=== PATIENT | female | born 1990 | race Caucasian/White ===

== ENCOUNTER → 2020-04-28 11:02 | Outpatient (REF) | payer OTHER, SELFPAY ==
--- NOTE | 2020-04-28 11:30 | CA_ITS ---
Transthoracic Echocardiogram Patient (Last, First, Middle): Bijan Pryor, Gender: Female Date of : 1990 Age: 30 Procedure Date: 04/28/2020 Procedure Type: Transthoracic Echocardiogram Location: OP Height: 160.02 cm Weight: 92.99 kg BSA: 1.95 m2 Heart Rate: bpm BP: 128 / 70 mmHg Fur Dry Cleaner: Edgar MD: Nino Will MD Sign Shop Supervisor: Nino Will MD Symptoms: R00.2 PALPITATIONS, R00.0 SINUS TACHYCARDIA Study Quality: Good ECG Rhythm: Sinus Conclusions: - Normal study Findings Left Ventricle Normal left ventricular size, thickness, and systolic function. The visually estimated ejection fraction is between 55-60%. Diastolic function is normal for age. Right Ventricle Normal right ventricular cavity size and systolic function. Atria Both atria are normal in size. There is no evidence of interatrial shunt. Aortic Valve Normal aortic valve structure and function. There is no aortic valve stenosis. There is no aortic valve regurgitation. Mitral Valve Normal mitral valve structure and function. There is trace mitral valve regurgitation. There is no mitral valve stenosis. Pulmonic Valve The pulmonic valve is likely normal. Tricuspid Valve Normal tricuspid valve structure. There is trace tricuspid valve regurgitation. The right ventricular systolic pressure is normal. The right ventricular systolic pressure is 24 mmHg. Normal right atrial pressure. There is no evidence of pulmonary hypertension. Great Vessels All visible segments of the aorta are normal in size. The pulmonary artery was not well visualized. Venous The inferior vena cava is normal in size and collapses greater than 50% with inspiration. Pericardium/Pleural There is no evidence of pericardial effusion. Prior Study Comparison No prior study available for comparison. Measurements 2D Linear Measurements RVIDd: 2.86 RVIDd Index: 1.47 IVSd: 0.84 0.6-0.9/0.6-1.0 cm LVIDd: 4.80 3.9-5.3/4.2-5.9 cm LVIDd Index: 2.46 2.4-3.2/2.2-3.1 cm/m2 LVIDs: 3.52 2.0-3.6 cm LVPWd: 0.90 0.7-1.1 cm Ao Root: 2.30 2.1-3.5 cm LA Diam: 3.20 2.7-3.8/3.0-4.0 cm LAIDs Index: 1.64 1.5-2.3 cm/m2 LV Mass: 176.83 67-162/88-224 g LV Mass Index: 90.68 43-95/49-115 g/m2 LVOT Diam: 2.10 3.0+(-)1.3 cm 2D Systolic Function EF 4C: 54.80 >55% EF 2C: 61.30 >55% EF BiP: 56.30 >55% Mitral Valve MV Pk E: 0.87 MV PK A: 0.60 MV Decel Time: 222.00 E/A: 1.50 E'Lateral: 18.50 E'Medial: 13.10 E/E' Med: 6.70 E/E' Lat: 4.70 PHT: 65.00 MVA PHT: 3.38 Decel [place]: 3.94 Aortic Valve AoV Pk Adrien: 1.12 AoV Mn Adrien: 0.82 AoV VTI: 0.20 AoV Pk Grad: 5.00 Aov Mn Grad: 3.00 YA Cont.VTI: 3.46 LVOT LVOT Pk Adrien: 0.97 LVOT Mn Adrien: 0.73 LVOT VTI: 0.20 LVOT Pk Grad: 4.00 LVOT Mn Grad: 2.00 LVOT Diam: 2.10 LVOT Area: 3.46 Diastolic Function MV Pk E: 0.87 MV Pk A: 0.60 E/A: 1.50 E'Medial: 13.10 E/E' Med: 6.70 E' Laterial: 18.50 E/E' Lat: 4.70 Tricuspid Valve TR Pk Adrien: 2.27 TR Pk Grad: 21.00 RA Press: 3.00 RVSP: 24.00 Great Vessels Aorta Ao Root-2D: 2.30 2.0-3.7 cm Ao Asc: 2.20 2.1-3.4 cm Ao Arch: 2.00 Updated in Other Vendor System with Status of Final Nino Will MD electronically signed on 04/28/2020 2:37:28 PM with status of Final
== END ==
LOC: HO.CARD 11:02
PROVIDERS: Visit Provider Internal Medicine Cardiovascular Disease
DX: R00.2 Palpitations (principal); R00.0 Tachycardia, unspecified
CPT/HCPCS: 93306

== ENCOUNTER → 2020-05-11 12:46 | Outpatient (REF) | payer OTHER, SELFPAY ==
--- NOTE | 2020-05-11 12:50 | HM_ITS ---
TEST PERFORMED: Cardiac event monitoring for 30 days. ENROLLMENT PERIOD: 05/11/2020 to 06/10/2020. REQUESTING PHYSICIAN: Dr. Will. INDICATION: Palpitations. FINDINGS: In the above monitoring period, the underlying rhythm was sinus. The recorded average rate is 96/min. There were no evidence of any supraventricular or ventricular arrhythmias or in fact any other abnormalities. CONCLUSION: Essentially unremarkable 30-day event monitor showing underlying sinus rhythm only. James Alvarez MD HS/MODL / [id number]
== END ==
LOC: HO.CARD 12:46
PROVIDERS: Visit Provider Internal Medicine Cardiovascular Disease
DX: R00.2 Palpitations (principal); R00.0 Tachycardia, unspecified
CPT/HCPCS: 93270

== ENCOUNTER 2020-05-16 16:40 | Outpatient (REF) | payer OTHER, SELFPAY | END 2020-05-16 16:41 | disposition home or self-care (01) | LOC: HO.LAB 16:40 | PROVIDERS: Visit Provider Internal Medicine | DX: Z20.828 Contact with and (suspected) exposure to other viral communicable diseases (principal) | CPT/HCPCS: C9803; U0003 ==

== ENCOUNTER 2020-05-26 15:40 | Outpatient (REF) | payer OTHER, SELFPAY | END 2020-05-26 15:41 | disposition home or self-care (01) | LOC: HO.LAB 15:40 | PROVIDERS: Visit Provider Internal Medicine | DX: Z20.828 Contact with and (suspected) exposure to other viral communicable diseases (principal) | CPT/HCPCS: C9803; U0003 ==

== ENCOUNTER → 2020-06-12 14:50 | Outpatient (BNVA) | payer OTHER, SELFPAY | PROVIDERS: PCP Internal Medicine; Referring Provider Internal Medicine; Visit Provider Internal Medicine Cardiovascular Disease | DX: Z76.89 Persons encountering health services in other specified circumstances (principal) ==

== ENCOUNTER 2020-06-14 16:35 | Outpatient (REF) | payer OTHER, SELFPAY | END 2020-06-14 16:36 | disposition home or self-care (01) | LOC: HO.LAB 16:35 | PROVIDERS: PCP Internal Medicine; Visit Provider Internal Medicine | DX: Z20.828 Contact with and (suspected) exposure to other viral communicable diseases (principal) | CPT/HCPCS: C9803; U0003 ==

== ENCOUNTER 2020-06-28 14:40 | Outpatient (REF) | payer OTHER, SELFPAY | END 2020-06-28 14:41 | disposition home or self-care (01) | LOC: HO.LAB 14:40 | PROVIDERS: PCP Internal Medicine; Visit Provider Internal Medicine | DX: Z20.828 Contact with and (suspected) exposure to other viral communicable diseases (principal) | CPT/HCPCS: C9803; U0003 ==

== ENCOUNTER → 2020-07-10 13:33 | Outpatient (BNVA) | payer OTHER, SELFPAY | PROVIDERS: PCP Internal Medicine; Referring Provider Internal Medicine; Visit Provider Internal Medicine Endocrinology, Diabetes & Metabolism | DX: Z76.89 Persons encountering health services in other specified circumstances (principal) ==

== ENCOUNTER 2020-07-10 14:04 | Outpatient (REF) | payer OTHER, SELFPAY | END 2020-07-10 14:05 | disposition home or self-care (01) | LOC: HO.LAB 14:04 | PROVIDERS: Visit Provider Internal Medicine | DX: Z20.822 Contact with and (suspected) exposure to COVID-19 (principal) | CPT/HCPCS: 36415; C9803; U0003 ==

== ENCOUNTER 2020-07-12 14:06 | Outpatient (REF) | payer OTHER, SELFPAY ==
[2020-07-12 15:35] LABS: TSH reflex Free T4 2.99 mIU/mL (0.32-4.0)
[2020-07-16 13:46] LABS: Vitamin D 25-OH, D2 <4 ng/mL; Vitamin D 25-OH, D3 23 ng/mL; Vitamin D 25-OH, Total 23 ng/mL (30-100)
== END 2020-07-12 14:07 | disposition home or self-care (01) ==
LOC: HO.LAB 14:06
PROVIDERS: Absent Provider Internal Medicine; PCP Internal Medicine; Visit Provider Internal Medicine Endocrinology, Diabetes & Metabolism
DX: E03.9 Hypothyroidism, unspecified (principal); E55.9 Vitamin D deficiency, unspecified
CPT/HCPCS: 36415; 82306; 84443

== ENCOUNTER → 2020-08-21 14:22 | Outpatient (BNVA) | payer OTHER, SELFPAY | PROVIDERS: PCP Internal Medicine; Referring Provider Internal Medicine; Visit Provider Internal Medicine Gastroenterology ==

== ENCOUNTER 2020-08-25 12:21 | Outpatient (REF) | payer OTHER, SELFPAY ==
[2020-08-25 14:10] LABS: MANUAL DIFF FLAG NO
[2020-08-25 14:13] LABS: Basophils Absolute Auto 0.1 X10*3/uL (0.0-0.2); Basophils Percent Auto 0.9 % (0-2); Eosinophils Absolute Auto 0.1 X10*3/uL (0.0-0.4); Eosinophils Percent Auto 1.6 % (0-4); Hemoglobin 12.7 g/dl (12.0-16.0); Imm Gran Abs Auto 0.02 X10*3/uL (0.00-0.03); Imm Gran Pct Auto 0.4 % (0.0-0.4); Lymphocytes Absolute Auto 1.6 X10*3/uL (1.2-4.9); Lymphocytes Percent Auto 27.4 % (20-40); Mean Corpuscular HGB Conc 32.6 g/dl (31.0-35.0); Mean Corpuscular Hemoglobin 29.1 pg (27.0-33.0); Mean Corpuscular Volume 89.2 fL (80-98); Mean Platelet Volume 9.4 fL (9.4-12.3); Monocytes Absolute Auto 0.6 X10*3/uL (0.1-1.2); Monocytes Percent Auto 9.9 % (2-11); Neutrophils Absolute Auto 3.4 X10*3/uL (2.0-8.3); Neutrophils Percent Auto 59.8 % (45-73); Platelet Count 362 X10*3/uL (160-400); Red Blood Count 4.37 X10*6/uL (4.20-5.50); Red Cell Distribution Width 12.6 % (11.0-16.0); White Blood Count 5.7 X10*3/uL (4.8-10.8)
[2020-08-25 15:01] LABS: Alanine Aminotransferase 35 U/L (0-31); Albumin Level 4.1 g/dL (3.5-5.0); Alkaline Phosphatase 50 U/L (39-117); Anion Gap 12 (12-20); Aspartate Amino Transferase 32 U/L (5-31); Bilirubin Total 0.4 mg/dL (0.0-1.0); Blood Urea Nitrogen 12 mg/dL (9-16); Calcium 9.1 mg/dL (8.4-10.2); Carbon Dioxide 26 mmol/L (22-29); Chloride 105 mmol/L (96-108); Estimated Glomerular Filt Rate > 60; Glucose Random 81 mg/dL (60-115); Potassium 4.5 mmol/L (3.3-5.1); Sodium 138 mmol/L (135-145); Total Protein 7.7 g/dL (6.5-8.0)
== END 2020-08-25 12:22 | disposition home or self-care (01) ==
LOC: HO.WFDLDS 12:21
PROVIDERS: Visit Provider Internal Medicine Gastroenterology
DX: K58.9 Irritable bowel syndrome, unspecified (principal)
CPT/HCPCS: 36415; 80053; 81382; 85025; 86140

== ENCOUNTER 2020-09-01 08:15 | Outpatient (REF) | payer OTHER, SELFPAY ==
[2020-09-01 08:53] LABS: Glucose Urine UA NEG (NEG); Leukocyte Esterase Urine NEG (NEG); Nitrite Urine NEG (NEG); PH 5.5 (5.0-8.0); Specific Gravity - Urine >= 1.030 (1.005-1.025); Urine Blood TRACE (NEG); Urine Ketones NEG (NEG); Urine Protein NEG (NEG-TRACE)
[2020-09-01 08:56] LABS: Appearance Urine CLEAR; Color Urine YELLOW
[2020-09-01 09:09] LABS: RBC Urine 0-2 /HPF (0); Squamous Epithelial Cell Urine 2+ /LPF; WBC Urine 0 /HPF (0-4)
[2020-09-01 09:47] LABS: TSH reflex Free T4 3.81 uIU/mL (0.32-4.0)
== END 2020-09-01 08:16 | disposition home or self-care (01) ==
LOC: HO.LAB 08:15
PROVIDERS: Absent Provider Internal Medicine Endocrinology, Diabetes & Metabolism; PCP Internal Medicine; Visit Provider Internal Medicine
DX: E06.3 Autoimmune thyroiditis (principal)
CPT/HCPCS: 36415; 81001; 84443

== ENCOUNTER 2020-09-13 08:54 | Outpatient (REF) | payer OTHER, SELFPAY ==
[2020-09-13 10:24] LABS: MANUAL DIFF FLAG NO
[2020-09-13 10:26] LABS: Basophils Percent Auto 0.8 % (0-2); Eosinophils Absolute Auto 0.1 X10*3/uL (0.0-0.4); Eosinophils Percent Auto 1.2 % (0-4); Hematocrit 37.2 % (37-47); Hemoglobin 12.1 g/dl (12.0-16.0); Imm Gran Abs Auto 0.01 X10*3/uL (0.00-0.03); Imm Gran Pct Auto 0.2 % (0.0-0.4); Lymphocytes Absolute Auto 1.3 X10*3/uL (1.2-4.9); Lymphocytes Percent Auto 24.5 % (20-40); Mean Corpuscular HGB Conc 32.5 g/dl (31.0-35.0); Mean Corpuscular Hemoglobin 28.8 pg (27.0-33.0); Mean Corpuscular Volume 88.6 fL (80-98); Mean Platelet Volume 9.2 fL (9.4-12.3); Monocytes Absolute Auto 0.4 X10*3/uL (0.1-1.2); Monocytes Percent Auto 8.4 % (2-11); Neutrophils Absolute Auto 3.3 X10*3/uL (2.0-8.3); Neutrophils Percent Auto 64.9 % (45-73); Platelet Count 344 X10*3/uL (160-400); Red Cell Distribution Width 13.1 % (11.0-16.0); White Blood Count 5.1 X10*3/uL (4.8-10.8)
[2020-09-13 10:41] LABS: Glucose Urine UA NEG (NEG); Leukocyte Esterase Urine NEG (NEG); Nitrite Urine NEG (NEG); PH 5.5 (5.0-8.0); Specific Gravity - Urine >= 1.030 (1.005-1.025); Urine Blood 1+ (NEG); Urine Ketones NEG (NEG); Urine Protein NEG (NEG-TRACE)
[2020-09-13 10:44] LABS: Appearance Urine HAZY; Color Urine YELLOW
[2020-09-13 10:57] LABS: Bacteria Urine TRACE /LPF; Mucus Urine 1+ /LPF; RBC Urine 0-2 /HPF (0); Squamous Epithelial Cell Urine 1+ /LPF; WBC Urine 0-2 /HPF (0-4)
[2020-09-13 11:28] LABS: Free T4 (Free Thyroxine) 0.89 ng/dL (0.71-1.85); Thyroid Stimulating Hormone 3.08 uIU/mL (0.32-4.0); Vitamin D 25-OH Total 33.2 ng/mL (>30)
[2020-09-13 14:23] LABS: CT PCR NOT DETECTED (Not Detect.); NG PCR NOT DETECTED (Not Detect.)
[2020-09-14 09:51] LABS: BV Int Neg Control Negative (Negative)
[2020-09-14 09:52] LABS: BV Int Pos Control Positive (Positive)
== END 2020-09-13 08:55 | disposition home or self-care (01) ==
LOC: HO.LAB 08:54
PROVIDERS: Internal Medicine Endocrinology, Diabetes & Metabolism; PCP Internal Medicine; Visit Provider Advanced Practice Midwife
DX: R10.2 Pelvic and perineal pain (principal); R39.15 Urgency of urination; Z32.02 Encounter for pregnancy test, result negative; Z20.2 Contact with and (suspected) exposure to infections with a predominantly sexual mode of transmission; E03.8 Other specified hypothyroidism; E06.3 Autoimmune thyroiditis; E55.9 Vitamin D deficiency, unspecified
CPT/HCPCS: 36415; 81001; 81003; 81025; 82306; 84439; 84443; 85025; 87480; 87491; 87510; 87591; 87660; 99212

== ENCOUNTER 2020-09-25 10:32 | Outpatient (REF) | payer OTHER, SELFPAY ==
--- NOTE | ~2020-09-25 | XR_ITS ---
EXAMINATION: XR LUMBOSACRAL SPINE CLINICAL INFORMATION: Lumbago with right sciatica. COMPARISON: 04/02/2018 TECHNIQUE: Three views of the lumbosacral spine. FINDINGS: There are 5 [id number] lumbar vertebra with vestigial T12 ribs. No acute fracture, spondylolisthesis, or spondylolysis is appreciated. Disc spaces are maintained. Pedicles intact. No destructive bony lesion appreciated. No significant abnormality of the sacroiliac joints is seen. Psoas margins intact. XR/XR lumbar spine 2-3V IMPRESSION: No significant bony abnormality of lumbosacral spine identified.
--- NOTE | ~2020-09-25 | US_ITS ---
EXAMINATION: US PELVIS COMPLETE CLINICAL INFORMATION: Pelvic and perineal pain. History of . COMPARISON: None TECHNIQUE: Transabdominal and transvaginal ultrasound of the pelvis is performed. FINDINGS: The uterus is retroverted and retroflexed measuring 8.3 cm in length, 4.0 cm AP and 4.7 cm in transverse dimension. The endometrial thickness is 0.5 cm. No focal lesions seen. The right ovary measures 2.4 x 2.1 x 1.8 cm and volume 4.8 mL. Previously right ovary measured 2.0 x 2.3 x 1.9 cm. The left ovary measures 2.4 x 1.8 x 1.3 cm and volume 2.9 mL. Previously left ovary measured 2.7 x 2.1 x 1.8 cm. There is a small amount of free fluid seen adjacent to the right ovary. Patient is unable to tolerate TV ultrasound. US/US pelvic complete IMPRESSION: Unremarkable uterus and cervix. Unremarkable ovaries. Minimal fluid surrounding the right ovary.
--- NOTE | ~2020-09-25 | US_ITS ---
EXAMINATION: US PELVIS COMPLETE CLINICAL INFORMATION: Pelvic and perineal pain. History of . COMPARISON: None TECHNIQUE: Transabdominal and transvaginal ultrasound of the pelvis is performed. FINDINGS: The uterus is retroverted and retroflexed measuring 8.3 cm in length, 4.0 cm AP and 4.7 cm in transverse dimension. The endometrial thickness is 0.5 cm. No focal lesions seen. The right ovary measures 2.4 x 2.1 x 1.8 cm and volume 4.8 mL. Previously right ovary measured 2.0 x 2.3 x 1.9 cm. The left ovary measures 2.4 x 1.8 x 1.3 cm and volume 2.9 mL. Previously left ovary measured 2.7 x 2.1 x 1.8 cm. There is a small amount of free fluid seen adjacent to the right ovary. Patient is unable to tolerate TV ultrasound. US/US transvaginal IMPRESSION: Unremarkable uterus and cervix. Unremarkable ovaries. Minimal fluid surrounding the right ovary.
--- NOTE | ~2020-09-25 | US_ITS ---
EXAMINATION: US THYROID CLINICAL INFORMATION: Vitamin D deficiency. COMPARISON: Ultrasound soft tissue head/neck thyroid dated 09/01/2019 TECHNIQUE: Linear transducer [id number] and color Doppler examination with attention to the region of the thyroid. FINDINGS: SIZE: Measurements of the thyroid lobes and nodules are given in sagittal, anteroposterior and transverse dimensions respectively. Right Thyroid Lobe: 6.2 x 2.7 x 2.3 cm, volume 19.3 mL. Previously 5.9 x 2.3 x 2.8 cm, volume 19.9 mL. Parenchyma: The gland echotexture is heterogeneous. Thyroid vascularity is increased. Left Thyroid Lobe: 6.2 x 2.4 x 2.0 cm, volume 15.8 mL. Previously 5.7 x 2.1 x 2.4 cm, volume 15.0 mL. Parenchyma: The gland echotexture is heterogeneous. Thyroid vascularity is increased. Isthmus: 0.8 cm in maximum AP dimension. Previously 0.5 cm. No focal thyroid nodule is seen. NODES: No lymphadenopathy is seen in the tissue surrounding the thyroid gland. US/US thyroid IMPRESSION: No thyroid nodule seen. Both thyroid lobes are heterogeneous and slightly hypervascular. ACR TI-RADS RECOMMENDATION REFERENCE: Ultrasound-guided fine-needle aspiration, followup ultrasound, no further follow up. * TR1 (0 point) and TR 2 (2 points): No FNA or follow up. * TR3 (3 points): FNA if more than or equal to 2.5 cm in maximum dimension, followup ultrasound in 1, 3 and 5 years if 1.5 to 2.4 cm in maximum dimension. * TR4 (4-6 points): FNA if more than or equal to 1.5 cm in maximum dimension, followup ultrasound in 1, 2, 3 and 5 years if 1 to 1.4 cm in maximum dimension. * TR5 (more than or equal to 7 points): FNA if more than or equal to 1 cm in maximum dimension, followup ultrasound every year for 5 years if 0.5 to 0.9 cm in maximum dimension. * TR3, TR4 or TR5 nodules that are below the size threshold for follow up receive no follow up.
[2020-09-25 12:03] LABS: MANUAL DIFF FLAG NO
[2020-09-25 12:09] LABS: Basophils Percent Auto 0.6 % (0-2); Eosinophils Absolute Auto 0.1 X10*3/uL (0.0-0.4); Eosinophils Percent Auto 1.9 % (0-4); Hematocrit 37.5 % (37-47); Hemoglobin 12.2 g/dl (12.0-16.0); Imm Gran Abs Auto 0.02 X10*3/uL (0.00-0.03); Imm Gran Pct Auto 0.4 % (0.0-0.4); Lymphocytes Absolute Auto 1.4 X10*3/uL (1.2-4.9); Lymphocytes Percent Auto 29.9 % (20-40); Mean Corpuscular HGB Conc 32.5 g/dl (31.0-35.0); Mean Corpuscular Hemoglobin 29.1 pg (27.0-33.0); Mean Corpuscular Volume 89.5 fL (80-98); Mean Platelet Volume 9.7 fL (9.4-12.3); Monocytes Absolute Auto 0.5 X10*3/uL (0.1-1.2); Monocytes Percent Auto 10.2 % (2-11); Neutrophils Absolute Auto 2.7 X10*3/uL (2.0-8.3); Platelet Count 338 X10*3/uL (160-400); Red Blood Count 4.19 X10*6/uL (4.20-5.50); White Blood Count 4.8 X10*3/uL (4.8-10.8)
[2020-09-25 13:13] LABS: Alanine Aminotransferase 14 U/L (0-31); Albumin Level 3.9 g/dL (3.5-5.0); Alkaline Phosphatase 46 U/L (39-117); Anion Gap 11 (12-20); Aspartate Amino Transferase 15 U/L (5-31); Bilirubin Total 0.5 mg/dL (0.0-1.0); Calcium 8.4 mg/dL (8.4-10.2); Carbon Dioxide 26 mmol/L (22-29); Chloride 105 mmol/L (96-108); Cholesterol 157 mg/dL; Erythrocyte Sedimentation Rate 12 MM/HR (0-20); Estimated Glomerular Filt Rate > 60; Glucose Fasting 71 mg/dL (60-99); HDL Cholesterol 44 mg/dL; LDL Cholesterol Calculated 79 mg/dl; Rheumatoid Factor < 15.0 IU/mL (<15.0); Sodium 138 mmol/L (135-145); Total Protein 7.4 g/dL (6.5-8.0); Triglycerides 171 mg/dL
[2020-09-25 13:33] LABS: Blood Urea Nitrogen 9 mg/dL (9-16)
== END 2020-09-25 10:33 | disposition home or self-care (01) ==
LOC: HO.US 10:32
PROVIDERS: Absent Provider Internal Medicine Endocrinology, Diabetes & Metabolism; PCP Internal Medicine; Referring Provider Nurse Practitioner Family; Visit Provider Advanced Practice Midwife
DX: R10.2 Pelvic and perineal pain (principal); M54.41 Lumbago with sciatica, right side; E55.9 Vitamin D deficiency, unspecified
CPT/HCPCS: 36415; 72100; 76536; 76830; 76856; 80053; 80061; 85025; 85652; 86431

== ENCOUNTER → 2020-10-09 11:28 | Outpatient (BNVA) | payer OTHER, SELFPAY | PROVIDERS: PCP Internal Medicine; Visit Provider Advanced Practice Midwife ==

== ENCOUNTER → 2020-11-28 10:04 | Outpatient (BNVA) | payer OTHER, SELFPAY | PROVIDERS: PCP Internal Medicine; Visit Provider Nurse Practitioner Family ==

== ENCOUNTER 2020-12-04 10:23 | Outpatient (REF) | payer OTHER, SELFPAY ==
[2020-12-04 11:54] LABS: C Reactive Protein 0.18 mg/dL (< or = 0.50)
[2020-12-11 22:22] LABS: Transglutaminase Ab IgG 3 U/mL; Transglutaminase IgA 1 U/mL
== END 2020-12-04 10:24 | disposition home or self-care (01) ==
LOC: HO.LAB 10:23
PROVIDERS: PCP Internal Medicine; Visit Provider Nurse Practitioner Family
DX: R10.11 Right upper quadrant pain (principal); R19.7 Diarrhea, unspecified
CPT/HCPCS: 36415; 83516; 86140

== ENCOUNTER 2020-12-05 12:44 | Outpatient (REF) | payer OTHER, SELFPAY ==
[2020-12-05 13:32] LABS: CDIFF Ag Negative (Negative); CDIFF Internal ctrl Dots and bkg OK (V); CDiff Toxin Negative (Negative)
== END 2020-12-05 12:45 | disposition home or self-care (01) ==
LOC: HO.LNP 12:44
PROVIDERS: Visit Provider Nurse Practitioner Family
DX: K21.9 Gastro-esophageal reflux disease without esophagitis (principal); R19.7 Diarrhea, unspecified
CPT/HCPCS: 87045; 87046; 87177; 87209; 87324; 87338; 87449

== ENCOUNTER → 2020-12-13 14:58 | Outpatient (BNVA) | payer OTHER, SELFPAY | PROVIDERS: Visit Provider Nurse Practitioner Family | DX: K58.9 Irritable bowel syndrome, unspecified (principal); R14.0 Abdominal distension (gaseous) | CPT/HCPCS: 99212 ==

== ENCOUNTER 2021-01-08 11:59 | Outpatient (REF) | payer OTHER, SELFPAY ==
[2021-01-08 14:27] LABS: Free T4 (Free Thyroxine) 0.98 ng/dL (0.71-1.85); Thyroid Stimulating Hormone 1.71 uIU/mL (0.32-4.0); Vitamin D 25-OH Total 43.3 ng/mL (>30)
[2021-01-11 16:11] LABS: TS Negative Control Passed; TS Panel A 0; TS Panel B 0; TS Positive Control Passed; TSpotTB Negative (SeeBelow)
== END 2021-01-08 12:00 | disposition home or self-care (01) ==
LOC: HO.LAB 11:59
PROVIDERS: PCP Internal Medicine; Referring Provider Internal Medicine; Visit Provider Internal Medicine Endocrinology, Diabetes & Metabolism
DX: Z11.1 Encounter for screening for respiratory tuberculosis (principal); E03.8 Other specified hypothyroidism; E04.9 Nontoxic goiter, unspecified; E06.3 Autoimmune thyroiditis; E55.9 Vitamin D deficiency, unspecified
CPT/HCPCS: 36415; 82306; 84439; 84443; 86481; 99212

== ENCOUNTER 2021-01-11 22:46 | Emergency (ER) | payer OTHER, SELFPAY ==
--- NOTE | ~2021-01-11 | CT_ITS ---
EXAMINATION: CT ABDOMEN AND PELVIS WITHOUT CONTRAST CLINICAL INFORMATION: Right flank pain, question stone COMPARISON: None TECHNIQUE: Multidetector volumetric imaging was performed from the superior aspect of the liver through the pubic symphysis. Sagittal and coronal reformatted images were obtained on the technologist's workstation. This CT examination was performed using dose optimization techniques as appropriate, variously including the following: *Automated exposure control *Adjustment of mA and/or kV according to patient size (this includes techniques or standardized protocols for targeted exams where dose is matched to indication/reason for exam; i.e. extremities or head) *Use of iterative reconstruction technique DLP: 922 mGy-cm FINDINGS: LUNG BASES: The visualized lung bases are unremarkable. LIVER, GALLBLADDER, AND BILIARY TREE: The liver is normal in size, shape, and attenuation. No focal hepatic lesion or biliary ductal dilatation is present. The gallbladder is unremarkable with no evidence of radiopaque gallstones, gallbladder wall thickening, or obvious pericholecystic inflammatory changes. PANCREAS: Unremarkable. SPLEEN: Unremarkable. ADRENAL GLANDS: Unremarkable. KIDNEYS AND URETERS: The kidneys are normal in size, shape, and attenuation. No hydronephrosis, hydroureter, or calculi seen. BLADDER: Empty and not adequately evaluated. GASTROINTESTINAL TRACT: The small and large bowel are unremarkable. The appendix appears collapsed. No free fluid or free air is seen. ABDOMINAL WALL: No significant hernia is appreciated. LYMPH NODES: Normal. VASCULAR: Unremarkable. PELVIC VISCERA: Unremarkable. OSSEOUS STRUCTURES: Unremarkable. CT/CT abdomen pelvis wo con IMPRESSION: No acute findings identified in the abdomen/pelvis.
--- NOTE | 2021-01-11 23:40 | ED.ABDPAIN ---
HPI - Abdominal Pain General Chief Complaint: Abdominal Pain Stated Complaint: abd pain ? kidney stones Time Seen by Provider: 01/11/21 23:40 Source: patient Mode of arrival: ambulatory Limitations: no limitations History of Present Illness HPI narrative: Patient with no known history of kidney stone noticed sudden onset of pain at 13:00 today on right flank area with slight nausea pain is sharp constant pain getting worse in between no hematuria no dysuria never had similar pain in the past denies any shortness of breath. Related Data Home Medications Medication Instructions Recorded Confirmed fluoxetine 10 mg capsule 10 mg PO DAILY 06/12/20 01/08/21 loratadine 10 mg tablet 10 mg PO DAILY 12/13/20 01/08/21 Previous Rx's Medication Instructions Recorded ascorbic acid (vitamin C) 500 mg 500 mg PO DAILY 90 Days #90 cap 06/01/20 capsule cyclobenzaprine 10 mg tablet 10 mg PO BEDTIME PRN 30 Days #30 09/20/20 tab dicyclomine 20 mg tablet 20 mg PO TID #90 tab 12/13/20 omeprazole 20 mg capsule,delayed 20 mg PO BEDTIME #30 cap 12/13/20 release psyllium husk 0.52 gram capsule 0.52 g PO BID #30 cap 12/13/20 cholecalciferol (vitamin D3) 50 100 mcg PO DAILY 30 Days #60 cap 01/08/21 mcg (2,000 unit) capsule levothyroxine 50 mcg capsule 50 mcg PO DAILY 30 Days #30 cap 01/08/21 cyclobenzaprine 10 mg PO Q8H #20 tab 01/12/21 tramadol 50 mg PO Q6H PRN #20 tab 01/12/21 Allergies Allergy/AdvReac Type Severity Reaction Status Date / Time animal dander [ANIMAL DANDER] Allergy Intermediate RASH Verified 01/08/21 12:23 RYE Allergy Intermediate RASH Uncoded 01/04/21 10:38 plants Allergy Mild Rash Uncoded 01/04/21 10:38 wheat, grains, rye Allergy Mild Rash Uncoded 01/04/21 10:38 Review of Systems Review of Systems Yes all other systems are reviewed and are negative Physical Exam Vital Signs: Vital Signs: Last Vital Signs Pulse 69 01/12/21 00:00 Resp 16 01/12/21 01:05 BP 113/68 01/12/21 00:00 Pulse Ox 100 01/12/21 00:00 Appearance: Alert. Oriented X3. Moderate distress. Eyes: PERRLA, No Nystagmus ENT: Pharynx normal. Oral Mucosa moist Neck: Normal inspection. Neck supple. CVS: Normal heart rate and rhythm. Pulses normal. Respiratory: No respiratory distress. Equal air entry bilateral, no wheezing/rales/rhonchi Abdomen: Soft and nontender. Bowel sounds are present, no mass palpable, right CVA tenderness Skin: Skin warm and dry. Normal skin color. Normal skin turgor. Extremities: No lower extremity edema. No calf tenderness Neuro: Oriented X 3. No motor deficit. MDM - Abdominal Pain MDM Narrative Medical decision making narrative: Patient right-sided back pain CT scan negative for any kidney stone urine is negative for infection likely musculoskeletal pain will discharge patient home on muscle relaxant and pain medication , patient does have chronic right sciatic pain likely the cause of pain today Lab Data Attestation: I reviewed the patient's lab results. Result diagrams: 01/12/21 01:00 01/12/21 01:00 Labs: Lab Results 01/12/21 01/12/21 01/12/21 Range/Units 01:00 01:00 01:04 WBC 5.9 (4.8-10.8) X10*3/uL RBC 4.29 (4.20-5.50) X10*6/uL Hgb 12.2 (12.0-16.0) g/dl Hct 38.1 (37-47) % MCV 88.8 (80-98) fL MCH 28.4 (27.0-33.0) pg MCHC 32.0 (31.0-35.0) g/dl RDW 14.0 (11.0-16.0) % Plt Count 337 (160-400) X10*3/uL MPV 9.1 L (9.4-12.3) fL Immature Gran % (Auto) 0.2 (0.0-0.4) % Neut % (Auto) 52.0 (45-73) % Lymph % (Auto) 36.5 (20-40) % Milam % (Auto) 8.1 (2-11) % Eos % (Auto) 2.4 (0-4) % Baso % (Auto) 0.8 (0-2) % Lymph # (Auto) 2.2 (1.2-4.9) X10*3/uL Milam # (Auto) 0.5 (0.1-1.2) X10*3/uL Eos # (Auto) 0.1 (0.0-0.4) X10*3/uL Baso # (Auto) 0.1 (0.0-0.2) X10*3/uL Abs Immat Gran (auto) 0.01 (0.00-0.03) X10*3/uL Absolute Neuts (auto) 3.1 (2.0-8.3) X10*3/uL Absolute Nucleated RBC 0.000 (0.0-0.012) X10*3/uL Nucleated RBC % (auto) 0.0 (0.0-0.2) /100WBC Sodium 139 (135-145) mmol/L Potassium 4.3 (3.3-5.1) mmol/L Chloride 108 (96-108) mmol/L Carbon Dioxide 25 (22-29) mmol/L Anion Gap 10 L (12-20) BUN 11 (9-16) mg/dL Creatinine 0.81 (0.5-1.4) mg/dL Estim Creat Clear Calc TNP Estimated GFR > 60 Random Glucose 88 (60-115) mg/dL Calcium 9.0 D (8.4-10.2) mg/dL Urine Test NEGATIVE (NEGATIVE) Discharge Plan Discharge Clinical Impression: Back strain Qualifiers: Encounter type: initial encounter Qualified Code(s): S39.012A - Strain of muscle, fascia and tendon of lower back, initial encounter Patient Disposition: Home, Self-Care Instructions: Low Back Strain (ED) Additional Instructions: Take pain medication and muscle relaxant as advised. Follow up with PCP if not better Prescriptions: New cyclobenzaprine 10 mg tablet 10 mg PO Q8H Qty: 20 RF: 0 tramadol 50 mg tablet 50 mg PO Q6H PRN (Reason: pain) Qty: 20 RF: 0 No Action ascorbic acid (vitamin C) 500 mg capsule 500 mg PO DAILY 90 Days Qty: 90 RF: 3 cyclobenzaprine 10 mg tablet 10 mg PO BEDTIME PRN (Reason: muscle spasm) 30 Days Qty: 30 RF: 0 cholecalciferol (vitamin D3) 50 mcg (2,000 unit) capsule 100 mcg PO DAILY 30 Days Qty: 60 RF: 3 levothyroxine 50 mcg capsule 50 mcg PO DAILY 30 Days Qty: 30 RF: 6 loratadine 10 mg tablet 10 mg PO DAILY RF: 0 psyllium husk [Metamucil] 0.52 gram capsule 0.52 g PO BID Qty: 30 RF: 4 dicyclomine 20 mg tablet 20 mg PO TID Qty: 90 RF: 3 omeprazole 20 mg capsule,delayed release(DR/EC) 20 mg PO BEDTIME Qty: 30 RF: 3 fluoxetine 10 mg capsule 10 mg PO DAILY RF: 0 Print Language: Nepali [facility] Past Medical History Medical History Anxiety and depression Back pain Cervical lymphadenopathy Goiter Lexi's disease Hypothyroidism IBS (irritable colon syndrome) Left foot pain Nasal congestion Obese Snoring Vitamin D deficiency Surgical History H/O foot surgery H/O tubal ligation History of 2 sections History of lumpectomy of left breast Hx of colonoscopy Family History Family History Father No problems noted. Mother HTN (hypertension) Diabetes Maternal Grandmother Diabetes HTN (hypertension) Social History Social History Household Members: Children Household Members Other:: 2 children--8 and 10 yr old Housing: Apartment Alcohol intake: current Alcohol intake frequency: holidays/special occasions only Alcohol type: beer Patient Tobacco Use Status: Former Tobacco user Tobacco use type: Cigarette e-Cigarette/Vaping Use: Never Used Second Hand Smoke Exposure: No Advance Directives: No service: No Current occupational status: unemployed
[2021-01-12] VITALS: BP 113/68; PULSE 69; RESP 16; O2SAT 100
[2021-01-12 01:05] VITALS: RESP 16
[2021-01-12] MEDS: Morphine Sulfate 4 MG/ML CARTRIDGE IVPUSH (01:05)
[2021-01-12] MEDS: ondansetron HCL 4 MG/2 ML VIAL IVPUSH (01:05)
[2021-01-12] MEDS: 0.9 % Sodium Chloride 1,000 ML 999 ML IVCONT (01:06)
[2021-01-12 01:13] LABS: MANUAL DIFF FLAG NO
[2021-01-12 01:14] LABS: Basophils Absolute Auto 0.1 X10*3/uL (0.0-0.2); Basophils Percent Auto 0.8 % (0-2); Eosinophils Absolute Auto 0.1 X10*3/uL (0.0-0.4); Eosinophils Percent Auto 2.4 % (0-4); Hematocrit 38.1 % (37-47); Hemoglobin 12.2 g/dl (12.0-16.0); Imm Gran Abs Auto 0.01 X10*3/uL (0.00-0.03); Imm Gran Pct Auto 0.2 % (0.0-0.4); Lymphocytes Absolute Auto 2.2 X10*3/uL (1.2-4.9); Lymphocytes Percent Auto 36.5 % (20-40); Mean Corpuscular Hemoglobin 28.4 pg (27.0-33.0); Mean Corpuscular Volume 88.8 fL (80-98); Mean Platelet Volume 9.1 fL (9.4-12.3); Monocytes Absolute Auto 0.5 X10*3/uL (0.1-1.2); Monocytes Percent Auto 8.1 % (2-11); Neutrophils Absolute Auto 3.1 X10*3/uL (2.0-8.3); Platelet Count 337 X10*3/uL (160-400); Red Blood Count 4.29 X10*6/uL (4.20-5.50); White Blood Count 5.9 X10*3/uL (4.8-10.8)
[2021-01-12 01:17] LABS: UPreg QC Valid YES; Urine Pregnancy NEGATIVE (NEGATIVE)
[2021-01-12 01:40] LABS: Anion Gap 10 (12-20); Blood Urea Nitrogen 11 mg/dL (9-16); Carbon Dioxide 25 mmol/L (22-29); Chloride 108 mmol/L (96-108); Estimated Glomerular Filt Rate > 60; Glucose Random 88 mg/dL (60-115); Potassium 4.3 mmol/L (3.3-5.1); Sodium 139 mmol/L (135-145)
--- NOTE | 2021-01-12 01:51 | PC.NURSE ---
VERBAL ORDER TO NOT GIVE THE TORADOL
[2021-01-12] MEDS: traMADoL HCL 50 MG TABLET PO (02:02)
== END 2021-01-12 02:04 | disposition home or self-care (01) ==
PROVIDERS: Emergency Provider Internal Medicine; PCP Internal Medicine
DX: S39.012A Strain of muscle, fascia and tendon of lower back, initial encounter (principal); X58.XXXA Exposure to other specified factors, initial encounter; Y93.9 Activity, unspecified; Y92.9 Unspecified place or not applicable; Y99.9 Unspecified external cause status
CPT/HCPCS: 36415; 74176; 80048; 81025; 85025; 87086; 96361; 96374; 96375; 99284; J2270; J2405

== ENCOUNTER 2021-03-17 18:12 | Emergency (ER) | payer OTHER, SELFPAY ==
[2021-03-17 18:40] VITALS: BP 105/77; PULSE 88; RESP 16; TEMP 36.9; O2SAT 98; BMI 35.4
== END 2021-03-17 21:49 | disposition left against medical advice (07) ==
PROVIDERS: Emergency Provider Emergency Medicine; PCP Internal Medicine
DX: R51.9 Headache, unspecified (principal)
CPT/HCPCS: 99281; 99282

== ENCOUNTER 2021-04-24 16:57 | Emergency (ER) | payer OTHER, SELFPAY ==
--- NOTE | ~2021-04-24 | XR_ITS ---
EXAMINATION: XR ANKLE, RIGHT CLINICAL INFORMATION: Right ankle pain status post fall. COMPARISON: 04/29/2017 TECHNIQUE: AP, lateral, and mortise views of the right ankle. FINDINGS: Soft tissues are swollen. Bone mineralization is normal. Ankle mortise is symmetric. As seen on the AP view, there is a small 4 mm ossific fragment near the tip of the lateral malleolus which may correspond to a small avulsion fracture. No additional fractures are suspected. XR/XR ankle RT 2V IMPRESSION: Probable small avulsion fracture at the tip of the lateral malleolus. No additional fractures. Soft tissues are swollen.
[2021-04-24 17:05] VITALS: BP 118/66; PULSE 94; RESP 18; TEMP 36.8; O2SAT 99; BMI 31.5
--- NOTE | 2021-04-24 17:19 | ED_ITS ---
HPI - Extremity Injury (Lower) General Chief Complaint: Extremity Injury, Lower Stated Complaint: ankle injury Time Seen by Provider: 04/24/21 17:17 Source: patient Mode of arrival: EMS Limitations: no limitations History of Present Illness HPI Narrative: Was coming downstairs patient lost balance and fell down came with pain and swelling of the right ankle unable to ambulate because of pain received fentanyl EN route by EMS Related Data Home Medications Medication Instructions Recorded Confirmed fluoxetine 10 mg capsule 10 mg PO DAILY 06/12/20 01/15/21 loratadine 10 mg tablet 10 mg PO DAILY 12/13/20 01/15/21 Previous Rx's Medication Instructions Recorded ascorbic acid (vitamin C) 500 mg 500 mg PO DAILY 90 Days #90 cap 06/01/20 capsule cyclobenzaprine 10 mg tablet 10 mg PO BEDTIME PRN 30 Days #30 09/20/20 tab dicyclomine 20 mg tablet 20 mg PO TID #90 tab 12/13/20 omeprazole 20 mg capsule,delayed 20 mg PO BEDTIME #30 cap 12/13/20 release psyllium husk 0.52 gram capsule 0.52 g PO BID #30 cap 12/13/20 (Metamucil) cholecalciferol (vitamin D3) 50 100 mcg PO DAILY 30 Days #60 cap 01/08/21 mcg (2,000 unit) capsule levothyroxine 50 mcg capsule 50 mcg PO DAILY 30 Days #30 cap 01/08/21 cyclobenzaprine 10 mg tablet 10 mg PO Q8H #20 tab 01/12/21 tramadol 50 mg tablet 50 mg PO Q6H PRN #20 tab 01/12/21 prednisone 20 mg tablet 20 mg PO .COMPLEX #18 tab 01/15/21 tramadol 50 mg tablet 50 mg PO Q4-6H PRN #14 tab 01/15/21 ibuprofen 600 mg tablet 600 mg PO Q6H PRN #20 tab 04/24/21 tramadol 50 mg tablet 50 mg PO Q6H PRN #20 tab 04/24/21 Allergies Allergy/AdvReac Type Severity Reaction Status Date / Time animal dander [ANIMAL DANDER] Allergy Intermediate RASH Verified 01/15/21 16:24 RYE Allergy Intermediate RASH Uncoded 01/15/21 16:24 plants Allergy Mild Rash Uncoded 01/15/21 16:24 wheat, grains, rye Allergy Mild Rash Uncoded 01/15/21 16:24 Review of Systems Review of Systems: Yes all other systems are reviewed and are negative [facility] Past Medical History Medical History Anxiety and depression Back pain Cervical lymphadenopathy Goiter Lexi's disease Hypothyroidism IBS (irritable colon syndrome) Left foot pain Nasal congestion Obese Snoring Vitamin D deficiency Surgical History H/O foot surgery H/O tubal ligation History of 2 sections History of lumpectomy of left breast Hx of colonoscopy Family History Family History Father No problems noted. Mother HTN (hypertension) Diabetes Maternal Grandmother Diabetes HTN (hypertension) Social History Social History Household Members: Children Household Members Other:: 2 children--8 and 10 yr old Housing: Apartment Alcohol intake: never Patient Tobacco Use Status: Former Tobacco user Tobacco use type: Cigarette Smoked in Last 30 Days: No e-Cigarette/Vaping Use: Never Used Second Hand Smoke Exposure: No Use of substances other than those prescribed or required for medical reasons: No Advance Directives: No Advance Directives Information Provided: No Patient : No service: No Current occupational status: unemployed Physical Exam Vital Signs: Vital Signs: Last Vital Signs Temp 98.2 F 04/24/21 17:05 Pulse 89 04/24/21 18:00 Resp 18 04/24/21 18:00 BP 119/75 04/24/21 18:00 Pulse Ox 99 04/24/21 18:00 Body Mass Index 31.5 Const: General: well developed and acute distress HENMT: Head: Yes normocephalic and Yes atraumatic Extrem: Ankle/foot/toe images: 1. Swelling and tenderness right malleolus, neurovascular intact MDM - Extremity Injury (Lower) MDM Narrative Medical decision making narrative: X-ray with slight avulsion fracture of right lateral malleolus no deformity short-leg splint was applied patient was given crutches advised to follow with PCP/orthopedic Procedures Orthopedic Splinting/Casting Injury #1: Side: right Lower Extremity Injury Location: ankle Lower Extremity Immobilizer: posterior splint Other Orthopedic Equipment: crutches Discharge Plan Discharge Clinical Impression: Ankle sprain and strain Patient Disposition: Home, Self-Care Instructions: Ankle Sprain (ED) Additional Instructions: Wear the splint for support , use crutches for ambulation Pain medication as advised Follow-up with your PCP/Orthopedics Prescriptions: New tramadol 50 mg tablet 50 mg PO Q6H PRN (Reason: pain) Qty: 20 RF: 0 ibuprofen 600 mg tablet 600 mg PO Q6H PRN (Reason: pain) Qty: 20 RF: 0 No Action ascorbic acid (vitamin C) 500 mg capsule 500 mg PO DAILY 90 Days Qty: 90 RF: 3 cyclobenzaprine 10 mg tablet 10 mg PO Q8H Qty: 20 RF: 0 tramadol 50 mg tablet 50 mg PO Q6H PRN (Reason: pain) Qty: 20 RF: 0 cyclobenzaprine 10 mg tablet 10 mg PO BEDTIME PRN (Reason: muscle spasm) 30 Days Qty: 30 RF: 0 prednisone 20 mg tablet 20 mg PO .COMPLEX Qty: 18 RF: 0 tramadol 50 mg tablet 50 mg PO Q4-6H PRN (Reason: pain) Qty: 14 RF: 0 cholecalciferol (vitamin D3) 50 mcg (2,000 unit) capsule 100 mcg PO DAILY 30 Days Qty: 60 RF: 3 levothyroxine 50 mcg capsule 50 mcg PO DAILY 30 Days Qty: 30 RF: 6 loratadine 10 mg tablet 10 mg PO DAILY RF: 0 psyllium husk [Metamucil] 0.52 gram capsule 0.52 g PO BID Qty: 30 RF: 4 dicyclomine 20 mg tablet 20 mg PO TID Qty: 90 RF: 3 omeprazole 20 mg capsule,delayed release(DR/EC) 20 mg PO BEDTIME Qty: 30 RF: 3 fluoxetine 10 mg capsule 10 mg PO DAILY RF: 0 Referrals: Francisco Yanez MD [Physician] - 2 weeks Stand Alone Forms: Work/School Release Interventions: ED Discharge Assessment Last Done: 04/24/21 19:25 Discharge Date/Time: 04/24/21 19:27
[2021-04-24 18:00] VITALS: BP 119/75; PULSE 89; RESP 18; O2SAT 99
[2021-04-24] MEDS: ondansetron HCL 4 MG/2 ML VIAL IVPUSH (18:13)
[2021-04-24] MEDS: Morphine Sulfate 4 MG/ML CARTRIDGE IVPUSH (18:13)
== END 2021-04-24 19:27 | disposition home or self-care (01) ==
PROVIDERS: Emergency Provider Internal Medicine
DX: S93.491A Sprain of other ligament of right ankle, initial encounter (principal); S96.911A Strain of unspecified muscle and tendon at ankle and foot level, right foot, initial encounter; W10.9XXA Fall (on) (from) unspecified stairs and steps, initial encounter; Y93.89 Activity, other specified; Y92.038 Other place in apartment as the place of occurrence of the external cause; Y99.9 Unspecified external cause status
CPT/HCPCS: 29515; 73600; 96374; 96375; 99284; J2270; J2405

== ENCOUNTER → 2021-04-26 13:48 | Outpatient (BNVA) | payer OTHER, SELFPAY | PROVIDERS: Visit Provider Physician Assistant | DX: S93.491A Sprain of other ligament of right ankle, initial encounter (principal) | CPT/HCPCS: 99202 ==

== ENCOUNTER → 2021-05-10 12:52 | Outpatient (BNVA) | payer OTHER, SELFPAY | PROVIDERS: Visit Provider Physician Assistant | DX: S82.891D Other fracture of right lower leg, subsequent encounter for closed fracture with routine healing (principal) | CPT/HCPCS: 99212 ==

== ENCOUNTER 2021-05-16 14:17 | Outpatient (REF) | payer OTHER, SELFPAY ==
--- NOTE | ~2021-05-16 | MM_ITS ---
EXAMINATION: MM DIAGNOSTIC DIGITAL BREAST TOMOSYNTHESIS, BILATERAL US DIAGNOSTIC ULTRASOUND BREAST, LEFT CLINICAL INFORMATION: 31-year-old with palpable concern posterior upper outer left breast for 2-3 weeks. 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 No known family history breast cancer. The lifetime risk of breast cancer based on the Tyrer-Cuzick Model is 9%. COMPARISON: Mammography: 06/16/2019 TECHNIQUE: Digital breast tomosynthesis is performed in both the craniocaudal and mediolateral oblique views along with computer-aided detection (CAD). Synthesized 2D images are generated from the tomosynthesis. Additional views of the left breast are obtained: Exaggerated CC, spot ML x2. Ultrasound left breast is targeted to the area of clinical concern upper outer quadrant. Patient is able to point to area of concern at time of imaging. Grayscale imaging and color Doppler are performed without and with harmonics. FINDINGS: The breasts are heterogeneously dense, which may obscure small masses (ACR BI-RADS breast composition Category c). There are no significant masses, abnormal calcifications, or other abnormalities. There is no mammographic correlate for patient's symptoms. Biopsy clip marker is seen just beneath the skin anterior upper outer left breast. There is no skin thickening or coarsening of the Jac's ligaments. The axilla are unremarkable. Ultrasound left breast demonstrates no cystic or solid mass or architectural abnormality. No focal duct ectasia. No skin thickening or edema tracking in the soft tissue planes. Results are discussed with the patient at time of visit using an road supervisor. MM/MM tomosynthesis diagnostic BI IMPRESSION: No mammographic evidence of malignancy. Unremarkable targeted left breast ultrasound. ASSESSMENT: BI-RADS 1: Negative RECOMMENDATION: 1. Patient should be managed based on the clinical impression. If clinically indicated, further evaluation may be considered with surgical consult. Decision to proceed with biopsy should be based on clinical grounds and degree of clinical concern. 2. Otherwise, routine annual screening mammography, beginning age 40 or earlier as clinical risk factors warrant. This patient's information was entered into a reminder system with a target due date for their next mammogram.
== END 2021-05-16 14:18 | disposition home or self-care (01) ==
LOC: HO.MAMMO 14:17
PROVIDERS: Visit Provider Internal Medicine
DX: N64.4 Mastodynia (principal)
CPT/HCPCS: 76642; 77062; 77066

== ENCOUNTER 2021-05-28 10:00 | Outpatient (RCR) | payer OTHER, SELFPAY ==
--- NOTE | 2021-05-16 12:22 | MHC.PT.EP ---
[facility] [place] Office [place] Office [place] Office [address] S[address] [phone] F: [phone] F: [phone] F: [phone] F: [phone] Physical Therapy Plan of Care Date of Evaluation: Date of Surgery: NA Diagnosis: AVULSION FRACTURE R LATERAL MALLEOLUS Assessment: Pt IS 31 YO F REFERRED TO PT FROM [facility] WITH AVULSION FX R LAT MALLEOLUS AFTER A FALL ON LAST STEP ON 04/24/21. Pt RPRESENTS TO PT WITH WALKING BOOT BUT NO CRUTCHES, LIMP NOTED. WITHOUT BOOT DECREASED HEEL STIKE AND TOE PUSH OFF (PF) ON R WITH GT. Pt WITH LIMITED ANKLE ROM AND LIMITED ANKLE STRENGTH ON R WITH C/O PAIN. 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 Pt ED THAT THIS PAIN MAY BE REFERRED PAIN BECAUSE OF ANTALGIC GT PATTERN AND SHOULD IMPROVE ANKLE ROM/STRENGTH INCREASE AND PAIN LEVELS DECREASE. IF THIS LEG PAIN CONTINUES, MAY NEED FURTHER EVALUATION OF R KNEE/HIP/LB FROM FALL. 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 GOOD PT CANDIDATE TO ADDRESS THESE ISSUES. Frequency and Duration: The patient will be seen 2X/WK X 8 WKS Short Term Goals: 1. INCREASED AWARENESS ANKLE CARE 2. IMPROVED GT PATTERN WITHOUT BOOT 3. 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 INCREASED R ANKLE ROM DF TO 10 DEGREES, PF TO 45 DEGREES, INV 10 DEGREES, EVERSION 5 DEGREES 2. INCREASED R ANKLE STRENGTH 1/2-1 MM GRADE T/O 3. DECREASED SWELLING NOTED R ANKLE 4. DECREASED R ANKLE PAIN AT LEAST 50% WITH ADLS Treatment Plan: Modalities to reduce pain, spasms and effusion. Manual therapy to restore motion and function. Therapeutic exercise to improve strength and flexibility. Neuromuscular re-education for posture and balance. Therapeutic activities to return to functional activities of daily living. Electronically signed by: PRUDENCE CHRISTINE PT Please sign and return to therapist. Thank you for your referral.
--- NOTE | 2021-09-05 08:48 | MHC.PT.DC ---
[facility] [place] Office [place] Office [place] Office [address] Melo Serna [address] [phone] F: [phone] F: [phone] F: [phone] F: [phone] Physical Therapy Discharge Report Diagnosis: AVULSION FRACTURE R LATERAL MALLEOLUS Date of Surgery: NA Date of Evaluation: 05/28/21 Date of Discharge: Treatments to Date: 2 Cancellations to Date: No Shows to Date: 1 Discharge Status: Recommend MD Follow-up Visit Non-compliance Discharge Summary: Pt SEEN FOR INIT EVAL, THEN NO SHOW, THEN 1 VISIT. THEN NO SHOW 2 MORE SCHEDULED EVALS. PER LAST ASSESSMENT BY JERRY SCHMITT PT,DPT Pt arrives late for appt today. Pt c/o pain throughout R ankle. Issued 4 way SLR for HEP program, reviewed HEP program issued at evaluation. Use of V[employer] hourly sign language interpreter service this date. PER INIT EVAL ASSESSMENT.. Pt IS 31 YO F REFERRED TO PT FROM [facility] WITH AVULSION FX R LAT MALLEOLUS AFTER A FALL ON LAST STEP ON 04/24/21. Pt RPRESENTS TO PT WITH WALKING BOOT BUT NO CRUTCHES, LIMP NOTED. WITHOUT BOOT DECREASED HEEL STIKE AND TOE PUSH OFF (PF) ON R WITH GT. Pt WITH LIMITED ANKLE ROM AND LIMITED ANKLE STRENGTH ON R WITH C/O PAIN. 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 Pt ED THAT THIS PAIN MAY BE REFERRED PAIN BECAUSE OF ANTALGIC GT PATTERN AND SHOULD IMPROVE ANKLE ROM/STRENGTH INCREASE AND PAIN LEVELS DECREASE. IF THIS LEG PAIN CONTINUES, MAY NEED FURTHER EVALUATION OF R KNEE/HIP/LB FROM FALL. Pt WORKS [employer] (30 HRS /WK) AND IS OOW X 1 MONTH PER ORTHO. GOOD PT CANDIDATE TO ADDRESS THESE ISSUES. Electronically signed by: PRUDENCE CHRISTINE PT Please sign and return to therapist. Thank you for your referral.
== END 2021-09-05 08:48 | disposition home or self-care (01) ==
LOC: HO.PTWFD 10:00
PROVIDERS: PCP Internal Medicine; Visit Provider Physician Assistant
DX: S82.891D Other fracture of right lower leg, subsequent encounter for closed fracture with routine healing (principal)
CPT/HCPCS: 97110; 97162; 97535

== ENCOUNTER 2021-06-07 18:52 | Outpatient (REF) | payer OTHER, SELFPAY ==
--- NOTE | ~2021-06-07 | MR_ITS ---
EXAMINATION: MR ANKLE WITHOUT CONTRAST, RIGHT CLINICAL INFORMATION: Sprain of the deltoid ligament COMPARISON: X-ray of the right ankle March 2021 TECHNIQUE: MR of the right ankle was performed without contrast on a high field MRI scanner. FINDINGS: Subcutaneous Soft Tissues: Mild scattered edema about the ankle. Muscles And Tendons: Normal. Plantar Fascia: Normal. Ligaments: Anterior Talofibular Ligament: There is heterogeneous increased signal and thickening of the anterior talofibular ligament compatible with an acute or subacute partial tear. There is bone marrow edema at the talar attachment of the ligament likely reflecting reactive edema or concomitant bone contusion. No discrete fracture line. Deltoid: Appears intact. However, there is prominent bone marrow edema at the talar attachment compatible with bone contusion or stress reaction. The remaining ligaments are intact. Osseous Structures/Tarsal Tunnel: Normal. Bone And Articular Cartilage: Marrow edema in the talus as detailed above. There is an additional area of bone marrow edema in the plantar aspect of the talar head compatible with bone contusion. The bone and joints are otherwise unremarkable. Joint Fluid Volume: Normal. Bursa: Normal. MR/MR ankle RT wo con IMPRESSION: 1. Partial tear of the anterior talofibular ligament likely subacute or acute. Marrow edema and talus at the ligament attachment are likely reactive related to the tear less likely related to concomitant bone contusion. 2. Bone marrow edema along the medial talus at the deltoid attachment compatible with bone contusion or stress reaction. The adjacent deltoid ligament appears intact. 3. Bone contusion of the head of the talus.
== END 2021-06-07 18:53 | disposition home or self-care (01) ==
LOC: HO.MRI 18:52
PROVIDERS: PCP Internal Medicine; Visit Provider Physician Assistant
DX: S93.421D Sprain of deltoid ligament of right ankle, subsequent encounter (principal)
CPT/HCPCS: 73721

== ENCOUNTER → 2021-06-12 12:54 | Outpatient (BNVA) | payer OTHER, SELFPAY | PROVIDERS: Visit Provider Physician Assistant | DX: S93.401A Sprain of unspecified ligament of right ankle, initial encounter (principal) | CPT/HCPCS: 99212 ==

== ENCOUNTER → 2021-07-10 13:31 | Outpatient (BNVA) | payer OTHER, SELFPAY | PROVIDERS: Visit Provider Physician Assistant | DX: S93.421D Sprain of deltoid ligament of right ankle, subsequent encounter (principal) | CPT/HCPCS: 99212 ==

== ENCOUNTER → 2021-07-12 11:08 | Outpatient (BNVA) | payer OTHER, SELFPAY | PROVIDERS: Visit Provider Nurse Practitioner Gerontology | DX: E03.8 Other specified hypothyroidism (principal); E06.3 Autoimmune thyroiditis; E55.9 Vitamin D deficiency, unspecified; E04.9 Nontoxic goiter, unspecified | CPT/HCPCS: 99212 ==

== ENCOUNTER 2021-07-25 07:58 | Outpatient (REF) | payer OTHER, SELFPAY ==
[2021-07-25 10:14] LABS: Alanine Aminotransferase 14 U/L (0-31); Albumin Level 4.1 g/dL (3.5-5.0); Alkaline Phosphatase 43 U/L (39-117); Anion Gap 11 (12-20); Aspartate Amino Transferase 23 U/L (5-31); Bilirubin Total 0.4 mg/dL (0.0-1.0); Blood Urea Nitrogen 8 mg/dL (9-16); Calcium 9.3 mg/dL (8.4-10.2); Carbon Dioxide 22 mmol/L (22-29); Chloride 109 mmol/L (96-108); Cholesterol 150 mg/dL; Estimated Glomerular Filt Rate > 60; Glucose Fasting 97 mg/dL (60-99); HDL Cholesterol 41 mg/dL; LDL Cholesterol Calculated 93 mg/dl; Potassium 4.2 mmol/L (3.3-5.1); Sodium 138 mmol/L (135-145); Total Protein 8.1 g/dL (6.5-8.0); Triglycerides 82 mg/dL
[2021-07-25 10:22] LABS: Free T4 (Free Thyroxine) 0.93 ng/dL (0.71-1.85); Thyroid Stimulating Hormone 3.61 uIU/mL (0.32-4.0); Vitamin D 25-OH Total 37.4 ng/mL (>30)
[2021-07-25 15:50] LABS: CT PCR NOT DETECTED (Not Detect.); NG PCR NOT DETECTED (Not Detect.)
[2021-07-26 10:00] LABS: BV Int Neg Control Negative (Negative); BV Int Pos Control Positive (Positive)
[2021-07-27 21:51] LABS: HPV mRNA E6/E7 rflx Not Detected (Not Detected)
[2021-07-28 11:31] LABS: TS Negative Control Passed; TS Panel A 3; TS Panel B 2; TS Positive Control Passed; TSpotTB Negative (Negative)
[2021-08-04 13:20] LABS: Vitamin D 25-OH, D2 <4 ng/mL; Vitamin D 25-OH, D3 33 ng/mL; Vitamin D 25-OH, Total 33 ng/mL (30-100)
== END 2021-07-25 07:59 | disposition home or self-care (01) ==
LOC: HO.LAB 07:58
PROVIDERS: Nurse Practitioner Gerontology; Absent Provider Internal Medicine Endocrinology, Diabetes & Metabolism; PCP Internal Medicine; Visit Provider Advanced Practice Midwife
DX: Z01.419 Encounter for gynecological examination (general) (routine) without abnormal findings (principal); E06.3 Autoimmune thyroiditis; E03.8 Other specified hypothyroidism; E04.9 Nontoxic goiter, unspecified; E55.9 Vitamin D deficiency, unspecified; E66.9 Obesity, unspecified; Z11.1 Encounter for screening for respiratory tuberculosis; Z20.2 Contact with and (suspected) exposure to infections with a predominantly sexual mode of transmission; Z87.891 Personal history of nicotine dependence; Z87.42 Personal history of other diseases of the female genital tract
CPT/HCPCS: 36415; 80053; 80061; 82306; 84439; 84443; 86481; 87480; 87491; 87510; 87591; 87624; 87660; 88142

== ENCOUNTER → 2021-08-15 14:20 | Outpatient (BNVA) | payer OTHER, SELFPAY | PROVIDERS: PCP Physician Assistant; Visit Provider Internal Medicine | DX: E06.3 Autoimmune thyroiditis (principal); E03.8 Other specified hypothyroidism; R13.10 Dysphagia, unspecified | CPT/HCPCS: 99212 ==

== ENCOUNTER 2021-09-11 13:10 | Outpatient (REF) | payer OTHER, SELFPAY ==
[2021-09-11 14:02] LABS: Estimated Average Glucose 97 mg/dL
[2021-09-11 14:17] LABS: Alanine Aminotransferase 14 U/L (0-31); Albumin Level 3.7 g/dL (3.5-5.0); Alkaline Phosphatase 43 U/L (39-117); Anion Gap 10 (12-20); Aspartate Amino Transferase 15 U/L (5-31); Bilirubin Total < 0.2 mg/dL (0.0-1.0); Blood Urea Nitrogen 10 mg/dL (9-16); Calcium 8.7 mg/dL (8.4-10.2); Carbon Dioxide 23 mmol/L (22-29); Chloride 108 mmol/L (96-108); Estimated Glomerular Filt Rate > 60; Glucose Fasting 98 mg/dL (60-99); Sodium 137 mmol/L (135-145)
== END 2021-09-11 13:11 | disposition home or self-care (01) ==
LOC: HO.LAB 13:10
PROVIDERS: PCP Physician Assistant; Visit Provider Physician Assistant
DX: Z13.1 Encounter for screening for diabetes mellitus (principal)
CPT/HCPCS: 36415; 80053; 83036

== ENCOUNTER → 2021-10-03 14:27 | Outpatient (REF) | payer OTHER, SELFPAY ==
--- NOTE | ~2021-10-03 | FL_ITS ---
EXAMINATION: XR BARIUM SWALLOW CLINICAL INFORMATION: Dysphagia COMPARISON: None TECHNIQUE: Fluoroscopy guidance was provided for modified barium swallow performed by speech and hearing department. FINDINGS: No aspiration or penetration is seen with any media. FLUOROSCOPY TIME: 0.4 minutes DOSE AREA PRODUCT: 0.4 magana per centimeter squared. FL/FL barium swallow modified IMPRESSION: Fluoroscopy guidance for modified barium swallow.
--- NOTE | 2021-10-04 10:01 | MHC.SL.IMP ---
Date of Plan of Treatment: 10/03/21 Onset of Symptoms/Illness: 10/03/20 Date Treatment Started: 10/03/21 Admitting Diagnosis: Lexi's thyroiditis Anxiety Depression Obesity Avulsion fracture of ankle Back pain Breast pain left Cervical lymphadenopathy Dysphagia Dysplasia of cervix low grade Goiter Hypothyroidism IBS Left foot pain Nasal congestion Snoring Vitamin D deficiency Primary Speech & Language Diagnosis: R13.12 Oropharyngeal Phase Dysphagia Reason for Today's Visit: 68292 Modified Barium Swallow Study Pre-evaluation Dietary Consistencies: Regular Pre-evaluation Liquid Consistency: Thin Pre-evaluation Medication Administration: Whole with Liquid Medical History: Modified Barium Swallow Study Fluoroscopic Evaluation of Swallowing Function CPT Code 88539 Evaluation Year: 2021 Reason for Study: Patient reports globus sensation. Referring Physician: Christen Ralph DO Evaluating Clinician: Andressa Downing MA, CCC-RADIOLOGY PRACTITIONER ASSISTANT Study Number: 1 Patient Name: Bijan Kelly Status: Outpatient, Ambulatory Age: 31 Gender: Female MEDICAL HISTORY: Year of Onset or Diagnosis: 2020 Comorbidities: Lexi's thyroiditis Anxiety Depression Obesity Avulsion fracture of ankle Back pain Breast pain left Cervical lymphadenopathy Dysphagia Dysplasia of cervix low grade Goiter Hypothyroidism IBS Left foot pain Nasal congestion Snoring Vitamin D deficiency Current (pre-evaluation) Intake/Diet: Route: PO Diet Grade: Regular Liquid Consistencies: Thin Pre-Study Functional Oral Intake Scale (FOIS): 7- Total oral intake with no restrictions Pain: None reported at time of study SUBJECTIVE: Patient is a 31 year old female referred for a modified barium swallow study by Christen Ralph DO from [facility] Endocrinology. Patient reports globus sensation when eating solids, onset approximately one year ago. She denies any pain when swallowing. She denies coughing or choking when swallowing. Oral Motor Exam Facial Symmetry: Symmetrical Mouth Occlusion: Normal Oral-Facial Teeth Characteristics: Intact/Normal Oral-Facial Lip Pucker Description: Normal Oral-Facial Smile (Lips) Description: Normal Oral-Facial Puff Cheeks Description: Normal Tongue Size: Normal Tongue Excursion Description: Normal Tongue Range of Movement Description: Normal Tongue Speed of Movement Description: Normal Tongue Strength of Movement (against opposing pressure): Normal Tongue Movement Characteristics: Normal/Absent Is patient able to manage secretions?: Yes Food and Liquid Trials: Oral Impairment: Lip Closure: 0=No labial escape Oral Impairment: Tongue Control During Bolus Hold: 0=Cohesive bolus between tongue to palatal seal Oral Impairment: Bolus Preparation/Mastication: 0=Timely and efficient chewing and mashing Oral Impairment: Bolus Transport/Lingual Motion: 0=Brisk tongue motion Oral Impairment: Oral Residue: 1=Trace residue lining oral structures Oral Impairment:Initiation of Pharyngeal Swallow: 0=Bolus head at posterior angle of ramus (first hyoid excursion) Pharyngeal Impairment: Soft Palate Elevation: 0=No bolus between soft palate (SP)/pharyngeal wall (PW) Pharyngeal Impairment: Laryngeal Elevation: 1=Partial thyroid cartilage/arytenoids to epiglottic petiole movement Pharyngeal Impairment: Anterior Hyoid Excursion: 1=Partial anterior movement Pharyngeal Impairment: Epiglottic Movement: 0=Complete inversion Pharyngeal Impairment: Laryngeal Vestibular Closure:: 0=Complete: no air/contrast in laryngeal vestibule Pharyngeal Impairment: Pharyngeal Stripping Wave: 0=Present: complete Pharyngeal Impairment: Pharyngeal Contraction: Did not test Pharyngeal Impairment: Pharyngoesophageal Segment Openin=Complete distension and complete duration: no obstruction of flow Pharyngeal Impairment: Tongue Base (TB) Retraction: 1=Trace column of contrast/air between TB and posterior PW Pharyngeal Impairment: Pharyngeal Residue: 0=Complete pharyngeal clearance Pharyngeal Impairment: Esophageal Clearance Upright Position: Did not test Impressions and Recommendations Clinical Observations: OBJECTIVE: Time-out: performed at 02:45 Evaluation Start: 02:30; Stop: 02:40 Patient Positioning: Seated 70-90 degrees Viewing Planes: LATERAL ONLY Contrast: MBSImP? Standardized Protocol using commercially prepared, standardized Barium viscosities, including: Varibar? THIN LIQUID (40% w/v, <15 cps) , 1/2 Shortbread Cookie (1 x1 x.25 ) MBSImP ID: [id number] MBSImP Results: Lip closure for intraoral bolus containment resulted in no labial escape. Tongue control during bolus hold maintained a cohesive bolus held between tongue to palate seal. Bolus preparation and mastication resulted in timely and efficient chewing and mashing. Bolus transport/lingual motion was with brisk tongue motion. Oral residue was a trace, lining oral structures. Initiation of the pharyngeal swallow occurred as the bolus head reached the posterior angle of the mandibular ramus. Soft palate elevation resulted in no bolus between the soft palate and the pharyngeal wall. Laryngeal elevation was decreased, with partial superior movement of the thyroid cartilage/partial approximation of the arytenoids to the epiglottic petiole. Anterior hyoid excursion demonstrated partial anterior movement. Epiglottic movement resulted in complete inversion. Laryngeal vestibular closure was complete, as indicated by no air or contrast within the laryngeal vestibule at the height of the swallow. Pharyngeal stripping wave was present and complete. Pharyngeal contraction could not be determined due to logistical reasons not related to physiologic impairment. Pharyngoesophageal segment opening was completely distended for complete duration with no obstruction of bolus flow. Tongue base retraction allowed a trace column of contrast or air between the retracted tongue base and the posterior pharyngeal wall. Pharyngeal residue was not present. There was complete pharyngeal clearance. Esophageal clearance in the upright position could not be assessed due to logistical reasons not related to physiologic impairment. Oral Impairment Score: 0 Pharyngeal Impairment Score: 2 (absence of score, component 13) Esophageal Impairment Score: --- (absence of score, component 17) Laryngeal Penetration and Aspiration: Neither penetration nor aspiration was observed in today's study with Cookie, Thin. ASSESSMENT: Clinician Assessment: This exam was conducted by a multidisciplinary team, which included radiologist, speech pathologist, and sonography technician. Patient was seated upright at 90 degrees in chair for lateral view only. Patient trialed the following liquid and solid consistencies: 5 mL thin liquid barium, individual cup sip thin liquid barium, consecutive cup sips thin liquid barium, pureed solid (mixture applesauce with barium paste), ground solid (mixture chicken salad with barium paste), regular solid (Tonya Doone cookie coated with barium paste). Patient displayed good oral containment of bolus. Patient displayed no interlabial escape and maintained cohesive bolus between tongue to palatal seal. Mastication was timely and efficient, with brisk posterior lingual movement. Trace oral residue, considered to be within functional limits and cleared subsequently. Timely pharyngeal swallow trigger. No nasopharyngeal reflux. Partial laryngeal elevation with partial anterior hyoid excursion. Epiglottic inversion was complete and laryngeal vestibular closure was complete. Good airway protection. No evidence of aspiration or penetration during this exam. Complete pharyngeal clearance. No obstruction of flow through pharyngoesophageal segment opening. Liquid Intake Recommendation: Thin Liquid Intake Strategies: Unrestricted Dietary Recommendations: Regular Medication Administration: Whole with Liquid Please contact the pharmacy regarding appropriate crushable or liquid drug formulations that are available whenever modified delivery is recommended. Compensatory Strategies Recommended: Sitting Upright (90 deg) Supervision during eating and or drinking: None Needed Recommendation for Speech Therapy: NA:Typical Evaluation Text Comment: PLAN: Intake Recommendations: Route: PO Diet Grade: Regular Liquid Consistencies: Thin Post-Study Functional Oral Intake Scale (FOIS): 7- Total oral intake with no restrictions This exam was unremarkable. Suggested Referrals: The patient might benefit from a referral to: Gastroenterology Indication for Referral: further workup of globus sensation Therapy Recommendations: Therapy will be discontinued Prognosis for Improvement: The prognosis for the patient to meet nutritional needs by mouth is excellent based on degree of impairment. Clinician - Supplemental, Miscellaneous Communication: It is important to note MBSS objective studies are snapshots in time and Patient function might vary with factors such as time of day or concomitant medical conditions. For this reason, the final treatment plan for this patient should rest with their medical care team. Additional recommendations should be considered with the totality of the Patient in mind. Thank for the opportunity to participate in the care of this patient. If you have any questions about the content of this report, please contact the Speech and Hearing Center at [facility]. Education: Education regarding findings from today's study and plans for therapy were provided to Patient only through Verbal Instruction. Understanding was expressed by the Patient only. Mobile Service Rv Technician Clinician/Clinical Fellow: No Supervisory Statement: N/A Speech Language Pathologist: Andressa Downing M.A., CCC-RADIOLOGY PRACTITIONER ASSISTANT
== END ==
LOC: HO.SL 14:27
PROVIDERS: Visit Provider Internal Medicine
DX: R06.81 Apnea, not elsewhere classified (principal); R13.12 Dysphagia, oropharyngeal phase
CPT/HCPCS: 74230; 92611; 95806

== ENCOUNTER 2021-10-19 15:18 | Outpatient (REF) | payer OTHER, SELFPAY ==
[2021-10-19 15:55] LABS: MANUAL DIFF FLAG NO
[2021-10-19 16:26] LABS: Basophils Absolute Auto 0.1 X10*3/uL (0.0-0.2); Basophils Percent Auto 0.8 % (0-2); Eosinophils Absolute Auto 0.1 X10*3/uL (0.0-0.4); Eosinophils Percent Auto 0.8 % (0-4); Hematocrit 37.4 % (37.0-47.0); Imm Gran Abs Auto 0.03 X10*3/uL (0.00-0.03); Imm Gran Pct Auto 0.4 % (0.0-0.4); Lymphocytes Absolute Auto 1.4 X10*3/uL (1.2-4.9); Lymphocytes Percent Auto 17.9 % (20-40); Mean Corpuscular HGB Conc 32.1 g/dl (31.0-35.0); Mean Corpuscular Hemoglobin 28.7 pg (27.0-33.0); Mean Corpuscular Volume 89.5 fL (80.0-98.0); Mean Platelet Volume 9.2 fL (9.4-12.3); Monocytes Absolute Auto 0.4 X10*3/uL (0.1-1.2); Monocytes Percent Auto 5.1 % (2-11); Platelet Count 360 X10*3/uL (160-400); Prothrombin Time 11.9 SEC (9.9-13.0); Red Blood Count 4.18 X10*6/uL (4.20-5.50); Red Cell Distribution Width 13.4 % (11.0-16.0); White Blood Count 7.9 X10*3/uL (4.8-10.8)
[2021-10-19 16:37] LABS: Rheumatoid Factor < 15.0 IU/mL (<15.0)
[2021-10-19 16:44] LABS: Iron 44 mcg/dL (30-160); Percent Iron Saturation 11 % (15-50); Total Iron Binding Capacity 415 mcg/dL (228-428); Unsaturated Iron Binding 371 ug/dL
[2021-10-19 17:01] LABS: Free T4 (Free Thyroxine) 0.99 ng/dL (0.71-1.85); Thyroid Stimulating Hormone 2.05 uIU/mL (0.32-4.0); Vitamin D 25-OH Total 58.3 ng/mL (>30)
[2021-10-19 17:14] LABS: Folate 19.1 ng/mL (> or = 4.0); Vitamin B12 1004 pg/mL (200-900)
[2021-10-21 12:40] LABS: Anti Nuclear Antibody Screen NEGATIVE (NEGATIVE)
[2021-10-22 16:36] LABS: Cyclic Citrullinated Peptide <16 UNITS
== END 2021-10-19 15:19 | disposition home or self-care (01) ==
LOC: HO.LAB 15:18
PROVIDERS: Internal Medicine; Nurse Practitioner Gerontology; PCP Physician Assistant; Visit Provider Nurse Practitioner Family
DX: E03.8 Other specified hypothyroidism (principal); E06.3 Autoimmune thyroiditis; M25.50 Pain in unspecified joint; R13.10 Dysphagia, unspecified; D50.9 Iron deficiency anemia, unspecified; E55.9 Vitamin D deficiency, unspecified; Z86.79 Personal history of other diseases of the circulatory system
CPT/HCPCS: 36415; 82306; 82607; 82746; 83540; 84439; 84443; 85025; 85027; 85610; 86038; 86039; 86200; 86431

== ENCOUNTER 2021-11-14 09:55 | Outpatient (REF) | payer OTHER, SELFPAY ==
--- NOTE | 2021-11-14 10:01 | EMG_ITS ---
This is a 31-year-old woman with history of right upper extremity pain and numbness. PHYSICAL EXAMINATION: On examination, she is alert, and oriented with normal intellectual functions. Cranial nerves II through XII are normal. Muscle tone and strength are normal in all 4 extremities. Deep tendon reflexes symmetrical. No Tinel or Phalen sign. IMPRESSION: Normal nerve conduction EMG study: Normal diagnostic study of the right upper extremity with no evidence of carpal tunnel syndrome or nerve entrapment. Normal EMG of the right C5-T1 innervated muscles. MD ANDREW Franco/SANTOSH / [id number]
== END 2021-11-14 09:56 | disposition home or self-care (01) ==
LOC: HO.NEURO 09:55
PROVIDERS: PCP Physician Assistant; Visit Provider Physician Assistant
DX: R20.2 Paresthesia of skin (principal)
CPT/HCPCS: 95885; 95910

== ENCOUNTER → 2021-11-28 08:43 | Outpatient (BNVA) | payer OTHER, SELFPAY | PROVIDERS: PCP Physician Assistant; Visit Provider Internal Medicine | DX: Z13.89 Encounter for screening for other disorder (principal) ==

== ENCOUNTER 2022-01-22 10:40 | Outpatient (REF) | payer OTHER, SELFPAY ==
--- NOTE | ~2022-01-22 | US_ITS ---
EXAMINATION: US SOFT TISSUE NECK CLINICAL INFORMATION: Localized swelling, mass and lump, neck. COMPARISON: US thyroid 09/25/2020. Ultrasound thyroid soft tissues neck 09/01/2019. TECHNIQUE: Ultrasound of the neck soft tissues is performed with high- frequency magana-scale imaging and color Doppler. FINDINGS: Targeted neck ultrasound on the right where patient indicated was performed. This is in the region of the scalene muscles. No abnormal cystic or solid mass was identified. No edematous change within the region was seen. US/US soft tiss head and/or neck IMPRESSION: No abnormality identified with ultrasound. Question if region felt is related to underlying muscle.
== END 2022-01-22 10:41 | disposition home or self-care (01) ==
LOC: HO.HMGCX 10:40
PROVIDERS: Visit Provider Physician Assistant Medical
DX: R22.1 Localized swelling, mass and lump, neck (principal)
CPT/HCPCS: 76536

== ENCOUNTER 2022-03-14 11:09 | Outpatient (REF) | payer OTHER, SELFPAY ==
--- NOTE | ~2022-03-14 | XR_ITS ---
EXAMINATION: XR RIGHT ANKLE XR LUMBAR SPINE XR KUB CLINICAL INFORMATION: Pain. COMPARISON: None. TECHNIQUE: Lumbar spine 3 views. Right ankle 3 views. KUB 1 view. FINDINGS: RIGHT ANKLE: The ankle mortise and subtalar joints are normal. There is a small bone fragment seen inferior to the tip of the lateral malleolus, likely old injury. Minimal medial malleolar soft tissue swelling is seen. Small bone fragment is seen along the proximal base of the 5th metatarsal, likely old injury. There is no acute fracture or dislocation seen. KUB: The bowel gas pattern is nonspecific with scattered stool and gas in the colon. There is no organomegaly. Scattered calcifications are seen in lower pelvis. The soft tissues are normal. LUMBAR SPINE: There is normal lumbar lordosis. The vertebral heights, alignment and disc heights are normal. There is minimal ventral spondylosis L5-S1 disc level. No acute fracture, dislocation, lytic or sclerotic process seen. The paravertebral soft tissues are normal. SI joints are symmetrical and normal. XR/XR ankle RT 2V IMPRESSION: Small bone fragments along the inferior tip of the lateral malleolus and along the proximal base of the 5th metatarsal, likely old injury. No acute fracture, dislocation or subluxation seen in the right ankle. Minimal constipation. Otherwise unremarkable KUB. Unremarkable lumbar spine exam.
--- NOTE | ~2022-03-14 | XR_ITS ---
EXAMINATION: XR RIGHT ANKLE XR LUMBAR SPINE XR KUB CLINICAL INFORMATION: Pain. COMPARISON: None. TECHNIQUE: Lumbar spine 3 views. Right ankle 3 views. KUB 1 view. FINDINGS: RIGHT ANKLE: The ankle mortise and subtalar joints are normal. There is a small bone fragment seen inferior to the tip of the lateral malleolus, likely old injury. Minimal medial malleolar soft tissue swelling is seen. Small bone fragment is seen along the proximal base of the 5th metatarsal, likely old injury. There is no acute fracture or dislocation seen. KUB: The bowel gas pattern is nonspecific with scattered stool and gas in the colon. There is no organomegaly. Scattered calcifications are seen in lower pelvis. The soft tissues are normal. LUMBAR SPINE: There is normal lumbar lordosis. The vertebral heights, alignment and disc heights are normal. There is minimal ventral spondylosis L5-S1 disc level. No acute fracture, dislocation, lytic or sclerotic process seen. The paravertebral soft tissues are normal. SI joints are symmetrical and normal. XR/XR lumbar spine 2-3V IMPRESSION: Small bone fragments along the inferior tip of the lateral malleolus and along the proximal base of the 5th metatarsal, likely old injury. No acute fracture, dislocation or subluxation seen in the right ankle. Minimal constipation. Otherwise unremarkable KUB. Unremarkable lumbar spine exam.
--- NOTE | ~2022-03-14 | XR_ITS ---
EXAMINATION: XR RIGHT ANKLE XR LUMBAR SPINE XR KUB CLINICAL INFORMATION: Pain. COMPARISON: None. TECHNIQUE: Lumbar spine 3 views. Right ankle 3 views. KUB 1 view. FINDINGS: RIGHT ANKLE: The ankle mortise and subtalar joints are normal. There is a small bone fragment seen inferior to the tip of the lateral malleolus, likely old injury. Minimal medial malleolar soft tissue swelling is seen. Small bone fragment is seen along the proximal base of the 5th metatarsal, likely old injury. There is no acute fracture or dislocation seen. KUB: The bowel gas pattern is nonspecific with scattered stool and gas in the colon. There is no organomegaly. Scattered calcifications are seen in lower pelvis. The soft tissues are normal. LUMBAR SPINE: There is normal lumbar lordosis. The vertebral heights, alignment and disc heights are normal. There is minimal ventral spondylosis L5-S1 disc level. No acute fracture, dislocation, lytic or sclerotic process seen. The paravertebral soft tissues are normal. SI joints are symmetrical and normal. XR/XR KUB IMPRESSION: Small bone fragments along the inferior tip of the lateral malleolus and along the proximal base of the 5th metatarsal, likely old injury. No acute fracture, dislocation or subluxation seen in the right ankle. Minimal constipation. Otherwise unremarkable KUB. Unremarkable lumbar spine exam.
[2022-03-14 11:58] LABS: Hemoglobin 12.2 g/dl (12.0-16.0); Mean Corpuscular Hemoglobin 29.7 pg (27.0-33.0); Mean Platelet Volume 9.4 fL (9.4-12.3); Platelet Count 334 X10*3/uL (160-400); Red Blood Count 4.11 X10*6/uL (4.20-5.50); Red Cell Distribution Width 12.7 % (11.0-16.0); White Blood Count 5.2 X10*3/uL (4.8-10.8)
[2022-03-14 12:21] LABS: Anion Gap 12 (12-20); Blood Urea Nitrogen 10 mg/dL (9-16); Carbon Dioxide 24 mmol/L (22-29); Chloride 107 mmol/L (96-108); Estimated Glomerular Filt Rate > 60; Glucose Random 85 mg/dL (60-115); Potassium 4.5 mmol/L (3.3-5.1); Sodium 138 mmol/L (135-145)
[2022-03-14 12:44] LABS: TSH reflex Free T4 2.92 uIU/mL (0.32-4.0); Vitamin D 25-OH Total 32.2 ng/mL (>30)
[2022-03-14 13:10] LABS: Appearance Urine Clear; Color Urine Yellow; Glucose Urine UA Negative (Negative); Leukocyte Esterase Urine Negative (Negative); Nitrite Urine Negative (Negative); Specific Gravity - Urine >= 1.030 (1.005-1.025); Urine Blood Negative (Negative); Urine Ketones Negative (Negative); Urine Protein Negative (Neg-Trace)
[2022-03-20 20:46] LABS: Alpha-Tocopherol 8.7 mg/L (5.7-19.9); Beta-Gamma Tocopherol 1.7 mg/L (<=4.3); Vitamin A 40 mcg/dL (38-98)
== END 2022-03-14 11:10 | disposition home or self-care (01) ==
LOC: HO.XRAY 11:09
PROVIDERS: PCP Physician Assistant; Visit Provider Physician Assistant
DX: R10.9 Unspecified abdominal pain (principal); R30.0 Dysuria; E03.8 Other specified hypothyroidism; E06.3 Autoimmune thyroiditis; G89.29 Other chronic pain; M25.571 Pain in right ankle and joints of right foot; M54.50 Low back pain, unspecified
CPT/HCPCS: 36415; 72100; 73600; 74018; 80048; 81003; 82306; 84443; 84446; 84590; 85027

== ENCOUNTER 2022-06-05 07:48 | Emergency (ER) | payer OTHER, SELFPAY ==
[2022-06-05 07:59] VITALS: BP 124/75; PULSE 93; RESP 20; TEMP 36.6; O2SAT 98; BMI 34.4
[2022-06-05 08:42] LABS: Influenza A PCR POSITIVE (Negative); Influenza B PCR NEGATIVE (Negative); Resp Syncy Virus RNA Qual PCR NEGATIVE (Negative); SARS COV2 PCR INHOUSE NEGATIVE (Negative)
--- NOTE | 2022-06-05 09:21 | ED_ITS ---
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 She presents to the ER with her 10-year-old son who has similar symptoms. She states she was originally sick around Thanksgiving time but recovered. She started with a dry cough and not feeling well yesterday. She denies any shortness of breath or chest pain. She has a p.r.n. albuterol inhaler that she has not needed to use. She denies any fevers, nausea, vomiting, diarrhea, abdominal pain. She is not sure if she is vaccinated for the flu this year. She has history of COVID-19 in June of this year MD elicited complaint: cough Onset (ago): day(s) (1) Consistency: progressively worsening Severity: moderate Able to tolerate fluids by mouth: Yes Exacerbating factors: nothing Relieving factors: nothing Context: sick contacts Associated symptoms: denies other symptoms Treatments prior to arrival: none Related Data Home Medications Medication Instructions Recorded Confirmed fluoxetine 10 mg capsule 10 mg PO DAILY 06/12/20 06/03/22 Previous Rx's Medication Instructions Recorded ascorbic acid (vitamin C) 500 mg 500 mg PO DAILY 90 days #90 caps 06/11/21 capsule dicyclomine 20 mg tablet 20 mg PO TID #90 tabs 08/30/21 loratadine 10 mg tablet 10 mg PO DAILY 90 days #90 tabs 08/30/21 cholecalciferol (vitamin D3) 50 100 mcg PO DAILY 30 days #60 caps 10/23/21 mcg (2,000 unit) capsule diclofenac sodium 75 mg 75 mg PO BID 15 days #30 tabs 01/14/22 tablet,delayed release omeprazole 20 mg capsule,delayed 20 mg PO BEDTIME #30 caps 01/15/22 release levothyroxine 50 mcg tablet 50 mcg PO DAILY 30 days #30 tabs 02/07/22 minoxidil 2 % topical solution 1 ml topical BID 30 days #60 mL 03/14/22 cyclobenzaprine 10 mg tablet 10 mg PO Q8H muscle spasm 7 days 04/10/22 #21 tabs prednisone 20 mg tablet 20 mg PO DAILY 4 days #4 tabs 04/10/22 benzonatate 200 mg capsule 200 mg PO BID 5 days #10 caps 05/15/22 oseltamivir 75 mg capsule (Tamiflu) 75 mg PO BID 5 days #10 caps 06/05/22 Allergies Allergy/AdvReac Type Severity Reaction Status Date / Time animal dander [ANIMAL DANDER] Allergy Intermediate RASH Verified 06/03/22 15:10 RYE Allergy Intermediate RASH Uncoded 06/03/22 15:08 plants Allergy Mild Rash Uncoded 06/03/22 15:08 wheat, grains, rye Allergy Mild Rash Uncoded 06/03/22 15:08 Review of Systems Review of Systems: Constitutional: No Fever, No Chills ENT/Mouth: No sore throat, No Rhinorrhea Cardiovascular: No Chest Pain, No SOB Respiratory: No Cough, No Sputum, No Wheezing, No dyspnea Gastrointestinal: No Nausea, No Vomiting, No Diarrhea, No abdominal Pain Musculoskeletal: No joint pain, +Myalgias Skin: No Skin Lesions, No rash Neuro: No Weakness, No Dizziness, No Headache Heme/Lymph: No Lymphadenopathy PMFSH Past Medical History Medical History Anxiety and depression Avulsion fracture of ankle Back pain Breast pain, left Cervical lymphadenopathy Dysphagia Dysplasia of cervix, low grade (OMAR 1) Goiter Lexi's disease Hypothyroidism IBS (irritable colon syndrome) Left foot pain Nasal congestion Obese Snoring Vitamin D deficiency Surgical History H/O foot surgery H/O tubal ligation History of 2 sections History of lumpectomy of left breast Hx of colonoscopy Family History Family History Father No problems noted. 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 Oriented X3. No acute distress. HEENT: normal inspection CVS: Normal heart rate and rhythm. Pulses normal. Respiratory: No respiratory distress. Lungs are clear throughout. Skin: Skin warm and dry. Normal skin color. Normal skin turgor. No rashes. Extremities: Normal inspection x4, normal range of motion. Neuro: Oriented X 3. Grossly normal, nonfocal Course Course Course Narrative: 32-year-old female with history of mild intermittent asthma presents to the ER for evaluation of a dry cough that started yesterday. Her vital signs are stable. Her lungs are clear. Viral PCR shows she is positive for influenza A. She qualifies for Tamiflu treatment. 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 Stable for discharge home. Discharge Plan Discharge Clinical Impression: Influenza A Patient Disposition: Home, Self-Care Instructions: Influenza (ED) Additional Instructions: You tested positive for influenza A. Take the prescribed antiviral medication to help shorten the duration of your symptoms. Rest and drink plenty of fluids. Take over the counter cold/flu medications as needed for your symptoms. If you develop new or worsening symptoms call 911 or come back to the ER for further evaluation. Usted arnold positivo por influenza A. [place] el medicamento antiviral recetado para ayudar a acortar la duraci?n de jesus s?ntomas. Descanse y guillermo muchos l?quidos. [place] medicamentos de venta emiliana para el resfriado o la gripe seg?n sea necesario para jesus s?ntomas. Si desarrolla s?ntomas nuevos o que empeoran, llame al 911 o regrese a la marck de emergencias para lana evaluaci?n adicional. Prescriptions: New oseltamivir [Tamiflu] 75 mg capsule 75 mg PO BID 5 Days Qty: 10 0RF No Action ascorbic acid (vitamin C) 500 mg capsule 500 mg PO DAILY 90 Days Qty: 90 3RF cholecalciferol (vitamin D3) 50 mcg (2,000 unit) capsule 100 mcg PO DAILY 30 Days Qty: 60 4RF omeprazole 20 mg capsule,delayed release(DR/EC) 20 mg PO BEDTIME Qty: 30 3RF Rx Instructions: nenita lana capsula antes de acostarse levothyroxine 50 mcg tablet 50 mcg PO DAILY 30 Days Qty: 30 11RF cyclobenzaprine 10 mg tablet 10 mg PO Q8H 7 Days Qty: 21 0RF prednisone 20 mg tablet 20 mg PO DAILY 4 Days Qty: 4 0RF benzonatate 200 mg capsule 200 mg PO BID 5 Days Qty: 10 0RF diclofenac sodium 75 mg tablet,delayed release (DR/EC) 75 mg PO BID 15 Days Qty: 30 3RF loratadine 10 mg tablet 10 mg PO DAILY 90 Days Qty: 90 1RF dicyclomine 20 mg tablet 20 mg PO TID Qty: 90 3RF Rx Instructions: nenita de 15 a 30 minutos antes de las comidas claudia veces al dejon minoxidil 2 % solution 1 ml topical BID 30 Days Qty: 60 0RF fluoxetine 10 mg capsule 10 mg PO DAILY
== END 2022-06-05 10:12 | disposition home or self-care (01) ==
PROVIDERS: Emergency Provider Emergency Medicine Emergency Medical Services; PCP Physician Assistant
DX: J10.1 Influenza due to other identified influenza virus with other respiratory manifestations (principal); R05.9 Cough, unspecified; R50.9 Fever, unspecified; Z20.822 Contact with and (suspected) exposure to COVID-19
CPT/HCPCS: 0241U; 99283

== ENCOUNTER 2022-06-05 10:11 | Outpatient (REF) | payer OTHER, SELFPAY ==
--- NOTE | ~2022-06-05 | XR_ITS ---
EXAMINATION: XR SOFT TISSUE NECK CLINICAL INDICATION: Segmental and somatic dysfunction of the cervical region COMPARISON: None TECHNIQUE: 2 views of the soft tissue neck were obtained. FINDINGS: Soft tissue films of the neck demonstrate a normal larynx, pharynx and upper trachea. No soft tissue swelling or opaque foreign body is demonstrated. The epiglottis is unremarkable. The lung apices are clear. Vertebral body height and alignment maintained. XR/XR soft tissue neck IMPRESSION: Unremarkable examination.
== END 2022-06-05 10:12 | disposition home or self-care (01) ==
LOC: HO.XRAY 10:11
PROVIDERS: PCP Physician Assistant; Visit Provider Physician Assistant
DX: M99.01 Segmental and somatic dysfunction of cervical region (principal)
CPT/HCPCS: 70360

== ENCOUNTER 2022-08-12 10:27 | Emergency (ER) | payer OTHER, SELFPAY ==
--- NOTE | ~2022-08-12 | XR_ITS ---
EXAMINATION: XR FOOT, RIGHT CLINICAL INFORMATION: Fall. Pain. COMPARISON: None TECHNIQUE: AP, lateral, and oblique views of the right foot. FINDINGS: Bone alignment is normal. No fracture or dislocation. There is been interval surgery to the proximal phalanx of the second toe. Joint spaces are otherwise normal. There is a small 3 mm radiopaque density in the soft tissues of the posterior foot overlying the calcaneus. This is similar to 2017 exam. XR/XR foot RT min 3V IMPRESSION: No fracture or dislocation. Interval postsurgical changes to the proximal phalanx of the second toe. 3 mm density in the soft tissues of heel questionable for foreign body. This is similar to prior exam from 2017.
--- NOTE | ~2022-08-12 | XR_ITS ---
EXAMINATION: XR SHOULDER, RIGHT CLINICAL INFORMATION: Fall, trauma, pain COMPARISON: None TECHNIQUE: Right shoulder is imaged in 4 views. FINDINGS: No fracture, dislocation, or destructive process. The acromioclavicular alignment is normal. Lung apex is clear and shows no pneumothorax or pleural reaction. There are no visible rotator cuff calcifications. XR/XR shoulder RT min 2V IMPRESSION: Unremarkable right shoulder.
[2022-08-12 11:28] VITALS: BP 111/63; PULSE 85; RESP 16; TEMP 36.8; O2SAT 98; BMI 34.4
--- NOTE | 2022-08-12 11:47 | ED.GENADULT ---
HPI - General Adult General Chief complaint: Fall Stated complaint: r shoulder and leg pain Time Seen by Provider: 08/12/22 11:29 Source: patient, RN notes reviewed and interpreter translator Mode of arrival: ambulatory Limitations: language barrier History of Present Illness HPI narrative: A 32-year-old primarily Sami-speaking female presents for evaluation of right shoulder and right foot pain. Patient reports that she accidentally stepped in a hole yesterday She ended up tripping and falling on her right side. She states that there was a parked car next to her and she fell to the ground trying to avoid damaging the car She injured her right great toe, right foot and right shoulder. She states her pain is at worst 7 in 10, achy. She denies any head strike or loss of consciousness. She is not on anticoagulation She denies any other injuries. No other complaints or concerns at this time Related Data Home Medications Medication Instructions Recorded Confirmed fluoxetine 10 mg capsule 10 mg PO DAILY 06/12/20 06/03/22 Previous Rx's Medication Instructions Recorded ascorbic acid (vitamin C) 500 mg 500 mg PO DAILY 90 days #90 caps 06/11/21 capsule dicyclomine 20 mg tablet 20 mg PO TID #90 tabs 08/30/21 loratadine 10 mg tablet 10 mg PO DAILY 90 days #90 tabs 08/30/21 cholecalciferol (vitamin D3) 50 100 mcg PO DAILY 30 days #60 caps 10/23/21 mcg (2,000 unit) capsule diclofenac sodium 75 mg 75 mg PO BID 15 days #30 tabs 01/14/22 tablet,delayed release omeprazole 20 mg capsule,delayed 20 mg PO BEDTIME #30 caps 01/15/22 release levothyroxine 50 mcg tablet 50 mcg PO DAILY 30 days #30 tabs 02/07/22 minoxidil 2 % topical solution 1 ml topical BID 30 days #60 mL 03/14/22 cyclobenzaprine 10 mg tablet 10 mg PO Q8H muscle spasm 7 days 04/10/22 #21 tabs prednisone 20 mg tablet 20 mg PO DAILY 4 days #4 tabs 04/10/22 benzonatate 200 mg capsule 200 mg PO BID 5 days #10 caps 05/15/22 oseltamivir 75 mg capsule (Tamiflu) 75 mg PO BID 5 days #10 caps 06/05/22 Allergies Allergy/AdvReac Type Severity Reaction Status Date / Time animal dander [ANIMAL DANDER] Allergy Intermediate RASH Verified 06/03/22 15:10 RYE Allergy Intermediate RASH Uncoded 06/03/22 15:08 plants Allergy Mild Rash Uncoded 06/03/22 15:08 wheat, grains, rye Allergy Mild Rash Uncoded 06/03/22 15:08 Review of Systems Constitutional: Constitutional: Reports as per HPI, Denies chills and Denies headache(s) ENT: Denies headache(s) and Denies disequilibrium Cardiovascular: Cardiovascular: Denies chest pain, Denies syncope and Denies dyspnea Comments: no syncope Respiratory: Respiratory: Denies cough and Denies dyspnea Neurologic: Denies syncope, Denies headache(s) and Denies disequilibrium Comments: no loss of consciousness PMFSH Past Medical History Medical History Anxiety and depression Avulsion fracture of ankle Back pain Breast pain, left Cervical lymphadenopathy Dysphagia Dysplasia of cervix, low grade (OMAR 1) Goiter Lexi's disease Hypothyroidism IBS (irritable colon syndrome) Left foot pain Nasal congestion Obese Snoring Vitamin D deficiency Surgical History H/O foot surgery H/O tubal ligation History of 2 sections History of lumpectomy of left breast Hx of colonoscopy Family History Family History Father No problems noted. Mother HTN (hypertension) Diabetes Maternal Grandmother Diabetes HTN (hypertension) Social History Social History Household Members: Children Household Members Other:: 2 children--8 and 10 yr old Housing: Apartment Alcohol intake: never Patient Tobacco Use Status: Never used Tobacco Tobacco use type: Cigarette Smoked in Last 30 Days: No e-Cigarette/Vaping Use: Never Used Second Hand Smoke Exposure: No Use of substances other than those prescribed or required for medical reasons: No Advance Directives: No Advance Directives Information Provided: No Patient : No service: No Current occupational status: employed 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 Cognitive needs: No Hearing needs: No Vision needs: Yes Physical Exam ED Vital Signs: Vital Signs - 24 hr 08/12/22 11:28 08/12/22 12:42 Temperature 98.2 F 97.6 F Pulse Rate 85 84 Respiratory Rate 16 16 Blood Pressure 111/63 109/58 L Pulse Oximetry 98 98 Oxygen Delivery Method Room Air Room Air BMI result Body Mass Index 34.4 Const General: healthy appearing, comfortable, no acute distress, alert and awake Nutritional Appearance: well nourished Orientation/consciousness: patient oriented x3 Eyes Eyelids: Yes eyelids normal Conjunctivae: conjunctivae normal Sclerae: sclerae normal Corneas: corneas normal Pupils: Equal, round and reactive pupils present EOM: EOMs intact bilaterally Resp Effort & Inspection: normal respiratory effort, able to speak in complete sentences, no audible wheezes and not labored Skin General skin exam: no rashes or lesions noted and elasticity normal Lesions: no lesions Rashes: no rashes Neuro General: patient oriented x3 Cranial nerves: Yes Equal, round and reactive pupils present Extrem Other: Patient is a small area of ecchymosis to the medial aspect of the right great toe. This area is tender to palpation. There is no palpable deformity. The patient has good range of motion. No other skin changes to the foot, ankle. No edema no lesions. No tenderness to the dorsum of the foot. No right ankle tenderness over the medial or lateral malleolus. Good range of motion right ankle. Patient has minimal tenderness to the right acromioclavicular joint of the shoulder. No palpable deformity. She is able to raise her right upper extremity over her shoulder completely without difficulty. No right elbow tenderness General: Yes full ROM Medical Decision Making Medical Decision Making MDM Narrative: 32-year-old female in nonsyncopal fall after tripping interval presents for evaluation of right foot and shoulder pain. She has good range of motion to both areas. There is a small area of ecchymosis to the right great toe, an x-ray of the right foot as well as the right shoulder. I had a low suspicion for fracture of the shoulder. Reviewed x-ray images with the patient, no fractures noted. Will discharge patient with instructions for naproxen, ice and rest. Differential Diagnosis Differential Diagnoses: The differential diagnosis associated with the presentation includes (For fracture, toe fracture, foot sprain, toes pain, shoulder sprain, shoulder fracture, shoulder dislocation) Right shoulder sprain, right foot sprain Lab Data Labs: Lab Results 08/12/22 Range/Units 12:38 Urine Test NEGATIVE (NEGATIVE) Radiology Impression Discussion of test interpretation with radiology: I have reviewed the radiologist's reading. Discharge Plan Discharge Clinical Impression: Other sprain of right shoulder joint, initial encounter, Foot sprain Patient Disposition: Home, Self-Care Instructions: Shoulder Sprain (ED) Additional Instructions: Her x-rays do not show any evidence of fractures. Use of ibuprofen up to 600 mg every 6 hours for discomfort. Apply ice to the sore areas for next 2 days Prescriptions: No Action ascorbic acid (vitamin C) 500 mg capsule 500 mg PO DAILY 90 Days Qty: 90 3RF cholecalciferol (vitamin D3) 50 mcg (2,000 unit) capsule 100 mcg PO DAILY 30 Days Qty: 60 4RF omeprazole 20 mg capsule,delayed release(DR/EC) 20 mg PO BEDTIME Qty: 30 3RF Rx Instructions: nenita lana capsula antes de acostarse levothyroxine 50 mcg tablet 50 mcg PO DAILY 30 Days Qty: 30 11RF cyclobenzaprine 10 mg tablet 10 mg PO Q8H 7 Days Qty: 21 0RF prednisone 20 mg tablet 20 mg PO DAILY 4 Days Qty: 4 0RF benzonatate 200 mg capsule 200 mg PO BID 5 Days Qty: 10 0RF oseltamivir [Tamiflu] 75 mg capsule 75 mg PO BID 5 Days Qty: 10 0RF diclofenac sodium 75 mg tablet,delayed release (DR/EC) 75 mg PO BID 15 Days Qty: 30 3RF loratadine 10 mg tablet 10 mg PO DAILY 90 Days Qty: 90 1RF dicyclomine 20 mg tablet 20 mg PO TID Qty: 90 3RF Rx Instructions: nenita de 15 a 30 minutos antes de las comidas claudia veces al dejon minoxidil 2 % solution 1 ml topical BID 30 Days Qty: 60 0RF fluoxetine 10 mg capsule 10 mg PO DAILY Stand Alone Forms: Work/School Release
[2022-08-12 12:42] VITALS: BP 109/58; PULSE 84; RESP 16; TEMP 36.4; O2SAT 98
[2022-08-12 13:00] LABS: UPreg QC Valid YES; Urine Pregnancy NEGATIVE (NEGATIVE)
== END 2022-08-12 14:18 | disposition home or self-care (01) ==
PROVIDERS: Physician Assistant; Emergency Provider Emergency Medicine; PCP Physician Assistant
DX: S43.491A Other sprain of right shoulder joint, initial encounter (principal); S93.601A Unspecified sprain of right foot, initial encounter; W17.2XXA Fall into hole, initial encounter; E66.9 Obesity, unspecified; Z68.34 Body mass index [BMI] 34.0-34.9, adult; Y93.01 Activity, walking, marching and hiking; Y92.481 Parking lot as the place of occurrence of the external cause; Y99.9 Unspecified external cause status
CPT/HCPCS: 73030; 73630; 81025; 99283; 99284

== ENCOUNTER 2022-09-03 07:46 | Outpatient (REF) | payer OTHER, SELFPAY ==
[2022-09-03 08:37] LABS: Rheumatoid Factor < 13.0 IU/mL (<15.0)
[2022-09-05 15:58] LABS: Anti Nuclear Antibody Screen NEGATIVE (NEGATIVE)
== END 2022-09-03 07:47 | disposition home or self-care (01) ==
LOC: HO.LAB 07:46
PROVIDERS: PCP Physician Assistant; Visit Provider Nurse Practitioner Family
DX: M25.50 Pain in unspecified joint (principal)
CPT/HCPCS: 36415; 86038; 86039; 86431

== ENCOUNTER 2022-10-16 12:43 | Outpatient (REF) | payer OTHER, SELFPAY ==
--- NOTE | ~2022-10-16 | XR_ITS ---
EXAMINATION: XR SHOULDER, RIGHT CLINICAL INFORMATION: Pain COMPARISON: None available. TECHNIQUE: AP external rotation, Grashey, scapular Y, and axillary views of the right shoulder. FINDINGS: The bones and soft tissues are normal. No fracture. Glenohumeral and acromioclavicular alignment is anatomic with normal joint space. No abnormal soft tissue calcifications. XR/XR shoulder RT min 2V IMPRESSION: Normal right shoulder.
--- NOTE | ~2022-10-16 | XR_ITS ---
EXAMINATION: XR HAND, RIGHT CLINICAL INFORMATION: Pain. History of fall. COMPARISON: None available. TECHNIQUE: PA, lateral, and oblique views of the right hand. FINDINGS: The bones and soft tissues are normal. No fracture. Alignment is anatomic. Joint spaces are maintained. No erosions or soft tissue calcifications. XR/XR hand RT min 3V IMPRESSION: Normal right hand.
== END 2022-10-16 12:44 | disposition home or self-care (01) ==
LOC: HO.XRAY 12:43
PROVIDERS: PCP Physician Assistant; Visit Provider Physician Assistant
DX: M79.641 Pain in right hand (principal); M25.511 Pain in right shoulder
CPT/HCPCS: 73030; 73130

== ENCOUNTER 2022-10-23 09:21 | Outpatient (REF) | payer OTHER, SELFPAY ==
[2022-10-23 16:09] LABS: CT PCR NOT DETECTED (Not Detect.); NG PCR NOT DETECTED (Not Detect.)
[2022-10-24 14:35] LABS: BV Int Neg Control Negative (Negative); BV Int Pos Control Positive (Positive)
[2022-10-26 09:13] LABS: HPV 16 RNA NOT DETECTED (NOT DETECTED); HPV mRNA E6/E7 rflx Detected (Not Detected)
== END 2022-10-23 09:22 | disposition home or self-care (01) ==
LOC: HO.LNP 09:21
PROVIDERS: PCP Physician Assistant; Visit Provider Advanced Practice Midwife
DX: Z01.419 Encounter for gynecological examination (general) (routine) without abnormal findings (principal); R10.2 Pelvic and perineal pain; N87.0 Mild cervical dysplasia; Z79.899 Other long term (current) drug therapy
CPT/HCPCS: 0353U; 87480; 87510; 87624; 87625; 87660; 88142; 99202

== ENCOUNTER 2022-11-28 10:30 | Outpatient (REF) | payer OTHER, SELFPAY | END 2022-11-28 10:31 | disposition home or self-care (01) | LOC: HO.XRAY 10:30 | PROVIDERS: PCP Physician Assistant; Visit Provider Physician Assistant | DX: Z13.89 Encounter for screening for other disorder (principal) ==

== ENCOUNTER 2022-11-29 08:57 | Outpatient (REF) | payer OTHER, SELFPAY ==
--- NOTE | ~2022-11-29 | XR_ITS ---
EXAMINATION: XR FOOT, RIGHT CLINICAL INFORMATION: Pain in second toe following trauma COMPARISON: 08/12/2022 TECHNIQUE: AP, lateral, and oblique views of the right foot. FINDINGS: Patient is status post surgical resection of the distal metadiaphysis of second proximal phalanx. The area of interest in the forceps toe revealed no abnormal findings. Soft tissues unremarkable. XR/XR foot RT 2V IMPRESSION: No acute abnormalities. Status post resection of the distal metadiaphysis of the second proximal phalanx.
== END 2022-11-29 08:58 | disposition home or self-care (01) ==
LOC: HO.XRAY 08:57
PROVIDERS: PCP Physician Assistant; Visit Provider Physician Assistant
DX: S99.921A Unspecified injury of right foot, initial encounter (principal); Z91.81 History of falling
CPT/HCPCS: 73620

== ENCOUNTER 2022-12-20 15:58 | Outpatient (REF) | payer OTHER, SELFPAY ==
--- NOTE | ~2022-12-20 | US_ITS ---
EXAMINATION: US PELVIS CLINICAL INFORMATION: Mild cervical dysplasia, pelvic pain COMPARISON: 09/26/2020 TECHNIQUE: Ultrasound of the pelvis is performed using both transabdominal and transvaginal transducers along with Doppler. Transvaginal imaging is performed due to inadequate visualization transabdominally. FINDINGS: Uterus: The uterus is retroverted and measures 7.9 x 4.3 x 5.1 cm. Previous measurement was 8.3 x 4.0 x 4.7 cm. The uterus is smooth in contour and has normal myometrial echogenicity. No visible fibroid. Endometrium measures 8 mm. Incidental note of nabothian cysts. Adnexa: Both ovaries are visualized. There is normal color flow to the adnexa. Small amount of free pelvic fluid in the right adnexa. Right ovary measures 2.8 x 3.3 x 2.3 cm with corpus luteum. Volume is 11.1 mL. Previous measurement was 2.4 x 2.1 x 1.8 cm. Left ovary measures 2.0 x 1.6 x 1.3 cm. Volume is 2.2 mL. Previous measurement was 2.4 x 1.8 x 1.3 cm. US/US pelvic and transvaginal IMPRESSION: Small amount of right adnexal free fluid, likely physiologic. No uterine or ovarian pathology recognized.
== END 2022-12-20 15:59 | disposition home or self-care (01) ==
LOC: HO.US 15:58
PROVIDERS: PCP Physician Assistant; Visit Provider Advanced Practice Midwife
DX: N87.0 Mild cervical dysplasia (principal); R10.2 Pelvic and perineal pain
CPT/HCPCS: 76830; 76856

== ENCOUNTER → 2022-12-23 10:58 | Outpatient (BNVA) | payer OTHER, SELFPAY | PROVIDERS: PCP Physician Assistant; Visit Provider Internal Medicine ==

== ENCOUNTER 2022-12-24 08:26 | Outpatient (REF) | payer OTHER, SELFPAY ==
[2022-12-24 09:11] LABS: Hematocrit 37.6 % (37.0-47.0); Hemoglobin 12.3 g/dl (12.0-16.0); Mean Corpuscular HGB Conc 32.7 g/dl (31.0-35.0); Mean Corpuscular Hemoglobin 28.7 pg (27.0-33.0); Mean Corpuscular Volume 87.6 fL (80.0-98.0); Mean Platelet Volume 10.2 fL (9.4-12.3); Platelet Count 301 X10*3/uL (160-400); Red Blood Count 4.29 X10*6/uL (4.20-5.50); Red Cell Distribution Width 13.4 % (11.0-16.0); White Blood Count 5.9 X10*3/uL (4.8-10.8)
[2022-12-24 10:11] LABS: Alanine Aminotransferase 13 U/L (0-31); Albumin Level 3.7 g/dL (3.5-5.0); Alkaline Phosphatase 41 U/L (39-117); Anion Gap 10 (12-20); Aspartate Amino Transferase 15 U/L (5-31); Bilirubin Total 0.7 mg/dL (0.0-1.0); Blood Urea Nitrogen 10 mg/dL (9-16); Calcium 9.1 mg/dL (8.4-10.2); Carbon Dioxide 23 mmol/L (22-29); Chloride 110 mmol/L (96-108); Estimated Glomerular Filt Rate > 60; Glucose Fasting 92 mg/dL (60-99); Iron 98 mcg/dL (30-160); Percent Iron Saturation 28 % (15-50); Potassium 4.2 mmol/L (3.3-5.1); Sodium 139 mmol/L (135-145); Total Iron Binding Capacity 347 mcg/dL (228-428); Total Protein 7.6 g/dL (6.5-8.0); Unsaturated Iron Binding 249 ug/dL
[2022-12-24 10:15] LABS: Free T4 (Free Thyroxine) 0.92 ng/dL (0.71-1.85)
[2022-12-24 10:17] LABS: TSH reflex Free T4 7.46 uIU/mL (0.32-4.0); Thyroid Stimulating Hormone 7.46 uIU/mL (0.32-4.0)
== END 2022-12-24 08:27 | disposition home or self-care (01) ==
LOC: HO.LAB 08:26
PROVIDERS: Internal Medicine; PCP Physician Assistant; Visit Provider Physician Assistant
DX: Z13.1 Encounter for screening for diabetes mellitus (principal); D50.9 Iron deficiency anemia, unspecified; R53.83 Other fatigue; E03.8 Other specified hypothyroidism; E06.3 Autoimmune thyroiditis
CPT/HCPCS: 36415; 80053; 83540; 84439; 84443; 85027

== ENCOUNTER → 2023-01-03 13:04 | Outpatient (BNVA) | payer OTHER, SELFPAY | PROVIDERS: PCP Physician Assistant; Visit Provider Advanced Practice Midwife | DX: N87.0 Mild cervical dysplasia (principal); R10.2 Pelvic and perineal pain | CPT/HCPCS: 99212 ==

== ENCOUNTER 2023-01-15 14:17 | Outpatient (AMB) | payer OTHER, SELFPAY ==
--- NOTE | 2023-01-15 14:19 | MHC.PC.OV ---
Vital Signs 01/15/23 14:20 Height 5 ft 7 in Weight 220 lb 2 oz BMI 34.5 BP 116/78 Blood Pressure Location Lt brachial Position Sitting Pulse 92 Pulse Source Pulse Oximeter Pulse Oximetry (%) 96 Oxygen Delivery Method Room Air Intake Visit Reasons: Annual Exam Paper Control Clerk Required: Yes Accompanied by: Self / Same As Patient Allergies animal dander [ANIMAL DANDER] Allergy (Intermediate, Verified 01/15/23 14:35) RASH RYE Allergy (Intermediate, Uncoded 01/03/23 13:17) RASH plants Allergy (Mild, Uncoded 01/03/23 13:17) Rash wheat, grains, rye Allergy (Mild, Uncoded 01/03/23 13:17) Rash Medication List - Last Reconciled 01/15/23 by MERCEDEZ Latif-C ascorbic acid (vitamin C) 500 mg PO DAILY 90 days cholecalciferol (vitamin D3) 100 mcg (2 x 50 mcg (2,000 unit)) PO DAILY 30 days clotrimazole-betamethasone 1-0.05 % 1 appl topical BID 30 days diclofenac sodium 75 mg PO BID PRN 15 days dicyclomine 20 mg PO TID fluoxetine 10 mg PO DAILY levothyroxine 50 mcg PO DAILY 30 days loratadine 10 mg PO DAILY 90 days nystatin 1 appl topical DAILY 30 days omeprazole 20 mg PO BEDTIME penicillin V potassium 500 mg PO BID 10 days [RIGHT SHOULDER SLING As directed] tizanidine 2 mg PO Q8H PRN 15 days Tobacco use date assessed: 01/15/23 Dental Screening Dental Screen Date: 01/15/23 Did you have a dental visit in the last 12 months?: No Did you have a dental problem in the last 6 months where you did not have access to dental care?: No Was dental information given to patient?: Patient has dentist HPI Annual Exam HPI Details Patient is a 32-year-old female here today for routine annual physical. Patient is Vietnamese-speaking only thus used a remote gas specialist. Patient's past medical history significant for hypothyroidism, obesity, chronic pain complaints. Concerns--> reports still having fatigue and some easy bruising, reports having some bruises over her lower extremity in her right foot from minor trauma. Also reports having a sensation of a mass in her head, has been having migraine headaches with auras. She does report using NSAID and Tylenol for her headache though has not been effective on reducing the pain. .. Hypothyroidism: Has been restarted on levothyroxine and has noted some weight loss since last visit. She denies any increase in her energy. Will recheck TSH to assure normal and if TSH still elevated will increase levothyroxine to 75 mcg. 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 1. Little interest or pleasure in doing things: not at all 2. Feeling down, depressed, or hopeless: not at all 3. Trouble falling or staying asleep, or sleeping too much: not at all 4. Feeling tired or having little energy: not at all 5. Poor appetite or overeating: not at all 6. Feeling bad about yourself - or that you are a failure or have let yourself or your family down: not at all 7. Trouble concentrating on things, such as reading the newspaper or watching television: not at all 8. Moving or speaking so slowly that other people could have noticed. Or the opposite - being so fidgety or restless that you have been moving around a lot more than usual: not at all 9. Thoughts that you would be better off or of hurting yourself in some way: not at all Total score: 0 Depression Screening Interpretation: Negative 84274 - PHQ-9 Billing: Yes Source: Developed by Drs. Bartolome Alonso, Shelia Mccallum, Tim Beaulieu and colleagues, with an educational celeste from [employer]. Thrive Questionnaire Date Thrive assessed: 01/15/23 I am a: Patient What is your living situation today?: I have a steady place to live Within the past 12 months, did the food you bought not last and you didn't have the money to get more?: Never true Within the past 12 months, did you worry whether your food would run out before you got money to buy more?: Never true Do you have trouble paying for medicines?: No Do you have trouble getting transportation to medical appointments?: No Do you have trouble paying your heating and electricity bill?: No Do you have trouble taking care of your child, family member or friend?: No Do you have trouble with day-to-day activities such as bathing, preparing meals, shopping, managing finances, etc.?: No Are you currently unemployed and looking for a job?: No Are you interested in more education?: No Please select the resources that you would like help with: None Currently or been in a relationship where the following occur: no concerns reported AUDIT C Alcohol Use Questionnaire (AUDIT-C) 1. How often do you have a drink containing alcohol?: Monthly or less 2. How many drinks containing alcohol do you have on a typical day when you are drinking?: 1 or 2 3. How often do you have six or more drinks on one occasion?: Never Total Score: 1 CAMMY-7 AMB Questionnaire CAMMY-7 Date CAMMY - 7 assessed: 01/15/23 Feeling nervous, anxious, or on edge: 0 = Not at all Not being able to stop or control worryin = Not at all Worrying too much about different things: 0 = Not at all Trouble relaxin = Not at all Being so restless that it is hard to sit still: 0 = Not at all Becoming easily annoyed or irritable: 0 = Not at all Feeling afraid as if something awful might happen: 0 = Not at all Total CAMMY-7 score (0-4 normal; 5-9 mild; 10-14 moderate; 15-21 severe): 0 Source: Developed by Drs. Bartolome Alonso, Shelia Mccallum, Tim Beaulieu and colleagues, with an educational celeste from [employer]. CAMMY-7 Assessment Billing CAMMY-7 Assessment Tool: CAMMY-7 Assessment 13885 Review of Systems Const Denies body aches, Denies chills, Denies excessive sweating, Denies fatigue, Denies fever(s) and Denies headache(s) Eyes Denies blurry vision ENT Denies dysphagia, Denies vertigo, Denies dizziness, Denies headache(s), Denies hearing loss and Denies tinnitus Card Denies chest pain, Denies chest pain with activity, Denies syncope, Denies irregular heart rhythm and Denies dyspnea Resp Denies chest congestion, Denies cough, Denies hemoptysis, Denies dyspnea and Denies wheezing GI Denies abdominal pain, Denies melena, Denies hematochezia, Denies coffee ground emesis, Denies dysphagia, Denies diarrhea, Denies nausea and Denies vomiting Denies urinary frequency, Denies dysuria, Denies urinary hesitancy and Denies urinary urgency Musc Denies arthralgias, Denies limited range of motion, Denies muscle cramps and Denies muscle weakness Skin/Breast Denies rash and Denies skin ulcer Neuro Denies Abnormal speech present, Denies confusion, Denies vertigo, Denies dizziness, Denies syncope, Denies headache(s), Denies memory loss and Denies seizure-like activity Psych Denies anxiety, Denies confusion, Denies depression, Denies memory loss, Denies panic attacks and Denies paranoia Endo Denies excessive sweating, Denies fatigue, Denies flushing, Denies polydipsia and Denies polyuria Aller/Immun Denies wheezing Physical exam (Primary Care) Vital Signs: Last Vital Signs Pulse 92 01/15/23 14:20 BP 116/78 01/15/23 14:20 Pulse Ox 96 01/15/23 14:20 Oxygen Delivery Method Room Air 01/15/23 14:20 BMI result Body Mass Index 34.5 BMI Assessment/Plan discussion: High Tobacco/Smoking Status: Tobacco use Status Tobacco use date assessed 01/15/23 01/15/23 14:27 Patient Tobacco Use Status Never used Tobacco 01/15/23 14:27 Tobacco use type Cigarette 01/15/23 14:27 e-Cigarette/Vaping Use Never Used 01/15/23 14:27 PHQ-9: PHQ-9 Score PHQ-9: Total score 0 01/15/23 14:43 Depression Screening Interpretation: Negative Thrive Assessment: Date of Thrive Assessment Date Thrive assessed 01/15/23 01/15/23 14:27 Currently or been in a relationship where the following occur: no concerns reported Const Other: Obese General: cooperative, comfortable, no acute distress, alert and awake; No confusion Orientation/consciousness: oriented to person, oriented to place, patient oriented x3 and No confusion HENMT Head: Yes normocephalic Ears: external ears normal and TM's normal bilaterally Face and sinus: No sinus tenderness Mouth: Normal oral and palatal mucosa present and tongue normal Teeth and gingiva: dentition normal and gingiva normal Throat: Yes posterior oropharynx normal, Yes tonsils normal and Yes uvula midline Eyes Conjunctivae: conjunctivae normal Sclerae: sclerae normal Pupils: Equal, round and reactive pupils present EOM: EOMs intact bilaterally Direct Ophthalmoscopy: No no photophobia Neck Neck: Yes no lymphadenopathy, No tender and Yes no JVD Thyroid: Thyroid normal Carotids: no bruits Chest Chest palpation & inspection: no tenderness Resp Effort & Inspection: normal respiratory effort, no audible wheezes, not labored and no stridor Auscultation: no crackles, no rales, no rhonchi and no wheezes Cardio Jugular venous distension: no JVD Rate: regular rate, not bradycardic and not tachycardic Rhythm: regular rhythm Bruits: no carotid bruits Peripheral pulses: Peripheral pulses 2+ throughout GI Inspection: Yes normal to inspection, No abdominal wall ecchymosis and No visible herniation Palpation (GI): Soft to palpation, nontender, no guarding, not rigid and No hepatosplenomegaly present Auscultation: normoactive bowel sounds General: Yes no CVA tenderness Back/Spine/Pelvis Back: no CVA tenderness and No back tenderness Cervical Spine: cervical ROM normal Thoracic/Lumbar Spine: thoracic and lumbar spine normal to inspection, straight leg raise negative bilaterally, No thoraco-lumbar ROM limited and No lumbar spinal tenderness Skin Lesions: no lesions Rashes: no rashes Wounds: no wounds Neuro General: oriented to person, oriented to place, patient oriented x3, CN's II-XI intact bilaterally and No confusion Cranial nerves: Yes Equal, round and reactive pupils present and Yes Normal accommodation reflex present Cognition (Neuro): normal cognition Speech: No Abnormal speech present Gait exam (Neuro): Normal gait present Motor exam (neuro): 5/5 motor strength present throughout Extrem Right upper extremity: full ROM; no cyanosis Left upper extremity: full ROM; no cyanosis Right lower extremity: no edema Left lower extremity: no edema Psych Appearance: grossly normal Mental Status: mental status grossly normal Affect: normal affect Attitude: cooperative Thought process: Normal thought process present Assessment and Plan Assessment & Plan (1) Annual physical exam: Code(s): Z00.00 - Encounter for general adult medical examination without abnormal findings (2) Hypothyroidism: Code(s): E03.9 - Hypothyroidism, unspecified Qualifiers: 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 Will recheck TSH to assure normal and if elevated will increase her levothyroxine dose to 75 mcg (3) Easy bruising: Code(s): R23.3 - Spontaneous ecchymoses Plan: Bruising Likely related to her thyroid disease. Will check her iron although CBC normal. (4) Migraines: Code(s): G43.909 - Migraine, unspecified, not intractable, without status migrainosus Qualifiers: Intractability: not intractable Migraine type: with aura Status migrainosus presence: without status migrainosus Qualified Code(s): G43.109 - Migraine with aura, not intractable, without status migrainosus Plan: Unclear etiology to patient's migraine. He does have a foreign sensation over her head and does reports of vision issues. Was sent for CT of head to evaluate for intracranial mass. (5) Large breasts: Code(s): N62 - Hypertrophy of breast Plan: Patient interested in getting breast reduction surgery. Did discuss the need for her BMI to be below 30 in order to be candidate for surgery and she agrees and understands though was still like to referral. (6) Obese: Code(s): E66.9 - Obesity, unspecified Qualifiers: Obesity type: due to excess calories Obesity classification: adult class 1 (BMI 30 - 34.9) Serious obesity comorbidity presence: without serious comorbidity Body mass index: BMI 34.0-34.9 Qualified Code(s): E66.09 - Other obesity due to excess calories; Z68.34 - Body mass index [BMI] 34.0-34.9, adult Plan: Patient does understand her BMI is over 30 will work on being more physically active and adapting to better eating habits to reduce her weight Orders: Orders TSH reflex Free T4 Today E03.8 - Other specified hypothyroidism, E06.3 - Autoimmune thyroiditis IRON PROFILE Today D50.9 - Iron deficiency anemia, unspecified, R23.3 - Spontaneous ecchymoses Complete Blood Count no Diff Today R23.3 - Spontaneous ecchymoses CT head/brain wo IV con Today G43.109 - Migraine with aura, not intractable, without status migrainosus Referrals Plastic Surgery Referral N62 - Hypertrophy of breast Medications: New acetaminophen-caffeine 500-65 mg (Excedrin Tension Headache) 1 tab PO Q12H 7 days 14 tabs 0RF pain G43.109 - Migraine with aura, not intractable, without status migrainosus Coding Level of Care Code Est Pt Prev Care 18-39y([id number]) Diagnoses Annual physical exam Z00.00 Hypothyroidism E03.8; E06.3 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
[2023-01-15 14:20] VITALS: BP 116/78; PULSE 92; O2SAT 96; BMI 34.5
== END 2023-01-15 15:29 | disposition home or self-care (01) ==
PROVIDERS: PCP Physician Assistant; Visit Provider Physician Assistant
DX: Z00.00 Encounter for general adult medical examination without abnormal findings (principal); E03.8 Other specified hypothyroidism; E06.3 Autoimmune thyroiditis; G43.109 Migraine with aura, not intractable, without status migrainosus; R23.3 Spontaneous ecchymoses; N62 Hypertrophy of breast; E66.09 Other obesity due to excess calories; Z68.34 Body mass index [BMI] 34.0-34.9, adult
CPT/HCPCS: 99395

== ENCOUNTER 2023-01-31 10:58 | Outpatient (REF) | payer OTHER, SELFPAY ==
--- NOTE | ~2023-01-31 | CT_ITS ---
EXAMINATION: CT HEAD WITHOUT CONTRAST CLINICAL INFORMATION: Migraines. COMPARISON: None. TECHNIQUE: Contiguous axial imaging was performed from the skullbase to vertex without intravenous administration of contrast. This CT examination was performed using dose optimization techniques as appropriate, variously including the following: *Automated exposure control *Adjustment of mA and/or kV according to patient size (this includes techniques or standardized protocols for targeted exams where dose is matched to indication/reason for exam; i.e. extremities or head) *Use of iterative reconstruction technique DLP: 798 mGy-cm. FINDINGS: There is no evidence of acute intracranial hemorrhage or territorial infarction. No abnormal mass effect or midline shift is seen. Garcia to white matter differentiation is well preserved. No extra-axial fluid collections are identified. There is an 8 x 4 x 5 mm cystic-appearing focus in the anterior pituitary fossa without suprasellar extension. The sella turcica is otherwise normal in appearance. The ventricles are normal in size. There is no abnormal attenuation within the brain parenchyma. The osseous structures and soft tissues are normal. The mastoid air cells and visualized portions of the paranasal sinuses are well aerated. CT/CT head/brain wo IV con IMPRESSION: No acute intracranial pathology. 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 A follow-up MRI of the brain targeting the pituitary region without and with contrast is recommended for further evaluation.
== END 2023-01-31 10:59 | disposition home or self-care (01) ==
LOC: HO.CT 10:58
PROVIDERS: PCP Physician Assistant; Visit Provider Physician Assistant
DX: G43.109 Migraine with aura, not intractable, without status migrainosus (principal)
CPT/HCPCS: 70450

== ENCOUNTER 2023-02-07 11:44 | Outpatient (REF) | payer OTHER, SELFPAY ==
[2023-02-07 12:49] LABS: Anion Gap 9 (12-20); Blood Urea Nitrogen 10 mg/dL (9-16); Carbon Dioxide 22 mmol/L (22-29); Chloride 110 mmol/L (96-108); Estimated Glomerular Filt Rate > 60; Glucose Random 91 mg/dL (60-115); Potassium 4.3 mmol/L (3.3-5.1); Sodium 137 mmol/L (135-145)
[2023-02-08 22:44] LABS: Prolactin 13.8 ng/mL
== END 2023-02-07 11:45 | disposition home or self-care (01) ==
LOC: HO.LAB 11:44
PROVIDERS: PCP Physician Assistant; Visit Provider Physician Assistant
DX: D35.2 Benign neoplasm of pituitary gland (principal)
CPT/HCPCS: 36415; 80048; 84146

== ENCOUNTER 2023-02-07 14:00 | Outpatient (AMB) | payer OTHER, SELFPAY ==
--- NOTE | 2023-02-07 14:06 | A.OFFPC_ITS ---
Vital Signs 02/07/23 14:07 02/07/23 14:59 Height 5 ft 7 in Weight 224 lb 4 oz BMI 35.1 BP 100/58 L 108/60 Blood Pressure Location Lt brachial Lt brachial Position Sitting Sitting Pulse 104 H Pulse Source Pulse Oximeter Pulse Oximetry (%) 99 Oxygen Delivery Method Room Air Intake Visit Reasons: Rt elbow and Rt leg irritation Pairer Inspector Required: Yes Pairer Inspector Language: Tape Coater Name: Cora [id number] Information Interpreted: non-clinical & clinical Accompanied by: kids Allergies animal dander [ANIMAL DANDER] Allergy (Intermediate, Verified 02/07/23 14:24) RASH RYE Allergy (Intermediate, Uncoded 02/07/23 14:24) RASH plants Allergy (Mild, Uncoded 02/07/23 14:24) Rash wheat, grains, rye Allergy (Mild, Uncoded 02/07/23 14:24) Rash Tobacco use date assessed: 01/15/23 Dental Screening Dental Screen Date: 02/07/23 Did you have a dental visit in the last 12 months?: No Did you have a dental problem in the last 6 months where you did not have access to dental care?: No Was dental information given to patient?: Yes HPI HPI Comments History of Present Illness Details 33-year old female,Patient's past medical history significant for hypothyroidism, obesity, chronic pain complaints. Patient reports that she was at her sister's doctor's appointment with her, sitting in office waiting room yesterday.Suddenly felt like something was bitting her right foot. and then her right thigh. Patient reports she brushed off her legs but did not see any sort of bug or spider. She reports the her right top of her foot, behind right ankle and right posterior thigh is hot, red and itching.Patient denies any new soaps,detergents and lotions. Less likely contact dermatitis. Given areas erythematous and warm to touch with cover for cellutitis from possible bite. [facility] Medical History Anxiety and depression Avulsion fracture of ankle Back pain Breast pain, left Cervical lymphadenopathy Dysphagia Dysplasia of cervix, low grade (OMAR 1) Goiter Lexi's disease Hypothyroidism IBS (irritable colon syndrome) Left foot pain Nasal congestion Obese Snoring Vitamin D deficiency Surgical History H/O foot surgery H/O tubal ligation History of 2 sections History of lumpectomy of left breast Hx of colonoscopy Family History Father No problems noted. 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 Bartolome Alonso, Shelia Mccallum, Tim Beaulieu and colleagues, with an educational celeste from [employer]. Review of Systems Const Denies chills, Denies fatigue, Denies fever(s) and Denies poor appetite Card Denies chest pain, Denies rapid heart rate and Denies dyspnea Resp Denies cough and Denies dyspnea Skin/Breast Details: redness, warmth and itching to right foot, behin ankle, behind right thigh. Neuro Denies confusion Psych Denies confusion Endo Denies fatigue Physical exam (Primary Care) Vital Signs: Last Vital Signs Pulse 104 H 02/07/23 14:07 BP 100/58 L 02/07/23 14:07 Pulse Ox 99 02/07/23 14:07 Oxygen Delivery Method Room Air 02/07/23 14:07 BMI result Body Mass Index 35.1 Tobacco/Smoking Status: Tobacco use Status Tobacco use date assessed 01/15/23 02/07/23 14:07 Patient Tobacco Use Status Never used Tobacco 02/07/23 14:07 Tobacco use type Cigarette 02/07/23 14:07 e-Cigarette/Vaping Use Never Used 02/07/23 14:07 Thrive Assessment: Date of Thrive Assessment Date Thrive assessed 01/15/23 02/07/23 14:07 Const General: No confusion Orientation/consciousness: No confusion HENMT Head: Yes normocephalic and Yes atraumatic Eyes Conjunctivae: conjunctivae normal Chest Chest palpation & inspection: normal inspection of the chest Resp Effort & Inspection: normal respiratory effort Auscultation: clear to auscultation bilaterally, no crackles, no rhonchi and no wheezes Cardio Rate: regular rate Rhythm: regular rhythm Heart sounds: S1 normal heart sound present and S2 normal heart sound present Peripheral pulses: dorsalis pedis present GI Inspection: Yes normal to inspection Skin Full body images: 1. erythematous annular, 2x2 spot cm, warm to touch. no drainage. 2. erythematous annular, 2x2cm spot, warm to touch. no drainage. 3. erythematous annular 3x 4 cm spot, warm to touch to posterior thigh Neuro General: No confusion Extrem General: No edema Assessment and Plan Assessment & Plan (1) Cellulitis of right leg: Code(s): L03.115 - Cellulitis of right lower limb Plan: Will cover with cephalexin for possible cellulitis related to ? insect bite. Signs and symptoms reviewed with patient when to seek medical attention or follow-up with PCP. Plan Keep scheduled follow up with pcp in February Medications: New cephalexin 500 mg PO BID 14 caps 0RF L03.115 - Cellulitis of right lower limb cephalexin 500 mg PO BID 14 caps 0RF L03.115 - Cellulitis of right lower limb Discontinued penicillin V potassium Discontinued Reason: No Longer Medically Relevant 500 mg PO BID 10 days 20 tabs 0RF J02.9 - Acute pharyngitis, unspecified Coding Level of Care Code Est Pt Level 3 (22625) Diagnoses Cellulitis of right leg L03.115
[2023-02-07 14:07] VITALS: BP 100/58; PULSE 104; O2SAT 99; BMI 35.1
[2023-02-07 14:59] VITALS: BP 108/60
== END 2023-02-07 15:44 | disposition home or self-care (01) ==
PROVIDERS: PCP Physician Assistant; Visit Provider Nurse Practitioner Family
DX: L03.115 Cellulitis of right lower limb (principal)
CPT/HCPCS: 99213

== ENCOUNTER 2023-02-17 09:50 | Emergency (ER) | payer OTHER, SELFPAY ==
[2023-02-17 09:52] VITALS: BP 113/69; PULSE 89; RESP 16; TEMP 36.6; O2SAT 96; BMI 35.2
--- NOTE | 2023-02-17 10:20 | ED.HA ---
HPI - Headache General Chief Complaint: Headache Stated Complaint: Headache/Eye pain Time Seen by Provider: 02/17/23 10:24 Source: patient, RN notes reviewed and old records reviewed Mode of arrival: ambulatory History of Present Illness HPI Narrative: 33-year-old female with a past medical history polyarthritis, presenting to the ED complaining of right-sided headache x 2 weeks. Admits up PCP for regular checkup mentioned headache and had outpatient CT on 01/31 which showed cyst in the pituitary fossa recommending MRI. Patient reports continued right-sided headache/pressure behind eyes, has not tried anything for pain relief. Denies vision change/loss, nausea/vomiting, numbness/tingling, weakness MD elicited complaint: migraine Related Data Home Medications Medication Instructions Recorded Confirmed fluoxetine 10 mg capsule 10 mg PO DAILY 06/12/20 01/15/23 Previous Rx's Medication Instructions Recorded ascorbic acid (vitamin C) 500 mg 500 mg PO DAILY 90 days #90 caps 06/11/21 capsule dicyclomine 20 mg tablet 20 mg PO TID #90 tabs 08/30/21 omeprazole 20 mg capsule,delayed 20 mg PO BEDTIME #30 caps 01/15/22 release RIGHT SHOULDER SLING #1 ea 08/13/22 diclofenac sodium 75 mg 75 mg PO BID PRN pain 15 days #30 09/05/22 tablet,delayed release tabs clotrimazole-betamethasone 1 1 appl topical BID 30 days #45 09/09/22 %-0.05 % topical cream grams nystatin 100,000 unit/gram topical 1 appl topical DAILY 30 days #60 09/09/22 powder grams tizanidine 2 mg tablet 2 mg PO Q8H PRN muscle spasticity 12/05/22 15 days #45 tabs cholecalciferol (vitamin D3) 50 100 mcg PO DAILY 30 days #60 caps 12/10/22 mcg (2,000 unit) capsule loratadine 10 mg tablet 10 mg PO DAILY 90 days #90 tabs 12/10/22 levothyroxine 50 mcg tablet 50 mcg PO DAILY 30 days #30 tabs 01/06/23 acetaminophen-caffeine 500 mg-65 1 tab PO Q12H pain 7 days #14 tabs 01/15/23 mg tablet (Excedrin Tension Headache) cephalexin 500 mg capsule 500 mg PO BID #14 caps 02/07/23 rfpsueqbwx-nupnaydbebplt-zkrtbfsg 1 cap PO Q4-6H PRN headache #14 02/17/23 50 mg-300 mg-40 mg capsule caps (Fioricet) Allergies Allergy/AdvReac Type Severity Reaction Status Date / Time animal dander [ANIMAL DANDER] Allergy Intermediate RASH Verified 02/07/23 14:24 RYE Allergy Intermediate RASH Uncoded 02/07/23 14:24 plants Allergy Mild Rash Uncoded 02/07/23 14:24 wheat, grains, rye Allergy Mild Rash Uncoded 02/07/23 14:24 Review of Systems Review of Systems: Constitutional: No Fever, No Chills ENT/Mouth: No Ear Pain, No Nasal Congestion,No sore throat, No Rhinorrhea, No Swallowing Difficulty Cardiovascular: No Chest Pain, No SOB Respiratory: No Cough, No Sputum, No Wheezing Gastrointestinal: No Nausea, No Vomiting, No Diarrhea, No Constipation, No Abdominal pain Musculoskeletal: No joint pain, No Myalgias Skin: No Skin Lesions, No rash Neuro: No Weakness, No Numbness, No Paresthesias, +GILL Yes all other systems are reviewed and are negative Constitutional: Constitutional: Reports as per [facility] Past Medical History Attestation statement: The following information was validated with the patient. Source: old records reviewed Medical History Anxiety and depression Avulsion fracture of ankle Back pain Breast pain, left Cervical lymphadenopathy Dysphagia Dysplasia of cervix, low grade (OMAR 1) Goiter Lexi's disease Hypothyroidism IBS (irritable colon syndrome) Left foot pain Nasal congestion Obese Snoring Vitamin D deficiency Surgical History H/O foot surgery H/O tubal ligation History of 2 sections History of lumpectomy of left breast Hx of colonoscopy Family History Family History Father No problems noted. Mother HTN (hypertension) Diabetes Maternal Grandmother Diabetes HTN (hypertension) Social History Social History Household Members: Children Household Members Other:: 2 children--8 and 10 yr old Housing: Apartment Alcohol intake: never Patient Tobacco Use Status: Never used Tobacco Tobacco use type: Cigarette e-Cigarette/Vaping Use: Never Used Second Hand Smoke Exposure: No Advance Directives: No service: No Current occupational status: employed 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 - [employer] Cognitive needs: No Hearing needs: No Vision needs: Yes Physical Exam Vital Signs: Vital Signs: Last Vital Signs Temp 97.9 F 02/17/23 09:52 Pulse 89 02/17/23 09:52 Resp 16 02/17/23 09:52 BP 113/69 02/17/23 09:52 Pulse Ox 96 02/17/23 09:52 O2 Del Method Room Air 02/17/23 09:52 BMI result Body Mass Index 35.2 Const: General: cooperative, healthy appearing and no acute distress Orientation/consciousness: patient oriented x3 Limitations: no limitations HEENT: Head: Yes normal to inspection and Yes atraumatic Ears: hearing grossly normal bilaterally, external ears normal, TM's normal bilaterally and mastoids normal General nose exam: Normal external nose present Face and sinus: Yes normal facial exam Mouth: Normal oral and palatal mucosa present Throat: Yes posterior oropharynx normal, Yes tonsils normal, Yes uvula midline, No peritonsillar mass and No uvular edema Eyes: General: appearance normal, both eyes and all related structures Pupils: Equal, round and reactive pupils present EOM: EOMs intact bilaterally Neck: Neck: Yes normal visual inspection and Yes no meningeal signs Resp: Effort & Inspection: normal respiratory effort and no respiratory distress Auscultation: clear to auscultation bilaterally Cardio: Rate: regular rate Heart sounds: S1 normal heart sound present and S2 normal heart sound present GI: Inspection: Yes normal to inspection Palpation (GI): Soft to palpation, nontender, no guarding and not rigid : General: Yes no CVA tenderness Back/Spine/Pelvis: Back: no CVA tenderness Skin: Rashes: no rashes Wounds: no wounds Neuro: General: patient oriented x3, gait normal, tone normal, moves all extremities, no meningeal signs, no focal motor deficits and CN's II-XI intact bilaterally Cranial nerves: Yes CN's II-XII intact bilaterally and Yes Equal, round and reactive pupils present Gait exam (Neuro): Normal gait present Motor exam (neuro): 5/5 motor strength present throughout Extrem: General: Yes normal to inspection Course Course Course Narrative: -[id number]--patient reports symptomatic improvement after p.o. Fioricet, Benadryl and IM Toradol > contacted patient's PCP to make aware patient's visit Results discussed with patient including worrisome signs and symptoms and strict return precautions, and when to return to the emergency department. They verbalized understanding and feel safe for discharge at this time. Medications Administered Discontinued Medications Generic Name Dose Route Start Last Admin Trade Name Omid PRN Reason Stop Dose Admin Acetaminophen/Butalbital/Caffeine 2 tab 02/17/23 10:37 02/17/23 10:48 Butalb/Acetamin/Caff 50/325/40 Tablet PO 02/17/23 10:38 2 tab ONCE ONE Administration Diphenhydramine HCl 25 mg 02/17/23 11:30 02/17/23 11:45 Diphenhydramine Hcl 25 Mg Capsule PO 02/17/23 11:31 25 mg ONCE ONE Administration Ketorolac Tromethamine 30 mg 02/17/23 11:30 02/17/23 11:45 Ketorolac Tromethamine 30 Mg/Ml Vial IM 02/17/23 11:31 30 mg ONCE ONE Administration Medical Decision Making Medical Decision Making [facility] Narrative: 33-year-old female with a past medical history polyarthritis, presenting to the ED complaining of right-sided headache x 2 weeks. Admits up PCP for regular checkup mentioned headache and had outpatient CT on 01/31 which showed cyst in the pituitary fossa recommending MRI. On exam vital signs stable, NAD, nontoxic appearing, no focal neuro deficits, TMs WNL, exam otherwise nonfocal. Concern for migraine headache. Low suspicion for ICH/CVA/TIA, otitis, meningitis/encephalitis, or SAH. Plan: PO Fioricet, re-evaluate, PCP follow-up for MRI Please refer to course for remaining clinical decision making, interpretation of labs/imaging results, and discussions with consultants and/or family members. Differential Diagnosis Differential Diagnoses: The differential diagnosis associated with the presentation includes As above Admission/Observation Consideration of admission/observation: Escalation of care including admission/observation considered Lab Data [facility] Lab Attestation statement: I reviewed the patient's lab results. Radiology Impression Discussion of test interpretation with radiology: I have reviewed the radiologist's reading. External Record Review External record reviewed: Inpatient record, Office record, Outpatient record, Prior outpatient labs, Prior outpatient radiology, Primary care record and Outside ED record Tests considered The following testing was considered but not selected: As above Prescription Management I considered prescription management with: Pain Medication Discharge Plan Discharge Clinical Impression: Headache Patient Disposition: Home, Self-Care Instructions: Acute Headache (DC) Additional Instructions: Fioricet is a combination headache medication, take as needed for headache Be aware this has Tylenol mixed in do not exceed 4 g of Tylenol in 1 day In addition he should take ibuprofen Follow up with her doctor If symptoms persist or worsen return to the Prescriptions: New zvizrbhkyj-ayeybtsqpzqzl-npao [Fioricet] 50-300-40 mg capsule 1 cap PO Q4-6H PRN (Reason: headache) Qty: 14 0RF No Action ascorbic acid (vitamin C) 500 mg capsule 500 mg PO DAILY 90 Days Qty: 90 3RF omeprazole 20 mg capsule,delayed release(DR/EC) 20 mg PO BEDTIME Qty: 30 3RF Rx Instructions: nenita lana capsula antes de acostarse diclofenac sodium 75 mg tablet,delayed release (DR/EC) 75 mg PO BID PRN (Reason: pain) 15 Days Qty: 30 0RF tizanidine 2 mg tablet 2 mg PO Q8H PRN (Reason: muscle spasticity) 15 Days Qty: 45 0RF levothyroxine 50 mcg tablet 50 mcg PO DAILY 30 Days Qty: 30 3RF Excedrin Tension Headache 500-65 mg tablet 1 tab PO Q12H 7 Days Qty: 14 0RF (DME) RIGHT SHOULDER SLING See Rx Instructions .Route .MEDSUPPLY Qty: 1 0RF Rx Instructions: As directed clotrimazole-betamethasone 1-0.05 % cream 1 appl topical BID 30 Days Qty: 45 0RF nystatin 100,000 unit/gram powder 1 appl topical DAILY 30 Days Qty: 60 0RF cholecalciferol (vitamin D3) 50 mcg (2,000 unit) capsule 100 mcg PO DAILY 30 Days Qty: 60 4RF loratadine 10 mg tablet 10 mg PO DAILY 90 Days Qty: 90 1RF dicyclomine 20 mg tablet 20 mg PO TID Qty: 90 3RF Rx Instructions: nenita de 15 a 30 minutos antes de las comidas claudia veces al dejon cephalexin 500 mg capsule 500 mg PO BID Qty: 14 0RF fluoxetine 10 mg capsule 10 mg PO DAILY Referrals: Anthony Bueno PA-C [Primary Care Provider] - 1 week Interventions: ED Discharge Assessment Last Done: 02/17/23 12:54 Discharge Date/Time: 02/17/23 12:55
[2023-02-17] MEDS: Butalb/Acetamin/Caff 50/325/40 TABLET 2 TAB PO (10:48)
[2023-02-17] MEDS: Ketorolac Tromethamine 30 MG/ML VIAL IM (11:45)
[2023-02-17] MEDS: diphenhydrAMINE HCL 25 MG CAPSULE PO (11:45)
== END 2023-02-17 12:55 | disposition home or self-care (01) ==
PROVIDERS: Emergency Provider Emergency Medicine; PCP Physician Assistant
DX: R51.9 Headache, unspecified (principal); H57.13 Ocular pain, bilateral; Z79.899 Other long term (current) drug therapy
CPT/HCPCS: 96372; 99283; 99284; J1885

== ENCOUNTER 2023-03-19 09:26 | Outpatient (REF) | payer OTHER, SELFPAY ==
--- NOTE | ~2023-03-19 | MR_ITS ---
EXAMINATION: MR BRAIN WITHOUT AND WITH CONTRAST CLINICAL INFORMATION: Recent CT head showing question pituitary mass. COMPARISON: CT scan of the head 01/31/2023. TECHNIQUE: Multiplanar, multisequence MRI of the brain was obtained before and after the intravenous administration of 5 mL Gadavist. FINDINGS: No abnormal focus of decreased differential enhancement is seen within the pituitary gland. Mild fullness of the superior aspect of the anterior lobe is likely physiologic. The infundibulum is midline. The cavernous sinuses opacify symmetrically. The internal carotid artery flow-voids are maintained. The optic chiasm is normal. No suprasellar soft tissue abnormality is seen. The pituitary fossa is normal. No diffusion abnormalities are identified to suggest an acute or subacute infarct. There is no evidence of hemorrhage. The ventricles are normal in size. No mass effect or midline shift is seen. No brain parenchymal signal abnormalities are seen. No extra-axial fluid collections are noted. The brainstem and cerebellum are normal. On postcontrast imaging, there is no abnormal parenchymal or leptomeningeal enhancement. The craniovertebral junction, marrow signal, and midline structures are normal. The mastoid air cells are well-aerated. There is minimal mucoperiosteal thickening in the anterior ethmoid sinuses bilaterally MR/MR head/brain wo/w con IMPRESSION: 1. There are no acute bleeds or infarcts. There are no masses or areas of abnormal enhancement. 2. The pituitary region appears normal.
[2023-03-19] MEDS: gadobutroL 7.5 ML VIAL IVPUSH (10:15)
== END 2023-03-19 09:27 | disposition home or self-care (01) ==
LOC: HO.MRI 09:26
PROVIDERS: PCP Physician Assistant; Visit Provider Physician Assistant
DX: D35.2 Benign neoplasm of pituitary gland (principal); G43.109 Migraine with aura, not intractable, without status migrainosus
CPT/HCPCS: 70553; A9585

== ENCOUNTER 2023-05-01 11:05 | Outpatient (AMB) | payer OTHER, SELFPAY ==
[2023-05-01 11:09] VITALS: BP 102/52; PULSE 88; O2SAT 94; BMI 35.6
--- NOTE | 2023-05-01 11:09 | MHC.PC.OV ---
Vital Signs 05/01/23 11:09 Height 5 ft 7 in Weight 227 lb 4 oz BMI 35.6 BP 102/52 L Blood Pressure Location Rt brachial Pulse 88 Pulse Source Pulse Oximeter Pulse Oximetry (%) 94 Oxygen Delivery Method Room Air Intake Visit Reasons: F/U hypothyroid Division Traffic Superintendent Required: Yes Division Traffic Superintendent Language: Angolan Accompanied by: Self / Same As Patient Allergies animal dander [ANIMAL DANDER] Allergy (Intermediate, Verified 05/01/23 11:30) RASH RYE Allergy (Intermediate, Uncoded 02/07/23 14:24) RASH plants Allergy (Mild, Uncoded 02/07/23 14:24) Rash wheat, grains, rye Allergy (Mild, Uncoded 02/07/23 14:24) Rash Medication List - Last Reconciled 05/01/23 by Anthony Bueno PA-C acetaminophen-caffeine 500-65 mg (Excedrin Tension Headache) 1 tab PO Q12H 7 days ascorbic acid (vitamin C) 500 mg PO DAILY 90 days cholecalciferol (vitamin D3) 100 mcg (2 x 50 mcg (2,000 unit)) PO DAILY 30 days clotrimazole-betamethasone 1-0.05 % 1 appl topical BID 30 days diclofenac sodium 75 mg PO BID PRN 15 days dicyclomine 20 mg PO TID fluoxetine 10 mg PO DAILY levothyroxine 50 mcg PO DAILY 30 days loratadine 10 mg PO DAILY 90 days nystatin 1 appl topical DAILY 30 days omeprazole 20 mg PO BEDTIME [RIGHT SHOULDER SLING As directed] sumatriptan succinate take 1 tab at onset of headache; if no relief may repeat 1 tab after at least 2 hrs; max = 4 tabs/24 hr PO 30 days tizanidine 2 mg PO Q8H PRN 15 days Tobacco use date assessed: 01/15/23 Dental Screening Dental Screen Date: 05/01/23 Did you have a dental visit in the last 12 months?: Yes Did you have a dental problem in the last 6 months where you did not have access to dental care?: No Was dental information given to patient?: Patient has dentist HPI F/U hypothyroid HPI Details Patient is a 33-year-old female here today for a follow-up visit. Patient is Angolan-speaking only thus used a chief orthoptist. Patient's past medical history significant for hypothyroidism, obesity, chronic pain complaints. Concerns--> Has recent had MRI of brain which was normal showing no pituitary lesion. She unfortunately continues to have daily migraine headaches. Has sumatriptan available to her though is not effective on reducing her pain or frequency of migraines. She is interested in new medication and evaluation from Neurology. She also reports she does have cockroaches in my since her apartment that she is allergic to. She would like allergy testing to confirm these allergies so that she can get moved out of her apartment. .. Hypothyroidism: Has been restarted on levothyroxine and has noted some weight loss since last visit. She denies any increase in her energy. Will recheck TSH to assure normal and if TSH still elevated will increase levothyroxine to 75 mcg. [facility] Medical History Dysphagia Dysplasia of cervix, low grade (OMAR 1) Avulsion fracture of ankle Breast pain, left Left foot pain Obese Goiter Anxiety and depression Back pain Snoring IBS (irritable colon syndrome) Nasal congestion Cervical lymphadenopathy Vitamin D deficiency Lexi's disease Hypothyroidism Surgical History H/O tubal ligation Hx of colonoscopy H/O foot surgery History of lumpectomy of left breast History of 2 sections Family History Father No problems noted. Mother HTN (hypertension) Diabetes Maternal Grandmother Diabetes HTN (hypertension) Social History Household Members: Children Household Members Other:: 2 children--8 and 10 yr old Housing: Apartment Alcohol intake: never Patient Tobacco Use Status: Never used Tobacco Tobacco use type: Cigarette e-Cigarette/Vaping Use: Never Used Second Hand Smoke Exposure: No service: No Current occupational status: employed 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 - [employer] Cognitive needs: No Hearing needs: No Vision needs: Yes Female Reproductive History Menstrual Age of Menarche: 14 Questionnaire Thrive Questionnaire Date Thrive assessed: 01/15/23 CAMMY-7 AMB Questionnaire CAMMY-7 Date CAMMY - 7 assessed: 01/15/23 Source: Developed by Drs. Bartolome Alonso, Shelia Mccallum, Tim Beaulieu and colleagues, with an educational cleeste from [employer]. Review of Systems Const No unobtainable due to endotracheal tube Reports headache(s) Eyes Denies loss of vision ENT Denies vertigo, Denies dizziness, Reports headache(s) and Denies sore throat Card Denies chest pain, Denies leg edema and Denies lightheadedness Resp Denies cough, Denies hemoptysis and Denies wheezing GI Denies abdominal pain, Denies melena, Denies constipation, Denies diarrhea and Denies vomiting Denies urinary frequency, Denies dysuria and Denies urinary urgency Musc Denies arthralgias, Denies joint swelling, Denies numbness and Denies tingling Neuro Denies Abnormal speech present, Denies behavioral changes, Denies vertigo, Denies dizziness, Reports headache(s), Denies loss of vision, Denies memory loss, Denies numbness and Denies tingling Psych Denies anxiety, Denies behavioral changes, Denies depression, Denies memory loss and Denies panic attacks Cruz/Lymph Denies easy bleeding and Denies easy bruising Aller/Immun Denies wheezing Physical exam (Primary Care) Vital Signs: Last Vital Signs Pulse 88 05/01/23 11:09 BP 102/52 L 05/01/23 11:09 Pulse Ox 94 05/01/23 11:09 Oxygen Delivery Method Room Air 05/01/23 11:09 BMI result Body Mass Index 35.6 Tobacco/Smoking Status: Tobacco use Status Tobacco use date assessed 01/15/23 05/01/23 11:11 Patient Tobacco Use Status Never used Tobacco 05/01/23 11:11 Tobacco use type Cigarette 05/01/23 11:11 e-Cigarette/Vaping Use Never Used 05/01/23 11:11 Thrive Assessment: Date of Thrive Assessment Date Thrive assessed 01/15/23 05/01/23 11:11 Const General: healthy appearing, no acute distress, alert and awake Nutritional Appearance: well nourished Orientation/consciousness: oriented to person, oriented to place and oriented to time HENMT Ears: TM's normal bilaterally General nose exam: Normal nasal mucous membranes and turbinates present Eyes Conjunctivae: conjunctivae normal Sclerae: sclerae normal Pupils: Equal, round and reactive pupils present Neck Neck: Yes no lymphadenopathy and Yes no JVD Thyroid: Thyroid normal Carotids: no bruits Resp Effort & Inspection: normal respiratory effort and not tachypneic Auscultation: no crackles, no rales, no rhonchi and no wheezes Cardio Rate: regular rate Rhythm: regular rhythm Heart sounds: no murmurs and normal S1 and S2 GI Palpation (GI): Soft to palpation, nontender, no hepatomegaly and no splenomegaly Auscultation: normal bowel sounds Skin General skin exam: no rashes or lesions noted and dry skin Neuro General: oriented to person, oriented to place and oriented to time Cranial nerves: Yes Equal, round and reactive pupils present Speech: No Abnormal speech present Gait exam (Neuro): Normal gait present Motor exam (neuro): no tremor noted Extrem Right upper extremity: full ROM Left upper extremity: full ROM Right lower extremity: full ROM; no edema Left lower extremity: full ROM; no edema Psych Mental Status: mental status grossly normal Speech and movement: Normal speech and movement present Affect: normal affect Attitude: cooperative Thought process: Normal thought process present Assessment and Plan Assessment & Plan (1) Migraines: Code(s): G43.909 - Migraine, unspecified, not intractable, without status migrainosus Qualifiers: Intractability: not intractable Migraine type: with aura Status migrainosus presence: without status migrainosus Qualified Code(s): G43.109 - Migraine with aura, not intractable, without status migrainosus Plan: Reports he continues to have migraines. Recent MRI brain without any intracranial pathology.. Migraines are on a nearly daily basis. She is willing to start daily medication for her migraines. Will start propanolol 10 mg b.i.d.. Will start magnesium and B2 supplementation. (2) Allergies: Code(s): T78.40XA - Allergy, unspecified, initial encounter Qualifiers: Encounter type: sequela Qualified Code(s): T78.40XS - Allergy, unspecified, sequela Plan: Patient reports she has been seen an curing oven attendant in the past and was told she had allergy to cockroaches. She does report having cockroaches and mice in her apartment and is trying to move out of her apartment. She needs documentation that she is allergic to cockroaches and mice. Will do RAST panel. (3) Hypothyroidism: Code(s): E03.9 - Hypothyroidism, unspecified Qualifiers: Hypothyroidism type: due to Lexi's thyroiditis Qualified Code(s): E03.8 - Other specified hypothyroidism; E06.3 - Autoimmune thyroiditis Plan: Patient's most recent TSH elevated. We have increased her levothyroxine dose. Will recheck TSH to assure normal. Orders: Orders Rast Allergen 05/02/23 T78.40XA - Allergy, unspecified, initial encounter Referrals Neurology Referral G43.909 - Migraine, unspecified, not intractable, without status migrainosus Medications: New riboflavin (vitamin B2) 100 mg PO DAILY 90 tabs 1RF G43.109 - Migraine with aura, not intractable, without status migrainosus rizatriptan take 1 tab at onset of headache; if no relief may repeat 1 tab after at least 2 hrs; max = 3 tabs/24 hr PO 10 tabs 1RF 30 days G43.109 - Migraine with aura, not intractable, without status migrainosus magnesium oxide 500 mg PO DAILY 90 caps 1RF 90 days G43.109 - Migraine with aura, not intractable, without status migrainosus propranolol 10 mg PO BID 60 tabs 3RF 30 days G43.109 - Migraine with aura, not intractable, without status migrainosus Discontinued sumatriptan succinate Discontinued Reason: Doctor's Order take 1 tab at onset of headache; if no relief may repeat 1 tab after at least 2 hrs; max = 4 tabs/24 hr PO 30 days 9 tabs 0RF G43.109 - Migraine with aura, not intractable, without status migrainosus Coding Level of Care Code Est Pt Level 4 (18080) Diagnoses Migraine with aura and without status migrainosus, not intractable G43.109 Intractability: not intractable Migraine type: with aura Status migrainosus presence: without status migrainosus Allergy, sequela T78.40XS Encounter type: sequela 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
== END 2023-05-01 12:35 | disposition home or self-care (01) ==
PROVIDERS: PCP Physician Assistant; Visit Provider Physician Assistant
DX: G43.109 Migraine with aura, not intractable, without status migrainosus (principal); T78.40XS Allergy, unspecified, sequela; E03.8 Other specified hypothyroidism; E06.3 Autoimmune thyroiditis; Z98.891 History of uterine scar from previous surgery
CPT/HCPCS: 99214

== ENCOUNTER 2023-05-02 09:33 | Outpatient (REF) | payer OTHER, SELFPAY ==
[2023-05-02 10:05] LABS: Hematocrit 36.5 % (37.0-47.0); Hemoglobin 11.9 g/dl (12.0-16.0); Mean Corpuscular HGB Conc 32.6 g/dl (31.0-35.0); Mean Corpuscular Volume 88.8 fL (80.0-98.0); Mean Platelet Volume 9.3 fL (9.4-12.3); Platelet Count 337 X10*3/uL (160-400); Red Blood Count 4.11 X10*6/uL (4.20-5.50); Red Cell Distribution Width 13.2 % (11.0-16.0); White Blood Count 5.1 X10*3/uL (4.8-10.8)
[2023-05-02 10:51] LABS: Iron 37 mcg/dL (30-160); Percent Iron Saturation 11 % (15-50); Total Iron Binding Capacity 341 mcg/dL (228-428); Unsaturated Iron Binding 304 ug/dL
[2023-05-02 11:09] LABS: TSH reflex Free T4 4.28 uIU/mL (0.32-4.0)
[2023-05-02 12:17] LABS: Free T4 (Free Thyroxine) 0.76 ng/dL (0.71-1.85)
== END 2023-05-02 09:34 | disposition home or self-care (01) ==
LOC: HO.LAB 09:33
PROVIDERS: PCP Physician Assistant; Visit Provider Physician Assistant
DX: T78.40XA Allergy, unspecified, initial encounter (principal); D50.9 Iron deficiency anemia, unspecified; R23.3 Spontaneous ecchymoses; E03.8 Other specified hypothyroidism; E06.3 Autoimmune thyroiditis; R21 Rash and other nonspecific skin eruption
CPT/HCPCS: 36415; 82785; 83540; 84439; 84443; 85027; 86003

== ENCOUNTER 2023-05-05 10:32 | Outpatient (AMB) | payer OTHER, SELFPAY ==
--- NOTE | 2023-05-05 10:37 | MHC.OFFVIS ---
Intake Vital Signs 05/05/23 10:49 BP 100/66 Intake Visit Reasons: colpo consult Academic Dean Required: Yes Academic Dean Language: Latvian Information Interpreted: non-clinical & clinical Automobile Mechanic Radiator: Automobile Mechanic Radiator Present (Karely) Allergies animal dander [ANIMAL DANDER] Allergy (Intermediate, Verified 05/01/23 11:30) RASH RYE Allergy (Intermediate, Uncoded 02/07/23 14:24) RASH plants Allergy (Mild, Uncoded 02/07/23 14:24) Rash wheat, grains, rye Allergy (Mild, Uncoded 02/07/23 14:24) Rash PFSH Medical History Dysphagia Dysplasia of cervix, low grade (OMAR 1) Avulsion fracture of ankle Breast pain, left Left foot pain Obese Goiter Anxiety and depression Back pain Snoring IBS (irritable colon syndrome) Nasal congestion Cervical lymphadenopathy Vitamin D deficiency Lexi's disease Hypothyroidism Surgical History H/O tubal ligation Hx of colonoscopy H/O foot surgery History of lumpectomy of left breast History of 2 sections Family History Father No problems noted. 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 Cognitive needs: No Hearing needs: No Vision needs: Yes Female Reproductive History Menstrual Age of Menarche: 14 Office Procedures Colposcopy Before the procedure was started discussed with the patient the procedure, alternatives & all the risks associated with the procedure (bleeding, infection, injury to vagina, bladder, vessels, possible need for transfusion with all its risks) then patient signed the consent UPT done in the office & negative Pap smear = ascus/HPV positive Speculum inserted, acetic acid used Colposcopy done Transformation zone seen, acetowhite lesions identified at 6+11+12+1 o?clock, cervical biopsies taken from 6+11+12+1 o?clock, ECC done afterwards. Vaginoscopy of the upper vagina showed no evidence of any aceto-white lesions Monsel solution used for hemostasis. The patient tolerated well . At the end the patient was instructed to call if temp>100.4, abdominal pain, n/v, bleeding; The patient was given the following instructions: nothing per vagina, no intercourse or bath tub use. All questions answered the patient verbalized understanding. Instructed the patient to make an appointment in 2 weeks for follow-up This note was generated with a voice recognition program. Some errors may have been overlooked during the review of this note. Sometimes these errors may affect the content or meaning of a given sentence. 17580-[place] of cervix including upper vagina with biopsy and ECC Procedure code (CPT) selection complete Results AMB Test Urine AMB Test Urine Negative Last Edit by PALOMO Gray on 05/05/23 10:50 Assessment & Plan Assessment & Plan Orders: Orders AMB Colposcopy Today R87.610 - Atypical squamous cells of undetermined significance on cytologic smear of cervix (ASC-US), R87.810 - Cervical high risk human papillomavirus (HPV) DNA test positive AMB HCG Urine Test Today Z32.02 - Encounter for test, result negative Coding Level of Care Code Procedure Only CPT Codes Colposcopy - CPT: 96034-[id number] of cervix including upper vagina with biopsy and ECC ([id number])
[2023-05-05 10:49] VITALS: BP 100/66
== END 2023-05-05 11:47 | disposition home or self-care (01) ==
LOC: HO.HWS 10:32
PROVIDERS: PCP Physician Assistant; Visit Provider Obstetrics & Gynecology
DX: R87.610 Atypical squamous cells of undetermined significance on cytologic smear of cervix (ASC-US) (principal); R87.810 Cervical high risk human papillomavirus (HPV) DNA test positive; Z32.02 Encounter for pregnancy test, result negative
CPT/HCPCS: 57454

== ENCOUNTER 2023-05-05 10:32 | Outpatient (REF) | payer OTHER, SELFPAY | END 2023-05-05 10:33 | disposition home or self-care (01) | LOC: HO.LNP 10:32 | PROVIDERS: PCP Physician Assistant; Visit Provider Obstetrics & Gynecology | DX: R87.610 Atypical squamous cells of undetermined significance on cytologic smear of cervix (ASC-US) (principal); R87.810 Cervical high risk human papillomavirus (HPV) DNA test positive | CPT/HCPCS: 57454; 81025; 88305 ==

== ENCOUNTER 2023-05-11 15:51 | Emergency (ER) | payer OTHER, SELFPAY ==
[2023-05-11 15:56] VITALS: BP 134/77; PULSE 101; RESP 20; TEMP 36.6; O2SAT 100; BMI 34.5
--- NOTE | 2023-05-11 15:56 | ED.GENADULT ---
HPI - General Adult General Chief complaint: Upper Respiratory Symptoms Stated complaint: flu like symptoms Time Seen by Provider: 05/11/23 16:20 Source: patient and bilingual interpreter Mode of arrival: ambulatory History of Present Illness HPI narrative: 33-year-old female with 2 days of cough, headache, nasal congestion with rhinorrhea, body aches and chills. Related Data Home Medications Medication Instructions Recorded Confirmed fluoxetine 10 mg capsule 10 mg PO DAILY 06/12/20 05/01/23 Previous Rx's Medication Instructions Recorded ascorbic acid (vitamin C) 500 mg 500 mg PO DAILY 90 days #90 caps 06/11/21 capsule dicyclomine 20 mg tablet 20 mg PO TID #90 tabs 08/30/21 omeprazole 20 mg capsule,delayed 20 mg PO BEDTIME #30 caps 01/15/22 release RIGHT SHOULDER SLING #1 ea 08/13/22 diclofenac sodium 75 mg 75 mg PO BID PRN pain 15 days #30 09/05/22 tablet,delayed release tabs clotrimazole-betamethasone 1 1 appl topical BID 30 days #45 09/09/22 %-0.05 % topical cream grams nystatin 100,000 unit/gram topical 1 appl topical DAILY 30 days #60 09/09/22 powder grams tizanidine 2 mg tablet 2 mg PO Q8H PRN muscle spasticity 12/05/22 15 days #45 tabs loratadine 10 mg tablet 10 mg PO DAILY 90 days #90 tabs 12/10/22 acetaminophen-caffeine 500 mg-65 1 tab PO Q12H pain 7 days #14 tabs 01/15/23 mg tablet (Excedrin Tension Headache) levothyroxine 50 mcg tablet 50 mcg PO DAILY 30 days #30 tabs 03/30/23 cholecalciferol (vitamin D3) 50 100 mcg (2 x 50 mcg (2,000 unit)) 04/14/23 mcg (2,000 unit) capsule PO DAILY 30 days #60 caps magnesium oxide 500 mg capsule 500 mg PO DAILY 90 days #90 caps 05/01/23 propranolol 10 mg tablet 10 mg PO BID 30 days #60 tabs 05/01/23 riboflavin (vitamin B2) 100 mg 100 mg PO DAILY #90 tabs 05/01/23 tablet rizatriptan 10 mg tablet See Rx Instructions PO .COMPLEX 30 05/01/23 days #10 tabs Allergies Allergy/AdvReac Type Severity Reaction Status Date / Time animal dander [ANIMAL DANDER] Allergy Intermediate RASH Verified 05/01/23 11:30 RYE Allergy Intermediate RASH Uncoded 02/07/23 14:24 plants Allergy Mild Rash Uncoded 02/07/23 14:24 wheat, grains, rye Allergy Mild Rash Uncoded 02/07/23 14:24 Review of Systems Review of Systems: pertinent positives and negatives as stated in the [facility] Past Medical History Source: nursing notes reviewed Medical History Dysphagia Dysplasia of cervix, low grade (OMAR 1) Avulsion fracture of ankle Breast pain, left Left foot pain Obese Goiter Anxiety and depression Back pain Snoring IBS (irritable colon syndrome) Nasal congestion Cervical lymphadenopathy Vitamin D deficiency Lexi's disease Hypothyroidism Surgical History H/O tubal ligation Hx of colonoscopy H/O foot surgery History of lumpectomy of left breast History of 2 sections Family History Family History Father No problems noted. Mother HTN (hypertension) Diabetes Maternal Grandmother Diabetes HTN (hypertension) Social History Social History Household Members: Children Household Members Other:: 2 children--8 and 10 yr old Housing: Apartment Alcohol intake: never Patient Tobacco Use Status: Never used Tobacco Tobacco use type: Cigarette Smoked in Last 30 Days: No e-Cigarette/Vaping Use: Never Used Second Hand Smoke Exposure: No Use of substances other than those prescribed or required for medical reasons: No Advance Directives: No Advance Directives Information Provided: No service: No Current occupational status: employed 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 GENERAL: Well developed, well nourished, in no acute distress. HEAD: Normocephalic/atraumatic EYES: PERRLA, EOMI EARS: Ext canals without abnormality, TMs non-bulging and non-erythematous NOSE: Nares patent bilateral OROPHARYNX: no oral lesions noted, posterior pharynx clear and non-erythematous without noted tonsillar enlargement/erythema/exudates NECK: Supple, no adenopathy LUNGS: Normal breath sounds. No adventitious sounds or accessory muscle use. SpO2<100> CARDIOVASCULAR: Regular rate and rhythm without noted murmurs ABDOMEN: Soft, non-tender, non-distended with bowel sounds. MUSCULOSKELETAL: No tenderness, deformities, or effusions noted on gross inspection. EXTREMITIES: No cyanosis, clubbing or edema. SKIN: Inspection of the skin reveals no rashes NEUROLOGIC: Alert and oriented x 4. Strength and sensation to light touch were grossly intact x 4. Course Course Course Narrative: RME performed by Mary Dahl PA-C. Patient is a 33 year old assigned female at presenting to the emergency department with congestion and body aches. Swab ordered. Patient placed back in the waiting room pending room availability and results. Medical Decision Making Medical Decision Making MDM Narrative: 33-year-old female with history and clinical presentation a viral illness, review of testing demonstrates COVID-19 positive. Patient is afebrile, she is not tachypneic nor tachycardic and she is oxygenating well on room air. She is discharged home with instructions to isolate for 5 days. Differential Diagnosis Differential Diagnoses: The differential diagnosis associated with the presentation includes Lab Data Labs: Lab Results 05/11/23 Range/Units 16:15 Influenza Type A (PCR) NEGATIVE (Negative) Influenza Type B (PCR) NEGATIVE (Negative) RSV RNA Qual (PCR) NEGATIVE (Negative) SARS-CoV-2 RNA (RT-PCR) POSITIVE A (Negative) S. pyogenes GrpA ELE Negative (Negative) Discharge Plan Discharge Clinical Impression: Viral syndrome, Lab test positive for detection of COVID-19 virus Patient Disposition: Home, Self-Care Instructions: Viral Syndrome (ED), COVID-19 (Coronavirus Disease 2019) (ED) Additional Instructions: 1. Use [id number] Tylenol/ ibuprofen as needed for body aches and temperatures greater than 100.4. Continue to drink plenty of fluids and get rest. 2. You must isolate for the next 5 days and then follow all state/ Federal/employer guidelines. Return to the ER for any worsening symptoms. Prescriptions: No Action ascorbic acid (vitamin C) 500 mg capsule 500 mg PO DAILY 90 Days Qty: 90 3RF omeprazole 20 mg capsule,delayed release(DR/EC) 20 mg PO BEDTIME Qty: 30 3RF Rx Instructions: nenita lana capsula antes de acostarse diclofenac sodium 75 mg tablet,delayed release (DR/EC) 75 mg PO BID PRN (Reason: pain) 15 Days Qty: 30 0RF tizanidine 2 mg tablet 2 mg PO Q8H PRN (Reason: muscle spasticity) 15 Days Qty: 45 0RF levothyroxine 50 mcg tablet 50 mcg PO DAILY 30 Days Qty: 30 3RF cholecalciferol (vitamin D3) 50 mcg (2,000 unit) capsule 100 mcg PO DAILY 30 Days Qty: 60 4RF Excedrin Tension Headache 500-65 mg tablet 1 tab PO Q12H 7 Days Qty: 14 0RF (DME) RIGHT SHOULDER SLING See Rx Instructions .Route .MEDSUPPLY Qty: 1 0RF Rx Instructions: As directed clotrimazole-betamethasone 1-0.05 % cream 1 appl topical BID 30 Days Qty: 45 0RF nystatin 100,000 unit/gram powder 1 appl topical DAILY 30 Days Qty: 60 0RF loratadine 10 mg tablet 10 mg PO DAILY 90 Days Qty: 90 1RF dicyclomine 20 mg tablet 20 mg PO TID Qty: 90 3RF Rx Instructions: nenita de 15 a 30 minutos antes de las comidas cluadia veces al dejon rizatriptan 10 mg tablet See Rx Instructions PO .COMPLEX 30 Days Qty: 10 1RF Rx Instructions: take 1 tab at onset of headache; if no relief may repeat 1 tab after at least 2 hrs; max = 3 tabs/24 hr PO magnesium oxide 500 mg capsule 500 mg PO DAILY 90 Days Qty: 90 1RF riboflavin (vitamin B2) 100 mg tablet 100 mg PO DAILY Qty: 90 1RF propranolol 10 mg tablet 10 mg PO BID 30 Days Qty: 60 3RF fluoxetine 10 mg capsule 10 mg PO DAILY Stand Alone Forms: Work/School Release Interventions: ED Discharge Assessment Last Done: 05/11/23 17:45 Discharge Date/Time: 05/11/23 17:46
[2023-05-11 16:32] LABS: IDNOW Serial# 58CA691E; Strep A Nucleic Acid Negative (Negative)
[2023-05-11 17:02] LABS: Influenza A PCR NEGATIVE (Negative); Influenza B PCR NEGATIVE (Negative); Resp Syncy Virus RNA Qual PCR NEGATIVE (Negative); SARS COV2 PCR INHOUSE POSITIVE (Negative)
[2023-05-11 17:44] VITALS: BP 138/74; PULSE 97; RESP 20; O2SAT 100
== END 2023-05-11 17:46 | disposition home or self-care (01) ==
PROVIDERS: Physician Assistant Medical; Emergency Provider Student in an Organized Health Care Education/Training Program
DX: U07.1 COVID-19 (principal)
CPT/HCPCS: 0241U; 87651; 99283; 99284

== ENCOUNTER 2023-05-14 15:25 | Outpatient (AMB) | payer OTHER, SELFPAY ==
--- NOTE | 2023-05-14 15:31 | MHC.OFFVIS ---
Intake Vital Signs 05/14/23 15:33 Height 5 ft 7 in Weight 218 lb 4.122 oz BMI 34.2 BP 122/76 Intake Visit Reasons: breast pain Consumer Loan Processor Required: Yes Consumer Loan Processor Language: Floral Designer Salesperson Name: Karely CULVER Information Interpreted: non-clinical & clinical Dental Chairside Assistant: Dental Chairside Assistant Present (Karely CULVER) Accompanied by: Self / Same As Patient Allergies animal dander [ANIMAL DANDER] Allergy (Intermediate, Verified 05/14/23 15:34) RASH RYE Allergy (Intermediate, Uncoded 05/14/23 15:34) RASH plants Allergy (Mild, Uncoded 05/14/23 15:34) Rash wheat, grains, rye Allergy (Mild, Uncoded 05/14/23 15:34) Rash HPI HPI Comments History of Present Illness Details Presenting complaining of left breast pain of few weeks duration. No associated nipple discharge or any other concerns [facility] Medical History Dysphagia Dysplasia of cervix, low grade (OMAR 1) Avulsion fracture of ankle Breast pain, left Left foot pain Obese Goiter Anxiety and depression Back pain Snoring IBS (irritable colon syndrome) Nasal congestion Cervical lymphadenopathy Vitamin D deficiency Lexi's disease Hypothyroidism Surgical History H/O tubal ligation Hx of colonoscopy H/O foot surgery History of lumpectomy of left breast History of 2 sections Family History Father No problems noted. 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 Cognitive needs: No Hearing needs: No Vision needs: Yes Female Reproductive History Menstrual Age of Menarche: 14 Physical Exam Vital Signs: Last Vital Signs BP 122/76 05/14/23 15:33 BMI result Body Mass Index 34.2 Chest Chest palpation & inspection: normal inspection of the chest and normal palpation of entire chest wall Breast/axilla inspection: normal inspection of the breasts (Left breast within normal) and Other (R breast 8 o'clock lump 8ecm from nipple and 4 o'clock lump 3cm from nipple) Assessment & Plan Assessment & Plan (1) Breast pain, left: Comment: 08:00 o'clock 8 cm from nipple 04:00 o'clock 3 cm from the nipple Code(s): N64.4 - Mastodynia Plan: Discussed with the patient the finding on Breast exam (to breast lumps) .The differential diagnosis includes but not limited to lump/cyst/pre cancer/cancer or dense breast tissue. The work up includes breast US and referral the patient for surgical breast consult. Will put questions answered, the patient verbalized understanding Orders: Orders US breast RT complete Today N64.4 - Mastodynia Referrals General Surgery Referral N64.4 - Mastodynia Coding Level of Care Code Est Pt Level 3 (23701) Diagnoses Breast pain, left N64.4
[2023-05-14 15:33] VITALS: BP 122/76; BMI 34.2
== END 2023-05-14 18:22 ==
PROVIDERS: Visit Provider Obstetrics & Gynecology
DX: N64.4 Mastodynia (principal)
CPT/HCPCS: 99213

== ENCOUNTER → 2023-05-14 15:25 | Outpatient (BNVA) | payer OTHER, SELFPAY | PROVIDERS: Visit Provider Obstetrics & Gynecology | DX: N64.4 Mastodynia (principal) | CPT/HCPCS: 99212 ==

== ENCOUNTER 2023-05-27 10:53 | Outpatient (AMB) | payer OTHER, SELFPAY ==
--- NOTE | 2023-05-27 11:04 | MHC.OFFVIS ---
Intake Vital Signs 05/27/23 11:07 Height 5 ft 7 in Weight 218 lb 4.122 oz BMI 34.2 BP 122/84 Intake Visit Reasons: Follow up Colpo Formulation Chemist Required: Yes Formulation Chemist Language: Wet Suit Gluer Name: Karely CULVER Information Interpreted: non-clinical & clinical Accompanied by: Self / Same As Patient Allergies animal dander [ANIMAL DANDER] Allergy (Intermediate, Verified 05/27/23 11:08) RASH RYE Allergy (Intermediate, Uncoded 05/27/23 11:08) RASH plants Allergy (Mild, Uncoded 05/27/23 11:08) Rash wheat, grains, rye Allergy (Mild, Uncoded 05/27/23 11:08) Rash HPI HPI Comments History of Present Illness Details Presenting post colpo for follow-up. The patient is doing well with no complaints. The pathology showed the following: A. Cervix, 1 o'clock, biopsy: Squamous mucosa within normal limits; no endocervical component seen; negative for squamous intraepithelial lesion. B. Cervix, 6 o'clock, biopsy: Minute fragment of squamous mucosa within normal limits; no endocervical component seen; negative for squamous intraepithelial lesion. C. Cervix, 11 o'clock, biopsy: Squamocolumnar junctional mucosa within normal limits; negative for squamous intraepithelial lesion. D. Cervix, 12 o'clock, biopsy: Squamous mucosa within normal limits; no endocervical component seen; negative for squamous intraepithelial lesion. E. Endocervix, curettage: Fragments of benign endocervical glands; negative for squamous intraepithelial lesion [facility] Medical History Dysphagia Dysplasia of cervix, low grade (OMAR 1) Avulsion fracture of ankle Breast pain, left Left foot pain Obese Goiter Anxiety and depression Back pain Snoring IBS (irritable colon syndrome) Nasal congestion Cervical lymphadenopathy Vitamin D deficiency Lexi's disease Hypothyroidism Surgical History H/O tubal ligation Hx of colonoscopy H/O foot surgery History of lumpectomy of left breast History of 2 sections Family History Father No problems noted. 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 Cognitive needs: No Hearing needs: No Vision needs: Yes Female Reproductive History Menstrual Age of Menarche: 14 Review of Systems Const All systems reviewed & are unremarkable except as noted in HPI and below Reports as per HPI and Reports no additional complaints GI Reports no additional complaints Reports no additional complaints Physical Exam Vital Signs: Last Vital Signs BP 122/84 05/27/23 11:07 BMI result Body Mass Index 34.2 Assessment & Plan Assessment & Plan (1) ASCUS with positive high risk HPV cervical: Code(s): R87.610 - Atypical squamous cells of undetermined significance on cytologic smear of cervix (ASC-US); R87.810 - Cervical high risk human papillomavirus (HPV) DNA test positive Plan: Discussed with the patient the pathology results of the colposcopy biopsies & endocervical curettage ( negative). Discussed with the patient the sensitivity specificity, positive and negative predictive value in detecting cervical cancer in addition discussed the regression, persistence and progression rates. Recommended co-testing in 12 months, if cytology and or HPV are abnormal will proceed was colposcopy biopsy and endocervical curettage. Instructions given to the patient to schedule a co test appointment in 1 year. All questions answered the patient verbalized understanding. Coding Level of Care Code Est Pt Level 3 (26352) Diagnoses ASCUS with positive high risk HPV cervical R87.610; R87.810
[2023-05-27 11:07] VITALS: BP 122/84; BMI 34.2
== END 2023-05-27 11:16 | disposition home or self-care (01) ==
LOC: HO.HWS 10:53
PROVIDERS: PCP Physician Assistant; Visit Provider Obstetrics & Gynecology
DX: R87.610 Atypical squamous cells of undetermined significance on cytologic smear of cervix (ASC-US) (principal); R87.810 Cervical high risk human papillomavirus (HPV) DNA test positive
CPT/HCPCS: 99213

== ENCOUNTER → 2023-05-27 10:53 | Outpatient (BNVA) | payer OTHER, SELFPAY | PROVIDERS: PCP Physician Assistant; Visit Provider Obstetrics & Gynecology | DX: R87.610 Atypical squamous cells of undetermined significance on cytologic smear of cervix (ASC-US) (principal); R87.810 Cervical high risk human papillomavirus (HPV) DNA test positive | CPT/HCPCS: 99212 ==

== ENCOUNTER 2023-05-28 08:52 | Outpatient (REF) | payer OTHER, SELFPAY ==
--- NOTE | ~2023-05-28 | MM_ITS ---
EXAMINATION: MM DIAGNOSTIC DIGITAL BREAST TOMOSYNTHESIS, BILATERAL US BREAST LIMITED, RIGHT MAMMOGRAPHY: CLINICAL INFORMATION: 33-year-old female complaining of left breast pain 3:00 and 9:00 axes. COMPARISON: Mammography: 05/16/2021, 06/16/2019 TECHNIQUE: Digital breast tomosynthesis is performed in both the craniocaudal and mediolateral oblique views along with computer-aided detection (CAD). Synthesized 2D images are generated from the tomosynthesis. Technologist has placed markers in the left breast 9:00 and 3:00 region, marking the regions of pain. FINDINGS: The breasts are heterogeneously dense, which may obscure small masses (ACR BI-RADS breast composition Category c). There is a post benign biopsy clip in the upper outer anterior left breast. There are no suspicious masses, suspicious grouped calcifications, or areas of architectural distortion in either breast. The parenchymal pattern is stable from prior exams. There is no mammographic correlate to the region of breast pain left breast 3-9 o'clock. ULTRASOUND: CLINICAL INFORMATION: 33-year-old female complaining of left breast pain 3:00 and 9:00 axes. COMPARISON: None TECHNIQUE: Targeted sonographic evaluation was performed using a high frequency linear transducer. Selected archived documentation. FINDINGS: RIGHT BREAST: There is a mixture of fatty and fibroglandular tissue. No suspicious mass is seen. There is no pathologic acoustic shadowing. There is no sonographic correlate to the region of breast pain left breast 3-9 o'clock axes. MM/MM tomosynthesis diagnostic BI IMPRESSION: There are no findings suspicious for malignancy in either breast. Region of breast pain in the left breast shows no sonographic or mammographic correlate. Clinical management of the patient's symptoms recommended. Otherwise, recommend resuming routine annual mammography at age 40. OVERALL ASSESSMENT: Mammography: BI-RADS 2 - Benign Findings Ultrasound: BI-RADS 2 - Benign Findings RECOMMENDATION: Mammo at 40 or earlier if clinically needed Results were provided to the patient at time of visit by the technologist. This patient's information was entered into a reminder system with a target due date for their next mammogram.
== END 2023-05-28 08:53 | disposition home or self-care (01) ==
LOC: HO.MAMMO 08:52
PROVIDERS: PCP Physician Assistant; Visit Provider Obstetrics & Gynecology
DX: N64.4 Mastodynia (principal)
CPT/HCPCS: 76642; 77062; 77066

== ENCOUNTER → 2023-05-28 09:00 | Outpatient (BNV) | payer OTHER, SELFPAY | PROVIDERS: PCP Physician Assistant; Visit Provider Radiology Diagnostic Radiology | DX: R92.333 Mammographic heterogeneous density, bilateral breasts (principal); R92.311 Mammographic fatty tissue density, right breast; R92.321 Mammographic fibroglandular density, right breast | CPT/HCPCS: 76642; 77062; 77066 ==

== ENCOUNTER 2023-06-02 15:39 | Outpatient (AMB) | payer OTHER, SELFPAY ==
--- NOTE | 2023-06-02 15:49 | AM.OFFVISNUR ---
Intake Intake Visit Reasons: PPD Plant Allergies animal dander [ANIMAL DANDER] Allergy (Intermediate, Verified 05/27/23 11:08) RASH RYE Allergy (Intermediate, Uncoded 05/27/23 11:08) RASH plants Allergy (Mild, Uncoded 05/27/23 11:08) Rash wheat, grains, rye Allergy (Mild, Uncoded 05/27/23 11:08) Rash Office Meds tuberculin PPD 5 tub. unit/0.1 mL intradermal injection solution Performing Provider: Anthony Bueno PA-C Performing Location: [facility] Administered by: Lorri Wynne RN on 06/02/23 15:49 Dose Route Admin Location Dispensed Lot Number Expiration Date [employer] 0.1 mL intradermal right forearm 0.1 mL [id number] 06/29/26 92237-430-33 [employer] Coding Assessment & Plan Assessment & Plan Orders: Orders AMB PPD Planted Today Z11.1 - Encounter for screening for respiratory tuberculosis
== END 2023-06-02 15:50 | disposition home or self-care (01) ==
PROVIDERS: PCP Physician Assistant; Visit Provider Physician Assistant
DX: Z11.1 Encounter for screening for respiratory tuberculosis (principal)
CPT/HCPCS: 86580

== ENCOUNTER 2023-06-05 08:44 | Outpatient (AMB) | payer OTHER, SELFPAY ==
[2023-06-05 08:49] VITALS: BP 104/66; PULSE 80; RESP 18; BMI 34.9
--- NOTE | 2023-06-05 08:49 | A.OFFVIS_ITS ---
Intake Vital Signs 06/05/23 08:49 Height 5 ft 7 in Weight 223 lb BMI 34.9 BP 104/66 Blood Pressure Location Lt brachial Position Sitting Respiration 18 Pulse 80 Intake Visit Reasons: Mastodynia Intake Note: Pt states, I have pain in both breasts, all the time, for months. 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 Allergies animal dander [ANIMAL DANDER] Allergy (Intermediate, Verified 06/05/23 08:53) RASH RYE Allergy (Intermediate, Uncoded 06/05/23 08:53) RASH plants Allergy (Mild, Uncoded 06/05/23 08:53) Rash wheat, grains, rye Allergy (Mild, Uncoded 06/05/23 08:53) Rash Medication List - Last Reconciled 06/05/23 by Goyo Caldwell RN acetaminophen-caffeine 500-65 mg (Excedrin Tension Headache) 1 tab PO Q12H 7 days ascorbic acid (vitamin C) 500 mg PO DAILY 90 days cholecalciferol (vitamin D3) 100 mcg (2 x 50 mcg (2,000 unit)) PO DAILY 30 days diclofenac sodium 75 mg PO BID PRN 15 days dicyclomine 20 mg PO TID fluoxetine 10 mg PO DAILY levothyroxine 50 mcg PO DAILY 30 days loratadine 10 mg PO DAILY 90 days magnesium oxide 500 mg PO DAILY 90 days omeprazole 20 mg PO BEDTIME propranolol 10 mg PO BID 30 days riboflavin (vitamin B2) 100 mg PO DAILY [RIGHT SHOULDER SLING As directed] rizatriptan take 1 tab at onset of headache; if no relief may repeat 1 tab after at least 2 hrs; max = 3 tabs/24 hr PO 30 days tizanidine 2 mg PO Q8H PRN 15 days HPI HPI Comments History of Present Illness Details 33-year-old female patient presenting with complaints of bilateral breast pain left greater than right of several months duration. She reports a previous biopsy at 2 locations in the left breast which were benign. She also reports complaints of bilateral shoulder pain and neck pain. She feels her jordon asts are very heavy and cannot find a proper fitting bra which does not cause increased pain. She is 2 para 2 and denies breast-feeding her children. She denies a previous history of breast infections on either side. Her most recent mammogram and ultrasound dated 05/28/2023 revealed no mammographic evidence of malignancy (BI-RADS 2. A diagnostic ultrasound of the left breast also was negative for any suspicious findings ( report incorrectly identifies right breast ). She denies any palpable mass, skin change, nipple discharge or other breast symptoms other than breast pain. Her family history is negative for breast cancer. FORMERLY [facility], [facility]–1983 Medical History Dysphagia Dysplasia of cervix, low grade (OMAR 1) Avulsion fracture of ankle Breast pain, left Left foot pain Obese Goiter Anxiety and depression Back pain Snoring IBS (irritable colon syndrome) Nasal congestion Cervical lymphadenopathy Vitamin D deficiency Lexi's disease Hypothyroidism Surgical History H/O tubal ligation Hx of colonoscopy H/O foot surgery History of lumpectomy of left breast History of 2 sections Family History Father No problems noted. 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 Cognitive needs: No Hearing needs: No Vision needs: Yes Female Reproductive History Menstrual Age of Menarche: 14 Total pregnancies: 2 Number of Living Children: 2 Review of Systems Const All systems reviewed & are unremarkable except as noted in HPI and below Denies chills, Denies fever(s), Denies headache(s), Denies poor appetite and Denies weakness ENT Denies headache(s) Card Denies chest pain, Denies irregular heart rhythm, Denies palpitations and Denies dyspnea Resp Denies cough, Denies excessive phlegm production and Denies dyspnea GI Denies abdominal pain, Denies bloating, Denies change in bowel habits, Denies constipation, Denies heartburn, Denies diarrhea, Denies nausea and Denies vomiting Denies urinary frequency and Denies nipple discharge Musc Details: Shoulder pain bilateral Reports back pain, Denies muscle weakness and Denies numbness Skin/Breast Reports breast pain, Denies breast mass, Denies changing lesions, Denies nipple discharge and Denies unusual bruising Neuro Denies headache(s), Denies numbness, Denies paresthesias and Denies weakness Psych Denies anxiety and Denies depression Endo Denies palpitations Cruz/Lymph Denies lymphadenopathy Physical Exam Vital Signs: Last Vital Signs BP 104/66 06/05/23 08:49 BMI result Body Mass Index 34.9 Const General: cooperative and no acute distress Nutritional Appearance: well nourished Orientation/consciousness: patient oriented x3 Limitations: no limitations HEENT Head: Yes normocephalic and Yes atraumatic Ears: hearing grossly normal bilaterally Chest Other: bilateral fibrocystic change with tenderness. Left breast: No skin change, no nipple retraction, no nipple discharge, no palpable mass, no enlarged lymph nodes. Right breast: No skin change, no nipple retraction, no nipple discharge, no palpable mass, no enlarged lymph nodes Resp Effort & Inspection: normal respiratory effort, no audible wheezes, no cough and no respiratory distress Cardio Jugular venous distension: no JVD GI Inspection: Yes normal to inspection Skin Other: Warm, dry, no rash Neuro General: patient oriented x3 Extrem General: Yes no clubbing, cyanosis or edema Assessment & Plan Assessment & Plan (1) Right shoulder pain: Code(s): M25.511 - Pain in right shoulder Qualifiers: Chronicity: chronic Qualified Code(s): M25.511 - Pain in right shoulder; G89.29 - Other chronic pain (2) Bilateral mastodynia: Code(s): N64.4 - Mastodynia (3) Gigantomastia: Code(s): N62 - Hypertrophy of breast Plan 33-year-old female patient presenting with complaints of left breast pain. She also has pain on the right side as well. Her family history is negative for breast cancer and most recent mammogram was negative for any suspicious findings in either breast. Examination today revealed no suspicious findings in either breast. Exam is consistent with fibrocystic change. Patient has very large heavy breasts and may benefit from breast reduction given her constellation of symptoms. She expressed understanding and agrees with a plastic surgery consultation. She should follow up as needed. Orders: Referrals Plastic Surgery Referral M25.511 - Pain in right shoulder, N62 - Hypertrophy of breast, N64.4 - Mastodynia Coding Level of Care Code New Pt Level 4 (31181) Diagnoses Chronic right shoulder pain M25.511; G89.29 Chronicity: chronic Bilateral mastodynia N64.4 Gigantomastia N62
== END 2023-06-05 09:14 | disposition home or self-care (01) ==
PROVIDERS: PCP Physician Assistant; Referring Provider Obstetrics & Gynecology; Visit Provider Surgery
DX: M25.511 Pain in right shoulder (principal); G89.29 Other chronic pain; N64.4 Mastodynia; N62 Hypertrophy of breast
CPT/HCPCS: 99204

== ENCOUNTER → 2023-06-05 08:44 | Outpatient (BNVA) | payer OTHER, SELFPAY | PROVIDERS: PCP Physician Assistant; Referring Provider Obstetrics & Gynecology; Visit Provider Surgery | DX: N62 Hypertrophy of breast (principal); N64.4 Mastodynia; M25.511 Pain in right shoulder; G89.29 Other chronic pain | CPT/HCPCS: 99202 ==

== ENCOUNTER 2023-06-24 09:05 | Emergency (ER) | payer OTHER, SELFPAY ==
[2023-06-24 09:31] VITALS: BP 125/73; PULSE 93; RESP 17; TEMP 36.2; O2SAT 94; BMI 35.9
[2023-06-24 09:58] LABS: COVID-19 Test Negative (Negative); IDNOW Serial# 6674DD1D
[2023-06-24 10:00] LABS: IDNOW Serial# 58CA691E; Influenza A Negative (Negative); Influenza B2 Positive (Negative)
[2023-06-24 11:53] VITALS: BP 118/72; PULSE 80; RESP 20; TEMP 36.7; O2SAT 97
--- NOTE | 2023-06-24 12:44 | ED_ITS ---
HPI - URI/Sore Throat General Chief Complaint: Upper Respiratory Symptoms Stated Complaint: Flu Symptoms Cough Time Seen by Provider: 06/24/23 11:52 Source: patient, RN notes reviewed and spanish interpreter/translator Mode of arrival: ambulatory Limitations: language barrier History of Present Illness HPI Narrative: This is a 33 year old female presenting to the emergency department with complaints of cough, subjective fevers, nausea, diarrhea, headache, and body aches since today. Patient reports that her partner just tested positive for the flu of beliefs that she also has the flu.She does admit to having some chest pain, however this only occurs with coughing. Denies any current chest pain. Denies taking any medications at home to treat her current symptoms. She denies any difficulty swallowing, shortness of breath, abdominal pain, or vomiting. No other complaints or concerns at this time. MD elicited complaint: cough and nasal congestion Onset (ago): day(s) Consistency: constant Able to tolerate fluids by mouth: Yes Exacerbating factors: nothing Relieving factors: nothing Context: sick contacts Associated symptoms: fever, chills, myalgias and cough Treatments prior to arrival: none Related Data Home Medications Medication Instructions Recorded Confirmed fluoxetine 10 mg capsule 10 mg PO DAILY 06/12/20 06/05/23 Previous Rx's Medication Instructions Recorded ascorbic acid (vitamin C) 500 mg 500 mg PO DAILY 90 days #90 caps 06/11/21 capsule dicyclomine 20 mg tablet 20 mg PO TID #90 tabs 08/30/21 omeprazole 20 mg capsule,delayed 20 mg PO BEDTIME #30 caps 01/15/22 release RIGHT SHOULDER SLING #1 ea 08/13/22 diclofenac sodium 75 mg 75 mg PO BID PRN pain 15 days #30 09/05/22 tablet,delayed release tabs tizanidine 2 mg tablet 2 mg PO Q8H PRN muscle spasticity 12/05/22 15 days #45 tabs loratadine 10 mg tablet 10 mg PO DAILY 90 days #90 tabs 12/10/22 acetaminophen-caffeine 500 mg-65 1 tab PO Q12H pain 7 days #14 tabs 01/15/23 mg tablet (Excedrin Tension Headache) levothyroxine 50 mcg tablet 50 mcg PO DAILY 30 days #30 tabs 03/30/23 cholecalciferol (vitamin D3) 50 100 mcg (2 x 50 mcg (2,000 unit)) 04/14/23 mcg (2,000 unit) capsule PO DAILY 30 days #60 caps magnesium oxide 500 mg capsule 500 mg PO DAILY 90 days #90 caps 05/01/23 propranolol 10 mg tablet 10 mg PO BID 30 days #60 tabs 05/01/23 riboflavin (vitamin B2) 100 mg 100 mg PO DAILY #90 tabs 05/01/23 tablet rizatriptan 10 mg tablet See Rx Instructions PO .COMPLEX 30 05/01/23 days #10 tabs nirmatrelvir 300 mg (150 mg See Rx Instructions PO .COMPLEX 06/09/23 x2)-ritonavir 100 mg tablet,dose #30 ea pack (Paxlovid) acetaminophen 500 mg tablet 500 mg PO Q6H PRN fever or pain 06/24/23 (Tylenol Extra Strength) #30 tabs ibuprofen 600 mg tablet 600 mg PO Q6H PRN fever or pain 06/24/23 #30 tabs adplreoicwicm-[place]-pnzldiouxbvhr 5 1 tab PO Q4-6H PRN cold symptoms 06/24/23 mg-10 mg-325 mg tablet (Theraflu #30 tabs ExpressMax Cold-Cough Day) Allergies Allergy/AdvReac Type Severity Reaction Status Date / Time animal dander [ANIMAL DANDER] Allergy Intermediate RASH Verified 06/24/23 09:30 RYE Allergy Intermediate RASH Uncoded 06/05/23 08:53 plants Allergy Mild Rash Uncoded 06/05/23 08:53 wheat, grains, rye Allergy Mild Rash Uncoded 06/05/23 08:53 Review of Systems Review of Systems: Yes all other systems are reviewed and are negative Constitutional: Constitutional: Reports as per HPI [facility] Past Medical History Medical History Dysphagia Dysplasia of cervix, low grade (OMAR 1) Avulsion fracture of ankle Breast pain, left Left foot pain Obese Goiter Anxiety and depression Back pain Snoring IBS (irritable colon syndrome) Nasal congestion Cervical lymphadenopathy Vitamin D deficiency Lexi's disease Hypothyroidism Surgical History H/O tubal ligation Hx of colonoscopy H/O foot surgery History of lumpectomy of left breast History of 2 sections Family History Family History Father No problems noted. Mother HTN (hypertension) Diabetes Maternal Grandmother Diabetes HTN (hypertension) Social History Social History Household Members: Children Household Members Other:: 2 children--8 and 10 yr old Housing: Apartment Alcohol intake: current Alcohol intake frequency: holidays/special occasions only Alcohol type: beer Patient Tobacco Use Status: Never used Tobacco Tobacco use type: Cigarette Smoked in Last 30 Days: No e-Cigarette/Vaping Use: Never Used Second Hand Smoke Exposure: No Use of substances other than those prescribed or required for medical reasons: No Advance Directives: No Advance Directives Information Provided: Yes service: No Current occupational status: employed 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 Cognitive needs: No Hearing needs: No Vision needs: Yes Physical Exam Vital Signs: Vital Signs: Last Vital Signs Temp 97.6 F 06/24/23 13:08 Pulse 84 06/24/23 13:08 Resp 16 06/24/23 13:08 BP 120/73 06/24/23 13:08 Pulse Ox 97 06/24/23 13:08 O2 Del Method Room Air 06/24/23 13:08 BMI result Body Mass Index 35.9 Const: Other: speaking in full sentences General: cooperative, comfortable and no acute distress Orientation/consciousness: patient oriented x3 Limitations: no limitations HEENT: Head: Yes normal to inspection, Yes normocephalic and Yes atraumatic Ears: hearing grossly normal bilaterally and TM's normal bilaterally General nose exam: Normal external nose present Face and sinus: Yes normal facial exam and Yes sinuses nontender Mouth: Normal oral and palatal mucosa present, oropharynx normal and moist mucous membranes Throat: Yes posterior oropharynx normal, Yes tonsils normal and Yes uvula midline Eyes: General: appearance normal, both eyes and all related structures Eyelids: Yes eyelids normal Conjunctivae: conjunctivae normal Sclerae: sclerae normal Pupils: Equal, round and reactive pupils present EOM: EOMs intact bilaterally Neck: Neck: Yes normal visual inspection, Yes full ROM and Yes no lymphadenopathy Lymphatic: no lymphadenopathy noted Chest: Other: TTP over anterior chest wall Chest palpation & inspection: normal inspection of the chest Resp: Effort & Inspection: normal respiratory effort and able to speak in complete sentences Auscultation: clear to auscultation bilaterally, no crackles, no rales, no rhonchi and no wheezes Cardio: Rate: regular rate Rhythm: regular rhythm Heart sounds: S1 normal heart sound present and S2 normal heart sound present GI: Inspection: Yes normal to inspection Skin: General skin exam: no rashes or lesions noted Trauma: no lacerations or abrasions Wounds: no wounds Neuro: General: patient oriented x3 and moves all extremities Cranial nerves: Yes Equal, round and reactive pupils present Extrem: General: Yes normal to inspection Right upper extremity: normal to inspection Left upper extremity: normal to inspection Right lower extremity: normal to inspection Left lower extremity: normal to inspection Medical Decision Making Medical Decision Making MDM Narrative: This is a 33 year old female presenting to the emergency department for evaluation of nausea, diarrhea, body aches, subjective fevers, dry cough since today. On arrival, patient is non-toxic appearing, a febrile, with normal vital signs. Patient had recent exposure to flu. Lungs clear to auscultation bilaterally, patient speaking in full sentences under no acute distress. Viral swabs were collected, patient tested positive for influenza A. Discussed this finding with patient. Patient also endorses some nausea as well as diarrhea. I informed her that there is an antiviral medication however this can cause worsening diarrhea. Given these circumstances, patient is requesting medication that her partner is being treated with, theraflu. I discussed with patient that this is appropriate. Patient given return precautions. She also endorsed some chest pain only with coughing, likely musculoskeletal in nature, she is now cardiac risk factors, and reproducible chest wall tenderness on examination. Patient stable for discharge. Differential Diagnosis Differential Diagnoses: The differential diagnosis associated with the presentation includes influenza, covid, URI, bronchitis Lab Data [facility] Lab Attestation statement: I reviewed the patient's lab results. Labs: Lab Results 06/24/23 Range/Units 09:37 COVID-19 (JACOB) Negative (Negative) COVID-19 Clin Com See Note Influenza Type A (ELE) Negative (Negative) Influenza Type B (ELE) Positive A (Negative) Influenza A & B Note See Note Radiology Impression Discussion of test interpretation with radiology: I have reviewed the radiologist's reading. External Record Review External record reviewed: Inpatient record, Office record, Outpatient record, Prior outpatient labs, Prior outpatient radiology, Primary care record and Outside ED record Discharge Plan Discharge Clinical Impression: Influenza B Patient Disposition: Home, Self-Care Instructions: Influenza (ED) Additional Instructions: You tested positive for influenza B today. This is a virus, that will get better on its own. Please take prescribed medication as directed. There flu can help with your symptoms. Drink plenty of fluids and get plenty of rest. Tylenol and ibuprofen can help with body aches and fevers. Limit exposure to immunocompromised individuals including elderly and young children. If any new or worsening symptoms occur including but not limited to chest pain, shortness of breath, please return for re-evaluation Usted arnold positivo por influenza B hoy. Julia es un virus que mejorar? por s? solo. Hornitos los medicamentos recetados seg?n las indicaciones. Samia muchos l?quidos y descanse mucho. Tylenol y ibuprofeno pueden ayudar con los stefanie corporales y la fiebre. Limite la exposici?n a personas inmunocomprometidas, incluidos ancianos y ni?os yves?os. Si se presenta alg?n s?ntoma nuevo o que empeora, incluidos, entre otros, dolor en el pecho y dificultad para respirar, regrese para lana nueva evaluaci?n. Prescriptions: New Theraflu ExpressMax Cold Day 5-10-325 mg tablet 1 tab PO Q4-6H PRN (Reason: cold symptoms) Qty: 30 0RF acetaminophen [Tylenol Extra Strength] 500 mg tablet 500 mg PO Q6H PRN (Reason: fever or pain) Qty: 30 0RF ibuprofen 600 mg tablet 600 mg PO Q6H PRN (Reason: fever or pain) Qty: 30 0RF No Action ascorbic acid (vitamin C) 500 mg capsule 500 mg PO DAILY 90 Days Qty: 90 3RF omeprazole 20 mg capsule,delayed release(DR/EC) 20 mg PO BEDTIME Qty: 30 3RF Rx Instructions: nenita lana capsula antes de acostarse diclofenac sodium 75 mg tablet,delayed release (DR/EC) 75 mg PO BID PRN (Reason: pain) 15 Days Qty: 30 0RF tizanidine 2 mg tablet 2 mg PO Q8H PRN (Reason: muscle spasticity) 15 Days Qty: 45 0RF levothyroxine 50 mcg tablet 50 mcg PO DAILY 30 Days Qty: 30 3RF cholecalciferol (vitamin D3) 50 mcg (2,000 unit) capsule 100 mcg PO DAILY 30 Days Qty: 60 4RF Paxlovid 300 mg (150 mg x 2)-100 mg tablets,dose pack See Rx Instructions PO .COMPLEX Qty: 30 0RF Rx Instructions: take TWO 150 mg tablets of nirmatrelvir with ONE 100 mg tablet of ritonavir twice daily for 5 days PO Excedrin Tension Headache 500-65 mg tablet 1 tab PO Q12H 7 Days Qty: 14 0RF (DME) RIGHT SHOULDER SLING See Rx Instructions .Route .MEDSUPPLY Qty: 1 0RF Rx Instructions: As directed loratadine 10 mg tablet 10 mg PO DAILY 90 Days Qty: 90 1RF dicyclomine 20 mg tablet 20 mg PO TID Qty: 90 3RF Rx Instructions: nenita de 15 a 30 minutos antes de las comidas claudia veces al dejon rizatriptan 10 mg tablet See Rx Instructions PO .COMPLEX 30 Days Qty: 10 1RF Rx Instructions: take 1 tab at onset of headache; if no relief may repeat 1 tab after at least 2 hrs; max = 3 tabs/24 hr PO magnesium oxide 500 mg capsule 500 mg PO DAILY 90 Days Qty: 90 1RF riboflavin (vitamin B2) 100 mg tablet 100 mg PO DAILY Qty: 90 1RF propranolol 10 mg tablet 10 mg PO BID 30 Days Qty: 60 3RF fluoxetine 10 mg capsule 10 mg PO DAILY Stand Alone Forms: Work/School Release Interventions: ED Discharge Assessment Last Done: 06/24/23 13:15 Discharge Date/Time: 06/24/23 13:14
--- NOTE | 2023-06-24 13:00 | PC.NURSE ---
no distress. breathing well
[2023-06-24 13:08] VITALS: BP 120/73; PULSE 84; RESP 16; TEMP 36.4; O2SAT 97
== END 2023-06-24 13:14 | disposition home or self-care (01) ==
PROVIDERS: Emergency Provider Emergency Medicine; PCP Physician Assistant
DX: J10.1 Influenza due to other identified influenza virus with other respiratory manifestations (principal); R05.9 Cough, unspecified; R50.9 Fever, unspecified; R09.81 Nasal congestion; M70.10 Bursitis, unspecified hand; Z20.822 Contact with and (suspected) exposure to COVID-19; Z11.52 Encounter for screening for COVID-19; Z79.899 Other long term (current) drug therapy
CPT/HCPCS: 87502; 87635; 99283; 99284

== ENCOUNTER 2023-07-03 08:05 | Outpatient (REF) | payer OTHER, SELFPAY | END 2023-07-03 08:06 | disposition home or self-care (01) | LOC: HO.LAB 08:05 | PROVIDERS: PCP Physician Assistant; Visit Provider Physician Assistant | DX: Z11.3 Encounter for screening for infections with a predominantly sexual mode of transmission (principal) | CPT/HCPCS: 36415; 87389 ==

== ENCOUNTER 2023-08-07 09:25 | Outpatient (AMB) | payer OTHER, SELFPAY ==
--- NOTE | 2023-08-07 10:33 | A.OFFVIS_ITS ---
Intake Vital Signs 08/07/23 10:35 Height 5 ft 7 in Weight 228 lb BMI 35.7 BP 118/82 Blood Pressure Location Rt brachial Position Sitting Intake Visit Reasons: INP- Migraine-LVM Intake Note: Patient presents for migraines. 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 Allergies animal dander [ANIMAL DANDER] Allergy (Intermediate, Verified 08/07/23 10:36) RASH RYE Allergy (Intermediate, Uncoded 08/07/23 10:36) RASH plants Allergy (Mild, Uncoded 08/07/23 10:36) Rash wheat, grains, rye Allergy (Mild, Uncoded 08/07/23 10:36) Rash Medication List - Last Reconciled 08/07/23 by SUZANNE Patricia acetaminophen (Tylenol Extra Strength) 500 mg PO Q6H PRN acetaminophen-caffeine 500-65 mg (Excedrin Tension Headache) 1 tab PO Q12H 7 days ascorbic acid (vitamin C) 500 mg PO DAILY 90 days cholecalciferol (vitamin D3) 100 mcg (2 x 50 mcg (2,000 unit)) PO DAILY 30 days diclofenac sodium 75 mg PO BID PRN 15 days dicyclomine 20 mg PO TID fluoxetine 10 mg PO DAILY ibuprofen 600 mg PO Q6H PRN levothyroxine 50 mcg PO DAILY 30 days loratadine 10 mg PO DAILY loratadine (Allergy Relief (loratadine)) 10 mg PO DAILY magnesium oxide 500 mg PO DAILY 90 days nirmatrelvir-ritonavir 300 mg (150 mg x 2)-100 mg (Paxlovid) take TWO 150 mg tablets of nirmatrelvir with ONE 100 mg tablet of ritonavir twice daily for 5 days PO omeprazole 20 mg PO BEDTIME maasyzlalclem-YD-yddpwsxpejcur 5-10-325 mg (Theraflu ExpressMax Cold-Cough Day) 1 tab PO Q4-6H PRN propranolol 10 mg PO BID 30 days riboflavin (vitamin B2) 100 mg PO DAILY riboflavin (vitamin B2) 400 mg PO DAILY 30 days [RIGHT SHOULDER SLING As directed] rizatriptan 5 - 10 mg (0.5 - 1 x 10 mg) PO Q2H PRN 21 days tizanidine 2 mg PO Q8H PRN 15 days HPI HPI Comments History of Present Illness Details 43-year-old female presents for new pt e valuation of headache disorder. Patient reports she started having headaches in December of 2022. The headaches worsened after she had Covid-19 in Apr 2023 and then Influenza in May 2023. She is concerned about the CAT scan finding of possible pituitary cyst- note follow- up brain MRI did not see any pituitary abnormalities. Past medical history is significant for anemia, asthma, hypothyroidism. Patient also endorses a history of anxiety, depression, fatigue, snoring, nasal congestion, excessive daytime sleepiness, weight gain, joint pain, back pain, diarrhea, occasional leg cramps. Pertinent denials: Injury, however fell off his child. Head Constipation, neck pain, clotting disorders. Headache questionnaire: Previous work-up: 01/31/23, CT/CT head/brain wo IV con: No a cute intracranial pathology. 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 A follow-up MRI of the brain targeting the pituitary region without and with contrast is recommended for further evaluation. 03/19/23, MR/MR head/brain wo/w con: 1. T here are no acute bleeds or infarcts. There are no masses or areas of abnormal enhancement. I had ordered the naratriptan order to get the [facility] approved. 2. The pituitary region appears normal. Typical headache characteristics: Prodrome symptoms? Unsure Aura? Right eye visual changes, but do not start prior to headache. Pain intensity: Severe Location, quality, characteristics? Pressure and pulsating pain bilateral frontal and retro-orbital and the back of the head. Associated symptoms? Photophobia, phonophobia, nausea at times, difficulty concentrating, fatigue, activity intolerance Focal weakness, Parethesias, Autonomic s/s? Right eye swelling, eyelid droop, seeing lights, blurry vision without eye redness. Right lateral thigh sensations moving down the leg may occur with or without headache but increases during headache. Postdrome? Unsure Triggers? Unsure, but standing up and bending over exacerbates headache. Menstrual triggers? Denies Time of day? No specific time of day Duration and frequency: Attacks occur weekly, which last hours to 2 days, rarely 3 days. How does headache impact your life? Interferes with daily activities. Works as a [employer], and has to miss work at times. Current acute medication use/interventions: Tylenol or Advil, but do not help. Rizatriptan helps- only for short duration. Previous acute medication use: Sumatriptan not tolerated Current preventative medication use: Propranolol not helpful. Previous preventative medication use: Unsure Non-pharmacological interventions: Rest Family planning? No current plans Family history of migraine or other headache disorder? Sister has migraine PFSH Medical History Dysphagia Dysplasia of cervix, low grade (OMAR 1) Avulsion fracture of ankle Breast pain, left Left foot pain Obese Goiter Anxiety and depression Back pain Snoring IBS (irritable colon syndrome) Nasal congestion Cervical lymphadenopathy Vitamin D deficiency Lexi's disease Hypothyroidism Surgical History H/O tubal ligation Hx of colonoscopy H/O foot surgery History of lumpectomy of left breast History of 2 sections Family History Father No problems noted. 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 - [employer] Cognitive needs: No Hearing needs: No Vision needs: Yes Female Reproductive History Menstrual Age of Menarche: 14 Review of Systems Const Details: See scanned ROS form Physical Exam Vital Signs: Last Vital Signs BP 118/82 08/07/23 10:35 BMI result Body Mass Index 35.7 Const Orientation/consciousness: patient oriented x3 HEENT Other: No palpable scalp tenderness. Head: Yes normocephalic Resp Effort & Inspection: normal respiratory effort and able to speak in complete sentences Neuro General: patient oriented x3 Cranial nerves: Yes CN's II-XII intact bilaterally Cognition (Neuro): normal cognition Gait exam (Neuro): Normal gait present Motor exam (neuro): 5/5 motor strength present throughout Deep tendon reflexes (DTR's): Right triceps reflex intensity grade: 2+, Left triceps reflex intensity grade: 2+, Rt Biceps (C5, C6): 2+, Left biceps reflex intensity grade: 2+, Right brachioradialis reflex intensity grade: 2+, Left brachioradialis reflex intensity grade: 2+, Right patellar reflex intensity grade: 2+ and Left patellar reflex intensity grade: 2+ Coordination: [id number] test normal, tandem gait normal and Romberg test negative Pupils: Normal pupillary reactivity/response: bilateral Psych Appearance: grossly normal Mental Status: mental status grossly normal Speech and movement: Normal speech and movement present Affect: normal affect Attitude: cooperative Thought process: Normal thought process present Assessment & Plan Assessment & Plan (1) Worsening headaches: Code(s): R51.9 - Headache, unspecified (2) Visual aura: Comment: atypical for migraine w/ aura, always righ-sided Code(s): H53.9 - Unspecified visual disturbance (3) Snoring: Code(s): R06.83 - Snoring (4) Blurry vision: Code(s): H53.8 - Other visual disturbances Plan Reviewed head CT and brain MRI reports with patient, discussed that although CT did make mention of possible pituitary cyst, brain MRI is a better imaging modality, and there were no pituitary abnormalities observed on the brain MRI. Pt advised to undergo HST to assess for sleep apnea, pt has had wt gain since last HST in 2021 (was normal). Pt advised to undergo Head and Neck CTA to assess for vascular etiologies of atypical unilateral side locked visual aura and worsening headaches. Check labs for common etiologies of aura, headaches, and fatigue/EDS. Will request recent eye exam notes. For overall headache management: Discussed importance of good self-care, including but not limited to maintaining a healthy diet, adequate fluid intake, adequate sleep, and engaging in regular physical activity. For headache triggers: Track headaches. For acute headache treatment: Discussed importance of taking acute medications at the first sign of headache, however stressed importance of avoiding acute medication overuse Re-trial Rizatriptan 10mg prn, MR in 2 hrs, may take w/ Advil 600mg prn Reviewed potential adverse effects of triptans, including but not limited to nausea, fatigue, chest tightness/tingling (usually passes within a few minutes), medication overuse headaches. Previous acute migraine medication trials: Sumatriptan- not tolerated. Acute migraine medication contraindications: None at this time For headache prevention medication: Discussed that preventative medications should be taken routinely as prescribed for best effect, it may take several weeks for full effect to take effect. Increase Riboflavin to 400mg qam Continue Magnesium 500mg qhs Continue propranolol 10 mg b.i.d. Previous migraine prevention medication trials: None other Migraine prevention medication contraindications: None at this time Pt to follow-up in 3 months or sooner prn. Orders: Orders RT home sleep study 08/07/23 G47.19 - Other hypersomnia, G47.9 - Sleep disorder, unspecified, R06.83 - Snoring Complete Blood Count Auto Diff 08/07/23 D64.9 - Anemia, unspecified, H53.8 - Other visual disturbances, H53.9 - Unspecified visual disturbance, R51.9 - Headache, unspecified, R53.83 - Other fatigue CRP High Sensitivity 08/07/23 D64.9 - Anemia, unspecified, H53.8 - Other visual disturbances, H53.9 - Unspecified visual disturbance, R51.9 - Headache, unspecified, R53.83 - Other fatigue IRON PROFILE 08/07/23 D64.9 - Anemia, unspecified, H53.8 - Other visual disturbances, H53.9 - Unspecified visual disturbance, R51.9 - Headache, unspecified, R53.83 - Other fatigue Methylmalonic Acid 08/07/23 D64.9 - Anemia, unspecified, H53.8 - Other visual disturbances, H53.9 - Unspecified visual disturbance, R51.9 - Headache, unspecified, R53.83 - Other fatigue Lipid Panel with Reflex 08/07/23 D64.9 - Anemia, unspecified, H53.8 - Other visual disturbances, H53.9 - Unspecified visual disturbance, R51.9 - Headache, unspecified, R53.83 - Other fatigue Ferritin 08/07/23 D64.9 - Anemia, unspecified, E55.9 - Vitamin D deficiency, unspecified Vitamin D 25-OH (D2 and D3) 08/07/23 D64.9 - Anemia, unspecified, E55.9 - Vitamin D deficiency, unspecified CT angio head neck 08/07/23 H53.8 - Other visual disturbances, H53.9 - Unspecified visual disturbance, R51.9 - Headache, unspecified Comprehensive Met. Panel 08/07/23 D64.9 - Anemia, unspecified, H53.8 - Other visual disturbances, H53.9 - Unspecified visual disturbance, R51.9 - Headache, unspecified, R53.83 - Other fatigue Erythrocyte Sedimentation Rate 08/07/23 D64.9 - Anemia, unspecified, H53.8 - Other visual disturbances, H53.9 - Unspecified visual disturbance, R51.9 - Headache, unspecified, R53.83 - Other fatigue Homocysteine 08/07/23 D64.9 - Anemia, unspecified, H53.8 - Other visual disturbances, H53.9 - Unspecified visual disturbance, R51.9 - Headache, unspecified, R53.83 - Other fatigue Vitamin B12 and Folate 08/07/23 D64.9 - Anemia, unspecified, H53.8 - Other visual disturbances, H53.9 - Unspecified visual disturbance, R51.9 - Headache, unspecified, R53.83 - Other fatigue Hemoglobin A1c 08/07/23 D64.9 - Anemia, unspecified, H53.8 - Other visual disturbances, H53.9 - Unspecified visual disturbance, R51.9 - Headache, unspecified, R53.83 - Other fatigue Medications: New rizatriptan may take w/ Advil 600mg, max 2 tabs per day or 6 tabs per week 5 - 10 mg (0.5 - 1 x 10 mg) PO Q2H 21 days PRN 12 tabs 3RF migraine headache riboflavin (vitamin B2) 400 mg PO DAILY 30 days 30 tabs 6RF Discontinued rizatriptan Discontinued Reason: Doctor's Order take 1 tab at onset of headache; if no relief may repeat 1 tab after at least 2 hrs; max = 3 tabs/24 hr PO 30 days 10 tabs 1RF G43.109 - Migraine with aura, not intractable, without status migrainosus Coding Level of Care Code New Pt Level 4 (11217) Diagnoses Worsening headaches R51.9 Visual aura H53.9 Snoring R06.83 Blurry vision H53.8
[2023-08-07 10:35] VITALS: BP 118/82; BMI 35.7
== END 2023-08-07 11:34 | disposition home or self-care (01) ==
PROVIDERS: PCP Physician Assistant; Visit Provider Nurse Practitioner Family
DX: R51.9 Headache, unspecified (principal); H53.9 Unspecified visual disturbance; R06.83 Snoring; H53.8 Other visual disturbances
CPT/HCPCS: 99204

== ENCOUNTER → 2023-08-07 09:25 | Outpatient (BNVA) | payer OTHER, SELFPAY | PROVIDERS: PCP Physician Assistant; Visit Provider Nurse Practitioner Family | DX: R51.9 Headache, unspecified (principal); R06.83 Snoring; H53.8 Other visual disturbances | CPT/HCPCS: 99202 ==

== ENCOUNTER 2023-08-15 08:43 | Outpatient (REF) | payer OTHER, SELFPAY ==
[2023-08-15 09:03] LABS: MANUAL DIFF FLAG NO
[2023-08-15 09:25] LABS: Basophils Absolute Auto 0.1 X10*3/uL (0.0-0.2); Basophils Percent Auto 1.1 % (0-2); Eosinophils Absolute Auto 0.2 X10*3/uL (0.0-0.4); Hematocrit 35.5 % (37.0-47.0); Hemoglobin 11.5 g/dl (12.0-16.0); Imm Gran Abs Auto 0.01 X10*3/uL (0.00-0.03); Imm Gran Pct Auto 0.2 % (0.0-0.4); Lymphocytes Absolute Auto 1.3 X10*3/uL (1.2-4.9); Lymphocytes Percent Auto 28.3 % (20-40); Mean Corpuscular HGB Conc 32.4 g/dl (31.0-35.0); Mean Corpuscular Volume 86.6 fL (80.0-98.0); Mean Platelet Volume 9.2 fL (9.4-12.3); Monocytes Absolute Auto 0.4 X10*3/uL (0.1-1.2); Neutrophils Absolute Auto 2.6 x10*3/uL (2.0-8.3); Neutrophils Percent Auto 56.4 % (45-73); Platelet Count 358 X10*3/uL (160-400); Red Cell Distribution Width 13.6 % (11.0-16.0); White Blood Count 4.6 X10*3/uL (4.8-10.8)
[2023-08-15 09:35] LABS: Estimated Average Glucose 100 mg/dL; Hemoglobin A1c % 5.1 % (<6.0)
[2023-08-15 10:05] LABS: Alanine Aminotransferase 12 U/L (0-31); Albumin Level 3.9 g/dL (3.5-5.0); Alkaline Phosphatase 48 U/L (39-117); Anion Gap 9 (12-20); Aspartate Amino Transferase 15 U/L (5-31); Bilirubin Total 0.4 mg/dL (0.0-1.0); Blood Urea Nitrogen 12 mg/dL (9-16); Carbon Dioxide 25 mmol/L (22-29); Chloride 108 mmol/L (96-108); Cholesterol 154 mg/dL (<200); Erythrocyte Sedimentation Rate 16 MM/HR (0-20); Estimated Glomerular Filt Rate > 60; Glucose Random 93 mg/dL (60-115); HDL Cholesterol 47 mg/dL (>40); Iron 41 mcg/dL (30-160); LDL Cholesterol Calculated 96 mg/dL (<100); Percent Iron Saturation 12 % (15-50); Potassium 4.2 mmol/L (3.3-5.1); Sodium 138 mmol/L (135-145); Total Iron Binding Capacity 350 mcg/dL (228-428); Total Protein 7.5 g/dL (6.5-8.0); Triglycerides 59 mg/dL (<150); Unsaturated Iron Binding 309 ug/dL
[2023-08-15 10:21] LABS: Ferritin 9 ng/mL (10-122)
[2023-08-15 10:24] LABS: Vitamin B12 474 pg/mL (200-900)
[2023-08-15 11:23] LABS: Reflex LDLD? No
[2023-08-18 12:49] LABS: Methylmalonic Acid 93 nmol/L (87-318)
[2023-08-18 17:54] LABS: Homocysteine 5.6 umol/L (<10.4)
[2023-08-19 14:08] LABS: Vitamin D 25-OH, D2 <4 ng/mL; Vitamin D 25-OH, D3 30 ng/mL; Vitamin D 25-OH, Total 30 ng/mL (30-100)
== END 2023-08-15 08:44 | disposition home or self-care (01) ==
LOC: HO.LAB 08:43
PROVIDERS: Visit Provider Nurse Practitioner Family
DX: D64.9 Anemia, unspecified (principal); R51.9 Headache, unspecified; H53.8 Other visual disturbances; H53.9 Unspecified visual disturbance; R53.83 Other fatigue; E55.9 Vitamin D deficiency, unspecified
CPT/HCPCS: 36415; 80053; 80061; 82306; 82607; 82728; 82746; 83036; 83090; 83540; 83921; 85025; 85652; 86141

== ENCOUNTER 2023-08-19 09:19 | Emergency (ER) | payer OTHER, SELFPAY ==
--- NOTE | ~2023-08-19 | XR_ITS ---
EXAMINATION: XR LUMBOSACRAL SPINE CLINICAL INFORMATION: Right-sided back pain COMPARISON: None available. TECHNIQUE: Three views of the lumbosacral spine. FINDINGS: There is mild straightening of cervical lordosis. The vertebral heights, alignment and disc heights are normal. No visible acute fracture, dislocation or subluxation seen. SI joints are symmetrical and normal. XR/XR lumbar spine 2-3V IMPRESSION: Mild straightening of cervical lordosis likely spasm. No visible acute fracture, dislocation or subluxation seen.
[2023-08-19 09:31] VITALS: BP 111/56; PULSE 98; RESP 7; TEMP 36.6; O2SAT 99; BMI 34.5
--- NOTE | 2023-08-19 10:41 | ED.BACK ---
HPI - Back Pain/Injury General Chief Complaint: Back Pain/Injury Stated Complaint: Low Back Pain No Injury Time Seen by Provider: 08/19/23 10:14 Source: patient Mode of arrival: ambulatory Limitations: no limitations History of Present Illness HPI Narrative: 33-year-old female presents with atraumatic right lower back pain with radiation to right lower extremity just above the knee. Patient reports she has had pain like this before a few years ago. She reports pain is worse with movement better at rest. Denies blunt trauma to the area. Denies urinary symptoms, hematuria, nausea, vomiting, abdominal pain, saddle paresthesias, weakness, numbness, tingling, fevers, chills, chest pain, shortness of breath, changes in bowel habits or urinary habits. Related Data Home Medications Medication Instructions Recorded Confirmed fluoxetine 10 mg capsule 10 mg PO DAILY 06/12/20 06/05/23 loratadine 10 mg tablet (Allergy 10 mg PO DAILY 08/07/23 08/07/23 Relief (loratadine)) Previous Rx's Medication Instructions Recorded ascorbic acid (vitamin C) 500 mg 500 mg PO DAILY 90 days #90 caps 06/11/21 capsule dicyclomine 20 mg tablet 20 mg PO TID #90 tabs 08/30/21 omeprazole 20 mg capsule,delayed 20 mg PO BEDTIME #30 caps 01/15/22 release RIGHT SHOULDER SLING #1 ea 08/13/22 diclofenac sodium 75 mg 75 mg PO BID PRN pain 15 days #30 09/05/22 tablet,delayed release tabs tizanidine 2 mg tablet 2 mg PO Q8H PRN muscle spasticity 12/05/22 15 days #45 tabs acetaminophen-caffeine 500 mg-65 1 tab PO Q12H pain 7 days #14 tabs 01/15/23 mg tablet (Excedrin Tension Headache) cholecalciferol (vitamin D3) 50 100 mcg (2 x 50 mcg (2,000 unit)) 04/14/23 mcg (2,000 unit) capsule PO DAILY 30 days #60 caps magnesium oxide 500 mg capsule 500 mg PO DAILY 90 days #90 caps 05/01/23 propranolol 10 mg tablet 10 mg PO BID 30 days #60 tabs 05/01/23 riboflavin (vitamin B2) 100 mg 100 mg PO DAILY #90 tabs 05/01/23 tablet nirmatrelvir 300 mg (150 mg See Rx Instructions PO .COMPLEX 06/09/23 x2)-ritonavir 100 mg tablet,dose #30 ea pack (Paxlovid) acetaminophen 500 mg tablet 500 mg PO Q6H PRN fever or pain 06/24/23 (Tylenol Extra Strength) #30 tabs ibuprofen 600 mg tablet 600 mg PO Q6H PRN fever or pain 06/24/23 #30 tabs [id number] 5 1 tab PO Q4-6H PRN cold symptoms 06/24/23 mg-10 mg-325 mg tablet (Theraflu #30 tabs ExpressMax Cold-Cough Day) levothyroxine 50 mcg tablet 50 mcg PO DAILY 30 days #30 tabs 07/02/23 loratadine 10 mg tablet 10 mg PO DAILY #30 tabs 07/06/23 riboflavin (vitamin B2) 400 mg 400 mg PO DAILY 30 days #30 tabs 08/07/23 tablet rizatriptan 10 mg tablet 5 - 10 mg (0.5 - 1 x 10 mg) PO Q2H 08/07/23 PRN migraine headache 21 days #12 tabs ketorolac 10 mg tablet 10 mg PO TID PRN pain 5 days #15 08/19/23 tabs lidocaine 5 % topical patch 1 patch topical DAILY PRN pain #15 08/19/23 ea Allergies Allergy/AdvReac Type Severity Reaction Status Date / Time animal dander [ANIMAL DANDER] Allergy Intermediate RASH Verified 08/19/23 09:31 RYE Allergy Intermediate RASH Uncoded 08/19/23 09:31 plants Allergy Mild Rash Uncoded 08/19/23 09:31 wheat, grains, rye Allergy Mild Rash Uncoded 08/19/23 09:31 Review of Systems Review of Systems: Constitutional : No Weight loss, No Fever, No Chills, ENT/Mouth : No Hearing loss, No Ear Pain, No Nasal Congestion, No Sinus Pain, No Hoarseness, No sore throat, No Rhinorrhea, No Swallowing Difficulty Cardiovascular : No Chest Pain, No SOB Respiratory : No Cough, No Dyspnea Gastrointestinal : No Nausea, No Vomiting, No Diarrhea, No abdominal Pain, No Hematochezia, No Melena Genitourinary : No Dysuria, No Urinary Frequency, No Hematuria, No Urinary Incontinence, Musculoskeletal : positive back pain Skin : No Skin Lesions, No rash Neuro : No Weakness, No Numbness, No Paresthesias, no loss of bowel or bladder incontinence, no saddle anesthesia Yes all other systems are reviewed and are negative [facility], [facility] Past Medical History Attestation statement: The following information was validated with the patient. Source: old records reviewed and nursing notes reviewed Medical History Dysphagia Dysplasia of cervix, low grade (OMRA 1) Avulsion fracture of ankle Breast pain, left Left foot pain Obese Goiter Anxiety and depression Back pain Snoring IBS (irritable colon syndrome) Nasal congestion Cervical lymphadenopathy Vitamin D deficiency Lexi's disease Hypothyroidism Surgical History H/O tubal ligation Hx of colonoscopy H/O foot surgery History of lumpectomy of left breast History of 2 sections Family History Family History Father No problems noted. 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 Unlikely kidney stone or UTI. This is likely musculoskeletal pain. X-ray pending. This is likely sciatica/lumbar radiculopathy. As long as x-ray is normal patient to be discharged home. No red flag symptoms. Patient ambulatory. Time: 10:56 Reevaluation #2: X-ray with mild straightening of cervical lordosis likely spasm. No visible fracture dislocation or subluxations. Patient did want this x-ray done because she states nobody has ever looked into her back pain. Time: 11:33 Medications Administered Discontinued Medications Generic Name Dose Route Start Last Admin Trade Name Omid PRN Reason Stop Dose Admin Ketorolac Tromethamine 30 mg 08/19/23 10:42 08/19/23 11:21 Ketorolac Tromethamine 30 Mg/Ml Vial IM 08/19/23 10:43 30 mg ONCE ONE Administration Lidocaine 1 patch 08/19/23 10:42 08/19/23 11:20 Lidocaine 4 % Patch Adh..Patch TRANSDERMA 08/19/23 10:43 1 patch ONCE ONE Administration Protocol Medical Decision Making Medical Decision Making [facility] Narrative: 33-year-old female presents with right lower back pain with radiation to right lower extremity just above the knee ongoing for the past few days. Physical exam right-sided paraspinous muscle spasms in the lumbar region with radiation into buttocks. No midline tenderness. No saddle paresthesias. Ambulating with steady gait normal coordination. History and physical exam concerning for lumbar radiculopathy versus sciatica. Unlikely cauda equina, epidural abscess, pyelonephritis, kidney stone, obstructing uropathy. Unlikely UTI however will rule out Plan urine. Will give Toradol and Lidoderm patch. Differential Diagnosis Differential Diagnoses: The differential diagnosis associated with the presentation includes History and physical exam concerning for lumbar radiculopathy versus sciatica. Unlikely cauda equina, epidural abscess, pyelonephritis, kidney stone, obstructing uropathy. Unlikely UTI however will rule out Admission/Observation Consideration of admission/observation: Escalation of care including admission/observation considered Lab Data [facility] Lab Attestation statement: I reviewed the patient's lab results. Labs: Lab Results 08/19/23 Range/Units 10:27 Urine Color Yellow Urine Appearance Clear Urine pH 5.5 (5.0-9.0) Ur Specific [place] >= 1.030 H (1.005-1.025) Urine Protein Negative (Neg-Trace) mg/dL Urine Glucose (UA) Negative (Negative) mg/dL Urine Ketones Negative (Negative) mg/dL Urine Blood Negative (Negative) Urine Nitrite Negative (Negative) Ur Leukocyte Esterase Negative (Negative) Urine Test NEGATIVE (NEGATIVE) Tests considered The following testing was considered but not selected: Atraumatic pain no indication for x-ray. I do not suspect pyelonephritis or obstructing uropathy or kidney stone. No indication for CT. Patient nontoxic appearing. No urinary symptoms. Prescription Management I considered prescription management with: Pain Medication Chronic Conditions Patient?s care impacted by: Other (Obesity, anxiety, goiter, Lexi disease) Discharge Plan Discharge Clinical Impression: Lumbar radiculopathy Patient Disposition: Home, Self-Care Instructions: Acute Low Back Pain (ED), Lumbar Radiculopathy (ED), Back Pain (ED), Lower Back Exercises (ED) Additional Instructions: Take your medications as prescribed. If you were prescribed antibiotics today, it is important that you take your medication to their entirety, do not skip any doses, do not finish them early. Follow-up with your primary care provider this week. Return to the emergency department with new or worsening symptoms. Such as fevers, chills, chest pain, shortness of breath, nausea, vomiting, dizziness, headache, vision changes, lethargy In case of emergency call 911 Toradol has been sent to your pharmacy, you tolerated this well in the department. Please take this as prescribed do not take this with ibuprofen, or other NSAIDs, do not mix this with alcohol. Side effects of this medication including increased risk for bleeding and possible kidney injury. XR/XR lumbar spine 2-3V IMPRESSION: Mild straightening of cervical lordosis likely spasm. No visible acute fracture, dislocation or subluxation seen. Prescriptions: New ketorolac 10 mg tablet 10 mg PO TID PRN (Reason: pain) 5 Days Qty: 15 0RF lidocaine 5 % adhesive patch,medicated 1 patch topical DAILY PRN (Reason: pain) Qty: 15 0RF Rx Instructions: leave on most painful area for up to 12 hrs No Action ascorbic acid (vitamin C) 500 mg capsule 500 mg PO DAILY 90 Days Qty: 90 3RF omeprazole 20 mg capsule,delayed release(DR/EC) 20 mg PO BEDTIME Qty: 30 3RF Rx Instructions: nenita lana capsula antes de acostarse diclofenac sodium 75 mg tablet,delayed release (DR/EC) 75 mg PO BID PRN (Reason: pain) 15 Days Qty: 30 0RF tizanidine 2 mg tablet 2 mg PO Q8H PRN (Reason: muscle spasticity) 15 Days Qty: 45 0RF cholecalciferol (vitamin D3) 50 mcg (2,000 unit) capsule 100 mcg PO DAILY 30 Days Qty: 60 4RF Paxlovid 300 mg (150 mg x 2)-100 mg tablets,dose pack See Rx Instructions PO .COMPLEX Qty: 30 0RF Rx Instructions: take TWO 150 mg tablets of nirmatrelvir with ONE 100 mg tablet of ritonavir twice daily for 5 days PO levothyroxine 50 mcg tablet 50 mcg PO DAILY 30 Days Qty: 30 3RF loratadine 10 mg tablet 10 mg PO DAILY Qty: 30 0RF Theraflu ExpressMax Cold Day 5-10-325 mg tablet 1 tab PO Q4-6H PRN (Reason: cold symptoms) Qty: 30 0RF acetaminophen [Tylenol Extra Strength] 500 mg tablet 500 mg PO Q6H PRN (Reason: fever or pain) Qty: 30 0RF ibuprofen 600 mg tablet 600 mg PO Q6H PRN (Reason: fever or pain) Qty: 30 0RF Excedrin Tension Headache 500-65 mg tablet 1 tab PO Q12H 7 Days Qty: 14 0RF (DME) RIGHT SHOULDER SLING See Rx Instructions .Route .MEDSUPPLY Qty: 1 0RF Rx Instructions: As directed dicyclomine 20 mg tablet 20 mg PO TID Qty: 90 3RF Rx Instructions: nenita de 15 a 30 minutos antes de las comidas claudia veces al dejon magnesium oxide 500 mg capsule 500 mg PO DAILY 90 Days Qty: 90 1RF riboflavin (vitamin B2) 100 mg tablet 100 mg PO DAILY Qty: 90 1RF propranolol 10 mg tablet 10 mg PO BID 30 Days Qty: 60 3RF fluoxetine 10 mg capsule 10 mg PO DAILY loratadine [Allergy Relief (loratadine)] 10 mg tablet 10 mg PO DAILY riboflavin (vitamin B2) 400 mg tablet 400 mg PO DAILY 30 Days Qty: 30 6RF rizatriptan 10 mg tablet 5 - 10 mg PO Q2H PRN (Reason: migraine headache) 21 Days Qty: 12 3RF Rx Instructions: may take w/ Advil 600mg, max 2 tabs per day or 6 tabs per week Referrals: Anthony Bueno PA-C [Primary Care Provider] - 2 days Stand Alone Forms: Work/School Release
[2023-08-19 10:48] LABS: Appearance Urine Clear; Color Urine Yellow; Glucose Urine UA Negative (Negative); Leukocyte Esterase Urine Negative (Negative); Nitrite Urine Negative (Negative); PH 5.5 (5.0-9.0); Specific Gravity - Urine >= 1.030 (1.005-1.025); Urine Blood Negative (Negative); Urine Ketones Negative (Negative); Urine Protein Negative (Neg-Trace)
[2023-08-19 10:49] LABS: UPreg QC Valid YES; Urine Pregnancy NEGATIVE (NEGATIVE)
--- NOTE | 2023-08-19 11:11 | PC.NURSE ---
went to medicate pt and she was at xray, will medicate when she returns
[2023-08-19] MEDS: Lidocaine 4 % Patch ADH..PATCH 1 PATCH TRANSDERMA (11:20)
[2023-08-19] MEDS: Ketorolac Tromethamine 30 MG/ML VIAL IM (11:21)
--- NOTE | 2023-08-19 11:22 | PC.NURSE ---
pt a&ox3, rt lower back pain, pt medicated for pain per order, call daugherty within reach, awaiting radiology results, will continue to monitor
== END 2023-08-19 11:48 | disposition home or self-care (01) ==
PROVIDERS: Emergency Provider Emergency Medicine; PCP Physician Assistant
DX: M54.16 Radiculopathy, lumbar region (principal); M54.50 Low back pain, unspecified; M25.561 Pain in right knee
CPT/HCPCS: 72100; 81003; 81025; 96372; 99283; 99284; J1885

== ENCOUNTER → 2023-09-24 13:30 | Outpatient (REF) | payer OTHER, SELFPAY | LOC: HO.SL 13:30 | PROVIDERS: PCP Physician Assistant; Visit Provider Nurse Practitioner Family | DX: Z13.89 Encounter for screening for other disorder (principal) ==

== ENCOUNTER 2023-10-06 13:07 | Outpatient (AMB) | payer OTHER, SELFPAY ==
--- NOTE | 2023-10-06 13:36 | MHC.OFFVIS ---
Intake Vital Signs 10/06/23 13:37 Height 5 ft 7 in Weight 220 lb 6 oz BMI 34.5 BP 195/72 H Blood Pressure Location Rt brachial Position Sitting Pulse 103 H Pulse Source Pulse Oximeter Pulse Oximetry (%) 99 Oxygen Delivery Method Room Air Intake Visit Reasons: CHRONIC LOW BACK PAIN Intake Note: Pain today 10/07 Senior Ios Developer Required: Yes Senior Ios Developer Language: [employer] Name: Ramu # [id number] Accompanied by: Son Allergies animal dander [ANIMAL DANDER] Allergy (Intermediate, Verified 10/06/23 13:44) RASH RYE Allergy (Intermediate, Uncoded 08/19/23 09:31) RASH plants Allergy (Mild, Uncoded 08/19/23 09:31) Rash wheat, grains, rye Allergy (Mild, Uncoded 08/19/23 09:31) Rash HPI CHRONIC LOW BACK PAIN HPI Details Patient is a 33 years old Maori speaking female presents today for initial evaluation of low back pain. Denies any past or recent trauma, injury, or falls. Back pain is axial and also radiates into her right buttock and lateral right hip. Increased pain with bending down, walking and changing positions. Denies previous spine injections or surgery. Pain ranges 4-10/10 with pain being constant and most worst during the day with ADLs and repositioning at night. She does not have significant pain during rest or sitting. Pain affects her daily functioning, mobility, sleep, mood and social interactions. Patient reports oxycodone and tramadol were effective but were only provided for short period of time. She denies previous skilled physical therapy. Patient admits to no regular physical daily activity and does not exercise. Denies any fever, chills, abdominal or groin pain, weakness, foot drop, bladder or bowel dysfunction or saddle anesthesia. Location Lower back pain extending to right sacral area and right lateral hip Duration Chronic pain for many years Characteristics of symptom or complaint Aching, hot burning, sharp, throbbing Aggravating or associated factors Walking, movements, changing positions, bending down Relieving factors Rest, tramadol, oxycodone, lidocaine patch, Tylenol, Ibuprofen, tizanidine Treatment None PFSH Medical History Dysphagia Dysplasia of cervix, low grade (OMAR 1) Avulsion fracture of ankle Breast pain, left Left foot pain Obese Goiter Anxiety and depression Back pain Snoring IBS (irritable colon syndrome) Nasal congestion Cervical lymphadenopathy Vitamin D deficiency Lexi's disease Hypothyroidism Surgical History H/O tubal ligation Hx of colonoscopy H/O foot surgery History of lumpectomy of left breast History of 2 sections Family History Father No problems noted. 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 Alert and oriented. Mood and affect appropriate. Follows and participates in conversation appropriately. Respiratory effort is unlabored. No cough. Able to transition from sit to stand unassisted. Ambulates with bilaterally normal heel strike and toe off. Back/Spine/Pelvis Other: Patient is able to walk and stand on heels and tip toes with mild difficulties otherwise demonstrating good motor tone. No limping. Can flex forward to 70-75 degrees and extend to 5-10 degrees before experiencing lumbar pain. Demonstrates 5/5 strength of quadriceps bilaterally as well as flexion/dorsiflexion of bilateral feet against resistance. 2+ pedal pulses bilaterally. Straight leg rise with dorsiflexion negative bilaterally. +2 patellar and achilles reflexes bilaterally. Facet loading test positive bilaterally. Fan sign, Flaco?s, [place], Pelvic compression and Stinchfield tests are positive on the right. No groin pain with I/E hip rotations. Cervical Spine: cervical ROM normal and No Cervical spine tenderness Thoracic/Lumbar Spine: thoracic and lumbar spine normal to inspection, No Thoracic/lumbar spine scar(s), Lasegue's sign negative, straight leg raise negative bilaterally, pain with thoraco-lumbar ROM, paraspinal muscle tenderness, No thoracic spinal tenderness and No lumbar spinal tenderness Pelvis: buttock tenderness Sacroiliac joints: on the right tender to palpation and on the left nontender Results Reviewed Results Reviewed: XR LUMBOSACRAL SPINE 08/19/23 CLINICAL INFORMATION: Right-sided back pain FINDINGS: There is mild straightening of cervical lordosis. The vertebral heights, alignment and disc heights are normal. No visible acute fracture, dislocation or subluxation seen. SI joints are symmetrical and normal. IMPRESSION: Mild straightening of cervical lordosis likely spasm. No visible acute fracture, dislocation or subluxation seen. Assessment & Plan Assessment & Plan (1) Low back pain: Code(s): M54.50 - Low back pain, unspecified (2) Muscle spasm of back: Code(s): M62.830 - Muscle spasm of back (3) Pain of right sacroiliac joint: Code(s): M53.3 - Sacrococcygeal disorders, not elsewhere classified (4) Sacroiliitis: Code(s): M46.1 - Sacroiliitis, not elsewhere classified Plan Patient presents today with lower back pain with right sided SIJ pain. Recommend to start skilled PT and establish independence with home exercise program. Script provided. If no relief with PT, will consider diagnostic vs therapeutic SIJ injection with local and fluoroscopy. Scripts provided for methocarbamol and diclofenac potassium for moderate-severe symptoms. Side effects and precautions were discussed with patient today. All quesitons and concerns have been answered and patient agreed with the plan. Follow up after PT and sooner as needed. Orders: Orders PT Evaluation and Treatment Today M46.1 - Sacroiliitis, not elsewhere classified, M53.3 - Sacrococcygeal disorders, not elsewhere classified, M54.50 - Low back pain, unspecified, M62.830 - Muscle spasm of back Medications: New methocarbamol 750 mg PO Q8H PRN 90 tabs 0RF muscle spasms 30 days M62.830 - Muscle spasm of back diclofenac potassium Take it with food and full glass of water. Avoid other NSAIDs (Ibuprofen) 50 mg PO BID PRN 60 tabs 0RF pain 30 days M46.1 - Sacroiliitis, not elsewhere classified, M53.3 - Sacrococcygeal disorders, not elsewhere classified, M54.50 - Low back pain, unspecified Discontinued ibuprofen Discontinued Reason: Patient Completed Course 600 mg PO Q6H PRN 30 tabs 0RF fever or pain meloxicam Discontinued Reason: Patient Completed Course 15 mg PO QDAY 15 days 15 tabs 0RF M54.50 - Low back pain, unspecified Coding Level of Care Code New Pt Level 4 (68467) Diagnoses Low back pain M54.50 Muscle spasm of back M62.830 Pain of right sacroiliac joint M53.3 Sacroiliitis M46.1
[2023-10-06 13:37] VITALS: BP 195/72; PULSE 103; O2SAT 99; BMI 34.5
== END 2023-10-06 14:17 | disposition home or self-care (01) ==
PROVIDERS: PCP Physician Assistant; Visit Provider Nurse Practitioner Family
DX: M54.50 Low back pain, unspecified (principal); M62.830 Muscle spasm of back; M53.3 Sacrococcygeal disorders, not elsewhere classified; M46.1 Sacroiliitis, not elsewhere classified
CPT/HCPCS: 99204

== ENCOUNTER → 2023-10-06 13:07 | Outpatient (BNVA) | payer OTHER, SELFPAY | PROVIDERS: PCP Physician Assistant; Visit Provider Nurse Practitioner Family | DX: M54.50 Low back pain, unspecified (principal); M62.830 Muscle spasm of back; M53.3 Sacrococcygeal disorders, not elsewhere classified; M46.1 Sacroiliitis, not elsewhere classified | CPT/HCPCS: 99202 ==

== ENCOUNTER 2023-11-12 11:10 | Outpatient (AMB) | payer MEDICAID, SELFPAY ==
--- NOTE | 2023-11-12 11:19 | A.OFFVIS_ITS ---
Vital Signs 11/12/23 11:23 Height 5 ft 7 in BP 108/76 Blood Pressure Location Rt brachial Position Sitting Intake Visit Reasons: 3 follow up Migraine-CONF Intake Note: Patient presents for 3 month follow up.patient here for sleep study results. Allergies animal dander [ANIMAL DANDER] Allergy (Intermediate, Verified 11/12/23 11:22) RASH RYE Allergy (Intermediate, Uncoded 11/12/23 11:22) RASH plants Allergy (Mild, Uncoded 11/12/23 11:22) Rash wheat, grains, rye Allergy (Mild, Uncoded 11/12/23 11:22) Rash Medication List - Last Reconciled 11/12/23 by SUZANNE Patricia cholecalciferol (vitamin D3) 100 mcg (2 x 50 mcg (2,000 unit)) PO DAILY 90 days cyclobenzaprine 5 - 10 mg (1 - 2 x 5 mg) PO BEDTIME PRN 30 days diclofenac potassium 50 mg PO BID PRN 30 days levothyroxine 50 mcg PO DAILY 90 days loratadine 10 mg PO DAILY magnesium oxide 500 mg PO DAILY 90 days methocarbamol 750 mg PO Q8H PRN 30 days omeprazole 20 mg PO BEDTIME propranolol 10 mg PO BID 90 days riboflavin (vitamin B2) 100 mg PO DAILY riboflavin (vitamin B2) 400 mg PO DAILY 90 days [RIGHT SHOULDER SLING As directed] rizatriptan 5 - 10 mg (0.5 - 1 x 10 mg) PO Q2H PRN 21 days HPI Comments Details: 33-yr-old female presents for f/u visit. Pt did undergo bilateral mammoplasty, which she states was uncomplicated. Pt is scheduled for head CTA tomorrow. Pt had HST in August- results not available. Headaches are a bit better. Since her mammoplasty, she has been noticing an occasional brief head tremor- wonders if this is d/t her medications or headaches. Having 2-3 migraine days per week. She has run out of most of meds. Baseline headache characteristics: Aura: Right eye visual changes, but do not start prior to headache. Headache: Severe Pressure and pulsating pain bilateral frontal and retro-orbital and the back of the head a/w Photophobia, phonophobia, nausea at times, difficulty concentrating, fatigue, activity intolerance, Right eye swelling, eyelid droop, seeing lights, blurry vision without eye redness. Right lateral thigh sensations moving down the leg may occur with or without headache but increases during headache. PENDING SALE TO [facility] Medical History Dysphagia Dysplasia of cervix, low grade (OMAR 1) Avulsion fracture of ankle Breast pain, left Left foot pain Obese Goiter Anxiety and depression Back pain Snoring IBS (irritable colon syndrome) Nasal congestion Cervical lymphadenopathy Vitamin D deficiency Lexi's disease Hypothyroidism Surgical History H/O tubal ligation Hx of colonoscopy H/O foot surgery History of lumpectomy of left breast History of 2 sections Family History Father No problems noted. 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 Bilateral posterior cervical tightness. General: patient oriented x3 Cranial nerves: Yes CN's II-XII intact bilaterally Cognition (Neuro): normal cognition Psych Appearance: grossly normal Mental Status: mental status grossly normal Speech and movement: Normal speech and movement present Affect: normal affect Attitude: cooperative Assessment & Plan Assessment & Plan (1) Migraine with aura: Code(s): G43.109 - Migraine with aura, not intractable, without status migrainosus Category: Medical (2) Cervicalgia: Code(s): M54.2 - Cervicalgia Category: Medical (3) Benign head tremor: Code(s): G25.0 - Essential tremor Category: Medical (4) Cervicalgia: Code(s): M54.2 - Cervicalgia Category: Medical (5) Benign head tremor: Code(s): G25.0 - Essential tremor Category: Medical (6) Sleep difficulties: Code(s): G47.9 - Sleep disorder, unspecified Category: Medical (7) Excessive daytime sleepiness: Code(s): G47.19 - Other hypersomnia Category: Medical (8) Visual aura: Comment: atypical for migraine w/ aura, always righ-sided Code(s): H53.9 - Unspecified visual disturbance Category: Medical Plan Previous head CT and brain MRI reports with patient, discussed that although CT did make mention of possible pituitary cyst, brain MRI is a better imaging modality, and there were no pituitary abnormalities observed on the brain MRI. Will f/u on results of HST. As ordered- Head and Neck CTA For head tremor and neck tightness: Check c-spine XR. Trial cyclobenzaprine 5-10mg qhs prn. Pt is not taking methocarbanol. Order placed for PT. ? For overall headache management: Continue to optimize good self-care, including but not limited to maintaining a healthy diet, adequate fluid intake, adequate sleep, and engaging in regular physical activity. For headache triggers: Track headaches. ? For acute headache treatment: Resume Rizatriptan 10mg prn, MR in 2 hrs, may take w/ Advil 600mg prn Previous acute migraine medication trials: Sumatriptan- not tolerated. Acute migraine medication contraindications: None at this time ? For headache prevention medication: Resume: Riboflavin to 400mg qam Magnesium 500mg qhs propranolol 10 mg b.i.d. Previous migraine prevention medication trials: None other Migraine prevention medication contraindications: None at this time ? Follow-up upon review of above and in-clinic in 6 months or sooner prn. Orders: Orders XR cervical spine w flex/ext Today G25.0 - Essential tremor, M54.2 - Cervicalgia PT Evaluation and Treatment Today G25.0 - Essential tremor, M54.2 - Cervicalgia Medications: New cyclobenzaprine 5 - 10 mg (1 - 2 x 5 mg) PO BEDTIME 30 days PRN 60 tabs 3RF muscle spasm Changed From riboflavin (vitamin B2) 400 mg PO DAILY 30 days 30 tabs 6RF To riboflavin (vitamin B2) 400 mg PO DAILY 90 days 90 tabs 1RF From propranolol 10 mg PO BID 30 days 60 tabs 3RF G43.109 - Migraine with aura, not intractable, without status migrainosus To propranolol 10 mg PO BID 90 days 180 tabs 1RF G43.109 - Migraine with aura, not intractable, without status migrainosus Refilled magnesium oxide 500 mg PO DAILY 90 days 90 caps 1RF G43.109 - Migraine with aura, not intractable, without status migrainosus rizatriptan may take w/ Advil 600mg, max 2 tabs per day or 6 tabs per week 5 - 10 mg (0.5 - 1 x 10 mg) PO Q2H 21 days PRN 12 tabs 6RF migraine headache Coding Level of Care Code Est Pt Level 4 (59430) Diagnoses Migraine with aura G43.109 Cervicalgia M54.2 Benign head tremor G25.0 Sleep difficulties G47.9 Excessive daytime sleepiness G47.19 Visual aura H53.9
[2023-11-12 11:23] VITALS: BP 108/76
== END 2023-11-12 12:17 | disposition home or self-care (01) ==
PROVIDERS: PCP Physician Assistant; Visit Provider Nurse Practitioner Family
DX: M54.2 Cervicalgia (principal); G25.0 Essential tremor; G43.109 Migraine with aura, not intractable, without status migrainosus; G47.9 Sleep disorder, unspecified; G47.19 Other hypersomnia; H53.9 Unspecified visual disturbance
CPT/HCPCS: 99214

== ENCOUNTER → 2023-11-12 11:10 | Outpatient (BNVA) | payer MEDICAID, SELFPAY | PROVIDERS: PCP Physician Assistant; Visit Provider Nurse Practitioner Family | DX: G43.109 Migraine with aura, not intractable, without status migrainosus (principal); G25.0 Essential tremor; G47.9 Sleep disorder, unspecified; G47.19 Other hypersomnia; M54.2 Cervicalgia; H53.9 Unspecified visual disturbance | CPT/HCPCS: 99212 ==

== ENCOUNTER 2023-11-13 08:07 | Outpatient (REF) | payer MEDICAID, SELFPAY ==
--- NOTE | ~2023-11-13 | CT_ITS ---
EXAMINATION: CT brain. CLINICAL INFORMATION: Visual disturbance COMPARISON: CT scan of brain on 01/31/2023, pre and postcontrast MRI brain on 03/19/2023. TECHNIQUE: Multiple axial images were obtained from base of skull to the vertex before and after intravenous injection of 70 mL of Omnipaque 350. Coronal and sagittal images of the brain were reconstructed from the axial image data. Dose reduction technique: One or more of the following individual dose optimization techniques were used including: Automated exposure control, mA and/or kV were adjusted according to patient size or iterative reconstruction. DLP: 2564.16 mGy-cm FINDINGS: Ventricles, sulci and cisterns are normal. There is no midline shift, no abnormal intra- or extra- axial fluid accumulation. Garcia and white matter differentiation is normal. Post contrast images show normal enhancement of major intracerebral blood vessels. No enhancing intracranial mass lesion or abnormal meningeal enhancement is seen. In anterior pituitary fossa over the site of previously reported cystic lesion, there is normal contrast enhancement of the pituitary gland. Bone window images show no evidence of skull fracture. CT/CT angio head neck IMPRESSION: 1. Unchanged Normal CT scan of the brain. 2. No intracranial hemorrhage or skull fracture is seen. 3. No evidence of space occupying or enhancing intracranial lesion could be found. 4. The current plain CT scan of the brain shows no diagnostic evidence of acute cerebral infarction. 5. Unchanged normal pituitary gland, demonstrated on contrast enhanced MRI brain. EXAMINATION: CT angiogram of brain. CLINICAL INFORMATION: Visual disturbance COMPARISON: CT scan of brain on 01/31/2023 TECHNIQUE: CT angiogram of the brain was performed C7 following the administration of 70 mL of Omnipaque 350. Coronal and sagittal images were reconstructed from axial image data. 3-dimensional volumetric maximum intensity projection images in multiple planes were reconstructed on an independent workstation. This was performed under concurrent direct supervision and monitoring by radiologist. Reformatted maximum intensity projection angiographic images of the brain were reconstructed on an independent workstation. This CT examination was performed using dose optimization techniques as appropriate, variously including the following: *Automated exposure control *Adjustment of mA and/or kV according to patient size (this includes techniques or standardized protocols for targeted exams where dose is matched to indication/reason for exam; i.e. extremities or head) *Use of iterative reconstruction technique DLP: 2564.16 mGy-cm FINDINGS: There is normal visualization of bilateral anterior, middle and posterior cerebral arteries, internal carotid arteries, basilar artery and terminal portions of bilateral vertebral arteries. Anterior communicating artery is normal. Bilateral posterior communicating arteries are normal. Bilateral internal carotid siphons are smoothly patent. IMPRESSION: 1. Normal CT angiogram of the brain. 2. No focal cerebral arterial lesion or significant arterial stenosis is seen. EXAMINATION: CT angiogram of neck. CLINICAL INFORMATION: Visual disturbance COMPARISON: CT scan of brain on 01/31/2023 TECHNIQUE: Contrast enhanced CT angiogram of the neck and superior mediastinum was performed following the administration of 70 mL of Omnipaque 350. 3-dimensional volumetric maximum intensity projection images in multiple planes were reconstructed on an independent workstation. This was performed under concurrent direct supervision and monitoring by radiologist. Reformatted maximum intensity projection angiographic images of the neck and superior mediastinum were reconstructed on an independent workstation. Magnified images of carotid bifurcations were reconstructed. This CT examination was performed using dose optimization techniques as appropriate, variously including the following: *Automated exposure control *Adjustment of mA and/or kV according to patient size (this includes techniques or standardized protocols for targeted exams where dose is matched to indication/reason for exam; i.e. extremities or head) *Use of iterative reconstruction technique DLP: 2564.16 mGy-cm STENOSIS MEASUREMENT: Degree of stenosis was measured and calculated based on NASCET criteria. Carotid stenosis reference using NASCET criteria: % stenosis = (1 - narrowest ICA diameter/diameter of distal cervical ICA) x 100. Mild - < 50% stenosis. Moderate - 50-69% stenosis. Severe - 70-94% stenosis. Near occlusion - 95-99% stenosis. Occluded - 100% stenosis. FINDINGS: RIGHT SIDE: Right internal carotid artery: Smoothly patent. Right external carotid artery: Smoothly patent. Right common carotid artery: Smoothly patent. Right vertebral artery: Smoothly patent. LEFT SIDE: Left internal carotid artery: Smoothly patent. Left external carotid artery: Smoothly patent. Left common carotid artery: Smoothly patent. Left vertebral artery: Smoothly patent. At the superior mediastinum, the visualized right innominate artery, bilateral subclavian arteries and common carotid arteries are smoothly patent starting from the origin at the aortic arch. IMPRESSION: 1. Normal CT angiogram of the neck. No evidence of significant carotid stenosis. 2. Patent bilateral vertebral arteries of similar sizes.
[2023-11-13] MEDS: iohexoL 350 MG/ML 100 ML INFUS..BTL IV (09:23)
== END 2023-11-13 08:08 | disposition home or self-care (01) ==
LOC: HO.CT 08:07
PROVIDERS: PCP Physician Assistant; Visit Provider Nurse Practitioner Family
DX: H53.9 Unspecified visual disturbance (principal); H53.8 Other visual disturbances; R51.9 Headache, unspecified
CPT/HCPCS: 70496; 70498; Q9967

== ENCOUNTER 2023-11-18 08:48 | Outpatient (REF) | payer MEDICAID, SELFPAY ==
[2023-11-18 09:48] LABS: Hematocrit 35.7 % (37.0-47.0); Hemoglobin 11.5 g/dl (12.0-16.0); Mean Corpuscular HGB Conc 32.2 g/dl (31.0-35.0); Mean Corpuscular Hemoglobin 26.7 pg (27.0-33.0); Mean Platelet Volume 9.1 fL (9.4-12.3); Platelet Count 377 X10*3/uL (160-400); Red Cell Distribution Width 14.3 % (11.0-16.0); White Blood Count 5.1 X10*3/uL (4.8-10.8)
[2023-11-18 09:57] LABS: Appearance Urine Cloudy; Color Urine Dark Yellow; Glucose Urine UA Negative (Negative); Leukocyte Esterase Urine Negative (Negative); Nitrite Urine Negative (Negative); PH 5.5 (5.0-9.0); Specific Gravity - Urine >= 1.030 (1.005-1.025); Urine Blood Negative (Negative); Urine Ketones Negative (Negative); Urine Protein Negative (Neg-Trace)
[2023-11-18 10:02] LABS: Alanine Aminotransferase 11 U/L (0-31); Alkaline Phosphatase 47 U/L (39-117); Anion Gap 11 (12-20); Aspartate Amino Transferase 14 U/L (5-31); Bilirubin Total 0.5 mg/dL (0.0-1.0); Blood Urea Nitrogen 10 mg/dL (9-16); Calcium 9.1 mg/dL (8.4-10.2); Carbon Dioxide 22 mmol/L (22-29); Chloride 110 mmol/L (96-108); Estimated Glomerular Filt Rate > 60; Glucose Random 95 mg/dL (60-115); Potassium 4.3 mmol/L (3.3-5.1); Sodium 139 mmol/L (135-145); Total Protein 7.9 g/dL (6.5-8.0)
== END 2023-11-18 08:49 | disposition home or self-care (01) ==
LOC: HO.LAB 08:48
PROVIDERS: PCP Physician Assistant; Visit Provider Physician Assistant
DX: D64.9 Anemia, unspecified (principal); R30.0 Dysuria
CPT/HCPCS: 36415; 80053; 81003; 85027

== ENCOUNTER 2024-01-22 09:26 | Outpatient (REF) | payer OTHER, SELFPAY ==
[2024-01-30 16:38] LABS: HPV mRNA E6/E7 Not Detected (Not Detected)
== END 2024-01-22 09:27 | disposition home or self-care (01) ==
LOC: HO.LNP 09:26
PROVIDERS: PCP Physician Assistant; Visit Provider Obstetrics & Gynecology
DX: Z32.02 Encounter for pregnancy test, result negative (principal); N93.9 Abnormal uterine and vaginal bleeding, unspecified
CPT/HCPCS: 81025; 87624; 88175; 99212

== ENCOUNTER 2024-01-22 09:26 | Outpatient (AMB) | payer OTHER, SELFPAY ==
[2024-01-22 09:30] VITALS: BP 122/86; BMI 35.4
--- NOTE | 2024-01-22 09:30 | A.OFFVIS_ITS ---
Vital Signs 01/22/24 09:30 Height 5 ft 7 in Weight 226 lb BMI 35.4 BP 122/86 Intake Visit Reasons: AUB Shear Setter Required: Yes Shear Setter Language: Woods Warden Services: Shear Setter Present (in person) Shear Setter Name: Karely CULVER Information Interpreted: non-clinical & clinical Social Insurance Administrator: Social Insurance Administrator Present (Karely CULVER) Accompanied by: Self / Same As Patient Allergies animal dander [ANIMAL DANDER] Allergy (Intermediate, Verified 01/22/24 09:43) RASH RYE Allergy (Intermediate, Uncoded 01/22/24 09:43) RASH plants Allergy (Mild, Uncoded 01/22/24 09:43) Rash wheat, grains, rye Allergy (Mild, Uncoded 01/22/24 09:43) Rash Is last menstrual period known: Yes Last menstrual period: 12/25/23 HPI Comments Details: The patient is presenting c/o irregular bleeding associated with passage of blood clots and abdominal cramping. it started few months ago and is getting worse no other associated symptoms. Last co testing was in 10/20 was ascus/HPV positive, colpo/biopsy/ECC was negative. [facility] Medical History Dysphagia Dysplasia of cervix, low grade (OMAR 1) Avulsion fracture of ankle Breast pain, left Left foot pain Obese Goiter Anxiety and depression Back pain Snoring IBS (irritable colon syndrome) Nasal congestion Cervical lymphadenopathy Vitamin D deficiency Lexi's disease Hypothyroidism Surgical History H/O tubal ligation Hx of colonoscopy H/O foot surgery History of lumpectomy of left breast History of 2 sections Family History Father No problems noted. 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 Cognitive needs: No Hearing needs: No Vision needs: Yes Female Reproductive History Menstrual Age of Menarche: 14 Date of last menstrual period: 12/25/23 control method: permanent sterilization Review of Systems Const All systems reviewed & are unremarkable except as noted in HPI and below Card Reports as per HPI Resp Reports as per HPI GI Reports as per HPI and Reports no additional complaints Reports as per HPI Physical Exam Vital Signs: Last Vital Signs BP 122/86 01/22/24 09:30 BMI result Body Mass Index 35.4 Const General: cooperative, healthy appearing and comfortable Chest Chest palpation & inspection: normal inspection of the chest and normal palpation of entire chest wall Breast/axilla inspection: normal inspection of the breasts and normal inspection of the axillae Breast/axilla palpation: normal palpation of the breasts, normal palpation of the axillae and no axillary lymphadenopathy Resp Effort & Inspection: normal respiratory effort Auscultation: clear to auscultation bilaterally Percussion: percussion normal Cardio Palpation: normal PMI Rate: regular rate Rhythm: regular rhythm Heart sounds: no murmurs and no rubs Peripheral pulses: Peripheral pulses 2+ throughout GI Inspection: Yes normal to inspection Palpation (GI): Soft to palpation, nontender, no guarding, not rigid and No hepatosplenomegaly present Percussion: Yes normal to percussion Auscultation: normal bowel sounds Rectal Exam - Female: deferred General: Yes bladder normal to palpation External Female Exam: No lesion Speculum Exam - Vagina: normal appearance of the vagina, normal palpation, normal vaginal discharge and not erythematous Speculum Exam - Cervix: normal appearance of the cervix and normal palpation Bimanual exam- vagina & uterus: normal bimanual exam, normal palpation, uterine size normal, bladder normal to palpation, consistency normal and normal palpation Bimanual Exam- Adnexa, other: normal adnexae, no masses and no tenderness Results AMB Test Urine AMB Test Urine Negative Last Edit by Karely Quinn CMA on 09:45 Assessment & Plan Assessment & Plan (1) Abnormal uterine bleeding (AUB): Code(s): N93.9 - Abnormal uterine and vaginal bleeding, unspecified Category: Medical Plan: Co testing done, GC and chlamydia taken CBC, TSH, prolactin, HCG, and pelvic ultrasound ordered. Discussed with the patient the different causes of abnormal bleeding including thyroid disorders, uterine and ovarian pathology. Discussed with the patient the work up including CBC (to r/o anemia), TSH, prolactin, pelvic Ultrasound. All questions answered and the patient verbalized understanding. Instructed the patient to schedule an appointment for follow-up in 2 weeks. Orders: Orders HCG Quantitative Today N93.9 - Abnormal uterine and vaginal bleeding, unspecified US pelvic and transvaginal Today N93.9 - Abnormal uterine and vaginal bleeding, unspecified AMB HCG Urine Test Today Z32.02 - Encounter for test, result negative TSH reflex Free T4 Today N93.9 - Abnormal uterine and vaginal bleeding, unspecified Prolactin Today N93.9 - Abnormal uterine and vaginal bleeding, unspecified Complete Blood Count no Diff Today N93.9 - Abnormal uterine and vaginal bleeding, unspecified Coding Level of Care Code Est Pt Level 3 (55070) Diagnoses Abnormal uterine bleeding (AUB) N93.9
== END 2024-01-22 09:59 | disposition home or self-care (01) ==
LOC: HO.HWS 09:26
PROVIDERS: PCP Physician Assistant; Visit Provider Obstetrics & Gynecology
DX: N93.9 Abnormal uterine and vaginal bleeding, unspecified (principal); Z32.02 Encounter for pregnancy test, result negative
CPT/HCPCS: 99213

== ENCOUNTER 2024-01-22 10:07 | Outpatient (REF) | payer OTHER, SELFPAY ==
[2024-01-22 11:40] LABS: Hematocrit 34.4 % (37.0-47.0); Hemoglobin 10.9 g/dl (12.0-16.0); Mean Corpuscular HGB Conc 31.7 g/dl (31.0-35.0); Mean Corpuscular Hemoglobin 26.5 pg (27.0-33.0); Mean Corpuscular Volume 83.5 fL (80.0-98.0); Mean Platelet Volume 9.1 fL (9.4-12.3); Platelet Count 400 X10*3/uL (160-400); Red Blood Count 4.12 X10*6/uL (4.20-5.50); Red Cell Distribution Width 16.5 % (11.0-16.0); White Blood Count 5.6 X10*3/uL (4.8-10.8)
[2024-01-22 12:43] LABS: HCG Quantitative < 2 mIU/mL; TSH reflex Free T4 3.71 uIU/mL (0.32-4.0)
[2024-01-22 17:58] LABS: CT PCR NOT DETECTED (Not Detect.); NG PCR NOT DETECTED (Not Detect.)
[2024-01-24 03:14] LABS: Prolactin 5.5 ng/mL
== END 2024-01-22 10:08 | disposition home or self-care (01) ==
LOC: HO.LAB 10:07
PROVIDERS: PCP Physician Assistant; Visit Provider Obstetrics & Gynecology
DX: N93.9 Abnormal uterine and vaginal bleeding, unspecified (principal)
CPT/HCPCS: 84146; 84443; 84702; 85027; 87491; 87591

== ENCOUNTER 2024-02-05 10:52 | Outpatient (REF) | payer OTHER, SELFPAY ==
--- NOTE | ~2024-02-05 | US_ITS ---
EXAMINATION: US PELVIS CLINICAL INFORMATION: Abnormal bleeding. LMP approximately end of December, unknown exact dates. COMPARISON: Pelvic ultrasound 12/20/2022. TECHNIQUE: Ultrasound of the pelvis is performed using both transabdominal and transvaginal transducers along with Doppler. Transvaginal imaging is performed due to inadequate visualization transabdominally. FINDINGS: Retroverted and retroflexed uterus with normal morphology and echogenicity measuring 8.4 x 3.6 x 4.5 cm. No uterine mass. Trilaminar endometrium measuring 0.9 cm in thickness. No focal endometrial abnormality. Small nabothian cysts overlie the cervix. Normal morphology of the ovaries with preserved flow on color Doppler at the moment of this examination. The right ovary measures 2 x 1.4 x 1.5 cm, 2.3 mL and the left ovary measures 2.8 x 1.9 x 2 cm, 5.6 mL. Small amount of simple appearing free fluid in the cul-de-sac and adjacent to the right adnexa. US/US pelvic and transvaginal IMPRESSION: Small amount of free fluid in the cul-de-sac and adjacent to the right adnexa, possibly physiologic. Correlate clinically. Otherwise, no significant abnormality.
== END 2024-02-05 10:53 | disposition home or self-care (01) ==
LOC: HO.US 10:52
PROVIDERS: PCP Physician Assistant; Visit Provider Obstetrics & Gynecology
DX: N93.9 Abnormal uterine and vaginal bleeding, unspecified (principal)
CPT/HCPCS: 76830; 76856

== ENCOUNTER 2024-02-13 08:12 | Outpatient (REF) | payer OTHER, SELFPAY | END 2024-02-13 08:13 | disposition home or self-care (01) | LOC: HO.LNP 08:12 | PROVIDERS: PCP Physician Assistant; Visit Provider Obstetrics & Gynecology | DX: R31.29 Other microscopic hematuria (principal); R10.2 Pelvic and perineal pain | CPT/HCPCS: 81002; 81025; 87086; 99212 ==

== ENCOUNTER 2024-02-13 08:12 | Outpatient (AMB) | payer OTHER, SELFPAY ==
[2024-02-13 08:24] VITALS: BMI 35.2
--- NOTE | 2024-02-13 08:24 | A.OFFVIS_ITS ---
Vital Signs 02/13/24 08:24 Height 5 ft 7 in Weight 224 lb 13.944 oz BMI 35.2 Intake Visit Reasons: Pelvic pain Business Banking Officer Required: Yes Business Banking Officer Language: Transitions Rn Care Coordinator Services: Business Banking Officer Present (in person) Business Banking Officer Name: Karely CULVER Information Interpreted: non-clinical & clinical Licensed Weigher: Licensed Weigher Present (Karely CULVER) Allergies animal dander [ANIMAL DANDER] Allergy (Intermediate, Verified 01/22/24 09:43) RASH RYE Allergy (Intermediate, Uncoded 01/22/24 09:43) RASH plants Allergy (Mild, Uncoded 01/22/24 09:43) Rash wheat, grains, rye Allergy (Mild, Uncoded 01/22/24 09:43) Rash HPI Comments Details: Presenting complaining of 2 day history of right lower quadrant discomfort no associated urinary frequency or dysuria no nausea or vomiting no fever or chills no vaginal discharge. Pelvic ultrasound done on 02/04, report still pending. GC/CT was done on 01/21 was negative PFSH Medical History Dysphagia Dysplasia of cervix, low grade (OMAR 1) Avulsion fracture of ankle Breast pain, left Left foot pain Obese Goiter Anxiety and depression Back pain Snoring IBS (irritable colon syndrome) Nasal congestion Cervical lymphadenopathy Vitamin D deficiency Lexi's disease Hypothyroidism Surgical History H/O tubal ligation Hx of colonoscopy H/O foot surgery History of lumpectomy of left breast History of 2 sections Family History Father No problems noted. 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 Cognitive needs: No Hearing needs: No Vision needs: Yes Female Reproductive History Menstrual Age of Menarche: 14 Review of Systems Const All systems reviewed & are unremarkable except as noted in HPI and below Physical Exam GI Palpation (GI): Soft to palpation, nontender and no guarding Percussion: Yes normal to percussion General: Yes no CVA tenderness External Female Exam: normal external appearance and normal appearance of the urethra Speculum Exam - Vagina: normal appearance of the vagina, normal palpation, no lesions and no masses Speculum Exam - Cervix: normal appearance of the cervix, normal palpation, no lesions, no masses and nontender Bimanual exam- vagina & uterus: normal bimanual exam, normal palpation, uterine size normal, normal palpation, uterine shape normal, No Cervical tenderness present and non-tender Bimanual Exam- Adnexa, other: normal adnexae Back/Spine/Pelvis Back: no CVA tenderness Assessment & Plan Assessment & Plan (1) Pelvic pain: Code(s): R10.2 - Pelvic and perineal pain Category: Medical Plan: GC/CT recently done and the were negative, pelvic ultrasound performed on 02/04, the report is still pending. UPT done in the office was negative. Instructions given the patient to call or go to emergency room in case of worsening of her pain, temperature above 100.4, nausea or vomiting or any other concerns, otherwise schedule an ultrasound follow-up appointment within 2 weeks. All questions answered, the patient verbalized understanding. (2) Microscopic hematuria: Code(s): R31.29 - Other microscopic hematuria Category: Medical Plan: Urine dip showed microscopic hematuria with leukocytes, will treat with Macrobid 100 mg p.o. b.i.d. for 5 days send urine for culture. Instructions given the patient to call in case of flank pain, fever above 100.4 to schedule a repeat urine dip visit in 2 weeks. Medications: New nitrofurantoin monohyd/m-cryst 100 mg (Macrobid) 100 mg PO BID 5 days 10 caps 0RF Coding Level of Care Code Est Pt Level 3 (56100) Diagnoses Pelvic pain R10.2 Microscopic hematuria R31.29
== END 2024-02-13 08:40 | disposition home or self-care (01) ==
PROVIDERS: PCP Physician Assistant; Visit Provider Obstetrics & Gynecology
DX: R10.2 Pelvic and perineal pain (principal); R31.29 Other microscopic hematuria; Z32.02 Encounter for pregnancy test, result negative
CPT/HCPCS: 99213

== ENCOUNTER 2024-03-08 10:00 | Outpatient (REF) | payer OTHER, SELFPAY | END 2024-03-08 10:01 | disposition home or self-care (01) | LOC: HO.LNP 10:00 | PROVIDERS: PCP Physician Assistant; Visit Provider Obstetrics & Gynecology | DX: R87.610 Atypical squamous cells of undetermined significance on cytologic smear of cervix (ASC-US) (principal); Z32.02 Encounter for pregnancy test, result negative; R31.29 Other microscopic hematuria; R10.2 Pelvic and perineal pain | CPT/HCPCS: 57454; 81002; 81025; 88305; 99212 ==

== ENCOUNTER 2024-03-08 10:00 | Outpatient (AMB) | payer OTHER, SELFPAY ==
[2024-03-08 10:23] VITALS: BMI 35.2
--- NOTE | 2024-03-08 10:23 | A.OFFVIS_ITS ---
Vital Signs 03/08/24 10:23 Height 5 ft 7 in Weight 224 lb 13.944 oz BMI 35.2 Intake Visit Reasons: Ultrasound Follow up/colpo Family Resource Management Specialist Required: Yes Family Resource Management Specialist Language: Horse Doctor Services: Family Resource Management Specialist Present (in person) Family Resource Management Specialist Name: Karely CULVER Information Interpreted: non-clinical & clinical Accompanied by: Self / Same As Patient Allergies animal dander [ANIMAL DANDER] Allergy (Intermediate, Verified 03/08/24 10:24) RASH RYE Allergy (Intermediate, Uncoded 03/08/24 10:24) RASH plants Allergy (Mild, Uncoded 03/08/24 10:24) Rash wheat, grains, rye Allergy (Mild, Uncoded 03/08/24 10:24) Rash HPI Comments Details: Presenting for follow-up regarding her pelvic pain. The patient is doing well. The following workup was done so far: GC/CT negative. Last visit urine test was negative. Last visit urine dip showed microscopic hematuria, urine culture was negative. Pelvic ultrasound showed the following: IMPRESSION: Small amount of free fluid in the cul-de-sac and adjacent to the right adnexa, possibly physiologic. Correlate clinically. Otherwise, no significant abnormality. In addition, the patient is presenting for colposcopy, her last co testing was ascus/HPV negative. [facility] Medical History (Updated 03/08/24 @ 10:35 by Manolo Tracey MD) Dysphagia Dysplasia of cervix, low grade (OMAR 1) Avulsion fracture of ankle Breast pain, left Left foot pain Obese Goiter Anxiety and depression Back pain Snoring IBS (irritable colon syndrome) Nasal congestion Cervical lymphadenopathy Vitamin D deficiency Lexi's disease Hypothyroidism Surgical History H/O tubal ligation Hx of colonoscopy H/O foot surgery History of lumpectomy of left breast History of 2 sections Family History Father No problems noted. 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 We thoroughly discussed the procedure itself, including its details, alternatives, and all associated risks. This included but not limited to the following complications such as bleeding, infection, and injury to the vagina, bladder, and vessels, as well as the potential need for transfusion with all its associated risks. Subsequently, the patient sign the consent. Urine test done in the office was negative Pap smear result: Ascus/HPV negative Procedure: During the procedure, the following steps were performed: A speculum was inserted, and acetic acid was applied. Colposcopy was conducted, allowing visualization of the transformation zone. Acetowhite lesions were identified at the 3+6+11 o'clock position. Cervical biopsies were obtained from the 3+6+11 o'clock position, followed by an endocervical curettage (ECC). Vaginoscopy of the upper vagina revealed no evidence of aceto-white lesions. Hemostasis was achieved using Monsel solution, and the patient tolerated the procedure well. Post-Procedure Instructions: The patient was advised to promptly contact the office or the after hours answering service or go to the emergency room if experiencing a temperature exceeding 100.4?F, abdominal pain, nausea/vomiting, or bleeding. Additionally, the patient was instructed to abstain from vaginal intercourse and bathtub use. The patient confirmed understanding of these instructions. Discharge Instructions: The patient was instructed to schedule a follow-up appointment in 2 weeks for further evaluation and management. Please note that this note was generated using a voice recognition program, and errors may have occurred during residential property manager. [id number]-[id number] of cervix including upper vagina with biopsy and ECC Procedure code (CPT) selection complete Results AMB Test Urine AMB Test Urine Negative Last Edit by Karely Quinn CMA on 10:38 AMB Urinalysis Dipstick UR Leukocytes Negative Last Edit by Karely Quinn, [facility]ANTA on 03/08/24 10:41 UR Nitrite Negative Last Edit by Karely Quinn, [employer] SAL[employer]ERSON on 03/08/24 10:41 UR Urobilinogen Normal Last Edit by Karely Quinn, [employer] SAL[employer] on 03/08/24 10:41 UR Protein Trace Last Edit by Karely Quinn, [employer] SAL[employer] on 03/08/24 10:41 UR Ph 6.0 Last Edit by Karely Quinn, [facility] on 03/08/24 10:41 UR Blood Small Last Edit by Karely Quinn, [facility] on 03/08/24 10:41 UR Specific Kaplan 1.025 Last Edit by Karely Quinn, [employer] SAL[employer] on 03/08/24 10:41 UR Ketone Negative Last Edit by Karely Quinn, [facility] on 03/08/24 10:41 UR Bilirubin Negative Last Edit by Karely Quinn, [employer] SAL[employer]ERSON on 03/08/24 10:41 UR Glucose Negative Last Edit by Karely Quinn, [facility] on 03/08/24 10:41 Assessment & Plan Assessment & Plan (1) ASCUS of cervix with negative high risk HPV: Code(s): R87.610 - Atypical squamous cells of undetermined significance on cytologic smear of cervix (ASC-US) Category: Medical Plan: Discussed with the patient the result of her abnormal pap, its significance, risk of progression, persistence, and regression. the false positive/negative rate of a Pap smear as a screening test in detecting cervical cancer and the indication for a diagnostic test -colposcopy, biopsy, endocervical curettage. Colposcopy/biopsy/ECC done, see procedure note The patient verbalized understanding and agreed with the plan, all questions answered. (2) Microscopic hematuria: Code(s): R31.29 - Other microscopic hematuria Category: Medical Plan: Repeat urine dip showed persistent microscopic hematuria. Discussed with the patient the possible causes of microscopic hematuria including but not limited to: interstitial cystitis, polyps, stones, masses, urethral inflammatory proc esses and others. will proceed with CT abdomen/pelvis and urology referral. Instructed the patient to call our office back in case a referral appointment is not scheduled, missed or canceled so that we will assist on rescheduling another appointment, the patient verbalized understanding agreed with the plan. (3) Pelvic pain: Code(s): R10.2 - Pelvic and perineal pain Category: Medical Plan: Discussed with the patient the results of the workup done including negative GC/chlamydia, urine dip, urine test and pelvic ultrasound. Differential diagnosis of vendor representatives causes that have not be ruled out yet include but not limited to causes of microscopic hematuria, endometriosis, pelvic adhesions , post an ablation syndrome or other. Recommended for the patient to see her PCP for further workup for non vendor representatives causes; if the all the results are negative and the patient's pelvic pain is persistent, instructions given to patient to call back for further testing. Meanwhile, instructions were given the patient to go to emergency room or call in case of fever above 100.4, heavy vaginal bleeding, persistence or worsening of her pelvic pain. All questions answered, the patient verbalized understanding. Orders: Orders AMB Colposcopy Today R87.610 - Atypical squamous cells of undetermined significance on cytologic smear of cervix (ASC-US) AMB HCG Urine Test Today Z32.02 - Encounter for test, result negative AMB Urinalysis Dipstick Today R31.29 - Other microscopic hematuria CT abdomen pelvis wo/w IV con Today R31.29 - Other microscopic hematuria Referrals Urology Referral R31.29 - Other microscopic hematuria Coding Level of Care Code Est Pt Level 3 (54155) Procedure Only Diagnoses ASCUS of cervix with negative high risk HPV R87.610 Microscopic hematuria R31.29 Pelvic pain R10.2 CPT Codes Colposcopy - CPT: 39280-[id number] of cervix including upper vagina with biopsy and ECC ([id number])
== END 2024-03-08 11:19 | disposition home or self-care (01) ==
LOC: HO.HWS 10:00
PROVIDERS: PCP Physician Assistant; Visit Provider Obstetrics & Gynecology
DX: R10.2 Pelvic and perineal pain (principal); R31.29 Other microscopic hematuria; R87.610 Atypical squamous cells of undetermined significance on cytologic smear of cervix (ASC-US); Z32.02 Encounter for pregnancy test, result negative
CPT/HCPCS: 57454; 99213

== ENCOUNTER 2024-03-08 11:01 | Outpatient (REF) | payer OTHER, SELFPAY ==
[2024-03-08 12:54] LABS: Blood Urea Nitrogen 12 mg/dL (9-16); Estimated Glomerular Filt Rate > 60
== END 2024-03-08 11:02 | disposition home or self-care (01) ==
LOC: HO.LAB 11:01
PROVIDERS: Visit Provider Obstetrics & Gynecology
DX: R10.2 Pelvic and perineal pain (principal)
CPT/HCPCS: 36415; 82565; 84520

== ENCOUNTER 2024-03-09 12:50 | Emergency (ER) | payer OTHER, SELFPAY ==
--- NOTE | ~2024-03-09 | CT_ITS ---
EXAMINATION: CT ABDOMEN AND PELVIS WITHOUT CONTRAST CLINICAL INFORMATION: Right flank pain COMPARISON: CT abdomen and pelvis 01/12/2021 TECHNIQUE: Multidetector volumetric imaging was performed from the superior aspect of the liver through the pubic symphysis. Sagittal and coronal reformatted images were obtained on the technologist's workstation. This CT examination was performed using dose optimization techniques as appropriate, variously including the following: *Automated exposure control *Adjustment of mA and/or kV according to patient size (this includes techniques or standardized protocols for targeted exams where dose is matched to indication/reason for exam; i.e. extremities or head) *Use of iterative reconstruction technique DLP: 920 mGy-cm FINDINGS: Evaluation of solid organs, vascular structures, and bowel wall limited in the absence of intravenous contrast. LUNG BASES: Unremarkable. LIVER AND BILIARY TREE: Unremarkable. GALLBLADDER: Unremarkable. PANCREAS: Unremarkable. SPLEEN: Spleen unremarkable. 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 ADRENAL GLANDS: Unremarkable. KIDNEYS AND URETERS: Unremarkable. No hydronephrosis or urinary tract calculi identified. GASTROINTESTINAL TRACT: Mild sigmoid prominent colonic diverticulosis without evidence of acute diverticulitis. Normal appendix. VASCULAR: Unremarkable LYMPH NODES: No lymphadenopathy. PERITONEUM: No ascites. BLADDER: Urinary bladder decompressed, limiting evaluation. PELVIC VISCERA: Unremarkable. ABDOMINAL AND PELVIC WALL: Unremarkable. OSSEOUS STRUCTURES: Unremarkable. CT/CT abdomen pelvis wo IV con IMPRESSION: 1. No acute abnormality of the abdomen or pelvis, within the limitations of noncontrast technique. Specifically, no hydronephrosis or urinary tract calculi identified. 2. Mild sigmoid colonic diverticulosis without evidence of acute diverticulitis. Electronically signed by: Colt Manzanares MD 03/09/2024 05:21 PM EDT
[2024-03-09 13:38] VITALS: BP 124/75; PULSE 87; RESP 16; TEMP 36.6; O2SAT 98; BMI 36.0
--- NOTE | 2024-03-09 13:39 | ED.GENADULT ---
HPI - General Adult General Chief complaint: Abdominal Pain Stated complaint: r side groin abd back pain Time Seen by Provider: 03/09/24 20:24 Source: patient Mode of arrival: ambulatory Limitations: no limitations History of Present Illness ED Provider: barney GANNON narrative: Patient has been having right flank pain for 1 month seen quality assurance specialist Manuela wound off blood in the urine ask her to get a CT scan rule out kidney stone no nausea no vomiting no prior history of kidney stone patient also complaining of pain in the lower abdomen no vaginal bleed no fever no chills Related Data Previous Rx's ?Medication ?Instructions ?Recorded omeprazole 20 mg capsule,delayed 20 mg PO BEDTIME #30 caps 01/15/22 release RIGHT SHOULDER SLING #1 ea 08/13/22 riboflavin (vitamin B2) 100 mg 100 mg PO DAILY #90 tabs 05/01/23 tablet diclofenac potassium 50 mg tablet 50 mg PO BID PRN pain 30 days #60 10/06/23 tabs methocarbamol 750 mg tablet 750 mg PO Q8H PRN muscle spasms 30 10/06/23 days #90 tabs cholecalciferol (vitamin D3) 50 100 mcg (2 x 50 mcg (2,000 unit)) 11/03/23 mcg (2,000 unit) capsule PO DAILY 90 days #180 caps levothyroxine 50 mcg tablet 50 mcg PO DAILY 90 days #90 tabs 11/03/23 loratadine 10 mg tablet 10 mg PO DAILY #30 tabs 11/06/23 cyclobenzaprine 5 mg tablet 5 - 10 mg (1 - 2 x 5 mg) PO 11/12/23 BEDTIME PRN muscle spasm 30 days #60 tabs magnesium oxide 500 mg capsule 500 mg PO DAILY 90 days #90 caps 11/12/23 propranolol 10 mg tablet 10 mg PO BID 90 days #180 tabs 11/12/23 riboflavin (vitamin B2) 400 mg 400 mg PO DAILY 90 days #90 tabs 11/12/23 tablet rizatriptan 10 mg tablet 5 - 10 mg (0.5 - 1 x 10 mg) PO Q2H 11/12/23 PRN migraine headache 21 days #12 tabs nitrofurantoin 100 mg PO BID 5 days #10 caps 02/13/24 monohydrate/macrocrystals 100 mg capsule (Macrobid) Allergies Allergy/AdvReac Type Severity Reaction Status Date / Time animal dander [ANIMAL DANDER] Allergy Intermediate RASH Verified 03/09/24 13:43 RYE Allergy Intermediate RASH Uncoded 03/08/24 10:24 plants Allergy Mild Rash Uncoded 03/08/24 10:24 wheat, grains, rye Allergy Mild Rash Uncoded 03/08/24 10:24 Review of Systems Review of Systems: Yes all other systems are reviewed and are negative [facility] Past Medical History Medical History Dysphagia Dysplasia of cervix, low grade (OMAR 1) Avulsion fracture of ankle Breast pain, left Left foot pain Obese Goiter Anxiety and depression Back pain Snoring IBS (irritable colon syndrome) Nasal congestion Cervical lymphadenopathy Vitamin D deficiency Lexi's disease Hypothyroidism Surgical History H/O tubal ligation Hx of colonoscopy H/O foot surgery History of lumpectomy of left breast History of 2 sections Family History Family History Father No problems noted. 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 Oriented X3. No acute distress. Eyes: PERRLA, No Nystagmus ENT: Pharynx normal. Oral Mucosa moist Neck: Normal inspection. Neck supple. CVS: Normal heart rate and rhythm. Pulses normal. Respiratory: No respiratory distress. Equal air entry bilateral, no wheezing/rales/rhonchi Abdomen: Soft and nontender. Bowel sounds are present, no mass palpable, no CVA tenderness Skin: Skin warm and dry. Normal skin color. Normal skin turgor. Extremities: No lower extremity edema. No calf tenderness Neuro: Oriented X 3. No motor deficit. No sensory deficit.No cerebellar signs , cranial nerves II-XII intact Course Course Course Narrative: This is an RME done by MERCEDEZ Becker: Additional HPI, ROS, PE not included below will be deferred to primary provider. 34 yo f hx of ASCUS, hematuria, anemia, obesity presenting w/ 1 month of intermittent R flank pain . Yesterday saw OBGYN had a urine w/ + blood shes concerned for kidney stones. LMP about 2.5 weeks ago. OB did not think this was ovarian in nature. Appearance: Alert.? Oriented X3.? No acute cardiopulmonary distress distress.? Head: Normocephalic, atraumatic, no step-offs or deformities CVS: Pulses normal.? Respiratory: No respiratory distress.? Abdomen: Soft and nontender.? Skin: ? Normal skin color. Extremities: 5/5 strength to bilateral upper and lower extremities Neuro: Oriented X 3.? No motor deficit.? No sensory deficit. Medical Decision Making Lab Data 03/09/24 13:54 03/09/24 13:54 Labs: Lab Results 03/09/24 03/09/24 Range/Units 13:54 13:58 WBC 6.5 (4.8-10.8) X10*3/uL RBC 4.20 (4.20-5.50) X10*6/uL Hgb 12.1 (12.0-16.0) g/dl Hct 36.4 L (37.0-47.0) % MCV 86.7 (80.0-98.0) fL MCH 28.8 (27.0-33.0) pg MCHC 33.2 (31.0-35.0) g/dl RDW 16.9 H (11.0-16.0) % Plt Count 330 (160-400) X10*3/uL MPV 8.9 L (9.4-12.3) fL Immature Gran % (Auto) 0.2 (0.0-0.4) % Neut % (Auto) 62.6 (45-73) % Lymph % (Auto) 23.2 (20-40) % [place] % (Auto) 8.3 (2-11) % Eos % (Auto) 4.6 H (0-4) % Baso % (Auto) 1.1 (0-2) % Lymph # (Auto) 1.5 (1.2-4.9) X10*3/uL [place] # (Auto) 0.5 (0.1-1.2) X10*3/uL Eos # (Auto) 0.3 (0.0-0.4) X10*3/uL Baso # (Auto) 0.1 (0.0-0.2) X10*3/uL Abs Immat Gran (auto) 0.01 (0.00-0.03) X10*3/uL Absolute Neuts (auto) 4.1 (2.0-8.3) x10*3/uL Absolute Nucleated RBC 0.000 (0.0-0.012) X10*3/uL Nucleated RBC % (auto) 0.0 (0.0-0.2) /100WBC Sodium 139 (135-145) mmol/L Potassium 4.1 (3.3-5.1) mmol/L Chloride 109 H (96-108) mmol/L Carbon Dioxide 25 (22-29) mmol/L Anion Gap 9 L (12-20) BUN 11 (9-16) mg/dL Creatinine 0.91 (0.5-1.4) mg/dL Estim Creat Clear Calc 108.1 Estimated GFR > 60 Random Glucose 72 (60-115) mg/dL Calcium 9.0 (8.4-10.2) mg/dL Magnesium 2.3 (1.6-2.6) mg/dL Total Bilirubin 0.3 (0.0-1.0) mg/dL AST 15 (5-31) U/L ALT 14 (0-31) U/L Alkaline Phosphatase 46 (39-117) U/L Total Protein 7.7 (6.5-8.0) g/dL Albumin 4.0 (3.5-5.0) g/dL Urine Color Yellow Urine Appearance Clear Urine pH 6.5 (5.0-9.0) Ur Specific [place] >= 1.030 H (1.005-1.025) Urine Protein Trace (Neg-Trace) mg/dL Urine Glucose (UA) Negative (Negative) mg/dL Urine Ketones Trace (Negative) mg/dL Urine Blood Negative (Negative) Urine Nitrite Negative (Negative) Ur Leukocyte Esterase Negative (Negative) Discharge Plan Discharge Clinical Impression: Flank pain Patient Disposition: Home, Self-Care Instructions: Flank Pain (ED) Additional Instructions: Your CT scan is negative for kidney stone your pain is likely musculoskeletal take ibuprofen for pain Prescriptions: No Action omeprazole 20 mg capsule,delayed release(DR/EC) 20 mg PO BEDTIME Qty: 30 3RF Rx Instructions: nenita lana capsula antes de acostarse levothyroxine 50 mcg tablet 50 mcg PO DAILY 90 Days Qty: 90 2RF cholecalciferol (vitamin D3) 50 mcg (2,000 unit) capsule 100 mcg PO DAILY 90 Days Qty: 180 1RF loratadine 10 mg tablet 10 mg PO DAILY Qty: 30 0RF (DME) RIGHT SHOULDER SLING See Rx Instructions .Route .MEDSUPPLY Qty: 1 0RF Rx Instructions: As directed riboflavin (vitamin B2) 100 mg tablet 100 mg PO DAILY Qty: 90 1RF cyclobenzaprine 5 mg tablet 5 - 10 mg PO BEDTIME PRN (Reason: muscle spasm) 30 Days Qty: 60 3RF magnesium oxide 500 mg capsule 500 mg PO DAILY 90 Days Qty: 90 1RF propranolol 10 mg tablet 10 mg PO BID 90 Days Qty: 180 1RF riboflavin (vitamin B2) 400 mg tablet 400 mg PO DAILY 90 Days Qty: 90 1RF rizatriptan 10 mg tablet 5 - 10 mg PO Q2H PRN (Reason: migraine headache) 21 Days Qty: 12 6RF Rx Instructions: may take w/ Advil 600mg, max 2 tabs per day or 6 tabs per week nitrofurantoin monohyd/m-cryst [Macrobid] 100 mg capsule 100 mg PO BID 5 Days Qty: 10 0RF methocarbamol 750 mg tablet 750 mg PO Q8H PRN (Reason: muscle spasms) 30 Days Qty: 90 0RF diclofenac potassium 50 mg tablet 50 mg PO BID PRN (Reason: pain) 30 Days Qty: 60 0RF Rx Instructions: Take it with food and full glass of water. Avoid other NSAIDs (Ibuprofen) Print Language: Portuguese
[2024-03-09 14:03] LABS: MANUAL DIFF FLAG NO
[2024-03-09 14:04] LABS: Basophils Absolute Auto 0.1 X10*3/uL (0.0-0.2); Basophils Percent Auto 1.1 % (0-2); Eosinophils Absolute Auto 0.3 X10*3/uL (0.0-0.4); Eosinophils Percent Auto 4.6 % (0-4); Hematocrit 36.4 % (37.0-47.0); Hemoglobin 12.1 g/dl (12.0-16.0); Imm Gran Abs Auto 0.01 X10*3/uL (0.00-0.03); Imm Gran Pct Auto 0.2 % (0.0-0.4); Lymphocytes Absolute Auto 1.5 X10*3/uL (1.2-4.9); Lymphocytes Percent Auto 23.2 % (20-40); Mean Corpuscular HGB Conc 33.2 g/dl (31.0-35.0); Mean Corpuscular Hemoglobin 28.8 pg (27.0-33.0); Mean Corpuscular Volume 86.7 fL (80.0-98.0); Mean Platelet Volume 8.9 fL (9.4-12.3); Monocytes Absolute Auto 0.5 X10*3/uL (0.1-1.2); Monocytes Percent Auto 8.3 % (2-11); Neutrophils Absolute Auto 4.1 x10*3/uL (2.0-8.3); Neutrophils Percent Auto 62.6 % (45-73); Platelet Count 330 X10*3/uL (160-400); Red Cell Distribution Width 16.9 % (11.0-16.0); White Blood Count 6.5 X10*3/uL (4.8-10.8)
[2024-03-09 14:06] LABS: Appearance Urine Clear; Color Urine Yellow; Glucose Urine UA Negative (Negative); Leukocyte Esterase Urine Negative (Negative); Nitrite Urine Negative (Negative); PH 6.5 (5.0-9.0); Specific Gravity - Urine >= 1.030 (1.005-1.025); Urine Blood Negative (Negative); Urine Ketones Trace mg/dL (Negative); Urine Protein Trace mg/dL (Neg-Trace)
[2024-03-09 14:18] LABS: Alanine Aminotransferase 14 U/L (0-31); Alkaline Phosphatase 46 U/L (39-117); Anion Gap 9 (12-20); Aspartate Amino Transferase 15 U/L (5-31); Bilirubin Total 0.3 mg/dL (0.0-1.0); Blood Urea Nitrogen 11 mg/dL (9-16); Carbon Dioxide 25 mmol/L (22-29); Chloride 109 mmol/L (96-108); Creatinine Clr Calc Pharmacy 108.1; Estimated Glomerular Filt Rate > 60; Glucose Random 72 mg/dL (60-115); Magnesium 2.3 mg/dL (1.6-2.6); Potassium 4.1 mmol/L (3.3-5.1); Sodium 139 mmol/L (135-145); Total Protein 7.7 g/dL (6.5-8.0)
[2024-03-09 21:28] VITALS: BP 124/75; PULSE 87; RESP 16; TEMP 36.6; O2SAT 98
== END 2024-03-09 21:28 | disposition home or self-care (01) ==
PROVIDERS: Physician Assistant; Emergency Provider Internal Medicine; PCP Physician Assistant
DX: R10.9 Unspecified abdominal pain (principal); R10.31 Right lower quadrant pain; Z79.899 Other long term (current) drug therapy
CPT/HCPCS: 36415; 74176; 80053; 81003; 83735; 85025; 99282; 99284

== ENCOUNTER 2024-03-11 11:16 | Outpatient (AMB) | payer OTHER, SELFPAY ==
--- NOTE | 2024-03-11 11:21 | MHC.OFFVIS ---
Vital Signs 03/11/24 11:28 Height 5 ft 7 in Weight 229 lb 4.492 oz BMI 35.9 Intake Visit Reasons: ER follow up It Application Architect Required: Yes It Application Architect Language: Salesperson Jewelry Services: It Application Architect Present (in person) It Application Architect Name: Karely CULVER Information Interpreted: non-clinical & clinical Cover Inspector: Cover Inspector Present (Karely CULVER) Accompanied by: Self / Same As Patient Allergies animal dander [ANIMAL DANDER] Allergy (Intermediate, Verified 03/11/24 11:29) RASH RYE Allergy (Intermediate, Uncoded 03/11/24 11:29) RASH plants Allergy (Mild, Uncoded 03/11/24 11:29) Rash wheat, grains, rye Allergy (Mild, Uncoded 03/11/24 11:29) Rash Is last menstrual period known: Yes HPI Comments Details: Presenting for follow-up. The patient is doing well with no complaints. The colposcopy/biopsy/ECC pathology showed the following: A. Endocervix, curettage: Fragments of benign endocervical glands, negative for squamous intraepithelial lesion. B. Cervix, 3 o'clock, biopsy: Squamous mucosa within normal limits; no endocervical component seen; negative for squamous intraepithelial lesion. C. Cervix, 6 o'clock, biopsy: Squamous mucosa within normal limits; no endocervical component seen; negative for squamous intraepithelial lesion. D. Cervix, 11 o'clock, biopsy: Squamous mucosa within normal limits; no endocervical component seen; negative for squamous intraepithelial lesion. COMMENT: Note is made of the patient's recent Pap smear ([facility]; [id number]; ASCUS; HPV+). The following workup for pelvic was done so far: GC/CT negative. Last visit urine test was negative. Last visit urine dip showed persistent microscopic hematuria with negative urine culture. CT scan of abdomen and pelvis showed the following: IMPRESSION: 1. No acute abnormality of the abdomen or pelvis, within the limitations of noncontrast technique. Specifically, no hydronephrosis or urinary tract calculi identified. 2. Mild sigmoid colonic diverticulosis without evidence of acute diverticulitis. Pelvic ultrasound showed the following: IMPRESSION: Small amount of free fluid in the cul-de-sac and adjacent to the right adnexa, possibly physiologic. Correlate clinically. Otherwise, no significant abnormality. The following workup for AUB was done: H&H= 12.1/36.4 TSH, prolactin, hCG, GC and chlamydia were negative. Co testing was done in 01/20 which showed ascus/HPV negative. The patient was seen in the emergency room 03/09 CBC, chemistry and urine was negative PFSH Medical History Dysphagia Dysplasia of cervix, low grade (OMAR 1) Avulsion fracture of ankle Breast pain, left Left foot pain Obese Goiter Anxiety and depression Back pain Snoring IBS (irritable colon syndrome) Nasal congestion Cervical lymphadenopathy Vitamin D deficiency Lexi's disease Hypothyroidism Surgical History H/O tubal ligation Hx of colonoscopy H/O foot surgery History of lumpectomy of left breast History of 2 sections Family History Father No problems noted. 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 Cognitive needs: No Hearing needs: No Vision needs: Yes Female Reproductive History Menstrual Age of Menarche: 14 Review of Systems Const All systems reviewed & are unremarkable except as noted in HPI and below Reports as per HPI and Reports no additional complaints GI Reports no additional complaints Reports no additional complaints Physical Exam Vital Signs: BMI result Body Mass Index 35.9 Assessment & Plan Assessment & Plan (1) ASCUS of cervix with negative high risk HPV: Code(s): R87.610 - Atypical squamous cells of undetermined significance on cytologic smear of cervix (ASC-US) Category: Medical Plan: Discussed with the patient the pathology results of the colposcopy biopsies & endocervical curettage ( negative). Discussed with the patient the sensitivity specificity, positive and negative predictive value in detecting cervical cancer in addition discussed the regression, persistence and progression rates. Recommended co-testing in 12 months, if cytology and or HPV are abnormal will proceed was colposcopy biopsy and endocervical curettage. Instructions given to the patient to schedule a co test appointment in 1 year. All questions answered the patient verbalized understanding. (2) Abnormal uterine bleeding (AUB): Code(s): N93.9 - Abnormal uterine and vaginal bleeding, unspecified Category: Medical Plan: Discussed with the patient the results of the work up done and options of treatment including Lysteda, control pills, Mirena IUD, endometrial ablation and hysterectomy. All pros, cons, risks and benefits if each option was discussed with the patient and the patient decided to go ahead with Mirena IUD so a more detailed discussion about it was conducted including mechanism of action, risks (uterine perforation, infection, injury to bladder, bowel, displacement, and others) benefits (hypo menorrhea, amenorrhea, ...). GC/CT were taken and were negative and the patient was instructed to schedule Mirena IUD insertion on day 1-5 of next cycle . All questions answered, the patient verbalized understanding (3) Pelvic pain: Code(s): R10.2 - Pelvic and perineal pain Category: Medical Plan: Discussed with the patient the results of the workup done including negative GC/chlamydia, urine dip (persistent microscopic hematuria, negative CT scan, the patient was referred to Urology), urine test and pelvic ultrasound. The Differential diagnosis of counter attendant causes that have not be ruled out yet include but not limited to endometriosis, pelvic adhesions , post an ablation syndrome or other. Recommended for the patient to see her PCP for further workup for non counter attendant causes; if the all the results are negative and the patient's pelvic pain is persistent, instructions given to patient to call back for further testing. Meanwhile, instructions were given the patient to go to emergency room or call in case of fever above 100.4, heavy vaginal bleeding, persistence or worsening of her pelvic pain. All questions answered, the patient verbalized understanding. (4) Splenic cyst: Code(s): D73.4 - Cyst of spleen Category: Medical Plan: Discussed with the patient the finding of splenic cyst on CT scan recommended the patient to call her PCP for further management Coding Level of Care Code Est Pt Level 3 (89701) Diagnoses ASCUS of cervix with negative high risk HPV R87.610 Abnormal uterine bleeding (AUB) N93.9 Pelvic pain R10.2 Splenic cyst D73.4
[2024-03-11 11:28] VITALS: BMI 35.9
== END 2024-03-11 12:47 | disposition home or self-care (01) ==
PROVIDERS: PCP Physician Assistant; Visit Provider Obstetrics & Gynecology
DX: R87.610 Atypical squamous cells of undetermined significance on cytologic smear of cervix (ASC-US) (principal); N93.9 Abnormal uterine and vaginal bleeding, unspecified; R10.2 Pelvic and perineal pain; D73.4 Cyst of spleen
CPT/HCPCS: 99213

== ENCOUNTER → 2024-03-11 11:16 | Outpatient (BNVA) | payer OTHER, SELFPAY | PROVIDERS: PCP Physician Assistant; Visit Provider Obstetrics & Gynecology | DX: R87.610 Atypical squamous cells of undetermined significance on cytologic smear of cervix (ASC-US) (principal); N93.9 Abnormal uterine and vaginal bleeding, unspecified; R10.2 Pelvic and perineal pain; D73.4 Cyst of spleen | CPT/HCPCS: 99212 ==

== ENCOUNTER 2024-03-18 10:52 | Outpatient (AMB) | payer OTHER, SELFPAY ==
--- NOTE | 2024-03-18 10:53 | MHC.OFFVIS ---
Intake Visit Reasons: Mirena insertion Real Estate Intern Required: Yes Real Estate Intern Language: Wire Photo Operator Services: Real Estate Intern Present (in person) Real Estate Intern Name: Karely CULVER Information Interpreted: non-clinical & clinical Electronic Engineering Draftsperson: Electronic Engineering Draftsperson Present (Karely CULVER) Accompanied by: Self / Same As Patient Allergies animal dander [ANIMAL DANDER] Allergy (Intermediate, Verified 03/18/24 10:57) RASH RYE Allergy (Intermediate, Uncoded 03/18/24 10:57) RASH plants Allergy (Mild, Uncoded 03/18/24 10:57) Rash wheat, grains, rye Allergy (Mild, Uncoded 03/18/24 10:57) Rash HPI Comments Details: Presenting for Mirena IUD insertion [facility] Medical History Dysphagia Dysplasia of cervix, low grade (OMAR 1) Avulsion fracture of ankle Breast pain, left Left foot pain Obese Goiter Anxiety and depression Back pain Snoring IBS (irritable colon syndrome) Nasal congestion Cervical lymphadenopathy Vitamin D deficiency Lexi's disease Hypothyroidism Surgical History H/O tubal ligation Hx of colonoscopy H/O foot surgery History of lumpectomy of left breast History of 2 sections Family History Father No problems noted. 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 The following possible complications were discussed with the patient: Intrauterine , Ectopic , Sepsis, Pelvic Infection, Irregular Bleeding and Amenorrhea, Perforation, Expulsion, Ovarian Cysts, Breast Cancer, The following adverse effects were discussed with the patient: alteration of menstrual bleeding pattern, including: unscheduled uterine bleeding decreased uterine bleeding increased scheduled uterine bleeding female genital tract bleeding ,amenorrhea , genital discharge , vulvovaginitis , breast pain , benign ovarian cyst and associated complications , dysmenorrhea , Gastrointestinal disorders abdominal/pelvic pain, headache/migraine , back pain , acne , depression Alternative options were discussed with the patient including but not limited: control pills, patch, NuvaRing, Depo-medroxyprogesterone acetate, Nexplanon, copper IUD, sterilization, vasectomy, others The procedure was explained in detail to patient , at the end patient signed the informed consent obtained. A no touch technique was used throughout the procedure. A speculum was placed into vagina and cervix was cleaned with betadine). A tenaculum was placed. A plastic sound was advanced through the external and internal os until it reached the fundus of the uterus, the depth was 8 cm. The sound was then withdrawn. The IUD was loaded in a sterile manner and advanced into position. The string was visualized and cut to 3 cm. Tenaculum site hemostatic. All instruments removed from vagina. Patient tolerated the procedure well. NO complications were noted. Patient was instructed to call for fever over 100.4, significant pain unrelieved by Motrin, IUD expulsion, heavy bleeding, or abnormal discharge. In addition, the following clinical considerations were discussed with the patient to call for removal: A stroke or heart attack ,Very severe or migraine headaches ,Unexplained fever ,Yellowing of the skin or whites of the eyes, as these may be signs of serious liver problems , or suspected , Pelvic pain or pain during sex ,HIV positive seroconversion in herself or her partner , Possible exposure to sexually transmitted infections Unusual vaginal discharge or genital sores , severe vaginal bleeding or bleeding that lasts a long time, or if she misses a menstrual period, Inability to feel Mirena's threads Counseled the patient that the IUD does not protect against STI's, recommended use of condoms for the first 7 days post insertion and explained to the patient that condoms are recommended for patients at risk for sexually transmitted infections. Informed the patient that Mirena IUD is FDA approved for 8 years for contraception for 5 years for the treatment of heavy menses Instructed the patient to schedule a Follow up appointment in 4 to 6 weeks following insertion. This note was generated with a voice recognition program. Some errors may have been overlooked during the review of this note. Sometimes these errors may affect the content or meaning of a given sentence. 98174-JJR Insertion Procedure code (CPT) selection complete Office Meds Mirena 21 mcg/24 hr (up to 8 years) 52 mg intrauterine device Performing Provider: Manolo Tracey MD Performing Location: [facility] – [place] [facility] Documented (not given) by: Manolo Tracey MD on 03/18/24 11:07 Dose Route Admin Location Dispensed Lot Number Expiration Date [facility] [employer] 1 device intrauterine ea Assessment & Plan Assessment & Plan (1) Encounter for insertion of Mirena IUD: Code(s): Z30.430 - Encounter for insertion of intrauterine contraceptive device Category: Medical Plan: Mirena IUD inserted, see procedure note Orders: Orders AMB IUD Insertion/Removal - Practice Supplied Today Z30.430 - Encounter for insertion of intrauterine contraceptive device Medications: New Mirena (levonorgestrel) 1 device intrauterine ONCE 1 ea 0RF Mirena IUD insertion NS Z30.430 - Encounter for insertion of intrauterine contraceptive device Coding Level of Care Code Procedure Only Diagnoses Encounter for insertion of Mirena IUD Z30.430 CPT Codes Details - CPT: 14996-RTF Insertion ([id number])
== END 2024-03-18 11:12 | disposition home or self-care (01) ==
LOC: HO.HWS 10:52
PROVIDERS: PCP Physician Assistant; Visit Provider Obstetrics & Gynecology
DX: Z30.430 Encounter for insertion of intrauterine contraceptive device (principal); Z32.02 Encounter for pregnancy test, result negative
CPT/HCPCS: 58300

== ENCOUNTER → 2024-03-18 10:52 | Outpatient (BNVA) | payer OTHER, SELFPAY | PROVIDERS: PCP Physician Assistant; Visit Provider Obstetrics & Gynecology | DX: Z30.430 Encounter for insertion of intrauterine contraceptive device (principal) | CPT/HCPCS: 58300; 81025; J7298 ==

== ENCOUNTER 2024-03-24 11:05 | Outpatient (AMB) | payer OTHER, SELFPAY ==
[2024-03-24 11:21] VITALS: BP 100/68; PULSE 98; O2SAT 98; BMI 35.5
--- NOTE | 2024-03-24 11:21 | A.OFFPC_ITS ---
Vital Signs 03/24/24 11:21 Height 5 ft 7 in Weight 226 lb 6 oz BMI 35.5 BP 100/68 Blood Pressure Location Lt brachial Position Sitting Pulse 98 Pulse Source Pulse Oximeter Pulse Oximetry (%) 98 Oxygen Delivery Method Room Air Intake Visit Reasons: PE Intake Note: Patient is here today for a physical. 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 Nail Mill Worker Language: Czech Accompanied by: Self / Same As Patient Allergies animal dander [ANIMAL DANDER] Allergy (Intermediate, Verified 03/24/24 11:42) RASH RYE Allergy (Intermediate, Uncoded 03/24/24 11:42) RASH plants Allergy (Mild, Uncoded 03/24/24 11:42) Rash wheat, grains, rye Allergy (Mild, Uncoded 03/24/24 11:42) Rash Medication List - Last Reconciled 03/24/24 by Anthony Bueno PA-C cholecalciferol (vitamin D3) 100 mcg (2 x 50 mcg (2,000 unit)) PO DAILY 90 days cyclobenzaprine 5 - 10 mg (1 - 2 x 5 mg) PO BEDTIME PRN 30 days diclofenac potassium 50 mg PO BID PRN 30 days levonorgestrel (Mirena) intrauterine levothyroxine 50 mcg PO DAILY 90 days loratadine 10 mg PO DAILY magnesium oxide 500 mg PO DAILY 90 days methocarbamol 750 mg PO Q8H PRN 30 days nitrofurantoin monohyd/m-cryst 100 mg (Macrobid) 100 mg PO BID 5 days omeprazole 20 mg PO BEDTIME propranolol 10 mg PO BID 90 days riboflavin (vitamin B2) 100 mg PO DAILY riboflavin (vitamin B2) 400 mg PO DAILY 90 days [RIGHT SHOULDER SLING As directed] rizatriptan 5 - 10 mg (0.5 - 1 x 10 mg) PO Q2H PRN 21 days Tobacco use date assessed: 01/15/23 Dental Screening Dental Screen Date: 05/01/23 HPI PE HPI Details Patient is a 34-year-old female here today for routine annual physical. 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 Patient's past medical history significant for hypothyroidism, obesity, chronic pain complaints. Concerns--> multiple complaints today including thinning hair and losing her hair, easy bruising and tenderness in pain and multiple areas of her body. Also reports she continues to have some abdominal bloating and loose stool over the last several months. She has had workup including CT abdomen and pelvis without any significant findings in her abdomen. She reports having lower pelvic pain just below her navel though no significant findings found on CT abdomen pelvis. She follow-up with her needle punch machine operator about her pelvic pain and recently started with an IUD. .. Hypothyroidism: Patient continues on levothyroxine 50 mcg, most recent TSH stable. Vaccines: Up-to-date with COVID vaccine, tetanus vaccine Habilitation Assistant: DOes see a POLICY ANALYST and received a PAP - does have atypical cells and positive HPV Laboratory Tests 12/24/22 02/07/23 01/22/24 08:41 11:52 10:13 Creatinine TSH 7.46 H 3.71 Prolactin 13.8 Tst Clin ic 03/09/24 03/18/24 13:54 10:45 Creatinine 0.91 TSH Prolactin Tst Clin ic Negative PFSH Medical History Dysphagia Dysplasia of cervix, low grade (OMAR 1) Avulsion fracture of ankle Breast pain, left Left foot pain Obese Goiter Anxiety and depression Back pain Snoring IBS (irritable colon syndrome) Nasal congestion Cervical lymphadenopathy Vitamin D deficiency Lexi's disease Hypothyroidism Surgical History H/O tubal ligation Hx of colonoscopy H/O foot surgery History of lumpectomy of left breast History of 2 sections Family History Father No problems noted. 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 1. Little interest or pleasure in doing things: not at all 2. Feeling down, depressed, or hopeless: not at all 3. Trouble falling or staying asleep, or sleeping too much: not at all 4. Feeling tired or having little energy: not at all 5. Poor appetite or overeating: not at all 6. Feeling bad about yourself - or that you are a failure or have let yourself or your family down: not at all 7. Trouble concentrating on things, such as reading the newspaper or watching television: not at all 8. Moving or speaking so slowly that other people could have noticed. Or the opposite - being so fidgety or restless that you have been moving around a lot more than usual: not at all 9. Thoughts that you would be better off or of hurting yourself in some way: not at all Total score: 0 Depression Screening Interpretation: Negative Depression Screening Done: Yes 68457 - PHQ-9 Billing: Yes Source: Developed by Drs. Bartolome Alonso, Shelia Mccallum, Tim Beaulieu and colleagues, with an educational celeste from [email or web address]. Thrive Questionnaire Date Thrive assessed: 03/24/24 I am a: Patient What is your living situation today?: I choose not to answer this question Within the past 12 months, did the food you bought not last and you didn't have the money to get more?: Never true Within the past 12 months, did you worry whether your food would run out before you got money to buy more?: I choose not to answer this question Do you have trouble paying for medicines?: No Do you have trouble getting transportation to medical appointments?: No Do you have trouble paying your heating and electricity bill?: No Do you have trouble taking care of your child, family member or friend?: No Do you have trouble with day-to-day activities such as bathing, preparing meals, shopping, managing finances, etc.?: No Are you currently unemployed and looking for a job?: Yes Are you interested in more education?: Yes Please select the resources that you would like help with: Job search/training Currently or been in a relationship where the following occur: I choose not to answer THRIVE Score: 0 AUDIT C Alcohol Use Questionnaire (AUDIT-C) 1. How often do you have a drink containing alcohol?: Monthly or less 2. How many drinks containing alcohol do you have on a typical day when you are drinking?: 3 or 4 3. How often do you have six or more drinks on one occasion?: Never Total Score: 2 CAMMY-7 AMB Questionnaire CAMMY-7 Date CAMMY - 7 assessed: 03/24/24 Feeling nervous, anxious, or on edge: 0 = Not at all Not being able to stop or control worryin = More than half the days Worrying too much about different things: 2 = More than half the days Trouble relaxin = Several days Being so restless that it is hard to sit still: 1 = Several days Becoming easily annoyed or irritable: 3 = Nearly every day Feeling afraid as if something awful might happen: 0 = Not at all Total CAMMY-7 score (0-4 normal; 5-9 mild; 10-14 moderate; 15-21 severe): 9 Source: Developed by Drs. Bartolome Alonso, Shelia Mccallum, Tim Beaulieu and colleagues, with an educational celeste from [employer]. CAMMY-7 Assessment Billing CAMMY-7 Assessment Tool: CAMMY-7 Assessment 05224 Review of Systems Const Denies body aches, Denies chills, Denies excessive sweating, Denies fatigue, Denies fever(s) and Denies headache(s) Eyes Denies blurry vision ENT Denies dysphagia, Denies vertigo, Denies dizziness, Denies headache(s), Denies hearing loss and Denies tinnitus Card Denies chest pain, Denies chest pain with activity, Denies syncope, Denies irregular heart rhythm and Denies dyspnea Resp Denies chest congestion, Denies cough, Denies hemoptysis, Denies dyspnea and Denies wheezing GI Denies abdominal pain, Denies melena, Denies hematochezia, Denies coffee ground emesis, Denies dysphagia, Denies diarrhea, Denies nausea and Denies vomiting Denies urinary frequency, Denies dysuria, Denies urinary hesitancy and Denies urinary urgency Musc Denies arthralgias, Denies limited range of motion, Denies muscle cramps and Denies muscle weakness Skin/Breast Denies rash and Denies skin ulcer Neuro Denies Abnormal speech present, Denies confusion, Denies vertigo, Denies dizziness, Denies syncope, Denies headache(s), Denies memory loss and Denies seizure-like activity Psych Denies anxiety, Denies confusion, Denies depression, Denies memory loss, Denies panic attacks and Denies paranoia Endo Denies excessive sweating, Denies fatigue, Denies flushing, Denies polydipsia and Denies polyuria Aller/Immun Denies wheezing Physical exam (Primary Care) Vital Signs: Last Vital Signs Pulse 98 03/24/24 11:21 BP 100/68 03/24/24 11:21 Pulse Ox 98 03/24/24 11:21 Oxygen Delivery Method Room Air 03/24/24 11:21 BMI result Body Mass Index 35.5 Tobacco/Smoking Status: Tobacco use Status Tobacco use date assessed 01/15/23 03/24/24 11:28 Patient Tobacco Use Status Never used Tobacco 03/24/24 11:28 Tobacco use type Cigarette 03/24/24 11:28 e-Cigarette/Vaping Use Never Used 03/24/24 11:28 PHQ-9: PHQ-9 Score PHQ-9: Total score 0 03/24/24 11:43 Depression Screening Interpretation: Negative Thrive Assessment: Date of Thrive Assessment Date Thrive assessed 03/24/24 03/24/24 11:28 Currently or been in a relationship where the following occur: I choose not to answer Const General: cooperative, comfortable, no acute distress, alert and awake; No confusion Orientation/consciousness: oriented to person, oriented to place, patient oriented x3 and No confusion HENMT Head: Yes normocephalic Ears: external ears normal and TM's normal bilaterally Face and sinus: No sinus tenderness Mouth: Normal oral and palatal mucosa present and tongue normal Teeth and gingiva: dentition normal and gingiva normal Throat: Yes posterior oropharynx normal, Yes tonsils normal and Yes uvula midlin e Eyes Conjunctivae: conjunctivae normal Sclerae: sclerae normal Pupils: Equal, round and reactive pupils present EOM: EOMs intact bilaterally Direct Ophthalmoscopy: No no photophobia Neck Neck: Yes no lymphadenopathy, No tender and Yes no JVD Thyroid: Thyroid normal Carotids: no bruits Chest Chest palpation & inspection: no tenderness Resp Effort & Inspection: normal respiratory effort, no audible wheezes, not labored and no stridor Auscultation: no crackles, no rales, no rhonchi and no wheezes Cardio Jugular venous distension: no JVD Rate: regular rate, not bradycardic and not tachycardic Rhythm: regular rhythm Bruits: no carotid bruits Peripheral pulses: Peripheral pulses 2+ throughout GI Inspection: Yes normal to inspection, No abdominal wall ecchymosis and No visible herniation Palpation (GI): Soft to palpation, nontender, no guarding, not rigid and No hepatosplenomegaly present Auscultation: normoactive bowel sounds General: Yes no CVA tenderness Back/Spine/Pelvis Back: no CVA tenderness and No back tenderness Cervical Spine: cervical ROM normal Thoracic/Lumbar Spine: thoracic and lumbar spine normal to inspection, straight leg raise negative bilaterally, No thoraco-lumbar ROM limited and No lumbar spinal tenderness Skin Lesions: no lesions Rashes: no rashes Wounds: no wounds Neuro General: oriented to person, oriented to place, patient oriented x3, CN's II-XI intact bilaterally and No confusion Cranial nerves: Yes Equal, round and reactive pupils present and Yes Normal accommodation reflex present Cognition (Neuro): normal cognition Speech: No Abnormal speech present Gait exam (Neuro): Normal gait present Motor exam (neuro): 5/5 motor strength present throughout Extrem Right upper extremity: full ROM; no cyanosis Left upper extremity: full ROM; no cyanosis Right lower extremity: no edema Left lower extremity: no edema Psych Appearance: grossly normal Mental Status: mental status grossly normal Affect: normal affect Attitude: cooperative Thought process: Normal thought process present Assessment and Plan Assessment & Plan (1) Annual physical exam: Code(s): Z00.00 - Encounter for general adult medical examination without abnormal findings (2) Hypothyroidism: Code(s): E03.9 - Hypothyroidism, unspecified Qualifiers: 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 She continues on levothyroxine 50 mcg with good effect. (3) Abnormal uterine bleeding (AUB): Code(s): N93.9 - Abnormal uterine and vaginal bleeding, unspecified Plan: Recently received an IUD from her needle punch machine operator specialist. (4) Pelvic pain: Code(s): R10.2 - Pelvic and perineal pain Plan: Unclear etiology to patient's pelvic pain. CT of abdomen did show a decom pressed bladder. Will send for ultrasound of bladder for evaluation. (5) Loose stools: Code(s): R19.5 - Other fecal abnormalities Plan: Unclear etiology to patient's loose stool. Did advise on trying still bulking agent such as Metamucil (6) Abdominal bloating: Code(s): R14.0 - Abdominal distension (gaseous) (7) Fibromyalgia: Code(s): M79.7 - Fibromyalgia Plan: We did discuss patient's widespread chronic pain without significant injuries. Orders: Orders Leukocytes Stool Qualitative 03/24/24 R19.5 - Other fecal abnormalities Calprotectin, Fecal 03/24/24 R19.5 - Other fecal abnormalities US bladder 03/24/24 R31.29 - Other microscopic hematuria Transglutaminase IgA 03/24/24 R14.0 - Abdominal distension (gaseous), R19.5 - Other fecal abnormalities Transglutaminase Ab IgG 03/24/24 R14.0 - Abdominal distension (gaseous), R19.5 - Other fecal abnormalities Endomysial IgA rflx Titer 03/24/24 R14.0 - Abdominal distension (gaseous), R19.5 - Other fecal abnormalities Medications: New gabapentin 100 mg PO BID 60 caps 0RF 30 days M79.7 - Fibromyalgia Discontinued loratadine Discontinued Reason: Doctor's Order 10 mg PO DAILY 30 tabs 0RF M25.50 - Pain in unspecified joint Coding Level of Care Code Est Pt Level 4 (12168) Diagnoses Annual physical exam Z00.00 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
== END 2024-03-24 12:25 | disposition home or self-care (01) ==
PROVIDERS: PCP Physician Assistant; Visit Provider Physician Assistant
DX: Z00.00 Encounter for general adult medical examination without abnormal findings (principal); E03.8 Other specified hypothyroidism; E06.3 Autoimmune thyroiditis; N93.9 Abnormal uterine and vaginal bleeding, unspecified; R10.2 Pelvic and perineal pain; R19.5 Other fecal abnormalities; R14.0 Abdominal distension (gaseous); M79.7 Fibromyalgia

== ENCOUNTER → 2024-03-24 11:05 | Outpatient (BNVA) | payer OTHER, SELFPAY | PROVIDERS: PCP Physician Assistant; Visit Provider Physician Assistant | DX: Z00.00 Encounter for general adult medical examination without abnormal findings (principal); E03.8 Other specified hypothyroidism; E06.3 Autoimmune thyroiditis; N93.9 Abnormal uterine and vaginal bleeding, unspecified; R10.2 Pelvic and perineal pain; R19.5 Other fecal abnormalities; R14.0 Abdominal distension (gaseous); M79.7 Fibromyalgia | CPT/HCPCS: 96127; 99212 ==

== ENCOUNTER 2024-03-26 09:12 | Outpatient (REF) | payer OTHER, SELFPAY ==
[2024-03-29 20:28] LABS: Transglutaminase Ab IgG <1.0 U/mL; Transglutaminase IgA <1.0 U/mL
[2024-03-30 23:58] LABS: Endomysial IgA Antibody Negative (Negative)
== END 2024-03-26 09:13 | disposition home or self-care (01) ==
LOC: HO.LAB 09:12
PROVIDERS: PCP Physician Assistant; Visit Provider Physician Assistant
DX: R14.0 Abdominal distension (gaseous) (principal); R19.5 Other fecal abnormalities
CPT/HCPCS: 36415; 86231; 86364

== ENCOUNTER 2024-04-19 14:20 | Outpatient (REF) | payer OTHER, SELFPAY | END 2024-04-19 14:21 | disposition home or self-care (01) | LOC: HO.US 14:20 | PROVIDERS: PCP Physician Assistant; Visit Provider Physician Assistant | DX: Z13.89 Encounter for screening for other disorder (principal) ==

== ENCOUNTER 2024-04-21 14:20 | Outpatient (REF) | payer OTHER, SELFPAY | END 2024-04-21 14:21 | disposition home or self-care (01) | LOC: HO.US 14:20 | PROVIDERS: PCP Physician Assistant; Visit Provider Physician Assistant | DX: R31.29 Other microscopic hematuria (principal) | CPT/HCPCS: 76857 ==

== ENCOUNTER 2024-04-28 13:55 | Outpatient (AMB) | payer OTHER, SELFPAY ==
--- NOTE | 2024-04-28 13:57 | MHC.OFFVIS ---
Vital Signs 04/28/24 13:58 Height 5 ft 7 in Weight 226 lb BMI 35.4 BP 108/62 Blood Pressure Location Lt brachial Position Sitting Intake Visit Reasons: IUD check Allergies animal dander [ANIMAL DANDER] Allergy (Intermediate, Verified 04/28/24 13:58) RASH RYE Allergy (Intermediate, Uncoded 04/28/24 13:58) RASH plants Allergy (Mild, Uncoded 04/28/24 13:58) Rash wheat, grains, rye Allergy (Mild, Uncoded 04/28/24 13:58) Rash HPI Comments Details: The patient is presenting for IUD check after 1 st period following IUD insertion. The patient has no complaints periods are normal, not painful, and flow is normal except for intermittent spotting PFSH Medical History Dysphagia Dysplasia of cervix, low grade (OMAR 1) Avulsion fracture of ankle Breast pain, left Left foot pain Obese Goiter Anxiety and depression Back pain Snoring IBS (irritable colon syndrome) Nasal congestion Cervical lymphadenopathy Vitamin D deficiency Lexi's disease Hypothyroidism Surgical History H/O tubal ligation Hx of colonoscopy H/O foot surgery History of lumpectomy of left breast History of 2 sections Family History Father No problems noted. 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 Cognitive needs: No Hearing needs: No Vision needs: Yes Female Reproductive History Menstrual Age of Menarche: 14 Review of Systems Const All systems reviewed & are unremarkable except as noted in HPI and below Physical Exam Vital Signs: Last Vital Signs BP 108/62 04/28/24 13:58 BMI result Body Mass Index 35.4 General: Yes no CVA tenderness External Female Exam: normal external appearance and normal appearance of the urethra Speculum Exam - Vagina: normal appearance of the vagina, normal palpation, no lesions and no masses Speculum Exam - Cervix: normal appearance of the cervix, normal palpation, no lesions, no masses, nontender and Other cervical findings present (IUD string seen) Bimanual exam- vagina & uterus: normal bimanual exam, normal palpation, uterine size normal, normal palpation, uterine shape normal, No Cervical tenderness present and non-tender Bimanual Exam- Adnexa, other: normal adnexae Back/Spine/Pelvis Back: no CVA tenderness Results AMB Test Urine AMB Test Urine Negative Last Edit by Laine Del Castillo CMA on 04/28/24 14:09 Results Reviewed Results Reviewed: Laboratory Last Values Tst Clinic Negative 04/28/24 14:05 Assessment & Plan Assessment & Plan (1) IUD check up: Code(s): Z30.431 - Encounter for routine checking of intrauterine contraceptive device Category: Medical Plan: UPT done in the office was negative. Discussed with the patient the finding on physical exam, IUD string in place, the patient was reassured. Instructions given to patient to call in case of temperature above 100.4, severe cramping/pelvic pain, abnormal discharge or abnormal uterine bleeding or if she misses her menstrual cycle. Otherwise follow-up at her annual exam appointment. All questions answered, the patient verbalized understanding. Orders: Orders AMB HCG Urine Test Today Z32.02 - Encounter for test, result negative Coding Level of Care Code Est Pt Level 3 (87459) Diagnoses IUD check up Z30.431
[2024-04-28 13:58] VITALS: BP 108/62; BMI 35.4
== END 2024-04-28 14:37 | disposition home or self-care (01) ==
LOC: HO.HWS 13:55
PROVIDERS: PCP Physician Assistant; Visit Provider Obstetrics & Gynecology
DX: Z30.431 Encounter for routine checking of intrauterine contraceptive device (principal); Z32.02 Encounter for pregnancy test, result negative
CPT/HCPCS: 99213

== ENCOUNTER → 2024-04-28 13:55 | Outpatient (BNVA) | payer OTHER, SELFPAY | PROVIDERS: PCP Physician Assistant; Visit Provider Obstetrics & Gynecology | DX: Z30.431 Encounter for routine checking of intrauterine contraceptive device (principal); Z32.02 Encounter for pregnancy test, result negative | CPT/HCPCS: 81025; 99212 ==

== ENCOUNTER 2024-05-04 08:48 | Outpatient (REF) | payer OTHER, SELFPAY ==
[2024-05-04 16:44] LABS: Urine Cytology See Pathology rpt
== END 2024-05-04 08:49 | disposition home or self-care (01) ==
LOC: HO.LNP 08:48
PROVIDERS: PCP Physician Assistant; Visit Provider Nurse Practitioner Family
DX: R31.29 Other microscopic hematuria (principal); F12.90 Cannabis use, unspecified, uncomplicated
CPT/HCPCS: 81003; 88112; 99202

== ENCOUNTER 2024-05-04 08:48 | Outpatient (AMB) | payer OTHER, SELFPAY ==
--- NOTE | 2024-05-04 08:57 | A.OFFVIS_ITS ---
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: Yes Quenching Machine Operator Name: [id number] Accompanied by: Self / Same As Patient Allergies animal dander [ANIMAL DANDER] Allergy (Intermediate, Verified 05/04/24 09:48) RASH RYE Allergy (Intermediate, Uncoded 05/04/24 09:48) RASH plants Allergy (Mild, Uncoded 05/04/24 09:48) Rash wheat, grains, rye Allergy (Mild, Uncoded 05/04/24 09:48) Rash Medication List - Last Reconciled 05/04/24 by BRIANNA Gamble cholecalciferol (vitamin D3) 100 mcg (2 x 50 mcg (2,000 unit)) PO DAILY 90 days cyclobenzaprine 5 - 10 mg (1 - 2 x 5 mg) PO BEDTIME PRN 30 days diclofenac potassium 50 mg PO BID PRN 30 days gabapentin 100 mg PO BID 30 days levonorgestrel (Mirena) intrauterine levothyroxine 50 mcg PO DAILY 90 days magnesium oxide 500 mg PO DAILY 90 days methocarbamol 750 mg PO Q8H PRN 30 days omeprazole 20 mg PO BEDTIME propranolol 10 mg PO BID 90 days riboflavin (vitamin B2) 100 mg PO DAILY riboflavin (vitamin B2) 400 mg PO DAILY 90 days [RIGHT SHOULDER SLING As directed] rizatriptan 5 - 10 mg (0.5 - 1 x 10 mg) PO Q2H PRN 21 days HPI Comments Details: Bijan is a 34-year-old [place]i-speaking female patient of Dr. Bonilla. She has a past medical history of obesity, anxiety, depression, IBS, cervical lymphadenopathy, vitamin-D deficiency, and Lexi's disease. She presents to the office today as a new patient for microscopic hematuria. In discussion with the patient today she reports having followed up with her coil former for ongoing right lower abdominal pain and abnormal being she had been experiencing at which time urinalysis noted microscopic hematuria neurology referral was made for further assessment evaluation. In review of patient's chart it appears patient with previous CT as well as recent bladder ultrasound that remains pending. CT 03/23 results reviewed with the patient today. The kidneys and ureters are unremarkable. No hydronephrosis or urinary tract calculi identified. Urinary bladder decompressed limiting evaluation. When asked she does report a previous history of recreational marijuana use occasionally. She otherwise denies any previous workplace chemical exposure and or nicotine dependence. She currently denies any bothersome urinary issues. She denies urinary urgency, urinary frequency, incontinence, nocturia, visable/gorss hematuria, dysuria, foul smelling urine, changes to urinary stream, fever, and or chills. She is happy with her current voiding parameters. She does continue to report right-sided flank pain. However no CVA tenderness noted on exam today. We discussed at length potential causes of back pain and microscopic hematuria. We discussed further workup versus surveillance monitoring and risks and benefits of these interventions were discussed. In office urinalysis results reviewed with the patient today trace microscopic hematuria noted. She otherwise offers no other issues or concerns at this time. [facility] Medical History Dysphagia Dysplasia of cervix, low grade (OMAR 1) Avulsion fracture of ankle Breast pain, left Left foot pain Obese Goiter Anxiety and depression Back pain Snoring IBS (irritable colon syndrome) Nasal congestion Cervical lymphadenopathy Vitamin D deficiency Lexi's disease Hypothyroidism Surgical History H/O tubal ligation Hx of colonoscopy H/O foot surgery History of lumpectomy of left breast History of 2 sections Family History Father No problems noted. 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 - [employer] Cognitive needs: No Hearing needs: No Vision needs: Yes Female Reproductive History Menstrual Age of Menarche: 14 Review of Systems Const All systems reviewed & are unremarkable except as noted in HPI and below Physical Exam Const General: cooperative, healthy appearing, comfortable, no acute distress, well developed, alert and awake Nutritional Appearance: overweight Orientation/consciousness: patient oriented x3 Limitations: no limitations HEENT Head: Yes normal to inspection, Yes normocephalic and Yes atraumatic Ears: hearing grossly normal bilaterally Eyes General: appearance normal, both eyes and all related structures Neck Neck: Yes normal visual inspection and Yes trachea midline Chest Chest palpation & inspection: normal inspection of the chest Resp Effort & Inspection: normal respiratory effort and able to speak in complete sentences Cardio Rate: regular rate GI Inspection: Yes normal to inspection General: Yes no CVA tenderness Back/Spine/Pelvis Back: no CVA tenderness Skin General skin exam: no rashes or lesions noted Neuro General: patient oriented x3 Extrem General: Yes normal to inspection Psych Appearance: grossly normal and well kempt Mental Status: mental status grossly normal Speech and movement: Normal speech and movement present and Clear speech present Affect: normal affect Attitude: cooperative Thought process: Normal thought process present Thought content: Normal thought content present Insight: Fair insight present (Psych) Judgement: Fair judgement present (Psych) Results AMB Urinalysis, Automated UA Leukoctes 0 Sheila/uL Last Edit by Abdullahi Briones on 05/04/24 09:33 UA Nitrite Last Edit by Abdullahi Briones on 05/04/24 09:33 UA Urobilinogen 0.2 mg/dL Last Edit by Abdullahi Briones on 05/04/24 09:33 UA Protein 15 mg/dL Last Edit by RashadAllakosaugustine Briones on 05/04/24 09:33 UA pH 6.5 Last Edit by Abdullahi Briones on 05/04/24 09:33 UA Blood 10 Ken/uL Last Edit by Abdullahi Briones on 05/04/24 09:33 UA Specific [place] 1.015 Last Edit by Abdullahi Briones on 05/04/24 09:33 UA Ketone Last Edit by RashadAllakosaugustine Briones on 11/05/24 09:33 UA Bilirubin 1 mg/dL Last Edit by Abdullahi Briones on 05/04/24 09:33 UA Glucose 0 mg/dL Last Edit by Abdullahi Briones on 05/04/24 09:33 Results Reviewed Results Reviewed: Laboratory Last Values Urine pH (Auto) 6.5 05/04/24 09:32 Specific [place] (Auto) 1.015 05/04/24 09:32 Urine Protein (Auto) 15 mg/dL 05/04/24 09:32 Glucose (UA)(Auto) 0 mg/dL 05/04/24 09:32 Urine Blood (Auto) 10 Ken/uL 05/04/24 09:32 Urine Bilirubin (Auto) 1 mg/dL 05/04/24 09:32 Urine Urobilinogen (Auto) 0.2 mg/dL 05/04/24 09:32 Leukocyte Esterase (Auto) 0 Sheila/uL 05/04/24 09:32 Date of Service: 03/09/24 EXAMINATION: CT ABDOMEN AND PELVIS WITHOUT CONTRAST FINDINGS: Evaluation of solid organs, vascular structures, and bowel wall limited in the absence of intravenous contrast. LUNG BASES: Unremarkable. LIVER AND BILIARY TREE: Unremarkable. GALLBLADDER: Unremarkable. PANCREAS: Unremarkable. SPLEEN: Spleen unremarkable. 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 ADRENAL GLANDS: Unremarkable. KIDNEYS AND URETERS: Unremarkable. No hydronephrosis or urinary tract calculi identified. GASTROINTESTINAL TRACT: Mild sigmoid prominent colonic diverticulosis without evidence of acute diverticulitis. Normal appendix. VASCULAR: Unremarkable LYMPH NODES: No lymphadenopathy. PERITONEUM: No ascites. BLADDER: Urinary bladder decompressed, limiting evaluation. PELVIC VISCERA: Unremarkable. ABDOMINAL AND PELVIC WALL: Unremarkable. OSSEOUS STRUCTURES: Unremarkable. IMPRESSION: 1. No acute abnormality of the abdomen or pelvis, within the limitations of noncontrast technique. Specifically, no hydronephrosis or urinary tract calculi identified. 2. Mild sigmoid colonic diverticulosis without evidence of acute diverticulitis. Assessment & Plan Assessment & Plan (1) Microscopic hematuria: Code(s): R31.29 - Other microscopic hematuria Category: Medical (2) Marijuana smoker, episodic: Code(s): F12.90 - Cannabis use, unspecified, uncomplicated Category: Medical Plan In office urinalysis results reviewed with the patient today; as noted above; will send for urine cytology. Recent CT results reviewed with the patient today; as noted above. We discussed at length potential causes of microscopic hematuria With discussed surveillance monitoring verses further workup to include in office cystoscopy; risks and benefits of these interventions were discussed. She denies any bothersome urinary issues. She reports be happy with current voiding parameters. Follow-up in office cystoscopy; or sooner with any issues, concerns, and or questions Orders: Orders AMB Urinalysis Automated Today Z13.9 - Encounter for screening, unspecified Patient Instructions: The patient had an opportunity to ask questions regarding the treatment plan. All questions were answered. Physical exam, labs, and imaging were discussed and reviewed in detail. As well as risks, benefits, and discussion of treatment choices. No major barriers to understanding were identified. The patient expressed understanding and agreement with the above treatment plan. The patient was made aware they should contact our office by phone for worsening of their current condition, the appearance of new symptoms, or with any questions or concerns. Compliance is encouraged with any medications and follow up testing that is ordered. It is a privilege to be allowed the opportunity to participate in? your urological care.? Again, if you have any questions or concerns If you have any questions or concerns please do not hesitate to contact me. The office is [phone]. This note is constructed using voice recognition software. While every effort has been made to ensure accuracy petroleum plant operator errors may have been included. Yours sincerely, ELLA Gamble Coding Level of Care Code New Pt Level 4 (00313) Diagnoses Microscopic hematuria R31.29 Marijuana smoker, episodic F12.90 Time Spent (min) 35
== END 2024-05-04 09:50 | disposition home or self-care (01) ==
LOC: HO.HUSH 08:49
PROVIDERS: PCP Physician Assistant; Visit Provider Nurse Practitioner Family
DX: R31.29 Other microscopic hematuria (principal); F12.90 Cannabis use, unspecified, uncomplicated; Z13.9 Encounter for screening, unspecified
CPT/HCPCS: 99204

== ENCOUNTER 2024-05-17 09:17 | Outpatient (AMB) | payer OTHER, SELFPAY ==
[2024-05-17 09:30] VITALS: BP 126/70; PULSE 83; TEMP 36.6; O2SAT 99; BMI 35.8
--- NOTE | 2024-05-17 09:30 | MHC.OFFWIV ---
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 Pts states she has had blood in her urine the past couple of times she has gone to her BOILER ENGINEER and has had blood so she was referred to urology where they only checked her urine and also had blood in it again but nothing else was done. 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 While every effort has been made to ensure accuracy, service member errors may have been included. The patient is a 34 year old female who presents to the clinic today with right lower back pain for the past 2-1/2 weeks. She reports that she has been moving and working more than normal. She reports that she is also following a specialist for blood in her urine, and had mentioned this only for information. She is following a urologist, and having additional workup, though she does not feel that she has gotten too far in the workup for that. She is also followed a hvac design mechanical engineer for that. She does not feel that this is related to the back pain. The pain started kind of gradual, and has continued to occur. She takes muscle relaxers already, which do not seem to help the pain. She is taking Tylenol and Motrin, and putting a topical patch all of which have not resolve the pain. She denies numbness and tingling in her legs, loss of control of bladder or bowel. She denies previous injury or surgery to the area. [facility] Medical History Dysphagia Dysplasia of cervix, low grade (OMAR 1) Avulsion fracture of ankle Breast pain, left Left foot pain Obese Goiter Anxiety and depression Back pain Snoring IBS (irritable colon syndrome) Nasal congestion Cervical lymphadenopathy Vitamin D deficiency Lexi's disease Hypothyroidism Surgical History H/O tubal ligation Hx of colonoscopy H/O foot surgery History of lumpectomy of left breast History of 2 sections Family History Father No problems noted. 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 Cognitive needs: No Hearing needs: No Vision needs: Yes Female Reproductive History Menstrual Age of Menarche: 14 Review of Systems Const All systems reviewed & are unremarkable except as noted in HPI and below Physical Exam Vital Signs: Last Vital Signs Temp 97.9 F 05/17/24 09:30 Pulse 83 05/17/24 09:30 BP 126/70 05/17/24 09:30 Pulse Ox 99 05/17/24 09:30 Oxygen Delivery Method Room Air 05/17/24 09:30 BMI result Body Mass Index 35.8 Const General: cooperative, healthy appearing, comfortable, no acute distress and well developed Orientation/consciousness: patient oriented x3 Limitations: no limitations Resp Effort & Inspection: normal respiratory effort and able to speak in complete sentences Back/Spine/Pelvis Other: Right-sided SI tenderness. Lateral rotation and flexion normal, though she does experience pain with flexion. Negative SLR, negative well SLR. Strength 5/5 equal bilaterally. Distal neurovascular exam intact. Skin General skin exam: no rashes or lesions noted Neuro General: patient oriented x3 Extrem General: Yes normal to inspection Results AMB Urinalysis, Automated UA Leukoctes 0 Sheila/uL Last Edit by Laine Del Castillo CMA on 05/17/24 09:47 UA Nitrite Negative Last Edit by Laine Del Castillo, FANTA on 05/17/24 09:47 UA Urobilinogen 0.2 mg/dL Last Edit by Laine Del Castillo, FANTA on 05/17/24 09:47 UA Protein 0 mg/dL Last Edit by Laine Del Castillo, FANTA on 05/17/24 09:47 UA pH 6.0 Last Edit by Laine Del Castillo, FANTA on 05/17/24 09:47 UA Blood 25 Ken/uL Last Edit by Laine Del Castillo, FANTA on 05/17/24 09:47 UA Specific [place] 1.025 Last Edit by Laine Del Castillo, FANTA on 05/17/24 09:47 UA Ketone Negative Last Edit by Laine Del Castillo, FANTA on 05/17/24 09:47 UA Bilirubin 0 mg/dL Last Edit by Laine Del Castillo, FANTA on 05/17/24 09:47 UA Glucose 0 mg/dL Last Edit by Laine Del Castillo, AFNTA on 05/17/24 09:47 Results Reviewed Results Reviewed: Laboratory Last Values Urine pH (Auto) 6.0 05/17/24 09:46 Specific [place] (Auto) 1.025 05/17/24 09:46 Urine Protein (Auto) 0 mg/dL 05/17/24 09:46 Glucose (UA)(Auto) 0 mg/dL 05/17/24 09:46 Urine Ketones (Auto) Negative 05/17/24 09:46 Urine Blood (Auto) 25 Ken/uL 05/17/24 09:46 Urine Nitrite (Auto) Negative 05/17/24 09:46 Urine Bilirubin (Auto) 0 mg/dL 05/17/24 09:46 Urine Urobilinogen (Auto) 0.2 mg/dL 05/17/24 09:46 Leukocyte Esterase (Auto) 0 Sheila/uL 05/17/24 09:46 Assessment & Plan Assessment & Plan (1) Low back pain: Code(s): M54.50 - Low back pain, unspecified Qualifiers: Chronicity: acute Back pain laterality: right Sciatica presence: without sciatica Qualified Code(s): M54.50 - Low back pain, unspecified Plan: Appears to involve the SI joint. Discussed treatment options, we will prescribe prednisone for anti-inflammatory effects. Advised follow up with PCP with worsening or failure to resolve. Continue at-home measures that she has previously been doing. Advised avoidance of NSAIDs while taking prednisone and resume after completion of prednisone. Plan See above for full details and plan. Orders: Orders AMB Urinalysis Automated Today Z13.9 - Encounter for screening, unspecified Medications: New prednisone 40 mg (2 x 20 mg) PO DAILY 5 days 10 tabs 0RF Coding Level of Care Code New Pt Level 3 (37726) Diagnoses Acute right-sided low back pain without sciatica M54.50 Chronicity: acute Back pain laterality: right Sciatica presence: without sciatica
== END 2024-05-17 10:15 | disposition home or self-care (01) ==
PROVIDERS: PCP Physician Assistant; Visit Provider Registered Nurse
DX: M54.50 Low back pain, unspecified (principal); Z13.9 Encounter for screening, unspecified

== ENCOUNTER → 2024-05-17 09:17 | Outpatient (BNVA) | payer OTHER, SELFPAY | PROVIDERS: PCP Physician Assistant; Visit Provider Registered Nurse | DX: M54.50 Low back pain, unspecified (principal) | CPT/HCPCS: 81003; 99202 ==

== ENCOUNTER 2024-07-28 10:03 | Outpatient (AMB) | payer OTHER, SELFPAY ==
--- NOTE | 2024-07-28 10:08 | MHC.PC.OV ---
Vital Signs 07/28/24 10:11 Height 5 ft 7 in Weight 234 lb 9.149 oz BMI 36.7 BP 106/78 Blood Pressure Location Lt brachial Position Sitting Temp 97.1 F Temp Source Temporal Artery Scan Intake Visit Reasons: 4 Month F/U Office Support Required: Yes Office Support Name: Used Tablet- Zachariah ID # [id number] Accompanied by: Self / Same As Patient Allergies animal dander [ANIMAL DANDER] Allergy (Intermediate, Verified 07/28/24 10:27) RASH RYE Allergy (Intermediate, Uncoded 07/28/24 10:27) RASH plants Allergy (Mild, Uncoded 07/28/24 10:27) Rash wheat, grains, rye Allergy (Mild, Uncoded 07/28/24 10:27) Rash Medication List - Last Reconciled 07/28/24 by Anthony Bueno PA-C buspirone mg PO cholecalciferol (vitamin D3) 100 mcg (2 x 50 mcg (2,000 unit)) PO DAILY 90 days cyclobenzaprine 5 - 10 mg (1 - 2 x 5 mg) PO BEDTIME PRN 30 days duloxetine mg PO DAILY duloxetine mg PO DAILY gabapentin 100 mg PO BID 30 days hydroxyzine HCl mg PO levonorgestrel (Mirena) intrauterine levothyroxine 50 mcg PO DAILY 90 days magnesium oxide 500 mg PO DAILY 90 days methocarbamol 750 mg PO Q8H PRN 30 days naproxen 500 mg PO Q12H PRN 30 days omeprazole 20 mg PO BEDTIME propranolol 10 mg PO BID 90 days riboflavin (vitamin B2) 400 mg PO DAILY 90 days [RIGHT SHOULDER SLING As directed] rizatriptan 5 - 10 mg (0.5 - 1 x 10 mg) PO Q2H PRN 21 days simethicone (Gas Relief (simethicone)) 80 mg PO BID-QID PRN 15 days topiramate mg PO trazodone mg PO Tobacco use date assessed: 07/28/24 Dental Screening Dental Screen Date: 07/28/24 Did you have a dental visit in the last 12 months?: Yes Did you have a dental problem in the last 6 months where you did not have access to dental care?: No Was dental information given to patient?: Patient has dentist HPI 4 Month F/U HPI Details Patient is a 34-year-old female here today for follow-up visit. 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 Patient's past medical history significant for hypothyroidism, obesity, chronic pain complaints. Concerns--> multiple complaints today including thinning hair and losing her hair, easy bruising and tenderness in pain and multiple areas of her body. Bipolar disorder/ depression: She has now been established with a psychiatrist and now on new mental health medication including buspirone Topamax and Cymbalta. .. Class 2 obesity: She is interested in having her thyroid levels reassessed today, as she has gained weight. She recalls a weight of 228 lbs in the fall and acknowledges an increase to 230 lbs. The patient mentions difficulty with weight loss potentially due to mood disorder medication, as weight gain has been noted as a side effect. She is managing regular nutritional intake and exercising, although specifics are not detailed. Also reports she continues to have some abdominal bloating and loose stool over the last several months. She has had workup including CT abdomen and pelvis without any significant findings in her abdomen. She reports having lower pelvic pain just below her navel though no significant findings found on CT abdomen pelvis. She follow-up with her gynecological assistant about her pelvic pain and recently started with an IUD. .. Hypothyroidism: Patient continues on levothyroxine 50 mcg, most recent TSH stable. [facility] Medical History Dysphagia Dysplasia of cervix, low grade (OMAR 1) Avulsion fracture of ankle Breast pain, left Left foot pain Obese Goiter Anxiety and depression Back pain Snoring IBS (irritable colon syndrome) Nasal congestion Cervical lymphadenopathy Vitamin D deficiency Lexi's disease Hypothyroidism Surgical History H/O tubal ligation Hx of colonoscopy H/O foot surgery History of lumpectomy of left breast History of 2 sections Family History Father No problems noted. 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 1. Little interest or pleasure in doing things: not at all 2. Feeling down, depressed, or hopeless: not at all 3. Trouble falling or staying asleep, or sleeping too much: not at all 4. Feeling tired or having little energy: not at all 5. Poor appetite or overeating: not at all 6. Feeling bad about yourself - or that you are a failure or have let yourself or your family down: not at all 7. Trouble concentrating on things, such as reading the newspaper or watching television: not at all 8. Moving or speaking so slowly that other people could have noticed. Or the opposite - being so fidgety or restless that you have been moving around a lot more than usual: not at all 9. Thoughts that you would be better off or of hurting yourself in some way: not at all Total score: 0 Depression Screening Interpretation: Negative Depression Screening Done: Yes 13138 - PHQ-9 Billing: Yes Source: Developed by Drs. Bartolome Alonso, Shelia Mccallum, Tim Beaulieu and colleagues, with an educational celeste from [employer]. Thrive Questionnaire Date Thrive assessed: 07/28/24 I am a: Patient What is your living situation today?: I have a steady place to live Within the past 12 months, did the food you bought not last and you didn't have the money to get more?: Never true Within the past 12 months, did you worry whether your food would run out before you got money to buy more?: Never true Do you have trouble paying for medicines?: No Do you have trouble getting transportation to medical appointments?: No Do you have trouble paying your heating and electricity bill?: No Do you have trouble taking care of your child, family member or friend?: No Do you have trouble with day-to-day activities such as bathing, preparing meals, shopping, managing finances, etc.?: No Are you currently unemployed and looking for a job?: Yes Are you interested in more education?: Yes Please select the resources that you would like help with: Job search/training Currently or been in a relationship where the following occur: I choose not to answer THRIVE Score: 0 AUDIT C Alcohol Use Questionnaire (AUDIT-C) 1. How often do you have a drink containing alcohol?: Monthly or less 2. How many drinks containing alcohol do you have on a typical day when you are drinking?: 3 or 4 3. How often do you have six or more drinks on one occasion?: Never Total Score: 2 CAMMY-7 AMB Questionnaire CAMMY-7 Date CAMMY - 7 assessed: 07/28/24 Feeling nervous, anxious, or on edge: 0 = Not at all Not being able to stop or control worryin = More than half the days Worrying too much about different things: 2 = More than half the days Trouble relaxin = Several days Being so restless that it is hard to sit still: 1 = Several days Becoming easily annoyed or irritable: 3 = Nearly every day Feeling afraid as if something awful might happen: 0 = Not at all Total CAMMY-7 score (0-4 normal; 5-9 mild; 10-14 moderate; 15-21 severe): 9 Source: Developed by Drs. Bartolome Alonso, Shelia Mccallum, Tim Beaulieu and colleagues, with an educational celeste from [employer]. CAMMY-7 Assessment Billing CAMMY-7 Assessment Tool: CAMMY-7 Assessment 75486 Physical exam (Primary Care) Vital Signs: Last Vital Signs Temp 97.1 F 07/28/24 10:11 BP 106/78 07/28/24 10:11 BMI result Body Mass Index 36.7 BMI Assessment/Plan discussion: High BMI High, discussed plan: lifestyle, weight reduction, dietary and physical activity Tobacco/Smoking Status: Tobacco use Status Tobacco use date assessed 07/28/24 07/28/24 10:21 Patient Tobacco Use Status Never used Tobacco 07/28/24 10:08 Tobacco use type Cigarette 07/28/24 10:08 e-Cigarette/Vaping Use Never Used 07/28/24 10:08 PHQ-9: PHQ-9 Score PHQ-9: Total score 0 07/28/24 10:22 Depression Screening Interpretation: Negative Thrive Assessment: Date of Thrive Assessment Date Thrive assessed 07/28/24 07/28/24 10:08 Currently or been in a relationship where the following occur: I choose not to answer Coding Level of Care Code Est Pt Level 4 (72455) Diagnoses Class 2 obesity E66.812 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 She has been started on mental health medications for the treatment of her bipolar disorder and depression. She understands that these could be contributing to an increased weight gain as well. Will recheck her TSH thyroid levels as she has had a history of low functioning thyroid. (2) Hypothyroidism: Code(s): E03.9 - Hypothyroidism, unspecified Category: Medical Qualifiers: Hypothyroidism type: due to Lexi's thyroiditis Qualified Code(s): E03.8 - Other specified hypothyroidism; E06.3 - Autoimmune thyroiditis Plan: As above patient's most recent TSH has been stable she continues on levothyroxine 50 mcg. Will recheck TSH again to ensure normal readings. Of note has noted weight gain since last office visit. (3) Bipolar 1 disorder: Code(s): F31.9 - Bipolar disorder, unspecified Category: Medical Plan: As per HPI patient now is seeing a psychiatrist who is managing her mental health medication. She has been diagnosed with bipolar disorder along with anxiety and depression. She is on multiple mental health medications at this time. (4) Hair loss: Code(s): L65.9 - Nonscarring hair loss, unspecified Category: Medical Plan: She reports she continues to have difficulty with hair loss. She is interested in seeing a lamina searcher for evaluation. She is also interested in trying minoxidil topical treatment to help with her thickening. (5) Generalized anxiety disorder: Code(s): F41.1 - Generalized anxiety disorder Category: Medical Plan: Patient's CAMMY-7 score positive for anxiety which has been existing condition for her. She is seeing a mental health therapist and a psychiatrist at this point and is trialing medication. Now on BuSpar. Orders: Orders Complete Blood Count no Diff 07/28/24 D64.9 - Anemia, unspecified Vitamin D 25-OH Total 07/28/24 D64.9 - Anemia, unspecified Vitamin B12 and Folate 07/28/24 D64.9 - Anemia, unspecified, E53.8 - Deficiency of other specified B group vitamins Comprehensive [place]. Panel Fast 07/28/24 Z13.1 - Encounter for screening for diabetes mellitus IRON PROFILE 07/28/24 D50.9 - Iron deficiency anemia, unspecified, D64.9 - Anemia, unspecified Medications: New minoxidil 2% 1 mL topical BID 120 mL 0RF 30 days L65.9 - Nonscarring hair loss, unspecified Refilled levothyroxine 50 mcg PO DAILY 90 tabs 2RF 90 days E03.8 - Other specified hypothyroidism, E06.3 - Autoimmune thyroiditis magnesium oxide 500 mg PO DAILY 90 caps 1RF 90 days G43.109 - Migraine with aura, not intractable, without status migrainosus gabapentin 100 mg PO BID 60 caps 0RF 30 days M79.7 - Fibromyalgia
[2024-07-28 10:11] VITALS: BP 106/78; TEMP 36.2; BMI 36.7
--- OUTSIDE RECORDS SUMMARY | 2024-07-28 11:53 | XMS_ITS | Clinical Summary ---
Author Organization [employer] Address [address] [place] [address] [address] [place] [address] Care Team Providers Care Converter Operator Name Role Phone Unavailable Primary Care Provider Unavailabl e Allergies No known active allergies Medications D3 Super Strength 50 MCG (1999 UT) capsule Take 100 mcg by mouth in the morning. 04/15/2023 Active levothyroxine (Synthroid, Levoxyl) 50 MCG tablet Take 50 mcg by mouth in the morning. 03/31/2023 Active loratadine (Claritin) 10 MG tablet Take 10 mg by mouth in the morning. 04/14/2023 Active Active Problems No known active problems Encounters Date Type Department Care Team Description 07/02/2024 Telephone [facility] MEDICINE [address] [place] [address] Chun Durán MD NEW PT from Last 3 Months Immunizations Name Administration Dates Next Due Moderna Covid-19 Vaccine 6+ Bivalent 01/17/2023 Family History Medical History Relation Name Comments Asthma Mother Thyroid disease Mother Relation Name Status Comments Mother Social History Tobacco Use Types Packs/Day Years Used Date Smoking Tobacco: Never Smokeless Tobacco: Never Tobacco Cessation:Counseling Given: Not Answered Comments Unknown Sex and Gender Information Value Date Recorded Sex Assigned at Female 04/29/2022 10:30 AM EDT Legal Sex Female 10:30 AM EDT Gender Identity Female 04/29/2022 10:30 AM EDT Sexual Orientation Choose not to disclose 2021 10:30 AM EDT Last Filed Vital Signs Vital Sign Reading Time Taken Comments Blood Pressure 114/70 08/27/2019 12:02 AM EST Pulse 74 08/27/2019 12:02 AM EST Temperature - - Respiratory Rate - - Oxygen Saturation - - Inhaled Oxygen Concentration - - Weight 93.9 kg (207 lb) 08/27/2019 12:02 AM EST Height 171.5 cm (5' 7.5 ) 08/27/2019 12:02 AM ES T Body Mass Index 31.94 08/27/2019 12:02 AM EST Plan of Treatment Health Maintenance Due Date Last Done Comments Depression Screening 1990 SDOH Screening 1990 Alcohol/Substance Use Screening 2002 Family Planning (PISQ) 2005 Hepatitis C Screening 01/30/2008 Hepatitis B Vaccines (1 of 3 - 19+ 3-dose series) 2009 Pap Smear 2011 Cervical Cancer Screening 01/30/2020 HPV/Cotest 01/30/2020 COVID-19 Vaccine (4 - 2023-2 5 season) 2024 01/17/2023, 12/13/2020, 11/01/2020 Influenza Vaccine (#1) 2024 03/20/2018 Tobacco Screening 05/08/2024 05/08/2023 DTaP/Tdap/Td Vaccines (2 - T d or Tdap) 11/27/2027 11/26/2017 Zoster Vaccines (1 of 2) 01/30/2040 RSV Patients and Patients Aged 60 years or older (1 - 1-dose 75+ series) 2065 HIV Screening Completed 07/29/2019 HIB Vaccines Aged Out No longer eligi ble based on patient's age to complete this topic HPV Vaccines Aged Out No longer eligi ble based on patient's age to complete this topic Hepatitis A Vaccines Aged Out No long er eligible based on patient's age to complete this topic IPV Vaccines Aged Out No longer eligi ble based on patient's age to complete this topic Meningococcal Vaccine Aged Out No ameena jadiel eligible based on patient's age to complete this topic Pneumococcal Vaccine: Pediatrics (0 to 5 Years) and At-Risk Patients (6 to 49) Years) Aged Out No longer eligible b ased on patient's age to complete this topic RSV under 20 months Aged Out No longe r eligible based on patient's age to complete this topic Rotavirus Vaccines Aged Out No longer eligible based on patient's age to complete this topic Procedures Procedure Name Priority Date/Time Associated Diagnosis Comments ZZZ HISTORICAL HIV AB/AG Routine 07/29/2019 9:30 AM EST from Last 3 Months or Most Recently Relevant to Health Maintenance Results * HIV AB/AG (07/29/2019 9:30 AM EST) [facility] HIV AG/AB NONREACTIVE NR FOUNDAT[facility] ON LAB SYSTEM Comment: HIV-1 p24 Ag and/or HIV-1/HIV-2 Ab not detected. ?? A test result that is nonreactive does not exclude the possibility of exposure to or infection with HIV-1 and/or HIV-2. Nonreactive results in this assay for individuals with prior exposure to HIV-1 and/or HIV-2 may be due to antigen and antibody levels that are below the limit of detection of this assay. ?? [employer] Marketing Information Manager HIV Ag/Ab Combo assay result and supplemental assay results should be interpreted in conjunction with the patient's clinical presentation, history and other laboratory results. ??If the results are inconsistent with clinical evidence, additional testing is suggested to confirm the result. 07/29/2019 9:30 AM EST us Doretah Craven CNM HISTORICAL/NON ORDERABLE LABS Final Result [facility] SYSTEM [facility] Anywhere [address] from Last 3 Months or Most Recently Relevant to Health Maintenance [place] [address]
--- OUTSIDE RECORDS SUMMARY | 2024-07-28 11:53 | XMS_ITS | Encounter Summary ---
Author Organization [employer] Address [address] [facility] [address] [place] [address] Care Team Providers Care Automatic Profile Shaper Operator Name Role Phone Unavailable Primary Care Provider Unavailabl e Reason for Visit * Reason Onset Date Comments NEW PT 07/02/2024 Encounter Details Date Type Department Care Team ([facility] st Contact Info) Description 07/02/2024 Telephone [facility] MEDICINE [address] [place] [address] Chun Durán MD [address] [place] [address] NEW PT Social History Tobacco Use Types Packs/Day Years Used Date Smoking Tobacco: Never Smokeless Tobacco: Never Comments Unknown Sex and Gender Information Value Date Recorded Sex Assigned at Female 04/29/2022 10:30 AM EDT Legal Sex Female 10:30 AM EDT Gender Identity Female 04/29/2022 10:30 AM EDT Sexual Orientation Choose not to disclose 2021 10:30 AM EDT documented as of this encounter Miscellaneous Notes * Telephone Encounter - Ashley Baldwin - 07/02/2024 3:55 PM EST Patient added to [facility] New patient wait list as of 07/02/24. * Telephone Encounter - Max Jaramillo - 07/02/2024 8:50 AM EST Tc from pt requesting a callback as pt informs she had a PCP and is no longer available , pt is requesting to be seen [phone] documented in this encounter Plan of Treatment Not on file documented as of this encounter Visit Diagnoses Not on filedocumented in this encounter
== END 2024-07-28 11:13 | disposition home or self-care (01) ==
PROVIDERS: PCP Physician Assistant; Visit Provider Physician Assistant
DX: E06.3 Autoimmune thyroiditis (principal); E66.812 Obesity, class 2; F31.9 Bipolar disorder, unspecified; Z68.36 Body mass index [BMI] 36.0-36.9, adult; E03.8 Other specified hypothyroidism; L65.9 Nonscarring hair loss, unspecified; F41.1 Generalized anxiety disorder

== ENCOUNTER → 2024-07-28 10:03 | Outpatient (BNVA) | payer OTHER, SELFPAY | PROVIDERS: PCP Physician Assistant; Visit Provider Physician Assistant | DX: E66.812 Obesity, class 2 (principal); E03.8 Other specified hypothyroidism; E06.3 Autoimmune thyroiditis; F31.9 Bipolar disorder, unspecified; L65.9 Nonscarring hair loss, unspecified; F41.1 Generalized anxiety disorder | CPT/HCPCS: 96127; 99212 ==

== ENCOUNTER 2024-08-06 10:03 | Outpatient (REF) | payer OTHER, SELFPAY ==
[2024-08-06 10:42] LABS: Hematocrit 40.4 % (37.0-47.0); Hemoglobin 13.3 g/dl (12.0-16.0); Mean Corpuscular HGB Conc 32.9 g/dl (31.0-35.0); Mean Corpuscular Hemoglobin 29.5 pg (27.0-33.0); Mean Corpuscular Volume 89.6 fL (80.0-98.0); Platelet Count 356 X10*3/uL (160-400); Red Blood Count 4.51 X10*6/uL (4.20-5.50); Red Cell Distribution Width 12.8 % (11.0-16.0)
--- OUTSIDE RECORDS SUMMARY | 2024-08-06 10:50 | XMS_ITS | Clinical Summary ---
Author Organization [employer] Address [address] [facility] [address] [place] [address] Care Team Providers Care Boat Outfitter Name Role Phone Unavailable Primary Care Provider [...] Type Department Care Team Description 07/02/2024 Telephone [facility] MEDICINE [address] [place] [address] Chun Durán MD NEW PT from Last [...] * HIV AB/AG (07/29/2019 9:30 AM EST) [facility] HIV AG/AB NONREACTIVE NR FOUNDATI ON [...] detection of this assay. ?? [employer]ps Navigation Installer HIV Ag/Ab Combo assay result and supplemental assay results should be interpreted in conjunction with the patient's clinical presentation, history and other laboratory results. ??If the results are inconsistent with clinical evidence, additional testing is suggested to confirm the result. 07/29/2019 9:30 AM EST us Doretha Craven CNM HISTORICAL/NON ORDERABLE LABS Final Result [facility] SYSTEM [facility] Anywhere [address] from Last 3 Months or Most Recently Relevant to Health Maintenance Insurance [employer]
[2024-08-06 11:41] LABS: Alanine Aminotransferase 11 U/L (0-31); Alkaline Phosphatase 59 U/L (39-117); Anion Gap 8 (12-20); Aspartate Amino Transferase 19 U/L (5-31); Bilirubin Total 0.3 mg/dL (0.0-1.0); Blood Urea Nitrogen 10 mg/dL (9-16); Calcium 9.5 mg/dL (8.4-10.2); Carbon Dioxide 24 mmol/L (22-29); Chloride 110 mmol/L (96-108); Estimated Glomerular Filt Rate > 60; Glucose Fasting 61 mg/dL (60-99); Iron 40 mcg/dL (30-160); Percent Iron Saturation 13 % (15-50); Potassium 4.2 mmol/L (3.3-5.1); Sodium 138 mmol/L (135-145); Total Iron Binding Capacity 318 mcg/dL (228-428); Unsaturated Iron Binding 278 ug/dL
[2024-08-06 11:43] LABS: TSH reflex Free T4 2.95 uIU/mL (0.32-4.0); Vitamin D 25-OH Total 26.5 ng/mL (>30)
[2024-08-06 12:03] LABS: Folate 7.3 ng/mL (> or = 4.0); Vitamin B12 345 pg/mL (200-900)
== END 2024-08-06 10:04 | disposition home or self-care (01) ==
LOC: HO.LAB 10:03
PROVIDERS: PCP Physician Assistant; Visit Provider Physician Assistant
DX: E03.8 Other specified hypothyroidism (principal); E06.3 Autoimmune thyroiditis; D64.9 Anemia, unspecified; E53.8 Deficiency of other specified B group vitamins; Z13.1 Encounter for screening for diabetes mellitus; D50.9 Iron deficiency anemia, unspecified
CPT/HCPCS: 36415; 80053; 82306; 82607; 82746; 83540; 84443; 85027

== ENCOUNTER 2024-09-20 09:12 | Outpatient (AMB) | payer OTHER, SELFPAY ==
--- NOTE | 2024-09-20 09:16 | A.OFFVIS_ITS ---
Vital Signs 09/20/24 09:18 Height 5 ft 7 in Weight 234 lb BMI 36.6 Intake Visit Reasons: rt breast pain Geothermal Operations Engineer Required: Yes Geothermal Operations Engineer Language: Field Seismologist Services: Geothermal Operations Engineer Present (in person) Geothermal Operations Engineer Name: Karely CULVER Information Interpreted: non-clinical & clinical Fashion Consultant Selling: Fashion Consultant Selling Present (Karely CULVER) Accompanied by: Self / Same As Patient Allergies animal dander [ANIMAL DANDER] Allergy (Intermediate, Verified 09/20/24 09:20) RASH RYE Allergy (Intermediate, Uncoded 09/20/24 09:20) RASH plants Allergy (Mild, Uncoded 09/20/24 09:20) Rash wheat, grains, rye Allergy (Mild, Uncoded 09/20/24 09:20) Rash Is last menstrual period known: No (mirena) HPI Comments Details: Presenting complaining of right breast pain over the last few months no associated nipple retraction or discharge. The patient has Mirena IUD [facility] Medical History Dysphagia Dysplasia of cervix, low grade (OMAR 1) Avulsion fracture of ankle Breast pain, left Left foot pain Obese Goiter Anxiety and depression Back pain Snoring IBS (irritable colon syndrome) Nasal congestion Cervical lymphadenopathy Vitamin D deficiency Lexi's disease Hypothyroidism Surgical History H/O tubal ligation Hx of colonoscopy H/O foot surgery History of lumpectomy of left breast History of 2 sections Family History Father No problems noted. 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 Cognitive needs: No Hearing needs: No Vision needs: Yes Female Reproductive History Menstrual Age of Menarche: 14 Physical Exam Vital Signs: BMI result Body Mass Index 36.6 Chest Chest palpation & inspection: normal inspection of the chest and normal palpation of entire chest wall Breast/axilla inspection: normal inspection of the breasts Breast/axilla palpation: palpation of the breasts abnormal (R breast 0.5 cm and lump at 8 o'clock, 7 cm from nipple, L breast wnl) Assessment & Plan Assessment & Plan (1) Breast lump on right side at 8 o'clock position: Comment: Tender, 7 cm from nipple Code(s): N63.13 - Unspecified lump in the right breast, lower outer quadrant Category: Medical Plan: Discussed with the patient the finding on Breast exam (breast lump) .The differential diagnosis includes but not limited to lump/cyst/pre cancer/cancer or dense breast tissue. The work up includes breast US and diagnostic mammogram and referred the patient for surgical breast consult. Explained to the patient Mirena IUD is associated with mild increase in the risk of breast cancer, Instructions were given to the patient to schedule a 4 week follow-up appointment determine the indication to keep or remove Mirena IUD depending on the finding regarding the breast lump. All questions answered, the patient verbalized understanding Orders: Orders MM tomosynthesis diagnostic BI Today N63.13 - Unspecified lump in the right breast, lower outer quadrant US breast RT limited Today N63.13 - Unspecified lump in the right breast, lower outer quadrant Referrals General Surgery Referral N63.13 - Unspecified lump in the right breast, lower outer quadrant Coding Level of Care Code Est Pt Level 3 (16993) Diagnoses Breast lump on right side at 8 o'clock position N63.13
[2024-09-20 09:18] VITALS: BMI 36.6
== END 2024-09-20 09:33 | disposition home or self-care (01) ==
LOC: HO.HWS 09:13
PROVIDERS: PCP Physician Assistant; Visit Provider Obstetrics & Gynecology
DX: N63.13 Unspecified lump in the right breast, lower outer quadrant (principal)
CPT/HCPCS: 99213

== ENCOUNTER → 2024-09-20 09:12 | Outpatient (BNVA) | payer OTHER, SELFPAY | PROVIDERS: PCP Physician Assistant; Visit Provider Obstetrics & Gynecology | DX: N64.4 Mastodynia (principal); N63.13 Unspecified lump in the right breast, lower outer quadrant | CPT/HCPCS: 99212 ==

== ENCOUNTER 2024-10-20 13:19 | Outpatient (REF) | payer OTHER, SELFPAY ==
--- NOTE | ~2024-10-20 | MM_ITS ---
EXAMINATION: MM DIAGNOSTIC DIGITAL BREAST TOMOSYNTHESIS, BILATERAL Limited right breast ultrasound. CLINICAL INFORMATION: Bilateral reduction mammoplasty in 2023. Right breast upper outer pain. COMPARISON: Mammography: Comparison is made with relevant prior exams. TECHNIQUE: Digital breast mammography with tomosynthesis is performed in both the craniocaudal and mediolateral oblique views along with computer-aided detection (CAD). FINDINGS: The breasts are heterogeneously dense, which may obscure small masses (ACR BI-RADS breast composition Category c). Post bilateral reduction mammoplasty changes. There are no significant masses, abnormal calcifications, or other abnormalities. Targeted color Doppler ultrasound scanning in the area the patient's pain right lower outer quadrant demonstrates normal fibronodular breast tissue. No sonographic abnormality is seen. Results are provided to the patient at time of visit by the technologist. MM/MM tomosynthesis diagnostic BI IMPRESSION: Status post bilateral reduction mammoplasty changes. Benign. No mammographic or sonographic abnormality in the right breast to account for the patient's pain. Recommend clinical evaluation and follow-up. ASSESSMENT: BI-RADS BI-RADS 2 - Benign Findings RECOMMENDATION: 1. Patient should be managed based on the clinical impression. 2. Otherwise, routine annual screening mammography. This patient's information was entered into a reminder system with a target due date for their next mammogram. Electronically signed by: Bethany Wahl DO 10/20/2024 03:00 PM [facility]
--- OUTSIDE RECORDS SUMMARY | 2024-10-20 15:43 | XMS_ITS | Clinical Summary ---
Author Organization [employer] Address [address] [place] [address] 7[address] [place] [address] Care Team Providers Care Nail Puller Name Role Phone Unavailable Primary Care Provider [...] Encounters Date Type Department Care Team Description 09/27/2024 Telephone [facility] MEDICINE [address] [place] [address] Chun Durán MD New patient appt. from Last 3 Months Immunizations Name Administration [...] * HIV AB/AG (07/29/2019 9:30 AM EST) [facility] HIV AG/AB NONREACTIVE NR FOUNDATI ON [...] detection of this assay. ?? [facility] [employer] Operational Test HIV Ag/Ab Combo assay result and supplemental assay results should be interpreted in conjunction with the patient's clinical presentation, history and other laboratory results. ??If the results are inconsistent with clinical evidence, additional testing is suggested to confirm the result. 07/29/2019 9:30 AM EST us Doretha Craven CNM HISTORICAL/NON ORDERABLE LABS Final Result [facility] Anywhere [address] from Last 3 Months or Most Recently Relevant to Health Maintenance Insurance ACO
== END 2024-10-20 13:20 | disposition home or self-care (01) ==
LOC: HO.MAMMO 13:19
PROVIDERS: PCP Physician Assistant; Visit Provider Obstetrics & Gynecology
DX: N63.13 Unspecified lump in the right breast, lower outer quadrant (principal)
CPT/HCPCS: 76642; 77062; 77066

== ENCOUNTER → 2024-10-20 14:00 | Outpatient (BNV) | payer OTHER, SELFPAY | PROVIDERS: PCP Physician Assistant; Visit Provider Internal Medicine | DX: N64.4 Mastodynia (principal); Z98.890 Other specified postprocedural states | CPT/HCPCS: 76642; 77062; 77066 ==

== ENCOUNTER 2024-10-25 09:34 | Outpatient (AMB) | payer OTHER, SELFPAY ==
--- NOTE | 2024-10-25 09:43 | A.OFFVIS_ITS ---
Vital Signs 10/25/24 09:49 Height 5 ft 7 in Weight 234 lb BMI 36.6 Intake Visit Reasons: Follow up breast pain Salon Supervisor Required: Yes Salon Supervisor Language: [employer] Spray Supervisor Services: Salon Supervisor Present (in person) Salon Supervisor Name: Karely CULVER Information Interpreted: non-clinical & clinical Fuel Distribution System Operator: Fuel Distribution System Operator Present (Karely CULVER) Accompanied by: Son Allergies animal dander [ANIMAL DANDER] Allergy (Intermediate, Verified 10/25/24 09:50) RASH RYE Allergy (Intermediate, Uncoded 10/25/24 09:50) RASH plants Allergy (Mild, Uncoded 10/25/24 09:50) Rash wheat, grains, rye Allergy (Mild, Uncoded 10/25/24 09:50) Rash HPI Comments Details: Presenting for follow-up breast pain, diagnostic mammogram and breast ultrasound came back as BI-RADS 2 The patient is schedule general surgery for a consult tomorrow. PFSH Medical History Dysphagia Dysplasia of cervix, low grade (OMAR 1) Avulsion fracture of ankle Breast pain, left Left foot pain Obese Goiter Anxiety and depression Back pain Snoring IBS (irritable colon syndrome) Nasal congestion Cervical lymphadenopathy Vitamin D deficiency Lexi's disease Hypothyroidism Surgical History H/O tubal ligation Hx of colonoscopy H/O foot surgery History of lumpectomy of left breast History of 2 sections Family History Father No problems noted. 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 Cognitive needs: No Hearing needs: No Vision needs: Yes Female Reproductive History Menstrual Age of Menarche: 14 Review of Systems Const All systems reviewed & are unremarkable except as noted in HPI and below Reports as per HPI and Reports no additional complaints GI Reports no additional complaints Reports no additional complaints Physical Exam Vital Signs: BMI result Body Mass Index 36.6 Assessment & Plan Assessment & Plan (1) Breast lump on right side at 8 o'clock position: Comment: Tender, 7 cm from nipple Code(s): N63.13 - Unspecified lump in the right breast, lower outer quadrant Category: Medical Plan: Discussed with the patient the results of the diagnostic mammogram and right breast ultrasound, in addition to the sensitivity, specificity, false-positive false-negative rate . Explained to the patient Mirena IUD is associated with mild increase in the risk of breast cancer, Instructions were given to the patient to call in case breast surgery consult recommended a biopsy which came back abnormal we will proceed with Mirena IUD removal. All questions answered, the patient verbalized understanding Coding Level of Care Code Est Pt Level 3 (13835) Diagnoses Breast lump on right side at 8 o'clock position N63.13
[2024-10-25 09:49] VITALS: BMI 36.6
--- OUTSIDE RECORDS SUMMARY | 2024-10-25 10:37 | XMS_ITS | Clinical Summary ---
Author Organization [employer] Address [address] [place] [address] 7[address] [place] [address] Care Team Providers Care District Court Reporter Name Role Phone Unavailable Primary Care Provider [...] Type Department Care Team Description 09/27/2024 Telephone [facility] MEDICINE [address] [place] [address] Chun Durán MD New patient appt. from [...] * HIV AB/AG (07/29/2019 9:30 AM EST) [facility] HIV AG/AB NONREACTIVE NR FOUNDATI ON LAB [...] detection of this assay. ?? [facility] Cane Weigher HIV Ag/Ab Combo assay result and supplemental assay results should be interpreted in conjunction with the patient's clinical presentation, history and other laboratory results. ??If the results are inconsistent with clinical evidence, additional testing is suggested to confirm the result. 07/29/2019 9:30 AM EST us Doretha Craven CNM HISTORICAL/NON ORDERABLE LABS Final Result [facility] Anywhere [address] from Last 3 Months or Most Recently Relevant to Health Maintenance Insurance ACO
== END 2024-10-25 09:59 | disposition home or self-care (01) ==
LOC: HO.HWS 09:34
PROVIDERS: PCP Physician Assistant; Visit Provider Obstetrics & Gynecology
DX: N63.13 Unspecified lump in the right breast, lower outer quadrant (principal)
CPT/HCPCS: 99213

== ENCOUNTER → 2024-10-25 09:34 | Outpatient (BNVA) | payer OTHER, SELFPAY | PROVIDERS: PCP Physician Assistant; Visit Provider Obstetrics & Gynecology | DX: N63.13 Unspecified lump in the right breast, lower outer quadrant (principal) | CPT/HCPCS: 99212 ==

== ENCOUNTER 2024-10-26 10:39 | Outpatient (AMB) | payer OTHER, SELFPAY ==
--- NOTE | 2024-10-26 10:48 | A.OFFVIS_ITS ---
Vital Signs 10/26/24 11:22 Height 5 ft 7 in Weight 237 lb 4 oz BMI 37.2 BP 128/59 L Blood Pressure Location Lt brachial Position Sitting Pulse 85 Intake Visit Reasons: lump in the right breast Intake Note: Patient is seen in office for evaluation of right breast lump. Pt c/o: per pt had breast reduction last year, she does not feel a lump, does have right breast pain when in bed turning, denies any concerns mm/us:10/20/[address] Tracey Icu Specialist Required: No Claims Support Specialist: Claims Support Specialist Present Accompanied by: Self / Same As Patient Allergies animal dander [ANIMAL DANDER] Allergy (Intermediate, Verified 10/26/24 11:21) RASH RYE Allergy (Intermediate, Uncoded 10/26/24 11:21) RASH plants Allergy (Mild, Uncoded 10/26/24 11:21) Rash wheat, grains, rye Allergy (Mild, Uncoded 10/26/24 11:21) Rash Medication List - Last Reconciled 10/26/24 by Elijah Ram MD buspirone mg PO cholecalciferol (vitamin D3) 100 mcg (2 x 50 mcg (2,000 unit)) PO DAILY 90 days cyclobenzaprine 5 - 10 mg (1 - 2 x 5 mg) PO BEDTIME PRN 30 days duloxetine mg PO DAILY duloxetine mg PO DAILY gabapentin 100 mg PO BID 30 days hydroxyzine HCl mg PO levonorgestrel (Mirena) intrauterine levothyroxine 50 mcg PO DAILY 90 days magnesium oxide 500 mg PO DAILY 90 days methocarbamol 750 mg PO Q8H PRN 30 days minoxidil 2% 1 mL topical BID 30 days naproxen 500 mg PO Q12H PRN 30 days omeprazole 20 mg PO BEDTIME propranolol 10 mg PO BID 90 days riboflavin (vitamin B2) 400 mg PO DAILY 90 days [RIGHT SHOULDER SLING As directed] rizatriptan 5 - 10 mg (0.5 - 1 x 10 mg) PO Q2H PRN 21 days simethicone (Gas Relief (simethicone)) 80 mg PO BID-QID PRN 15 days topiramate mg PO trazodone mg PO HPI Comments Details: 34-year-old female patient previously evaluated for mastodynia now presenting for a possible lump in the right breast noted on a recent examination by Dr. Tracey. She reports undergoing bilateral breast reduction surgery and [place] last year and denies any problems following the surgery. Recent examination by Dr. Tracey revealed a palpable mass in the right breast at the 8 o'clock position approximately 7 cm from the nipple. Subsequent workup with mammogram and ultrasound on 10/20/2024 revealed postoperative changes due to bilateral breast reduction however no mammographic evidence of malignancy was identified and no suspicious lumps could be seen on ultrasound (BI-RADS 2). The patient denies being able to palpate the lump herself but does note significant pain in the right breast. She denies any symptoms in the left breast. [facility] Medical History Dysphagia Dysplasia of cervix, low grade (OMAR 1) Avulsion fracture of ankle Breast pain, left Left foot pain Obese Goiter Anxiety and depression Back pain Snoring IBS (irritable colon syndrome) Nasal congestion Cervical lymphadenopathy Vitamin D deficiency Lexi's disease Hypothyroidism Surgical History H/O tubal ligation Hx of colonoscopy H/O foot surgery History of lumpectomy of left breast History of 2 sections Family History Father No problems noted. 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 Cognitive needs: No Hearing needs: No Vision needs: Yes Female Reproductive History Menstrual Age of Menarche: 14 Review of Systems Const All systems reviewed & are unremarkable except as noted in HPI and below Physical Exam Vital Signs: Last Vital Signs Pulse 85 10/26/24 11:22 BP 128/59 L 10/26/24 11:22 BMI result Body Mass Index 37.2 Const General: cooperative and no acute distress Nutritional Appearance: well nourished Orientation/consciousness: patient oriented x3 Limitations: no limitations HEENT Head: Yes normocephalic and Yes atraumatic Ears: hearing grossly normal bilaterally Chest Other: bilateral fibrocystic change and bilateral reduction mammoplasty incisions. Left breast: No skin change, no nipple retraction, no nipple discharge, no palpable mass, no enlarged lymph nodes. Right breast: Tender throughout the breast tissue. No skin change, no nipple retraction, no nipple discharge, no palpable mass, no enlarged lymph nodes Resp Effort & Inspection: normal respiratory effort, no audible wheezes, no cough and no respiratory distress Cardio Jugular venous distension: no JVD GI Inspection: Yes normal to inspection Skin Other: Warm, dry, no rash Neuro General: patient oriented x3 Extrem General: Yes no clubbing, cyanosis or edema Assessment & Plan Assessment & Plan (1) Breast lump on right side at 8 o'clock position: Comment: Tender, 7 cm from nipple Code(s): N63.13 - Unspecified lump in the right breast, lower outer quadrant Category: Medical Plan 34-year-old female patient, status post bilateral reduction mammoplasty presenting for evaluation of a possible breast lump in the right breast. The patient reports pain in the right breast but is unable to feel any palpable lump. Examination today revealed mild fibrocystic changes bilaterally and well healed breast reduction surgery incisions. No discrete mass could be appre ciated in either breast. Review of her mammogram and ultrasound also revealed no suspicious changes in either breast. I recommended observation with no surgical intervention at this time. She was welcome to call or return in appointment for any changes. Coding Level of Care Code Est Pt Level 3 (82310) Diagnoses Breast lump on right side at 8 o'clock position N63.13
[2024-10-26 11:22] VITALS: BP 128/59; PULSE 85; BMI 37.2
--- OUTSIDE RECORDS SUMMARY | 2024-10-26 12:16 | XMS_ITS | Clinical Summary ---
Author Organization [employer] Address [address] [place] [address] [address] [place] [address] Care Team Providers Care Cooking Teacher Name Role Phone Unavailable Primary Care Provider [...] Type Department Care Team Description 09/27/2024 Telephone [facility] MEDICINE [address] [place] [address] Chun Durán MD New patient appt. from [...] * HIV AB/AG (07/29/2019 9:30 AM EST) [facility] HIV AG/AB NONREACTIVE NR FOUNDATI ON [...] detection of this assay. ?? [facility] Neonatal Nurse Practitioner HIV Ag/Ab Combo assay result and supplemental assay results should be interpreted in conjunction with the patient's clinical presentation, history and other laboratory results. ??If the results are inconsistent with clinical evidence, additional testing is suggested to confirm the result. 07/29/2019 9:30 AM EST us Doretha Craven CNM HISTORICAL/NON ORDERABLE LABS Final Result [facility] Anywhere [address] from Last 3 Months or Most Recently Relevant to Health Maintenance [place] [address]
== END 2024-10-26 12:06 | disposition home or self-care (01) ==
LOC: HO.HGS 10:40
PROVIDERS: PCP Physician Assistant; Visit Provider Surgery
DX: N63.13 Unspecified lump in the right breast, lower outer quadrant (principal)
CPT/HCPCS: 99213

== ENCOUNTER → 2024-10-26 10:39 | Outpatient (BNVA) | payer OTHER, SELFPAY | PROVIDERS: PCP Physician Assistant; Visit Provider Surgery | DX: N63.13 Unspecified lump in the right breast, lower outer quadrant (principal); N64.4 Mastodynia | CPT/HCPCS: 99212 ==

== ENCOUNTER 2024-11-02 08:59 | Outpatient (AMB) | payer OTHER, SELFPAY ==
[2024-11-02 09:02] VITALS: BP 110/80; BMI 37.2
--- NOTE | 2024-11-02 09:02 | A.OFFVIS_ITS ---
Vital Signs 11/02/24 09:02 Height 5 ft 7 in Weight 237 lb 10.533 oz BMI 37.2 BP 110/80 Blood Pressure Location Lt brachial Position Sitting Intake Visit Reasons: Other specified hypothyroidism Intake Note: New patient present today for Other specified hypothyroidism office visit. Combination Man Required: Yes Combination Man Language: Stone Cleaner Services: Combination Man Present Combination Man Name: José Luis [id number] Information Interpreted: non-clinical & clinical Accompanied by: Self / Same As Patient Allergies animal dander [ANIMAL DANDER] Allergy (Intermediate, Verified 11/02/24 09:06) RASH RYE Allergy (Intermediate, Uncoded 11/02/24 09:06) RASH plants Allergy (Mild, Uncoded 11/02/24 09:06) Rash wheat, grains, rye Allergy (Mild, Uncoded 11/02/24 09:06) Rash Medication List - Last Reconciled 11/02/24 by Tiara Wagner MD buspirone mg PO cholecalciferol (vitamin D3) 100 mcg (2 x 50 mcg (2,000 unit)) PO DAILY 90 days cyclobenzaprine 5 - 10 mg (1 - 2 x 5 mg) PO BEDTIME PRN 30 days duloxetine mg PO DAILY duloxetine mg PO DAILY gabapentin 100 mg PO BID 30 days hydroxyzine HCl mg PO levonorgestrel (Mirena) intrauterine levothyroxine 50 mcg PO DAILY 90 days magnesium oxide 500 mg PO DAILY 90 days methocarbamol 750 mg PO Q8H PRN 30 days minoxidil 2% 1 mL topical BID 30 days naproxen 500 mg PO Q12H PRN 30 days omeprazole 20 mg PO BEDTIME propranolol 10 mg PO BID 90 days riboflavin (vitamin B2) 400 mg PO DAILY 90 days [RIGHT SHOULDER SLING As directed] rizatriptan 5 - 10 mg (0.5 - 1 x 10 mg) PO Q2H PRN 21 days simethicone (Gas Relief (simethicone)) 80 mg PO BID-QID PRN 15 days topiramate mg PO trazodone mg PO HPI Comments Details: 34-year-old female who is coming in today to reestablish care for hypothyroidism. She was previously seen by Dr. Guerrero last in November 2022. 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 Ultrasound from 2020 revealed diffusely heterogenous mildly enlarged gland. At that time she was taking levothyroxine 50 mcg daily which she had stopped of her own accord but felt well on her TFTs within normal limits. She was discharged to PCP. Apparently she also had complaints of dysphagia at the time and was recommended total thyroidectomy by Dr. Payne never attended her appointment with Dr. Kobi Hopkins at [facility], she had a barium swallow in September 2021 which was within normal limits. On levothyroxine 50 mcg daily. good adherence and administration Reports loose stools which is chronic and normal for her. Periods regular has Mirena. LMP: 10/27/24 Difficulty losing weight. has gained 10 lbs since last summer. Reports fatigue. Reports heat intolerance, , hair loss, some intermittent palpitation, dry skin. Exercise: very occasionally ? no history of HTN or DM Patient denies any difficulty swallowing, pain on swallowing or voice changes or difficulty breathing. Patient denies any history of childhood neck radiation. Denies having lithium, amiodarone or biotin supplements. Patient denies any family history of thyroid cancer . Mother has thyroid disease, has has thyroid surgery. Physical exam General: sitting comfortably in no acute distress HEENT: normocephalic/atraumatic,moist oral mucosa Neck: supple Cardiac: normal heart sounds Pulm: normal breath sounds B/L, no added breath sounds Abd: not distended, no tenderness Extremities: no edema, no signs of myxedema Neuro: AAO x3, Speech: normal, no facial droop, moving all 4 extremities Laboratory Tests 08/02/19 10/19/21 03/14/22 06:08 15:52 11:36 TSH 2.05 2.92 Free T4 0.99 Thyroid Peroxidase Ab 834 H 12/24/22 05/02/23 01/22/24 08:41 09:54 10:13 TSH 7.46 H 4.28 H 3.71 Free T4 0.92 0.76 Thyroid Peroxidase Ab 08/06/24 10:20 TSH 2.95 Free T4 Thyroid Peroxidase Ab US Thyroid: 09/25/2020 Right Thyroid Lobe: 6.2 x 2.7 x 2.3 cm, volume 19.3 mL. Previously 5.9 x 2.3 x 2.8 cm, volume 19.9 mL. Parenchyma: The gland echotexture is heterogeneous. Thyroid vascularity is increased. Left Thyroid Lobe: 6.2 x 2.4 x 2.0 cm, volume 15.8 mL. Previously 5.7 x 2.1 x 2.4 cm, volume 15.0 mL. Parenchyma: The gland echotexture is heterogeneous. Thyroid vascularity is increased. Isthmus: 0.8 cm in maximum AP dimension. Previously 0.5 cm. No focal thyroid nodule is seen. NODES: No lymphadenopathy is seen in the tissue surrounding the thyroid gland. [facility] Medical History (Updated 11/02/24 @ 09:59 by Tiara Wagner MD) Obesity (BMI 30-39.9) Dysphagia Dysplasia of cervix, low grade (OMAR 1) Avulsion fracture of ankle Breast pain, left Left foot pain Obese Goiter Anxiety and depression Back pain Snoring IBS (irritable colon syndrome) Nasal congestion Cervical lymphadenopathy Vitamin D deficiency Lexi's disease Hypothyroidism Surgical History H/O tubal ligation Hx of colonoscopy H/O foot surgery History of lumpectomy of left breast History of 2 sections Family History Father No problems noted. 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 Cognitive needs: No Hearing needs: No Vision needs: Yes Female Reproductive History Menstrual Age of Menarche: 14 Physical Exam Vital Signs: Last Vital Signs BP 110/80 11/02/24 09:02 BMI result Body Mass Index 37.2 Assessment & Plan Assessment & Plan (1) Hypothyroidism: Code(s): E03.9 - Hypothyroidism, unspecified Category: Medical Qualifiers: Hypothyroidism type: due to Lexi's thyroiditis Qualified Code(s): E03.8 - Other specified hypothyroidism; E06.3 - Autoimmune thyroiditis Plan: 34-year-old female with a history of hypothyroidism on levothyroxine 50 mcg daily with blood work from July 2024 showing she is biochemically euthyroid. Her major bothersome symptom is difficulty losing weight, see management for that below. Otherwise given TSH was within normal range, she can continue on the same dose of levothyroxine. Plan: -continue levothyroxine 50 mcg daily -do TSH and free T4 in 1 year prior to follow up (2) Obesity (BMI 30-39.9): Code(s): E66.9 - Obesity, unspecified Category: Medical Plan: Current BMI 37.2 kg per m2 Current weight 237 lb, this is the highest weight noted in the past 5 years, she has gained 20 lb since 2020. No acromegalic features, no cushingoid appearance with no skin thinning, no purple abnormal striae, no proximal muscle weakness, no bruising to suggest any other endocrine causes. TSH is normal on levothyroxine from July 2024 I reviewed with patient the importance of weight loss as it relates to decreasing the risk of diabetes, cardiovascular disease, obstructive sleep apnea,PCOS, arthritis. She already has a history of sleep apnea. We reviewed the importance of decreasing total calorie consumption, minimizing fats and carbohydrates. We discussed 500 calorie deficit plan using phone lauro such as my [employer] and loose it She was advised to start exercising 30-45 mins a day for aerobic activity +2-3 days of resistance training walking 10,000 steps a day. In addition to conservative measures, I did tell her given BMI greater than 35 with a history of sleep apnea she would qualify for bariatric surgery, however she is not interested in surgery at this time but is interested in weight loss medications. She is already seeing weight management, she has a referral, and saw them last visit for measurement of her weight, waiting for follow up appointment. I would agree she would be an excellent candidate for weight loss medications. Obesity is a chronic disease, and weight management should involve medications that would work chronically just like hypertension and diabetes management. While medications such as phentermine/topiramate and bupropion/naltrexone have some role in weight management, for someone like her she needs 20-25% weight loss, and those medications only result in about 7-15% weight loss max. Plus use of those medications is short-term, and weight management should involve medications that can be used intermodal customer service such as GLP 1 agonist. Obesity is a chronic disease She ashas a tubal ligation, no plans for . Given she is already seeing weight management for medical weight loss therapy, I will defer management to them. I did discuss with her importance of seeing a director of pupil personnel program as well, she is saying that would be part of the weight management program. Plan: -Lifestyle modification as discussed, patient provided written education -follow up with weight management for weight loss medications Plan I spent 45 minutes in reviewing the record, seeing the patient and documenting in the medical record. Orders: Orders Free T4 (Free Thyroxine) 1 Year E03.8 - Other specified hypothyroidism, E06.3 - Autoimmune thyroiditis Thyroid Stimulating Hormone 1 Year E03.8 - Other specified hypothyroidism, E06.3 - Autoimmune thyroiditis Patient Instructions: Weight loss counselling ? Limit added sugars to less than 25 grams daily. There are 4.2 grams of sugar per teaspoon of sugar. A teaspoon of honey has 6 grams of sugar! Bread also can have more sugar than you think-check labels ? No soda or juices. Drink water, unsweetened iced tea or seltzer ? Limit eating out/take out or prepared meals to twice weekly at most ? Avoid red meat, hot dogs, belle and deli meat. Substitute plant protein for animal protein as much as you can. Beans, nuts, tofu, soy milk ? Limit cheese to 1 ounce a few times weekly ? Eat high fiber foods like beans, apples and green veggies, salsa is a great snack with whole grain cracker like Wasa ? Look for the whole grain stamp when choosing bread etc. Aim for 48 grams of whole grains daily. Whole wheat does not equal whole grains! ? Don't keep tempting treats in the house. Go out once in a while for a treat. ? Don't eat anything deep fried or cream based-no sour cream Buy a fitness band for tracking your steps or you can track them on your phone , try to get [id number] steps per day , you build up to it slowly Add lifting weights to your exercise regimen slowly by lifting 5 lbs dumbells and then slowly building up and doing resistance training 2-3 days a week plus the walking/running Use small plates for small portions Snack on green leafy vegetables like spinch and lettuce, cucumber make a great snakc Get 20 g of fiber daily, mostly through fruits and vegetables Eliminate refined carbs such as chips, cookies, biscuits Eat 60 to 70 g of protein daily , lean meats such as chicken or fish , instead of beef or pork Continue working with weight management Continue levothyroxine 50 mcg daily Do blood work a few days prior to your next appointment in 1 year Coding Level of Care Code Est Pt Level 4 (88323) Diagnoses 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 Obesity (BMI 30-39.9) E66.9 Time Spent (min) 45
== END 2024-11-02 09:46 | disposition home or self-care (01) ==
LOC: HO.ENCR 09:00
PROVIDERS: PCP Physician Assistant; Visit Provider Student in an Organized Health Care Education/Training Program
DX: E03.8 Other specified hypothyroidism (principal); E06.3 Autoimmune thyroiditis; E66.9 Obesity, unspecified
CPT/HCPCS: 99214

== ENCOUNTER → 2024-11-02 08:59 | Outpatient (BNVA) | payer OTHER, SELFPAY | PROVIDERS: PCP Physician Assistant; Visit Provider Student in an Organized Health Care Education/Training Program | DX: E03.8 Other specified hypothyroidism (principal); E06.3 Autoimmune thyroiditis; E66.9 Obesity, unspecified; Z68.37 Body mass index [BMI] 37.0-37.9, adult | CPT/HCPCS: 99212 ==

== ENCOUNTER 2024-11-17 08:05 | Outpatient (AMB) | payer OTHER, SELFPAY ==
--- NOTE | 2024-11-17 11:16 | MHC.OFFVISWM ---
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 *ETIQUETTE COACH* Chemical Operations Specialist Required: Yes Chemical Operations Specialist Services: Chemical Operations Specialist Present Information Interpreted: clinical only Allergies animal dander [ANIMAL DANDER] Allergy (Intermediate, Verified 11/17/24 11:16) RASH RYE Allergy (Intermediate, Uncoded 11/17/24 11:16) RASH plants Allergy (Mild, Uncoded 11/17/24 11:16) Rash wheat, grains, rye Allergy (Mild, Uncoded 11/17/24 11:16) Rash Medication List - Last Reconciled 11/17/24 by Carlo Seo MD buspirone mg PO cholecalciferol (vitamin D3) 100 mcg (2 x 50 mcg (2,000 unit)) PO DAILY 90 days cyclobenzaprine 5 - 10 mg (1 - 2 x 5 mg) PO BEDTIME PRN 30 days duloxetine mg PO DAILY gabapentin 100 mg PO BID 30 days hydroxyzine HCl mg PO levonorgestrel (Mirena) intrauterine levothyroxine 50 mcg PO DAILY 90 days magnesium oxide 500 mg PO DAILY 90 days methocarbamol 750 mg PO Q8H PRN 30 days minoxidil 2% 1 mL topical BID 30 days naproxen 500 mg PO Q12H PRN 30 days phentermine 37.5 mg PO DAILY 15 days propranolol 10 mg PO BID 90 days riboflavin (vitamin B2) 400 mg PO DAILY 90 days [RIGHT SHOULDER SLING As directed] rizatriptan 5 - 10 mg (0.5 - 1 x 10 mg) PO Q2H PRN 21 days simethicone (Gas Relief (simethicone)) 80 mg PO BID-QID PRN 15 days topiramate mg PO trazodone mg PO HPI HPI TV NURSING SERVICE ADMINISTRATOR MWL *ETIQUETTE COACH*: Details: Start time: 11am, End time: 11.30am and 4.20pm to 4.35pm I spent a total of 45 minutes with the patient, out of which 30 minutes were spent talking to the patient with an dairy department manager and 15 minutes to review records and prepare my note HPI Comments Details: Previous weight loss efforts: [facility] Medical History (Updated 11/02/24 @ 09:59 by Tiara Wagner MD) Obesity (BMI 30-39.9) Dysphagia Dysplasia of cervix, low grade (OMAR 1) Avulsion fracture of ankle Breast pain, left Left foot pain Obese Goiter Anxiety and depression Back pain Snoring IBS (irritable colon syndrome) Nasal congestion Cervical lymphadenopathy Vitamin D deficiency Lexi's disease Hypothyroidism Surgical History H/O tubal ligation Hx of colonoscopy H/O foot surgery History of lumpectomy of left breast History of 2 sections Family History Father No problems noted. 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 Cognitive needs: No Hearing needs: No Vision needs: Yes Female Reproductive History Menstrual Age of Menarche: 14 Telehealth Telehealth Telehealth Platform: Telephone Location of provider rendering services: practice address Location of patient: address on file Patient Identification confirmed using: Name, : Yes Telehealth method: voice only Patient verbally consented to treatment: Yes Patient verbally consented to billing insurance company: Yes Patient informed of any privacy concerns related to visit: Yes Minutes spent on Phone/Video with Pt.: 30 Assessment & Plan Assessment & Plan (1) Obesity (BMI 30-39.9): Code(s): E66.9 - Obesity, unspecified Category: Medical Plan: 1. Please buy a body composition scale and start sending me measurements weekly 2. Please buy a blood pressure monitor, check your blood pressure daily and send me your blood pressure daily 3. Buy a stationary bike at home 4. Please buy the recommended protein supplements so I can provide a meal plan 5. Please take the Phentermine daily at 10am. We discussed the potential side-effects of the Phentermine such as irritability, dry mouth, difficulty sleeping, dizziness, numbness in feet and high blood pressure. I asked her to get a blood pressure monitor and measure the blood pressure daily in the morning and evening. She needs to send the blood pressure readings daily and to call the office for blood pressure over 140/80 and she understands that.
== END 2024-11-17 16:42 | disposition home or self-care (01) ==
LOC: HO.HBS 08:05
PROVIDERS: PCP Physician Assistant; Visit Provider Surgery
DX: E66.9 Obesity, unspecified (principal)
CPT/HCPCS: 99204

== ENCOUNTER 2024-11-24 07:27 | Outpatient (REF) | payer OTHER, SELFPAY ==
[2024-11-24 08:55] LABS: Hemoglobin 13.5 g/dl (12.0-16.0); Mean Corpuscular HGB Conc 32.9 g/dl (31.0-35.0); Mean Corpuscular Hemoglobin 29.6 pg (27.0-33.0); Mean Corpuscular Volume 89.9 fL (80.0-98.0); Mean Platelet Volume 9.1 fL (9.4-12.3); Platelet Count 335 X10*3/uL (160-400); Red Blood Count 4.56 X10*6/uL (4.20-5.50); White Blood Count 6.3 X10*3/uL (4.8-10.8)
[2024-11-24 09:30] LABS: HCG Quantitative < 2 mIU/mL
[2024-11-24 18:02] LABS: CT PCR NOT DETECTED (Not Detect.); NG PCR NOT DETECTED (Not Detect.)
== END 2024-11-24 07:28 | disposition home or self-care (01) ==
LOC: HO.LAB 07:27
PROVIDERS: PCP Physician Assistant; Visit Provider Obstetrics & Gynecology
DX: N93.9 Abnormal uterine and vaginal bleeding, unspecified (principal)
CPT/HCPCS: 36415; 81025; 84702; 85027; 87491; 87591; 99212

== ENCOUNTER 2024-11-24 07:27 | Outpatient (AMB) | payer OTHER, SELFPAY ==
[2024-11-24 07:27] VITALS: BMI 37.1
--- NOTE | 2024-11-24 07:27 | A.OFFVIS_ITS ---
Vital Signs 11/24/24 07:27 Height 5 ft 7 in Weight 237 lb BMI 37.1 Intake Visit Reasons: AUB with IUD Seafood And Service Meat Manager Required: Yes Seafood And Service Meat Manager Language: Butt Welder Services: Seafood And Service Meat Manager Present (in person) Seafood And Service Meat Manager Name: Karely CULVER Information Interpreted: non-clinical & clinical Sailing Officer: Sailing Officer Present (Karely CULVER) Accompanied by: Self / Same As Patient Allergies animal dander [ANIMAL DANDER] Allergy (Intermediate, Verified 11/24/24 07:28) RASH RYE Allergy (Intermediate, Uncoded 11/24/24 07:28) RASH plants Allergy (Mild, Uncoded 11/24/24 07:28) Rash wheat, grains, rye Allergy (Mild, Uncoded 11/24/24 07:28) Rash Is last menstrual period known: No (mirena) HPI Comments Details: Presenting complaining of continuous vaginal bleeding since Mirena IUD insertion in 03/23 [facility] Medical History Obesity (BMI 30-39.9) Dysphagia Dysplasia of cervix, low grade (OMAR 1) Avulsion fracture of ankle Breast pain, left Left foot pain Obese Goiter Anxiety and depression Back pain Snoring IBS (irritable colon syndrome) Nasal congestion Cervical lymphadenopathy Vitamin D deficiency Lexi's disease Hypothyroidism Surgical History H/O tubal ligation Hx of colonoscopy H/O foot surgery History of lumpectomy of left breast History of 2 sections Family History Father No problems noted. 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 Cognitive needs: No Hearing needs: No Vision needs: Yes Female Reproductive History Menstrual Age of Menarche: 14 Review of Systems Const All systems reviewed & are unremarkable except as noted in HPI and below Physical Exam Vital Signs: BMI result Body Mass Index 37.1 General: Yes no CVA tenderness External Female Exam: normal external appearance and normal appearance of the urethra Speculum Exam - Vagina: normal appearance of the vagina, normal palpation, no lesions and no masses Speculum Exam - Cervix: normal appearance of the cervix, normal palpation, no lesions, no masses, nontender and Other cervical findings present (IUD thread in place) Bimanual exam- vagina & uterus: normal bimanual exam, normal palpation, uterine size normal, normal palpation, uterine shape normal, No Cervical tenderness present and non-tender Bimanual Exam- Adnexa, other: normal adnexae Back/Spine/Pelvis Back: no CVA tenderness Results AMB Test Urine AMB Test Urine Negative Last Edit by Karely Qunin CMA on 07:42 Assessment & Plan Assessment & Plan (1) Abnormal uterine bleeding (AUB): Comment: With Mirena IUD Code(s): N93.9 - Abnormal uterine and vaginal bleeding, unspecified Category: Medical Plan: UPT done in the office was negative, GC and chlamydia taken CBC, TSH, HCG, and pelvic ultrasound ordered. Discussed with the patient the different causes of abnormal bleeding including thyroid disorders, uterine and ovarian pathology, endometrial hyperplasia, carcinoma and other potential causes. Discussed with the patient the work up including CBC (to r/o anemia), TSH, pelvic Ultrasound, endometrial biopsy to r/o endometrial pathology. All questions answered and the patient verbalized understanding. Instructed the patient to schedule an appointment for an endometrial biopsy in 2 weeks. Coding Level of Care Code Est Pt Level 3 (94113) Diagnoses Abnormal uterine bleeding (AUB) N93.9
--- OUTSIDE RECORDS SUMMARY | 2024-11-24 07:28 | XMS_ITS | Clinical Summary ---
Author Organization [employer] Address [address] [place] [address] [address] [place] [address] Care Team Providers Care Coremaking Machine Operator Name Role Phone Unavailable Primary Care [...] Telephone [facility] [address] [place] [address] Chun Durán MD New patient appt. from Last 3 Months Immunizations Immunization Administration Dates Next Due Moderna Covid-19 Vaccine [...] Comments Depression Screening 1990 SDOH Screening 1990 Disability Screening 1990 Alcohol/Substance Use Screening 2002 Family Planning (PISQ) 2005 Hepatitis C Screening 01/30/2008 Hepatitis B Vaccines (1 of 3 - 19+ 3-dose series) 2009 Pap Smear 2011 Cervical Cancer Screening 01/30/2020 HPV/Cotest 01/30/2020 COVID-19 Vaccine ( - 2023-2 5 season) 2024 01/17/2023, 12/13/2020, [...] patient's age to complete this topic Meningococcal B Vaccine Aged Out No l onger eligible based on patient's age to complete [...] Procedure Name Priority Date/Time Associated Diagnosis Comments HanyMAURI HISTORICAL HIV AB/AG Routine 07/29/2019 9:30 AM EST from Last 3 Months or Most Recently Relevant to Health Maintenance Results * HIV AB/AG (07/29/2019 9:30 AM EST) HIV AG/AB NONREACTIVE NR [facility] ON LAB [...] detection of this assay. ?? [employer] Account Installer HIV Ag/Ab Combo assay result and supplemental assay results should be interpreted in conjunction with the patient's clinical presentation, history and other laboratory results. ??If the results are inconsistent with clinical evidence, additional testing is suggested to confirm the result. 07/29/2019 9:30 AM EST us Doretha Craven CNM HISTORICAL/NON ORDERABLE LABS Final Result [facility] [address] from Last 3 Months or Most Recently Relevant to Health Maintenance Insurance [facility]
== END 2024-11-24 07:47 | disposition home or self-care (01) ==
LOC: HO.HWS 07:27
PROVIDERS: PCP Physician Assistant; Visit Provider Obstetrics & Gynecology
DX: N93.9 Abnormal uterine and vaginal bleeding, unspecified (principal); Z32.02 Encounter for pregnancy test, result negative
CPT/HCPCS: 99213

== ENCOUNTER 2024-11-26 12:09 | Outpatient (REF) | payer OTHER, SELFPAY ==
--- NOTE | ~2024-11-26 | US_ITS ---
EXAMINATION: US PELVIS TRANSABDOMINAL AND TRANSVAGINAL HISTORY: N93.9 - Abnormal uterine and vaginal bleeding, unspecified COMPARISON: Comparison is made with the prior examination dated 02/05/2024. TECHNIQUE: Transabdominal and endovaginal real-time 2D magana-scale ultrasound was performed. FINDINGS: Uterus: The uterus is normal in size, measuring 7.4 x 4.2 x 5.1 cm. Myometrium has a normal echotexture. No fibroids are identified. Endometrium: The endometrial stripe measures 6 mm in thickness. There is a small amount of fluid in the endometrial canal. An IUD is noted in the lower uterine segment. Right ovary: The right ovary measures 3.2 x 2.0 x 2.8 cm. There is a 1.3 cm ovarian cyst versus follicle. Left ovary: The left ovary measures 1.8 x 2.0 x 1.8 cm. The left ovary is normal in size and echotexture. Pelvic fluid: Small amount of free fluid is seen adjacent to the right ovary. US/US pelvic and transvaginal IMPRESSION: Small amount of fluid in the endometrial canal. Abnormally positioned IUD in the lower uterine segment. Electronically signed by: Bartolome Soto MD 11/26/2024 01:15 PM EDT
--- OUTSIDE RECORDS SUMMARY | 2024-11-26 12:46 | XMS_ITS | Clinical Summary ---
Author Organization [employer] Address [address] [place] [address] [address] [place] [address] Care Team Providers Care Test Eng Name Role Phone Unavailable Primary Care Provider [...] Type Department Care Team Description 09/27/2024 Telephone [facility] [address] [place] [address] Chun Durán MD New patient appt. from [...] detection of this assay. ?? [employer] Knockout Man HIV Ag/Ab Combo assay result and supplemental assay results should be interpreted in conjunction with the patient's clinical presentation, history and other laboratory results. ??If the results are inconsistent with clinical evidence, additional testing is suggested to confirm the result. 07/29/2019 9:30 AM EST us Doretha Craven CNM HISTORICAL/NON ORDERABLE LABS Final Result [facility] [address] from Last 3 Months or Most Recently Relevant to Health Maintenance Insurance [facility]
== END 2024-11-26 12:10 | disposition home or self-care (01) ==
LOC: HO.HMGCX 12:09
PROVIDERS: PCP Physician Assistant; Visit Provider Obstetrics & Gynecology
DX: Z30.432 Encounter for removal of intrauterine contraceptive device (principal); T83.32XA Displacement of intrauterine contraceptive device, initial encounter; N93.9 Abnormal uterine and vaginal bleeding, unspecified; Z32.02 Encounter for pregnancy test, result negative; Z30.433 Encounter for removal and reinsertion of intrauterine contraceptive device
CPT/HCPCS: 58300; 58301; 76830; 76856; 81025

== ENCOUNTER → 2024-11-26 12:35 | Outpatient (BNV) | payer OTHER, SELFPAY | PROVIDERS: PCP Physician Assistant; Visit Provider Radiology Diagnostic Radiology | DX: T83.32XA Displacement of intrauterine contraceptive device, initial encounter (principal); N85.8 Other specified noninflammatory disorders of uterus | CPT/HCPCS: 76830; 76856 ==

== ENCOUNTER 2024-11-26 14:16 | Outpatient (AMB) | payer OTHER, SELFPAY ==
[2024-11-26 14:25] VITALS: BMI 37.1
--- NOTE | 2024-11-26 14:25 | MHC.OFFVIS ---
Vital Signs 11/26/24 14:25 Height 5 ft 7 in Weight 237 lb BMI 37.1 Intake Visit Reasons: IUD Removal/Insertion Rubber Stamp Die Inspector Required: Yes Rubber Stamp Die Inspector Language: Fuel Oil Clerk Services: Rubber Stamp Die Inspector Present (in person) Rubber Stamp Die Inspector Name: Karely CULVER Information Interpreted: non-clinical & clinical Director Of Analytics: Director Of Analytics Present (Karely CULVER) Accompanied by: Self / Same As Patient Allergies animal dander [ANIMAL DANDER] Allergy (Intermediate, Verified 11/26/24 14:27) RASH RYE Allergy (Intermediate, Uncoded 11/26/24 14:27) RASH plants Allergy (Mild, Uncoded 11/26/24 14:27) Rash wheat, grains, rye Allergy (Mild, Uncoded 11/26/24 14:27) Rash Is last menstrual period known: No (mirena) HPI Comments Details: Presenting for ultrasound follow-up done today showed the following: Uterus: The uterus is normal in size, measuring 7.4 x 4.2 x 5.1 cm. Myometrium has a normal echotexture. No fibroids are identified. Endometrium: The endometrial stripe measures 6 mm in thickness. There is a small amount of fluid in the endometrial canal. An IUD is noted in the lower uterine segment. Right ovary: The right ovary measures 3.2 x 2.0 x 2.8 cm. There is a 1.3 cm ovarian cyst versus follicle. Left ovary: The left ovary measures 1.8 x 2.0 x 1.8 cm. The left ovary is normal in size and echotexture. Pelvic fluid: Small amount of free fluid is seen adjacent to the right ovary. [facility] Medical History Obesity (BMI 30-39.9) Dysphagia Dysplasia of cervix, low grade (OMAR 1) Avulsion fracture of ankle Breast pain, left Left foot pain Obese Goiter Anxiety and depression Back pain Snoring IBS (irritable colon syndrome) Nasal congestion Cervical lymphadenopathy Vitamin D deficiency Lexi's disease Hypothyroidism Surgical History H/O tubal ligation Hx of colonoscopy H/O foot surgery History of lumpectomy of left breast History of 2 sections Family History Father No problems noted. 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 Her last menstrual period was within the last 5 days, Urine test was done in the office and was negative; All the contraindications were excluded. The following possible complications were discussed with the patient: Intrauterine , Ectopic , Sepsis, Pelvic Infection, Irregular Bleeding and Amenorrhea, Perforation, Expulsion, Ovarian Cysts, Breast Cancer. The following adverse effects were discussed with the patient: alteration of menstrual bleeding pattern, including: unscheduled uterine bleeding decreased uterine bleeding increased scheduled uterine bleeding female genital tract bleeding ,amenorrhea , genital discharge , vulvovaginitis , breast pain , benign ovarian cyst and associated complications , dysmenorrhea , Gastrointestinal disorders abdominal/pelvic pain, headache/migraine , back pain , acne , depression Alternative options were discussed with the patient including but not limited: control pills, patch, NuvaRing, Depo-medroxyprogesterone acetate, Nexplanon, copper IUD, sterilization, vasectomy, others The procedure was explained in detail to patient , at the end patient signed the informed consent obtained. Alternative options were discussed with the patient The patient signed the consent and agreed with the plan; all questions answered. Urine test was done in the office and was negative Preop dx: Malpositioned Mirena IUD for removal and Reinsertion Op: Mirena IUD removal and Mirena insertion Post op dx: same EBL= 10 cc Procedure: The patient was put in the dorsal lithotomy position a speculum was inserted in the vagina the IUD thread identified. Using a Lena clamp the thread was grasped and the IUD pulled out with no complications. A no touch technique was used throughout the procedure. A speculum was placed into vagina and cervix was cleaned with betadine). A tenaculum was placed. A plastic sound was advanced through the external and internal os until it reached the fundus of the uterus, the depth was 8 cm. The sound was then withdrawn. The IUD was loaded in a sterile manner and advanced into position. The string was visualized and cut to 3 cm. Tenaculum site hemostatic. All instruments removed from vagina. Patient tolerated the procedure well. NO complications were noted. Patient was instructed to call for fever over 100.4, significant pain unrelieved by Motrin, IUD expulsion, heavy bleeding, or abnormal discharge. In addition, the following clinical considerations were discussed with the patient to call for removal: A stroke or heart attack ,Very severe or migraine headaches ,Unexplained fever ,Yellowing of the skin or whites of the eyes, as these may be signs of serious liver problems , or suspected , Pelvic pain or pain during sex ,HIV positive seroconversion in herself or her partner , Possible exposure to sexually transmitted infections Unusual vaginal discharge or genital sores , severe vaginal bleeding or bleeding that lasts a long time, or if she misses a menstrual period, Inability to feel Mirena's threads Counseled the patient that the IUD does not protect against STI's, recommended use of condoms for the first 7 days post insertion and explained to the patient that condoms are recommended for patients at risk for sexually transmitted infections. Follow up appointment made for 4 weeks following insertion. Date of removal in no more than five years for DUB treatment and 8 years for contraception from today?s date was d/w patient. This note was generated with a voice recognition program. Some errors may have been overlooked during the review of this note. Sometimes these errors may affect the content or meaning of a given sentence. [id number]-ZVS Insertion 67446-HOH Removal Procedure code (CPT) selection complete Office Meds Mirena 21 mcg/24 hr (up to 8 years) 52 mg intrauterine device Performing Provider: Manolo Tracey MD Performing Location: [facility] [place] [facility] Documented (not given) by: Manolo Tracey MD on 11/26/24 14:46 Dose Route Admin Location Dispensed Lot Number Expiration Date NDC [place] [place] 1 device intrauterine ea Results AMB Test Urine AMB Test Urine Negative Last Edit by Karely Quinn CMA on 11/26/24 14:42 Assessment & Plan Assessment & Plan (1) Malpositioned IUD: Code(s): T83.32XA - Displacement of intrauterine contraceptive device, initial encounter Category: Medical Plan: Discussed with the patient the results of the ultrasound showing a low-lying IUD, recommended IUD removal and options of treatment including control pills, reinsertion of an you Mirena IUD, endometrial ablation and hysterectomy. All pros, cons, risks and benefits if each option was discussed with the patient and the patient decided to go ahead with Mirena IUD so a more detailed discussion about it was conducted including mechanism of action, risks (uterine perforation, infection, injury to bladder, bowel, displacement, and others) benefits (hypo menorrhea, amenorrhea, ...). GC/CT were recently taken and negative and Mirena IUD insertion was done, see procedure note . All questions answered, the patient verbalized understanding Orders: Orders AMB HCG Urine Test Today Z32.02 - Encounter for test, result negative AMB IUD Insertion/Removal - Practice Supplied Today T83.32XA - Displacement of intrauterine contraceptive device, initial encounter Medications: New Mirena (levonorgestrel) 1 device intrauterine ONCE 1 ea 0RF Malpositioned IUD NS T83.32XA - Displacement of intrauterine contraceptive device, initial encounter Coding Level of Care Code Est Pt Level 3 (45191) Procedure Only Diagnoses Malpositioned IUD T83.32XA CPT Codes Details - CPT: 96462-XDP Insertion ([id number]) Details - CPT: 90834-MUP Removal ([id number])
== END 2024-11-26 14:55 | disposition home or self-care (01) ==
LOC: HO.HWS 14:16
PROVIDERS: PCP Physician Assistant; Visit Provider Obstetrics & Gynecology
DX: T83.32XA Displacement of intrauterine contraceptive device, initial encounter (principal); Z32.02 Encounter for pregnancy test, result negative; Z30.430 Encounter for insertion of intrauterine contraceptive device
CPT/HCPCS: 58300; 58301

== ENCOUNTER 2024-12-14 13:58 | Outpatient (AMB) | payer OTHER, SELFPAY ==
--- NOTE | 2024-12-14 14:04 | A.OFFPC_ITS ---
Vital Signs 12/14/24 14:06 Height 5 ft 7 in Weight 221 lb 2 oz BMI 34.6 BP 90/68 Blood Pressure Location Lt brachial Position Sitting Temp 97.3 F Temp Source Temporal Artery Scan Intake Visit Reasons: follow up Developing Machine Operator Required: Yes Developing Machine Operator Language: Cmm Operator Name: ID # [id number] Accompanied by: Self / Same As Patient Allergies animal dander [ANIMAL DANDER] Allergy (Intermediate, Verified 12/14/24 14:22) RASH RYE Allergy (Intermediate, Uncoded 12/14/24 14:22) RASH plants Allergy (Mild, Uncoded 12/14/24 14:22) Rash wheat, grains, rye Allergy (Mild, Uncoded 12/14/24 14:22) Rash Medication List - Last Reconciled 12/14/24 by Anthony Bueno PA-C buspirone mg PO cholecalciferol (vitamin D3) 100 mcg (2 x 50 mcg (2,000 unit)) PO DAILY 90 days cyclobenzaprine 5 - 10 mg (1 - 2 x 5 mg) PO BEDTIME PRN 30 days duloxetine mg PO DAILY gabapentin 100 mg PO BID 30 days hydroxyzine HCl mg PO levothyroxine 50 mcg PO DAILY 90 days magnesium oxide 500 mg PO DAILY 90 days methocarbamol 750 mg PO Q8H PRN 30 days minoxidil 2% 1 mL topical BID 30 days naproxen 500 mg PO Q12H PRN 30 days propranolol 10 mg PO BID 90 days riboflavin (vitamin B2) 400 mg PO DAILY 90 days [RIGHT SHOULDER SLING As directed] rizatriptan 5 - 10 mg (0.5 - 1 x 10 mg) PO Q2H PRN 21 days simethicone (Gas Relief (simethicone)) 80 mg PO BID-QID PRN 15 days tirzepatide (weight loss) (Zepbound) 2.5 mg (0.5 mL) subcut QWEEK tirzepatide (weight loss) (Zepbound) 5 mg (0.5 mL) subcut QWEEK topiramate mg PO trazodone mg PO Tobacco use date assessed: 07/28/24 Dental Screening Dental Screen Date: 07/28/24 HPI follow up HPI Details Patient is a 34-year-old female here today for follow-up visit. Patient is Divehi-speaking only thus used a conference interpreter. Patient's past medical history significant for hypothyroidism, class 1 obesity, chronic pain complaints. Concerns--> patient reports upper back and neck pain that she relates to her weight of her breasts. She has had breast reduction surgery in the past though now has losing more weight and feels that her breasts are again too large for her body. She is considering another breast augmentation. She has woken to the idea of doing physical therapy for her upper back and neck. Bipolar disorder/ depression: She has now been established with a psychiatrist and now on new mental health medication including buspirone Topamax and Cymbalta. .. Class 2 obesity: She is followed by [facility], had tried phentermine though had side effect of dry mouth and increased thirst. She has been changed to a GLP 1 and has been able to lose weight. She denies any side effects from GLP 1 therapy. .. Hypothyroidism: Patient continues on levothyroxine 50 mcg, most recent TSH stable [facility] Medical History Obesity (BMI 30-39.9) Dysphagia Dysplasia of cervix, low grade (OMAR 1) Avulsion fracture of ankle Breast pain, left Left foot pain Obese Goiter Anxiety and depression Back pain Snoring IBS (irritable colon syndrome) Nasal congestion Cervical lymphadenopathy Vitamin D deficiency Lexi's disease Hypothyroidism Surgical History H/O tubal ligation Hx of colonoscopy H/O foot surgery History of lumpectomy of left breast History of 2 sections Family History Father No problems noted. 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 1. Little interest or pleasure in doing things: not at all 2. Feeling down, depressed, or hopeless: not at all 3. Trouble falling or staying asleep, or sleeping too much: several days 4. Feeling tired or having little energy: several days 5. Poor appetite or overeating: not at all 6. Feeling bad about yourself - or that you are a failure or have let yourself or your family down: not at all 7. Trouble concentrating on things, such as reading the newspaper or watching television: several days 8. Moving or speaking so slowly that other people could have noticed. Or the opposite - being so fidgety or restless that you have been moving around a lot more than usual: not at all 9. Thoughts that you would be better off or of hurting yourself in some way: not at all Total score: 3 Depression Screening Interpretation: Positive Depression Screening Follow-up: Existing condition Depression Screening Done: Yes 13373 - PHQ-9 Billing: Yes Source: Developed by Drs. Bartolome Alonso, Shelia Mccallum, Tim Beaulieu and colleagues, with an educational celeste from [employer]. Thrive Questionnaire Date Thrive assessed: 07/28/24 I am a: Patient What is your living situation today?: I have a steady place to live Within the past 12 months, did the food you bought not last and you didn't have the money to get more?: Sometimes True Within the past 12 months, did you worry whether your food would run out before you got money to buy more?: Sometimes True Do you have trouble paying for medicines?: No Do you have trouble getting transportation to medical appointments?: No Do you have trouble paying your heating and electricity bill?: No Do you have trouble taking care of your child, family member or friend?: No Do you have trouble with day-to-day activities such as bathing, preparing meals, shopping, managing finances, etc.?: No Are you currently unemployed and looking for a job?: Yes Are you interested in more education?: Yes Please select the resources that you would like help with: None Currently or been in a relationship where the following occur: No concerns reported THRIVE Score: 2 AUDIT C Alcohol Use Questionnaire (AUDIT-C) 1. How often do you have a drink containing alcohol?: Never Total Score: 0 CAMMY-7 AMB Questionnaire CAMMY-7 Date CAMMY - 7 assessed: 07/28/24 Feeling nervous, anxious, or on edge: 1 = Several days Not being able to stop or control worryin = Several days Worrying too much about different things: 1 = Several days Trouble relaxin = Several days Being so restless that it is hard to sit still: 1 = Several days Becoming easily annoyed or irritable: 1 = Several days Feeling afraid as if something awful might happen: 0 = Not at all Total CAMMY-7 score (0-4 normal; 5-9 mild; 10-14 moderate; 15-21 severe): 6 Source: Developed by Drs. Bartolome Alonso, Shelia Mccallum, Tim Beaulieu and colleagues, with an educational celeste from [employer]. Review of Systems Const Denies headache(s) Eyes Denies loss of vision ENT Denies vertigo, Denies dizziness, Denies headache(s) and Denies sore throat Card Denies chest pain, Denies leg edema and Denies lightheadedness Resp Denies cough, Denies hemoptysis and Denies wheezing GI Denies abdominal pain, Denies melena, Denies constipation, Denies diarrhea and Denies vomiting Denies urinary frequency, Denies dysuria and Denies urinary urgency Musc Denies arthralgias, Denies joint swelling, Denies numbness and Denies tingling Neuro Denies Abnormal speech present, Denies behavioral changes, Denies vertigo, Denies dizziness, Denies headache(s), Denies loss of vision, Denies memory loss, Denies numbness and Denies tingling Psych Denies anxiety, Denies behavioral changes, Denies depression, Denies memory loss and Denies panic attacks Cruz/Lymph Denies easy bleeding and Denies easy bruising Aller/Immun Denies wheezing Physical exam (Primary Care) Vital Signs: Last Vital Signs Temp 97.3 F 12/14/24 14:06 BP 90/68 12/14/24 14:06 BMI result Body Mass Index 34.6 BMI Assessment/Plan discussion: High BMI High, discussed plan: lifestyle, weight reduction, dietary and physical activity Tobacco/Smoking Status: Tobacco use Status Tobacco use date assessed 07/28/24 12/14/24 14:04 Patient Tobacco Use Status Never used Tobacco 12/14/24 14:04 Tobacco use type Cigarette 12/14/24 14:04 e-Cigarette/Vaping Use Never Used 12/14/24 14:04 PHQ-9: PHQ-9 Score PHQ-9: Total score 3 12/14/24 14:04 Depression Screening Interpretation: Positive Depression Screening Follow-up: Existing condition Thrive Assessment: Date of Thrive Assessment Date Thrive assessed 07/28/24 12/14/24 14:04 Currently or been in a relationship where the following occur: No concerns reported Const Other: Obese General: healthy appearing, no acute distress, alert and awake Nutritional Appearance: well nourished Orientation/consciousness: oriented to person, oriented to place and oriented to time HENMT Ears: TM's normal bilaterally General nose exam: Normal nasal mucous membranes and turbinates present Eyes Conjunctivae: conjunctivae normal Sclerae: sclerae normal Pupils: Equal, round and reactive pupils present Neck Neck: Yes no lymphadenopathy and Yes no JVD Thyroid: Thyroid normal Carotids: no bruits Resp Effort & Inspection: normal respiratory effort and not tachypneic Auscultation: no crackles, no rales, no rhonchi and no wheezes Cardio Rate: regular rate Rhythm: regular rhythm Heart sounds: no murmurs and normal S1 and S2 GI Palpation (GI): Soft to palpation, nontender, no hepatomegaly and no splenomegaly Auscultation: normal bowel sounds Skin General skin exam: no rashes or lesions noted and dry skin Neuro General: oriented to person, oriented to place and oriented to time Cranial nerves: Yes Equal, round and reactive pupils present Speech: No Abnormal speech present Gait exam (Neuro): Normal gait present Motor exam (neuro): no tremor noted Extrem Right upper extremity: full ROM Left upper extremity: full ROM Right lower extremity: full ROM; no edema Left lower extremity: full ROM; no edema Psych Mental Status: mental status grossly normal Speech and movement: Normal speech and movement present Affect: normal affect Attitude: cooperative Thought process: Normal thought process present Coding Level of Care Code Est Pt Level 4 (97418) Diagnoses 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 Will recheck TSH again to ensure normal readings. Of note has noted weight gain since last office visit. (2) Class 1 obesity: Code(s): E66.811 - Obesity, class 1 Category: Medical Plan: Patient has been able to lose weight with GLP 1 therapy. She is followed by the [facility] program (3) Cervicalgia: Code(s): M54.2 - Cervicalgia Category: Medical Plan: Patient reporting neck and upper back pain that she relates to her large breasts. She does report having breast augmentation surgery years ago and feels her breasts are still too large for her body as she is losing weight with a weight management program. She is considering breast reduction surgery again. I advised on doing physical therapy for her upper back and neck pain for now. Orders: Orders PT Evaluation and Treatment Today M54.2 - Cervicalgia Medications: Refilled cholecalciferol (vitamin D3) 100 mcg (2 x 50 mcg (2,000 unit)) PO DAILY 90 days 180 caps 1RF E55.9 - Vitamin D deficiency, unspecified levothyroxine 50 mcg PO DAILY 90 days 90 tabs 2RF E03.8 - Other specified hypothyroidism, E06.3 - Autoimmune thyroiditis magnesium oxide 500 mg PO DAILY 90 days 90 caps 1RF G43.109 - Migraine with aura, not intractable, without status migrainosus
[2024-12-14 14:06] VITALS: BP 90/68; TEMP 36.3; BMI 34.6
--- OUTSIDE RECORDS SUMMARY | 2024-12-14 16:05 | XMS_ITS | Clinical Summary ---
Author Organization [employer] Address [address] [place] [address] [address] [place] [address] Care Team Providers Care Grinder Set Up Operator Thread Name Role Phone Unavailable Primary Care Provider [...] Type Department Care Team Description 09/27/2024 Telephone [facility] MEDICINE [address] [place] [address] Chun Durán MD New patient appt. from [...] 2023-2 5 season) 2024 01/17/2023, 12/13/2020, 11/01/2020 Tobacco Screening 05/08/2024 05/08/2023 Influenza Vaccine (Season Ended) 2025 03/20/2018 DTaP/Tdap/Td Vaccines (2 - T d or [...] Years) and At-Risk Patients (6 to 49) Years Aged Out No longer eligible b ased on patient's age to complete this topic RSV under 20 months Aged Out No longe r eligible based on patient's age to complete this topic Rotavirus Vaccines Aged Out No longer eligible based on patient's age to complete this topic Procedures Procedure Name Priority Date/Time Associated Diagnosis Comments [facility]WNYA HISTORICAL HIV AB/AG Routine 07/29/2019 9:30 AM [...] detection of this assay. ?? [facility] [employer] Licensed [employer] Equipment Operator HIV Ag/Ab Combo assay result and supplemental assay results should be interpreted in conjunction with the patient's clinical presentation, history and other laboratory results. ??If the results are inconsistent with clinical evidence, additional testing is suggested to confirm the result. 07/29/2019 9:30 AM EST us Doretha Craven CNM HISTORICAL/NON ORDERABLE LABS Final Result [facility] Anywhere [address] from Last 3 Months or Most Recently Relevant to Health Maintenance Insurance [place] [id number]
== END 2024-12-14 15:37 | disposition home or self-care (01) ==
LOC: HO.HMCH 13:59
PROVIDERS: PCP Physician Assistant; Visit Provider Physician Assistant
DX: E03.8 Other specified hypothyroidism (principal); E06.3 Autoimmune thyroiditis; E66.811 Obesity, class 1; Z68.34 Body mass index [BMI] 34.0-34.9, adult; M54.2 Cervicalgia

== ENCOUNTER → 2024-12-14 13:58 | Outpatient (BNVA) | payer OTHER, SELFPAY | PROVIDERS: PCP Physician Assistant; Visit Provider Physician Assistant | DX: E66.812 Obesity, class 2 (principal); G89.29 Other chronic pain; M54.2 Cervicalgia; F31.9 Bipolar disorder, unspecified; E03.8 Other specified hypothyroidism; E06.3 Autoimmune thyroiditis; Z68.34 Body mass index [BMI] 34.0-34.9, adult | CPT/HCPCS: 96127; 99212 ==

== ENCOUNTER 2024-12-22 10:25 | Outpatient (AMB) | payer OTHER, SELFPAY ==
[2024-12-22 10:43] VITALS: BMI 34.6
--- NOTE | 2024-12-22 10:43 | A.OFFVIS_ITS ---
Vital Signs 12/22/24 10:43 Height 5 ft 7 in Weight 221 lb BMI 34.6 Intake Visit Reasons: EMB Stock Preparation Supervisor Required: Yes Stock Preparation Supervisor Language: Composition Roofer Services: Stock Preparation Supervisor Present (in person) Stock Preparation Supervisor Name: Karely CULVER Information Interpreted: non-clinical & clinical Restaurant Hostess: Restaurant Hostess Present (Karely CULVER) Accompanied by: Self / Same As Patient Allergies animal dander (ANIMAL DANDER) Allergy (Intermediate, Verified 12/22/24 10:45) RASH RYE Allergy (Intermediate, Uncoded 12/22/24 10:45) RASH plants Allergy (Mild, Uncoded 12/22/24 10:45) Rash wheat, grains, rye Allergy (Mild, Uncoded 12/22/24 10:45) Rash Is last menstrual period known: No (mirena) HPI Comments Details: Presenting for [facility] Medical History Obesity (BMI 30-39.9) Dysphagia Dysplasia of cervix, low grade (OMAR 1) Avulsion fracture of ankle Breast pain, left Left foot pain Obese Goiter Anxiety and depression Back pain Snoring IBS (irritable colon syndrome) Nasal congestion Cervical lymphadenopathy Vitamin D deficiency Lexi's disease Hypothyroidism Surgical History H/O tubal ligation Hx of colonoscopy H/O foot surgery History of lumpectomy of left breast History of 2 sections Family History Father No problems noted. 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 hysteroscopy D&C) & the risks were discussed with the patient including but not limited: pain, uterine perforation, bleeding, infection, possible injury to bladder, bowel, ureter, possible need for blood transfusion with all its possible risks. The patient verbalized understanding all questions answered and signed consent. Urine test done in the office was negative The patient was placed into the dorsal lithotomy position; a speculum was inserted in the vagina. Using aseptic technique for the procedure, the cervix was cleansed with Betadine. The anterior lip of the cervix was grasped with a single tooth tenaculum. The uterus was sounded to 7 cm with a 4 mm Pipelle was used. Tissues samples were obtained and placed in formalin, in a patient labeled container and sent to the pathology department. At the end of the procedure, there was minimal bleeding noted The patient tolerated the procedure well and was discharged in good condition with the following instructions: Nothing in the vagina until the bleeding stops. No sex until the bleeding stops, to call if any of the following occurs: fever (>100.4), flu-like symptoms, abdominal pain, heavy bleeding, four smelling vaginal discharge. The patient was instructed to schedule a Follow up appointment in 2 weeks to discuss pathology results of the biopsy and treatment options. This note was generated with a voice recognition program. Some errors may have been overlooked during the review of this note. Sometimes these errors may affect the content or meaning of a given sentence. [id number] Biopsy Results AMB Test Urine AMB Test Urine Negative Last Edit by Karely Quinn CMA on 10:48 Results Reviewed Results Reviewed: Laboratory Last Values Tst Clinic Negative 12/22/24 10:47 Assessment & Plan Assessment & Plan (1) Abnormal uterine bleeding (AUB): Comment: With Mirena IUD Code(s): N93.9 - Abnormal uterine and vaginal bleeding, unspecified Category: Medical Plan: EMB done, see procedure note Orders: Orders AMB HCG Urine Test Today Z32.02 - Encounter for test, result negative AMB Endometrial Biopsy Today N93.9 - Abnormal uterine and vaginal bleeding, unspecified Coding Level of Care Code Procedure Only Diagnoses Abnormal uterine bleeding (AUB) N93.9 CPT Codes Endometrial Biopsy - CPT: 29013-Rnfeqjhhdkg Biopsy ([id number])
--- OUTSIDE RECORDS SUMMARY | 2024-12-22 12:08 | XMS_ITS | Clinical Summary ---
Author Organization [employer] Address [address] [place] [address] [address] [place] [address] Care Team Providers Care Manager Furniture Name Role Phone Unavailable Primary Care Provider [...] Care Team Description 09/27/2024 Telephone [facility] [address] [place] [address] Chun Durán MD New patient appt. from [...] p24 Ag and/or HIV-1/HIV-2 Ab not detected. A test result that is nonreactive does not exclude the possibility of exposure to or infection with HIV-1 and/or HIV-2. Nonreactive results in this assay for individuals with prior exposure to HIV-1 and/or HIV-2 may be due to antigen and antibody levels that are below the limit of detection of this assay. The [employer] HIV Ag/Ab Combo assay result and supplemental assay results should be interpreted in conjunction with the patient's clinical presentation, history and other laboratory results. If the results are inconsistent with clinical evidence, additional testing is suggested to confirm the result. 07/29/2019 9:30 AM EST us Doretha Craven CNM HISTORICAL/NON ORDERABLE LABS Final Result [facility] Critical access hospital Anywhere [address] from Last 3 Months or Most Recently Relevant to Health Maintenance Insurance [facility]
== END 2024-12-22 11:02 | disposition home or self-care (01) ==
PROVIDERS: PCP Physician Assistant; Visit Provider Obstetrics & Gynecology
DX: N93.9 Abnormal uterine and vaginal bleeding, unspecified (principal); Z32.02 Encounter for pregnancy test, result negative
CPT/HCPCS: 58100

== ENCOUNTER 2024-12-22 10:25 | Outpatient (REF) | payer OTHER, SELFPAY | END 2024-12-22 10:26 | disposition home or self-care (01) | LOC: HO.LNP 10:25 | PROVIDERS: PCP Physician Assistant; Visit Provider Obstetrics & Gynecology | DX: N93.9 Abnormal uterine and vaginal bleeding, unspecified (principal) | CPT/HCPCS: 58100; 81025; 88305 ==

== ENCOUNTER 2025-01-03 09:46 | Emergency (ER) | payer OTHER, SELFPAY ==
[2025-01-03 10:04] VITALS: BP 112/69; PULSE 88; RESP 16; TEMP 36.4; O2SAT 97; BMI 33.7
--- NOTE | 2025-01-03 11:15 | ED_ITS ---
HPI - Neck Pain/Injury General Chief Complaint: Neck Pain/Injury Stated Complaint: Lump back of neck Time Seen by Provider: 01/03/25 11:07 Source: patient and sales representative rural [employer] Mode of arrival: ambulatory Limitations: no limitations History of Present Illness ED Provider: DR. 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 Patient feels a lump to her lower area of the right side of the neck. Related Data Home Medications ?Medication ?Instructions ?Recorded ?Confirmed buspirone 5 mg tablet mg PO 07/28/24 12/14/24 duloxetine 30 mg capsule,delayed mg PO DAILY 07/28/24 12/14/24 release hydroxyzine HCl 10 mg tablet mg PO 07/28/24 12/14/24 topiramate 25 mg tablet mg PO 07/28/24 12/14/24 trazodone 50 mg tablet mg PO 07/28/24 12/14/24 Previous Rx's ?Medication ?Instructions ?Recorded RIGHT SHOULDER SLING #1 ea 08/13/22 methocarbamol 750 mg tablet 750 mg PO Q8H PRN muscle s pasms 30 10/06/23 days #90 tabs cyclobenzaprine 5 mg tablet 5 - 10 mg (1 - 2 x 5 mg) P O 11/12/23 BEDTIME PRN muscle spasm 30 days #60 tabs riboflavin (vitamin B2) 400 mg 400 mg PO DAILY 90 days #90 tabs 11/12/23 tablet rizatriptan 10 mg tablet 5 - 10 mg (0.5 - 1 x 10 mg) PO Q2H 11/12/23 PRN migraine headache 21 days #12 tabs simethicone 80 mg chewable tablet 80 mg PO BID-QID PRN abdominal 05/13/24 (Gas Relief (simethicone)) distention 15 days #60 tabs naproxen 500 mg tablet,delayed 500 mg PO Q12H PRN pain 30 days 06/09/24 release #60 tabs minoxidil 2 % topical solution 1 ml topical BID 30 day s #120 mL 07/28/24 propranolol 10 mg tablet 10 mg PO BID 90 days #180 ta bs 09/09/24 tirzepatide (weight loss) 2.5 2.5 mg (0.5 mL) subcut Q WEEK #2 mL 11/24/24 mg/0.5 mL subcutaneous pen injector (Zepbound) gabapentin 100 mg capsule 100 mg PO BID 30 days #60 ca ps 11/25/24 tirzepatide (weight loss) 5 mg/0.5 5 mg (0.5 mL) subcu t QWEEK #2 mL 12/13/24 mL subcutaneous pen injector (Zepbound) cholecalciferol (vitamin D3) 50 100 mcg (2 x 50 mcg (2 ,000 unit)) 12/14/24 mcg (2,000 unit) capsule PO DAILY 90 days #180 caps levothyroxine 50 mcg tablet 50 mcg PO DAILY 90 days #9 0 tabs 12/14/24 magnesium oxide 500 mg capsule 500 mg PO DAILY 90 days #90 caps 12/14/24 cyclobenzaprine 10 mg tablet 10 mg PO BEDTIME PRN musc le spasm 01/03/25 #10 tabs ibuprofen 600 mg tablet 600 mg PO Q8H PRN pain #10 t abs 01/03/25 Allergies Allergy/AdvReac Type Severity Reaction Status Date / Time animal dander (ANIMAL DANDER) Allergy Intermediate RASH Verified 01/03/25 10:08 RYE Allergy Intermediate RASH Uncoded 12/22/24 10:45 plants Allergy Mild Rash Uncoded 12/22/24 10:45 wheat, grains, rye Allergy Mild Rash Uncoded 12/22/24 10:45 Review of Systems Review of Systems: All other systems are reviewed and are negative Constitutional: Reports as per HPI and Reports no additional constitutional complaints Eyes: Reports as per HPI and Reports no additional eye complaints Reports system reviewed and no additional complaints, except as documented Cardiovascular: Reports as per HPI and Reports no additional cardiovascular complaints Respiratory: Reports as per HPI and Reports no additional respiratory complaints Gastrointestinal: Reports as per HPI and Reports no additional gastrointestinal complaints Genitourinary: Reports no additional female genitourinary complaints Musculoskeletal: Reports no additional musculoskeletal complaints Skin/Breast: Reports system reviewed and no additional complaints, except as docu Psychiatric: Reports no additional psychiatric complaints Endocrine: Reports no additional endocrine complaints Hematologic/Lymphatic: Reports no additional hematologic/lymphatic complaints Allergic/Immunologic: Reports no additional allergic/immunologic complaints Reports system reviewed and no additional complaints, except as documented and Reports Abnormal speech present [facility] Past Medical History Medical History Obesity (BMI 30-39.9) Dysphagia Dysplasia of cervix, low grade (OMAR 1) Avulsion fracture of ankle Breast pain, left Left foot pain Obese Goiter Anxiety and depression Back pain Snoring IBS (irritable colon syndrome) Nasal congestion Cervical lymphadenopathy Vitamin D deficiency Lexi's disease Hypothyroidism Surgical History H/O tubal ligation Hx of colonoscopy H/O foot surgery History of lumpectomy of left breast History of 2 sections Family History Family History Father No problems noted. 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 Blood pressure elevated. Heart rate normal. Respiratory rate normal. Temperature normal. Oxygen saturation normal. Appearance: Alert. Oriented X3. No acute distress. Head: Normal external exam. Normocephalic. Atraumatic. No [place] signs noted. No raccoon eyes noted Eyes: PERRLA. EOMI. Conjunctiva and sclera normal. Eyelids normal. ENT: TM's Normal. Pharynx normal. Uvula midline. Moist mucous membranes. No trismus noted. No drooling noted. No muffled voice noted. Neck: Normal inspection. Neck supple. FROM. No adenopathy. Thyroid Normal. No meningeal signs. No neck mass noted. Mild tenderness at the right side base of the neck radiates down to the right shoulder, no palpable masses is appreciated, limited range of motion especially turning to the right side due to pain, pain is more woman patient look at the far left side or tried to turn to the right side. No step-off, no deformity of the cervical spine. CVS: Normal heart rate and rhythm. Heart sound normal. No murmurs noted. Pulses normal throughout. Respiratory: No respiratory distress. Painless inspiration. Breath sounds normal. No wheezes/rales/rhonchi noted. Chest nontender. No accessory muscle usage noted or decreased air movement noted. Abdomen: Soft and nontender. Bowel sounds normal in all 4 quadrants. No distention noted. No organomegaly noted. No visible injury noted. Back: No CVA tenderness. Full range of motion noted. Skin: Skin warm and dry. Normal skin color. Normal skin turgor. No rashes/lesions/lacerations noted. Extremities: No lower extremity edema. Extremities exhibit normal range of motion. Extremities nontender. Neuro: Mental status: Normal attention, orientation, memory, and affect. Cranial nerves: Pupils are equal, round and reactive to light, EOMI, visual myles are fall, face is symmetric, facial sensations are normal. Motor examination normal muscle tone, strength to 4 extremities. DTR are +2, planter's are flexor. Sensory exam; normal coordination, no ataxia, gait stable. Cerebellar exam: Ycfjbq-sj-[id number] and gjww-fs-kyis is normal. Extrapyramidal system: No tremors, no rigidity with normal facial expressions. Pronator drift not present Course Reevaluation(s) Reevaluation #1: [place] better after Toradol and cyclobenzaprine, no palpable mass in the patient's neck likely from rubbing the area to relieve the pain too much, normal neuro exam with no deficit. Patient was instructed to rest, heating pad, take NSAIDs if needed. Time: 12:30 Medical Decision Making Differential Diagnosis Differential Diagnoses: The differential diagnosis associated with the presentation includes (Cervical radiculopathy, neck trauma, abscess, mass, myofascial pain.) Admission/Observation Consideration of admission/observation: Escalation of care including admission/observation considered Discharge Plan Discharge Clinical Impression: Cervical radiculopathy Patient Disposition: Home, Self-Care Instructions: Cervical Radiculopathy (ED) Prescriptions: New cyclobenzaprine 10 mg tablet 10 mg PO BEDTIME PRN (Reason: muscle spasm) Qty: 10 0RF ibuprofen 600 mg tablet 600 mg PO Q8H PRN (Reason: pain) Qty: 10 0RF No Action simethicone [Gas Relief (simethicone)] 80 mg tablet,chewable 80 mg PO BID-QID PRN (Reason: abdominal distention) 15 Days Qty: 60 0RF naproxen 500 mg tablet,delayed release (DR/EC) 500 mg PO Q12H PRN (Reason: pain) 30 Days Qty: 60 1RF propranolol 10 mg tablet 10 mg PO BID 90 Days Qty: 180 1RF gabapentin 100 mg capsule 100 mg PO BID 30 Days Qty: 60 3RF Zepbound 5 mg/0.5 mL pen injector 5 mg subcut QWEEK Qty: 2 0RF (DME) RIGHT SHOULDER SLING See Rx Instructions .Route .MEDSUPPLY Qty: 1 0RF Rx Instructions: As directed cyclobenzaprine 5 mg tablet 5 - 10 mg PO BEDTIME PRN (Reason: muscle spasm) 30 Days Qty: 60 3RF riboflavin (vitamin B2) 400 mg tablet 400 mg PO DAILY 90 Days Qty: 90 1RF rizatriptan 10 mg tablet 5 - 10 mg PO Q2H PRN (Reason: migraine headache) 21 Days Qty: 12 6RF Rx Instructions: may take w/ Advil 600mg, max 2 tabs per day or 6 tabs per week Zepbound 2.5 mg/0.5 mL pen injector 2.5 mg subcut QWEEK Qty: 2 0RF Rx Instructions: for 4 weeks Mirena 21 mcg/24hr (up to 8 yrs) 52 mg intrauterine device 1 device intrauterine ONCE Qty: 1 0RF methocarbamol 750 mg tablet 750 mg PO Q8H PRN (Reason: muscle spasms) 30 Days Qty: 90 0RF trazodone 50 mg tablet PO topiramate 25 mg tablet PO buspirone 5 mg tablet PO duloxetine 30 mg capsule,delayed release(DR/EC) PO DAILY hydroxyzine HCl 10 mg tablet PO minoxidil 2 % solution 1 ml topical BID 30 Days Qty: 120 0RF cholecalciferol (vitamin D3) 50 mcg (2,000 unit) capsule 100 mcg PO DAILY 90 Days Qty: 180 1RF levothyroxine 50 mcg tablet 50 mcg PO DAILY 90 Days Qty: 90 2RF magnesium oxide 500 mg capsule 500 mg PO DAILY 90 Days Qty: 90 1RF Referrals: Anthony Bueno PA-C [Primary Care Provider, Internal Medicine] Stand Alone Forms: Work/School Release Print Language: Cymro
--- OUTSIDE RECORDS SUMMARY | 2025-01-03 11:48 | XMS_ITS | Clinical Summary ---
Author Organization [employer] Address [address] [place] [address] [address] [place] [address] Care Team Providers Care Hand Driller Name Role Phone Unavailable Primary Care Provider [...] Active Active Problems No known active problems Immunizations Immunization Administration Dates Next Due Moderna [...] 11/01/2020 Tobacco Screening 05/08/2024 05/08/2023 Influenza Vaccine (#1) 2025 03/20/2018 DTaP/Tdap/Td Vaccines (2 - T [...] Procedure Name Priority Date/Time Associated Diagnosis Comments [facility] HISTORICAL HIV AB/AG Routine 07/29/2019 9:30 AM [...] limit of detection of this assay. The [employer] Entry Level Automotive Technician HIV Ag/Ab Combo assay result and supplemental assay results should be interpreted in conjunction with the patient's clinical presentation, history and other laboratory results. If the results are inconsistent with clinical evidence, additional testing is suggested to confirm the result. 07/29/2019 9:30 AM EST us Doretha Craven CNM HISTORICAL/NON ORDERABLE LABS Final Result [facility] Anywhere [address] from Last 3 Months or Most Recently Relevant to Health Maintenance Insurance ACO
[2025-01-03 12:27] VITALS: BP 112/69; PULSE 88; RESP 16; TEMP 36.4; O2SAT 97
== END 2025-01-03 12:34 | disposition home or self-care (01) ==
PROVIDERS: Emergency Provider Emergency Medicine; PCP Physician Assistant
DX: M54.12 Radiculopathy, cervical region (principal); M79.601 Pain in right arm
CPT/HCPCS: 96372; 99284; J1885

== ENCOUNTER 2025-01-06 10:40 | Outpatient (AMB) | payer OTHER, SELFPAY ==
[2025-01-06 11:07] VITALS: BMI 33.7
--- NOTE | 2025-01-06 11:07 | A.OFFVIS_ITS ---
Vital Signs 01/06/25 11:07 Height 5 ft 7 in Weight 215 lb BMI 33.7 Intake Visit Reasons: IUD Check/EMB results Die Polisher Required: Yes Die Polisher Language: Professional Services Specialist Services: Die Polisher Present (in person) Die Polisher Name: Karely CULVER Information Interpreted: non-clinical & clinical Photocomposition Keyboard Operator: Photocomposition Keyboard Operator Present (Karely CULVER) Accompanied by: Self / Same As Patient Allergies animal dander (ANIMAL DANDER) Allergy (Intermediate, Verified 01/06/25 11:07) RASH RYE Allergy (Intermediate, Uncoded 01/06/25 11:07) RASH plants Allergy (Mild, Uncoded 01/06/25 11:07) Rash wheat, grains, rye Allergy (Mild, Uncoded 01/06/25 11:07) Rash HPI Comments Details: The patient is presenting after endometrial biopsy and IUD check. The patient has no complaints, no vaginal bleeding, no feverishness chills or abdominal pain. The endometrial biopsy pathology report showed the following: Endometrium, biopsy: Few superficial fragments of endocervical mucosa and epithelium within normal limits; mucoinflammatory material; definitive endometrial tissue identified. Comment: Consider repeat sampling, as clinically appropriate The patient has no complaints periods are normal, not painful, and flow is normal. [facility] Medical History Obesity (BMI 30-39.9) Dysphagia Dysplasia of cervix, low grade (OMAR 1) Avulsion fracture of ankle Breast pain, left Left foot pain Obese Goiter Anxiety and depression Back pain Snoring IBS (irritable colon syndrome) Nasal congestion Cervical lymphadenopathy Vitamin D deficiency Lexi's disease Hypothyroidism Surgical History H/O tubal ligation Hx of colonoscopy H/O foot surgery History of lumpectomy of left breast History of 2 sections Family History Father No problems noted. 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 Cognitive needs: No Hearing needs: No Vision needs: Yes Female Reproductive History Menstrual Age of Menarche: 14 Review of Systems Const All systems reviewed & are unremarkable except as noted in HPI and below Physical Exam Vital Signs: BMI result Body Mass Index 33.7 General: Yes no CVA tenderness External Female Exam: normal external appearance and normal appearance of the urethra Speculum Exam - Vagina: normal appearance of the vagina, normal palpation, no lesions and no masses Speculum Exam - Cervix: normal appearance of the cervix, normal palpation, no lesions, no masses, nontender and Other cervical findings present (IUD string in place) Bimanual exam- vagina & uterus: normal bimanual exam, normal palpation, uterine size normal, normal palpation, uterine shape normal, No Cervical tenderness present and non-tender Bimanual Exam- Adnexa, other: normal adnexae Back/Spine/Pelvis Back: no CVA tenderness Office Procedures Endometrial Biopsy Details: The patient was counseled regarding the indication and benefits of endometrial sampling to rule out endometrial pathology including not limited to endometrial hyperplasia or endometrial cancer and others; The alternatives (Either do nothing vs. hysteroscopy D&C) & the risks were discussed with the patient including but not limited: pain, uterine perforation, bleeding, infection, possible injury to bladder, bowel, ureter, possible need for blood transfusion with all its possible risks. The patient verbalized understanding all questions answered and signed consent. Urine test done in the office was negative The patient was placed into the dorsal lithotomy position; a speculum was inserted in the vagina. Using aseptic technique for the procedure, the cervix was cleansed with Betadine. The anterior lip of the cervix was grasped with a single tooth tenaculum. The uterus was sounded to 7 cm with a 4 mm Pipelle was used. Tissues samples were obtained and placed in formalin, in a patient labeled container and sent to the pathology department. At the end of the procedure, there was minimal bleeding noted The patient tolerated the procedure well and was discharged in good condition with the following instructions: Nothing in the vagina until the bleeding stops. No sex until the bleeding stops, to call if any of the following occurs: fever (>100.4), flu-like symptoms, abdominal pain, heavy bleeding, four smelling vaginal discharge. The patient was instructed to schedule a Follow up appointment in 2 weeks to discuss pathology results of the biopsy and treatment options. This note was generated with a voice recognition program. Some errors may have been overlooked during the review of this note. Sometimes these errors may affect the content or meaning of a given sentence. [id number] Biopsy Assessment & Plan Assessment & Plan (1) Abnormal uterine bleeding (AUB): Comment: With Mirena IUD Code(s): N93.9 - Abnormal uterine and vaginal bleeding, unspecified Category: Medical Plan: Explained to the patient that EMB was insufficient, recommended to the patient that the next step is an endometrial sampling via hysteroscopy D&C possible polypectomy versus endometrial biopsy to r/o endometrial pathology including hyperplasia or cancer. All the pros and cons risks and benefits of each approach were discussed with the patient, endometrial biopsy being less invasive, office procedure with less sensitivity and inability diagnose a polyp and removal versus hysteroscopy done under anesthesia more invasive more sensitive to endometrial cancer and possibility of diagnosing and endometrial polyp with the possibility of polypectomy. All questions were answered pt verbalized understanding and decided to proceed with endometrial biopsy, EMB done, see procedure note (2) IUD check up: Code(s): Z30.431 - Encounter for routine checking of intrauterine contraceptive device Category: Medical Plan: UPT done in the office was negative. Discussed with the patient the finding on physical exam, IUD string in place, the patient was reassured. Instructions given to patient to call in case of temperature above 100.4, severe cramping/pelvic pain, abnormal discharge or abnormal uterine bleeding or if she misses her menstrual cycle. Otherwise follow-up at her annual exam appointment. All questions answered, the patient verbalized understanding. Orders: Orders AMB Endometrial Biopsy Today N93.9 - Abnormal uterine and vaginal bleeding, unspecified Coding Level of Care Code Est Pt Level 3 (01979) Procedure Only Diagnoses Abnormal uterine bleeding (AUB) N93.9 IUD check up Z30.431 CPT Codes Endometrial Biopsy - CPT: 84651-Sgyryizsvxe Biopsy ([id number])
--- OUTSIDE RECORDS SUMMARY | 2025-01-06 11:21 | XMS_ITS | Clinical Summary ---
Author Organization [facility] Address [address] [place] [address] [address] [place] [address] Care Team Providers Care Stemming Machine Operator Name Role Phone Unavailable Primary [...] of detection of this assay. The [employer] Lubricator Granulator HIV Ag/Ab Combo assay result and supplemental assay results should be interpreted in conjunction with the patient's clinical presentation, history and other laboratory results. If the results are inconsistent with clinical evidence, additional testing is suggested to confirm the result. 07/29/2019 9:30 AM EST us Doretha Craven CNM HISTORICAL/NON ORDERABLE LABS Final Result [facility] from Last 3 Months or Most Recently Relevant to Health Maintenance Insurance ACO
== END 2025-01-06 11:50 | disposition home or self-care (01) ==
LOC: HO.HWS 10:40
PROVIDERS: PCP Physician Assistant; Visit Provider Obstetrics & Gynecology
DX: N93.9 Abnormal uterine and vaginal bleeding, unspecified (principal); Z30.431 Encounter for routine checking of intrauterine contraceptive device
CPT/HCPCS: 58100; 99213

== ENCOUNTER 2025-01-06 10:40 | Outpatient (REF) | payer OTHER, SELFPAY ==
--- OUTSIDE RECORDS SUMMARY | 2025-01-06 12:15 | XMS_ITS | Encounter Summary ---
Author Organization [facility] Address [address] [place] [address] Care Team Providers Care Retail Business Manager Name Role Phone Community, Pcp Primary Care Provider Unavailabl e Encounter Details Date Type Department Care Team Description 07/08/2018 Senior Oracle Applications Developer Report Medical Records [address] [place] [id number] Kavya Landry Social History Tobacco Use Types Packs/Day Years Used Date Smoking Tobacco: Never Assessed Sex Assigned at Date Recorded Not on file documented as of this encounter Plan of Treatment Not on file documented as of this encounter Visit Diagnoses Not on filedocumented in this encounter Care Teams Retail Business Manager Relationship Specialty Start Date End Date Community, Pcp PCP - General Internal Medicine 07/27/18 documented as of this encounter
== END 2025-01-06 10:41 | disposition home or self-care (01) ==
LOC: HO.LNP 10:40
PROVIDERS: PCP Physician Assistant; Visit Provider Obstetrics & Gynecology
DX: N93.9 Abnormal uterine and vaginal bleeding, unspecified (principal); Z30.431 Encounter for routine checking of intrauterine contraceptive device; Z32.02 Encounter for pregnancy test, result negative; Z98.51 Tubal ligation status
CPT/HCPCS: 58100; 88305; 99212

== ENCOUNTER 2025-01-12 15:13 | Outpatient (AMB) | payer OTHER, SELFPAY ==
[2025-01-12 15:16] VITALS: BMI 33.7
--- NOTE | 2025-01-12 15:16 | MHC.OFFVIS ---
Vital Signs 01/12/25 15:16 Height 5 ft 7 in Weight 215 lb BMI 33.7 Intake Visit Reasons: repeat emb Change Number Operator Required: Yes Change Number Operator Language: Division Engineer Services: Change Number Operator Present (in person) Change Number Operator Name: Karely CULVER Information Interpreted: non-clinical & clinical Accompanied by: Self / Same As Patient Allergies animal dander (ANIMAL DANDER) Allergy (Intermediate, Verified 01/12/25 15:17) RASH RYE Allergy (Intermediate, Uncoded 01/12/25 15:17) RASH plants Allergy (Mild, Uncoded 01/12/25 15:17) Rash wheat, grains, rye Allergy (Mild, Uncoded 01/12/25 15:17) Rash HPI Comments Details: The patient is presenting for follow-up to discuss the results of her abnormal uterine bleeding workup and options of treatment. The following workup was done.: H&H= within normal TSH, hCG, GC and chlamydia were negative. Co testing was done in 01/20 was ASCUS HPV positive, colpo biopsy ECC negative. Pelvic ultrasound showed malpositioned IUD, Mirena IUD was taken out and the new Mirena IUD inserted few weeks ago 2 EMB on 12/22 and 01/06 both showed no endometrial tissue PFSH Medical History Obesity (BMI 30-39.9) Dysphagia Dysplasia of cervix, low grade (OMAR 1) Avulsion fracture of ankle Breast pain, left Left foot pain Obese Goiter Anxiety and depression Back pain Snoring IBS (irritable colon syndrome) Nasal congestion Cervical lymphadenopathy Vitamin D deficiency Lexi's disease Hypothyroidism Surgical History H/O tubal ligation Hx of colonoscopy H/O foot surgery History of lumpectomy of left breast History of 2 sections Family History Father No problems noted. 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 Cognitive needs: No Hearing needs: No Vision needs: Yes Female Reproductive History Menstrual Age of Menarche: 14 Review of Systems Const All systems reviewed & are unremarkable except as noted in HPI and below Reports as per HPI and Reports no additional complaints GI Reports no additional complaints Reports no additional complaints Physical Exam Vital Signs: BMI result Body Mass Index 33.7 Assessment & Plan Assessment & Plan (1) Abnormal uterine bleeding (AUB): Comment: With Mirena IUD Code(s): N93.9 - Abnormal uterine and vaginal bleeding, unspecified Category: Medical Plan: Discussed with the patient the results of endometrial biopsy showing no endometrial tissues, recommended further endometrial testing. Recommended to the patient that the next step is an endometrial sampling via hysteroscopy D&C possible polypectomy versus endometrial biopsy to r/o endometrial pathology including hyperplasia or cancer. All the pros and cons risks and benefits of each approach were discussed with the patient, endometrial biopsy being less invasive, office procedure with less sensitivity and inability diagnose a polyp and removal versus hysteroscopy done under anesthesia more invasive more sensitive to endometrial cancer and possibility of diagnosing and endometrial polyp with the possibility of polypectomy. All questions were answered pt verbalized understanding and decided to proceed with endometrial biopsy with paracervical. The patient would like to come back . Instructions given the patient to schedule an appointment for co testing with EMB/paracervical block. All questions answered, the patient verbalized understanding Coding Level of Care Code Est Pt Level 3 (76925) Diagnoses Abnormal uterine bleeding (AUB) N93.9
--- OUTSIDE RECORDS SUMMARY | 2025-01-12 15:34 | XMS_ITS | Clinical Summary ---
Author Organization [facility] Address [address] [place] [address] [address] [place] [address] Care Team Providers Care Physically Impaired Teacher Name Role Phone Unavailable Primary Care [...] Use Screening 2002 Family Planning (PISQ) 2005 HPV Vaccines (1 - 3-dose series) 2005 Hepatitis C Screening 01/30/2008 Hepatitis B [...] * HIV AB/AG (07/29/2019 9:30 AM EST) [facility] HIV AG/AB NONREACTIVE NR FOUNDATI ON [...] of detection of this assay. The [employer] Boat Rigger HIV Ag/Ab Combo assay result and supplemental assay results should be interpreted in conjunction with the patient's clinical presentation, history and other laboratory results. If the results are inconsistent with clinical evidence, additional testing is suggested to confirm the result. 07/29/2019 9:30 AM EST us Doretha Craven CNM HISTORICAL/NON ORDERABLE LABS Final Result Performing Organization Address City/State/[facility] Co de Phone Number [facility] [address] from Last 3 Months or Most Recently Relevant to Health Maintenance Insurance ACO
== END 2025-01-12 15:31 | disposition home or self-care (01) ==
LOC: HO.HWS 15:14
PROVIDERS: PCP Physician Assistant; Visit Provider Obstetrics & Gynecology
DX: N93.9 Abnormal uterine and vaginal bleeding, unspecified (principal)
CPT/HCPCS: 99213

== ENCOUNTER → 2025-01-12 15:13 | Outpatient (BNVA) | payer OTHER, SELFPAY | PROVIDERS: PCP Physician Assistant; Visit Provider Obstetrics & Gynecology | DX: N93.9 Abnormal uterine and vaginal bleeding, unspecified (principal) | CPT/HCPCS: 99212 ==

== ENCOUNTER 2025-03-28 09:53 | Outpatient (REF) | payer OTHER, SELFPAY ==
[2025-03-28 13:35] LABS: Hematocrit 41.0 % (37.0-47.0); Hemoglobin 14.0 g/dl (12.0-16.0); Mean Corpuscular HGB Conc 34.1 g/dl (31.0-35.0); Mean Corpuscular Hemoglobin 31.0 pg (27.0-33.0); Mean Corpuscular Volume 90.7 fL (80.0-98.0); NRBC Abs Auto 0.000 X10*3/uL (0.0-0.012); NRBC Pct Auto 0.0 /100WBC (0.0-0.2); Platelet Count 318 X10*3/uL (160-400); Red Blood Count 4.52 X10*6/uL (4.20-5.50); White Blood Count 6.1 X10*3/uL (4.8-10.8)
== END 2025-03-28 09:54 | disposition home or self-care (01) ==
LOC: HO.LAB 09:53
PROVIDERS: PCP Physician Assistant; Visit Provider Physician Assistant
DX: Z00.00 Encounter for general adult medical examination without abnormal findings (principal); E06.3 Autoimmune thyroiditis; E55.9 Vitamin D deficiency, unspecified; D64.9 Anemia, unspecified; E03.8 Other specified hypothyroidism; E66.811 Obesity, class 1; K62.9 Disease of anus and rectum, unspecified; R15.9 Full incontinence of feces; L98.7 Excessive and redundant skin and subcutaneous tissue; L65.9 Nonscarring hair loss, unspecified; Z79.890 Hormone replacement therapy; Z79.899 Other long term (current) drug therapy; Z68.29 Body mass index [BMI] 29.0-29.9, adult
CPT/HCPCS: 36415; 82306; 84443; 85027; 99395

== ENCOUNTER 2025-03-28 09:53 | Outpatient (AMB) | payer OTHER, SELFPAY ==
--- NOTE | 2025-03-28 10:14 | A.OFFPC_ITS ---
Vital Signs 03/28/25 10:15 Height 5 ft 7 in Weight 186 lb BMI 29.1 BP 136/60 Blood Pressure Location Lt brachial Position Sitting Temp 97.1 F Temp Source Temporal Artery Scan Intake Visit Reasons: ANNUAL Intake Note: Patient is here today for a physical. Gun Numberer Required: Yes Gun Numberer Name: Ronal ([id number]) Information Interpreted: non-clinical & clinical Car Rental Agent: Not Required per policy Accompanied by: Self / Same As Patient Allergies animal dander (ANIMAL DANDER) Allergy (Intermediate, Verified 03/28/25 10:42) RASH RYE Allergy (Intermediate, Uncoded 03/28/25 10:42) RASH plants Allergy (Mild, Uncoded 03/28/25 10:42) Rash wheat, grains, rye Allergy (Mild, Uncoded 03/28/25 10:42) Rash Medication List - Last Reconciled 03/28/25 by Anthony Bueno PA-C buspirone mg PO duloxetine mg PO DAILY gabapentin 100 mg PO BID 30 days hydroxyzine HCl mg PO ibuprofen 600 mg PO Q8H PRN levothyroxine 50 mcg PO DAILY 90 days magnesium oxide 500 mg PO DAILY 90 days methocarbamol 750 mg PO Q8H PRN 30 days naproxen 500 mg PO Q12H PRN 30 days propranolol 10 mg PO BID 90 days [RIGHT SHOULDER SLING As directed] simethicone (Gas Relief (simethicone)) 80 mg PO BID-QID PRN 15 days tirzepatide (weight loss) (Zepbound) 12.5 mg (0.5 mL) subcut QWEEK topiramate mg PO trazodone mg PO Tobacco use date assessed: 03/28/25 Dental Screening Dental Screen Date: 07/28/24 HPI ANNUAL HPI Details Patient is a 35-year-old female here today for routine annual physical. 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 Patient's past medical history significant for hypothyroidism, class 1 obesity, chronic pain complaints. Concern-- > The fecal incontinence began last month and is characterized by an inability to control bowel movements, resulting in accidents, particularly when outside or in public places. The patient describes the stool as soft and reports associated diarrhea, which exacerbates the incontinence. A previous colonoscopy in 2019 indicated an irritated colon, and medication was prescribed but later discontinued without significant improvement. Hair loss has been progressively worsening, with the patient noting more hair loss than usual. The patient has expressed concern about this symptom, which has not been alleviated by any interventions thus far. The patient experiences dizziness upon standing, described as a sensation of lightheadedness rather than a feeling of impending fainting. This symptom has been persistent and is concerning to the patient. Bipolar disorder/ depression: She has now been established with a psychiatrist and now on new mental health medication including buspirone Topamax and Cymbalta. .. History of obesity: Patient now on GLP 1 and has been able to lose significant amount of weight. Today's BMI at 29.1. She is asking to be seen by a different bariatric program as she feels her weight stable at this point though weight management recommending her p.o. 150 lb. She is also interested in getting evaluation for removal of excess skin over her abdomen .. Hypothyroidism: Patient continues on levothyroxine 50 mcg, most recent TSH stable Vaccines: Up-to-date with COVID vaccine, tetanus vaccine Developmental Specialist:Routine Pap screenings are recommended, although the patient has missed appointments due to fear of biopsies due to positive HPV. [facility] Medical History (Updated 03/28/25 @ 13:23 by Anthony Bueno PA-C) Pituitary microadenoma BMI 31.0-31.9,adult BMI 33.0-33.9,adult Obesity (BMI 30-39.9) Dysphagia Dysplasia of cervix, low grade (OMAR 1) Avulsion fracture of ankle Breast pain, left Left foot pain Obese Goiter Anxiety and depression Back pain Snoring IBS (irritable colon syndrome) Nasal congestion Cervical lymphadenopathy Vitamin D deficiency Lexi's disease Hypothyroidism Surgical History H/O tubal ligation Hx of colonoscopy H/O foot surgery History of lumpectomy of left breast History of 2 sections Family History (Updated 03/28/25 @ 10:50 by Anthony Bueno PA-C) Father No problems noted. Mother HTN (hypertension) Diabetes Alzheimer dementia Maternal Grandmother Diabetes HTN (hypertension) Social History (Updated 03/28/25 @ 10:51 by Anthony Beuno PA-C) Household Members: Children Household Members Other:: 2 children--8 and 10 yr old Housing: Apartment Alcohol intake: current Alcohol intake frequency: holidays/special occasions only Alcohol type: beer Patient Tobacco Use Status: Never used Tobacco Tobacco use type: Cigarette e-Cigarette/Vaping Use: Never Used Second Hand Smoke Exposure: No service: No Current occupational status: employed 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 - [employer] Cognitive needs: No Hearing needs: No Vision needs: Yes Female Reproductive History Menstrual Age of Menarche: 14 Questionnaire Thrive Questionnaire Date Thrive assessed: 12/14/24 I am a: Patient What is your living situation today?: I have a steady place to live Within the past 12 months, did the food you bought not last and you didn't have the money to get more?: Sometimes True Within the past 12 months, did you worry whether your food would run out before you got money to buy more?: Sometimes True Do you have trouble paying for medicines?: No Do you have trouble getting transportation to medical appointments?: No Do you have trouble paying your heating and electricity bill?: No Do you have trouble taking care of your child, family member or friend?: No Do you have trouble with day-to-day activities such as bathing, preparing meals, shopping, managing finances, etc.?: No Are you currently unemployed and looking for a job?: Yes Are you interested in more education?: Yes Please select the resources that you would like help with: None Currently or been in a relationship where the following occur: No concerns reported THRIVE Score: 2 CAMMY-7 AMB Questionnaire CAMMY-7 Date CAMMY - 7 assessed: 07/28/24 Source: Developed by Drs. Bartolome Alonso, Shelia Mccallum, Tim Beaulieu and colleagues, with an educational celeste from [employer]. Review of Systems Const Denies body aches, Denies chills, Denies excessive sweating, Denies fatigue, De nies fever(s) and Denies headache(s) Eyes Denies blurry vision ENT Denies dysphagia, Denies vertigo, Denies dizziness, Denies headache(s), Denies hearing loss and Denies tinnitus Card Denies chest pain, Denies chest pain with activity, Denies syncope, Denies irregular heart rhythm and Denies dyspnea Resp Denies chest congestion, Denies cough, Denies hemoptysis, Denies dyspnea and Denies wheezing GI Denies abdominal pain, Denies melena, Denies hematochezia, Denies coffee ground emesis, Denies dysphagia, Denies diarrhea, Denies nausea and Denies vomiting Denies urinary frequency, Denies dysuria, Denies urinary hesitancy and Denies urinary urgency Musc Denies arthralgias, Denies limited range of motion, Denies muscle cramps and Denies muscle weakness Skin/Breast Denies rash and Denies skin ulcer Neuro Denies Abnormal speech present, Denies confusion, Denies vertigo, Denies dizziness, Denies syncope, Denies headache(s), Denies memory loss and Denies seizure-like activity Psych Denies anxiety, Denies confusion, Denies depression, Denies memory loss, Denies panic attacks and Denies paranoia Endo Denies excessive sweating, Denies fatigue, Denies flushing, Denies polydipsia and Denies polyuria Aller/Immun Denies wheezing Physical exam (Primary Care) Vital Signs: Last Vital Signs Temp 97.1 F 03/28/25 10:15 BP 136/60 03/28/25 10:15 BMI result Body Mass Index 29.1 Tobacco/Smoking Status: Tobacco use Status Tobacco use date assessed 03/28/25 03/28/25 10:28 Patient Tobacco Use Status Never used Tobacco 03/28/25 10:51 Tobacco use type Cigarette 03/28/25 10:51 e-Cigarette/Vaping Use Never Used 03/28/25 10:51 Thrive Assessment: Date of Thrive Assessment Date Thrive assessed 12/14/24 03/28/25 10:28 Currently or been in a relationship where the following occur: No concerns reported Const General: cooperative, comfortable, no acute distress, alert and awake; No confusion Orientation/consciousness: oriented to person, oriented to place, patient oriented x3 and No confusion HENMT Head: Yes normocephalic Ears: external ears normal and TM's normal bilaterally Face and sinus: No sinus tenderness Mouth: Normal oral and palatal mucosa present and tongue normal Teeth and gingiva: dentition normal and gingiva normal Throat: Yes posterior oropharynx normal, Yes tonsils normal and Yes uvula midline Eyes Conjunctivae: conjunctivae normal Sclerae: sclerae normal Pupils: Equal, round and reactive pupils present EOM: EOMs intact bilaterally Direct Ophthalmoscopy: No no photophobia Neck Neck: Yes no lymphadenopathy, No tender and Yes no JVD Thyroid: Thyroid normal Carotids: no bruits Chest Chest palpation & inspection: no tenderness Resp Effort & Inspection: normal respiratory effort, no audible wheezes, not labored and no stridor Auscultation: no crackles, no rales, no rhonchi and no wheezes Cardio Jugular venous distension: no JVD Rate: regular rate, not bradycardic and not tachycardic Rhythm: regular rhythm Bruits: no carotid bruits Peripheral pulses: Peripheral pulses 2+ throughout GI Inspection: Yes normal to inspection, No abdominal wall ecchymosis and No visible herniation Palpation (GI): Soft to palpation, nontender, no guarding, not rigid and No hepatosplenomegaly present Auscultation: normoactive bowel sounds General: Yes no CVA tenderness Back/Spine/Pelvis Back: no CVA tenderness and No back tenderness Cervical Spine: cervical ROM normal Thoracic/Lumbar Spine: thoracic and lumbar spine normal to inspection, straight leg raise negative bilaterally, No thoraco-lumbar ROM limited and No lumbar spinal tenderness Skin Lesions: no lesions Rashes: no rashes Wounds: no wounds Neuro General: oriented to person, oriented to place, patient oriented x3, CN's II-XI intact bilaterally and No confusion Cranial nerves: Yes Equal, round and reactive pupils present and Yes Normal accommodation reflex present Cognition (Neuro): normal cognition Speech: No Abnormal speech present Gait exam (Neuro): Normal gait present Motor exam (neuro): 5/5 motor strength present throughout Extrem Right upper extremity: full ROM; no cyanosis Left upper extremity: full ROM; no cyanosis Right lower extremity: no edema Left lower extremity: no edema Psych Appearance: grossly normal Mental Status: mental status grossly normal Affect: normal affect Attitude: cooperative Thought process: Normal thought process present Coding Level of Care Code Est Pt Prev Care 18-39y(30840) Diagnoses Annual physical exam Z00.00 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 Class 1 obesity E66.811 Fecal incontinence due to anorectal disorder K62.9; R15.9 Excessive skin and subcutaneous tissue L98.7 Hair loss L65.9 Assessment & Plan Assessment & Plan (1) Annual physical exam: Code(s): Z00.00 - Encounter for general adult medical examination without abnormal findings Category: Medical Plan: as per HPI (2) Hypothyroidism: Code(s): E03.9 - Hypothyroidism, unspecified Category: Medical Qualifiers: Hypothyroidism type: due to Lexi's thyroiditis Qualified Code(s): E03.8 - Other specified hypothyroidism; E06.3 - Autoimmune thyroiditis Plan: As above patient's most recent TSH has been stable she continues on levothyroxine 50 mcg. Will recheck TSH again to ensure normal readings. Of note has noted weight gain since last office visit. (3) Class 1 obesity: Code(s): E66.811 - Obesity, class 1 Category: Medical Plan: Patient has been able to lose weight with GLP 1 therapy. She is followed by the [facility] program. She is interested in his establishing care with a dietitian to discuss a good diet plan for her as she does not feel well on the current diet plan Has a 2nd opinion appointment with [facility] program in August of 2025 (4) Fecal incontinence due to anorectal disorder: Code(s): K62.9 - Disease of anus and rectum, unspecified; R15.9 - Full incontinence of feces Category: Medical Plan: For the management of fecal incontinence, a referral to a leguillon debeader will be made to further evaluate the condition and consider a colonoscopy or sigmoidoscopy to assess the underlying cause. A medication will be prescribed to help slow down bowel movements and reduce the frequency of accidents. (5) Excessive skin and subcutaneous tissue: Code(s): L98.7 - Excessive and redundant skin and subcutaneous tissue Category: Medical Plan: Patient interested in seeing plastic surgeon for evaluation of a possible panniculectomy. She does have a history of low back pain and skin irritation under abdominal skin folds (6) Hair loss: Code(s): L65.9 - Nonscarring hair loss, unspecified Category: Medical Plan: Regarding hair loss, a referral to a excel developer will be arranged to explore potential causes and treatment options. Orders: Orders TSH reflex Free T4 03/28/25 E06.3 - Autoimmune thyroiditis Calprotectin, Fecal 03/28/25 K62.9 - Disease of anus and rectum, unspecified, R15.9 - Full incontinence of feces Pancreatic Elastase-1 03/28/25 K62.9 - Disease of anus and rectum, unspecified, R15.9 - Full incontinence of feces PT Evaluation and Treatment 03/28/25 K62.9 - Disease of anus and rectum, unspecified, R15.9 - Full incontinence of feces Complete Blood Count no Diff 03/28/25 D64.9 - Anemia, unspecified GI Panel 03/28/25 R19.5 - Other fecal abnormalities Vitamin D 25-OH Total 03/28/25 E55.9 - Vitamin D deficiency, unspecified Fecal Fat Qualitative 03/28/25 K62.9 - Disease of anus and rectum, unspecified, R15.9 - Full incontinence of feces Referrals Plastic Surgery Referral L98.7 - Excessive and redundant skin and subcutaneous tissue Dermatology Referral L65.9 - Nonscarring hair loss, unspecified Gastroenterology Referral K62.9 - Disease of anus and rectum, unspecified, R15.9 - Full incontinence of feces Nutrition/Dietitian Referral E03.8 - Other specified hypothyroidism, E06.3 - Autoimmune thyroiditis, E66.9 - Obesity, unspecified Medications: New loperamide 2 mg PO BID 60 caps 3RF loose stool 30 days K62.9 - Disease of anus and rectum, unspecified, R15.9 - Full incontinence of feces, R19.7 - Diarrhea, unspecified Refilled ibuprofen 600 mg PO Q8H PRN 10 tabs 0RF pain naproxen 500 mg PO Q12H PRN 60 tabs 1RF pain 30 days M54.50 - Low back pain, unspecified simethicone (Gas Relief (simethicone)) 80 mg PO BID-QID PRN 60 tabs 0RF abdominal distention 15 days gabapentin 100 mg PO BID 60 caps 3RF 30 days M79.7 - Fibromyalgia magnesium oxide 500 mg PO DAILY 90 caps 1RF 90 days G43.109 - Migraine with aura, not intractable, without status migrainosus methocarbamol 750 mg PO Q8H PRN 90 tabs 0RF muscle spasms 30 days M62.830 - Muscle spasm of back
[2025-03-28 10:15] VITALS: BP 136/60; TEMP 36.2; BMI 29.1
--- OUTSIDE RECORDS SUMMARY | 2025-03-28 10:52 | XMS_ITS | Clinical Summary ---
Author Organization [address] [facility] Address [address] [place] [address] Phone Care Team Providers Care Partnership Marketing Manager Name Role Phone Anu Macias MD Primary Care Provider [phone] Surgical History Surgery Date Site/Laterality Comments OTHER SURGICAL HISTORY 05/03/2018 Right PROCEDURE: [place] CORRECTION [facility]; COMMENT: Dr. Wilburn Medical History Medical History Date Comments Anxiety and depression 10/29/2018 DX:Anxiet y and depression Chronic right-sided low back pain 10/29/2018 DX:Chronic right-sided low back pain Vitamin B12 deficiency 10/29/2018 DX:Vitami n B12 deficiency Chronic tension headache 10/29/2018 DX:Prosthetic Technician nick tension headache Iron deficiency anemia 10/29/2018 DX:Iron d eficiency anemia Social History Tobacco Use Types Packs/Day Years Used Date Smoking Tobacco: Never Smokeless Tobacco: Never Alcohol Use Standard Drinks/Week Comments No 0 (1 standard drink = 0.6 oz pur e alcohol) Comments Unknown Sex and Gender Information Value Date Recorded Sex Assigned at Not on file Legal Sex Female 1:34 AM EST Gender Identity Not on file Sexual Orientation Not on file Obstetrics History Plan of Treatment Upcoming Encounters Date Type Department Care Team (Late st Contact Info) Description 08/30/2025 3:45 PM EST Office Visit Bariatric Surgery [facility] [address] [facility] [address] [place] [address] Hira William MD [address] [place] [phone] Health Maintenance Due Date Last Done Comments DTaP,Tdap,and Td Vaccines (1 - Tdap) 2009 Hepatitis B Vaccines (1 of 3 - 19+ 3-dose series) 2009 Cervical Cancer Screening: P ap Smear 2011 HPV Vaccines (1 - 3-dose SCD M series) 2017 Depression Screening 06/30/2024 HIV Screening 11/26/2024 Hepatitis C Screening 11/26/2024 Social Influencers of Health Screening 11/26/2024 COVID-19 Vaccine (1 - 2023-2 5 season) 2025 Influenza Vaccine (#1) 2025 RSV Immunization Adult Patie nts (1 - 1-dose 75+ series) 2065 HIB Vaccines Aged Out No longer eligi ble based on patient's age to complete this topic Hepatitis A Vaccines Aged Out No long er eligible based on patient's age to complete this topic IPV Vaccines Aged Out No longer eligi ble based on patient's age to complete this topic MMR Vaccines Aged Out No longer eligi ble based on patient's age to complete this topic Meningococcal ACWY Vaccine Aged Out N o longer eligible based on patient's age to complete this topic Meningococcal B Vaccine Aged Out No l onger eligible based on patient's age to complete this topic Pneumococcal Vaccine: Pediat rics (0 to 5 Years) and At-Risk Patients (6 to 49 Years) Aged Out No longer eligible b ased on patient's age to complete this topic RSV Immunization Patients Un mack 20 months Aged Out No longer eligible b ased on patient's age to complete this topic Varicella Vaccines Aged Out No longer eligible based on patient's age to complete this topic Insurance [facility] Care Teams Partnership Marketing Manager Relationship Specialty Start Date End Date Anu Macias MD [address] [facility] [address] [facility] [address], [address] [facility] D/B/A: Xavier Huizar In Internal Medicine [place] PCP - General Internal Medicine 11/26/24
--- OUTSIDE RECORDS SUMMARY | 2025-03-28 10:52 | XMS_ITS | Clinical Summary ---
Author Organization [employer] Address [address] [place] [address] [address] [place] [address] Care Team Providers Care Bow Maker Name Role Phone Unavailable Primary Care Provider [...] 08/27/2019 12:02 AM EST Plan of Treatment Upcoming Encounters Date Type Department Care Team (Late st Contact Info) Description 05/16/2025 3:30 PM EST Office Visit [facility] [address] [place] [address] Parisa Culver, OD [address] [place] [address] Health Maintenance Due Date Last Done Comments Depression Screening 1990 SDOH Screening 1990 Disability Screening 1990 Alcohol/Substance Use Screening 2002 Family Planning (PISQ) 2005 HPV Vaccines (1 - 3-dose series) 2005 Hepatitis C Screening 01/30/2008 Hepatitis B Vaccines (1 of 3 - 19+ 3-dose series) 2009 Pap Smear 2011 Cervical Cancer Screening 01/30/2020 HPV/Cotest 01/30/2020 Tobacco Screening 05/08/2024 05/08/2023 COVID-19 Vaccine (4 - 2024-2 6 season) 2025 01/17/2023, 12/13/2020, 11/01/2020 Influenza Vaccine (#1) 2025 03/20/2018 DTaP/Tdap/Td Vaccines [...] of detection of this assay. [employer] Software Analyst HIV Ag/Ab Combo assay result and supplemental assay results should be interpreted in conjunction with the patient's clinical presentation, history and other laboratory results. If the results are inconsistent with clinical evidence, additional testing is suggested to confirm the result. 07/29/2019 9:30 AM EST Doretha Craven CNM HISTORICAL/NON ORDERABLE LABS Final Result [facility]where [address] from Last 3 Months or Most Recently Relevant to Health Maintenance Insurance [facility]
== END 2025-03-28 12:36 | disposition home or self-care (01) ==
LOC: HO.HMCH 09:53
PROVIDERS: PCP Physician Assistant; Visit Provider Physician Assistant
DX: Z00.00 Encounter for general adult medical examination without abnormal findings (principal); E06.3 Autoimmune thyroiditis; E66.811 Obesity, class 1; Z68.29 Body mass index [BMI] 29.0-29.9, adult; E03.8 Other specified hypothyroidism; K62.9 Disease of anus and rectum, unspecified; R15.9 Full incontinence of feces; L98.7 Excessive and redundant skin and subcutaneous tissue; L65.9 Nonscarring hair loss, unspecified

== ENCOUNTER 2025-04-01 08:08 | Inpatient (IN) | payer OTHER, SELFPAY ==
[2025-04-01] VITALS (9 sets, daily range): BP systolic 94–112; BP diastolic 57–71; PULSE 77–93; RESP 16–25; TEMP 36.2–36.8; O2SAT 95–100; BMI 25.8
--- NOTE | ~2025-04-01 | US_ITS ---
EXAMINATION: US ABDOMEN LIMITED CLINICAL INFORMATION: Right upper quadrant pain. GB and CBD only please COMPARISON: 03/09/2024 CT abdomen and pelvis TECHNIQUE: Real-time imaging of the right upper quadrant abdominal viscera. FINDINGS: LIVER: There is limited visualization of the liver. Visible portions appear homogeneous and unremarkable. GALLBLADDER: There is an echogenic focus within the gallbladder that does not shadow measuring 7 mm probably representing a polyp. Additionally, there are echogenic foci that do shadow consistent with a few stones. There is also comet tail artifact involving portions of the anterior wall. Wall is irregular with some areas measuring 2 mm thick and other areas measuring 8 mm thick. There is likely trace fluid within the thickened portions of the wall. COMMON BILE DUCT: Normal in caliber measuring 0.2 cm in diameter. FREE FLUID: None. US/US abdomen limited IMPRESSION: Suspected cholecystitis: There are gallstones, at least one polyp, and possible underlying adenomyosis. Additionally, the gallbladder wall is irregular with normal areas and areas of thickening with possible trace fluid in the thickened wall of the gallbladder. No biliary ductal dilation was documented. Electronically signed by: Daniel Rudolph MD 04/01/2025 12:12 PM EDT
[2025-04-01 08:25] LABS: MANUAL DIFF FLAG NO
[2025-04-01 08:28] LABS: Hematocrit 42.6 % (37.0-47.0); Hemoglobin 14.8 g/dl (12.0-16.0); Imm Gran Abs Auto 0.03 X10*3/uL (0.00-0.03); Imm Gran Pct Auto 0.3 % (0.0-0.4); Lymphocytes Absolute Auto 0.9 X10*3/uL (1.2-4.9); Mean Corpuscular HGB Conc 34.7 g/dl (31.0-35.0); Mean Corpuscular Hemoglobin 30.8 pg (27.0-33.0); Mean Corpuscular Volume 88.8 fL (80.0-98.0); NRBC Abs Auto 0.000 X10*3/uL (0.0-0.012); NRBC Pct Auto 0.0 /100WBC (0.0-0.2); Platelet Count 347 X10*3/uL (160-400); Red Blood Count 4.80 X10*6/uL (4.20-5.50); White Blood Count 11.2 X10*3/uL (4.8-10.8)
--- OUTSIDE RECORDS SUMMARY | 2025-04-01 08:39 | XMS_ITS | Clinical Summary ---
Author Organization 175 [facility] Address [address] [place] [address] Phone Care Team Providers Care Disk Recordist Name Role Phone Anu Macias MD Primary Care Provider [phone] Surgical History Surgery Date Site/Laterality Comments OTHER SURGICAL HISTORY 05/03/2018 Right PROCEDURE: [place] CORRECTION [facility]; COMMENT: Dr. Wilburn Medical History Medical History Date Comments Anxiety and depression 10/29/2018 DX:Anxiet y and depression Chronic right-sided low back pain 10/29/2018 DX:Chronic right-sided low back pain Vitamin B12 deficiency 10/29/2018 DX:Vitami n B12 deficiency Chronic tension headache 10/29/2018 DX:Dental Detail Representative nick tension headache Iron deficiency anemia 10/29/2018 [...] 3:45 PM EST Office Visit Bariatric Surgery [facility] [address] [facility] [address] [place] [address] Hira William MD [address] [place] [phone] Health Maintenance Due Date Last Done [...] patient's age to complete this topic Insurance [place] [address] Care Teams Disk Recordist Relationship Specialty Start Date End Date Anu Macias MD [address] [facility] [address] [facility] D/B/A: Xavier [facility] Internal [facility] [place] PCP - General Internal Medicine 11/26/24
--- OUTSIDE RECORDS SUMMARY | 2025-04-01 08:39 | XMS_ITS | Clinical Summary ---
Author Organization [employer] Address [address] [place] [address] [address] [place] [address] Care Team Providers Care Fire Coordinator Name Role Phone Unavailable Primary Care Provider [...] Description 05/16/2025 3:30 PM EST Office Visit [facility] [address] [place] [address] Parisa Culver, OD [address] [place] [address] Health Maintenance Due Date Last Done Comments [...] of detection of this assay. [employer] Sales Manager HIV Ag/Ab Combo assay result and supplemental assay results should be interpreted in conjunction with the patient's clinical presentation, history and other laboratory results. If the results are inconsistent with clinical evidence, additional testing is suggested to confirm the result. 07/29/2019 9:30 AM EST Doretha Craven CNM HISTORICAL/NON ORDERABLE LABS Final Result [facility] Anywhere [address] from Last 3 Months or Most Recently Relevant to Health Maintenance Insurance [facility]
[2025-04-01 08:50] LABS: Alanine Aminotransferase 17 U/L (0-31); Albumin Level 4.4 g/dL (3.5-5.0); Anion Gap 11 (12-20); Aspartate Amino Transferase 24 U/L (5-31); Blood Urea Nitrogen 9 mg/dL (9-16); Calcium 9.0 mg/dL (8.4-10.2); Carbon Dioxide 19 mmol/L (22-29); Chloride 113 mmol/L (96-108); Creatinine Clr Calc Pharmacy 110.5; Estimated Glomerular Filt Rate > 60; Lipase 47 U/L (8-78); Potassium 3.8 mmol/L (3.3-5.1); Sodium 139 mmol/L (135-145); Total Protein 7.9 g/dL (6.5-8.0)
[2025-04-01 08:59] LABS: Alkaline Phosphatase 39 U/L (39-117)
[2025-04-01] MEDS: Lactated Ringers 1,000 ML 999 ML IV (09:39)
--- NOTE | 2025-04-01 09:46 | PC.NURSE ---
Pt c/o abd pain and n/v. A/o x 3, resting in stretcher with no apparent s/s of distress. Son at bedside. Pt not yet able to provide urine sample. #20 placed to L AC, IV and medications per AUG.
--- NOTE | 2025-04-01 10:13 | ED.NAVMDI ---
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 She has been trying to lose weight so she is only on shakes and bars. She denies travel, abx use, sick contacts. She has had chronic diarrhea and has seen GI for it. colonoscopy in 2019 no sig findings per PCP. Today she notes was more intense and she had pain with it. No fevers, blood, no other symptoms reported. She did have n/v x 1 while brushing her teeth MD elicited complaint: nausea, vomiting, diarrhea and abdominal pain Pertinent past history: other Onset (ago): hour(s) (3am today) Description of vomiting: watery Description of diarrhea: watery Associated nausea: Yes Associated abdominal pain: Yes Location of pain: epigastric and RUQ Pain consistency: intermittent Severity: moderate Quality: cramping Exacerbating factors: none Relieving factors: none Associated symptoms: loss of appetite, malaise, nausea/vomiting and weakness Related Data Home Medications ?Medication ?Instructions ?Recorded ?Confirmed buspirone 5 mg tablet mg PO 07/28/24 03/28/25 duloxetine 30 mg capsule,delayed mg PO DAILY 07/28/24 03/28/25 release hydroxyzine HCl 10 mg tablet mg PO 07/28/24 03/28/25 topiramate 25 mg tablet mg PO 07/28/24 03/28/25 trazodone 50 mg tablet mg PO 07/28/24 03/28/25 Previous Rx's ?Medication ?Instructions ?Recorded levothyroxine 50 mcg tablet 50 mcg PO DAILY 90 days #90 tabs 12/14/24 propranolol 10 mg tablet 10 mg PO BID 90 days #180 tabs 03/15/25 tirzepatide (weight loss) 12.5 12.5 mg (0.5 mL) subcut QWEEK #2 mL 03/16/25 mg/0.5 mL subcutaneous pen injector (Zepbound) gabapentin 100 mg capsule 100 mg PO BID 30 days #60 caps 03/28/25 ibuprofen 600 mg tablet 600 mg PO Q8H PRN pain #10 tabs 03/28/25 loperamide 2 mg capsule 2 mg PO BID loose stool 30 days 03/28/25 #60 caps magnesium oxide 500 mg capsule 500 mg PO DAILY 90 days #90 caps 03/28/25 methocarbamol 750 mg tablet 750 mg PO Q8H PRN muscle spasms 30 03/28/25 days #90 tabs naproxen 500 mg tablet,delayed 500 mg PO Q12H PRN pain 30 days 03/28/25 release #60 tabs simethicone 80 mg chewable tablet 80 mg PO BID-QID PRN abdominal 03/28/25 (Gas Relief (simethicone)) distention 15 days #60 tabs ondansetron 4 mg disintegrating 4 mg PO Q8H PRN nausea and 04/01/25 tablet vomiting #20 tabs Allergies Allergy/AdvReac Type Severity Reaction Status Date / Time animal dander (ANIMAL DANDER) Allergy Intermediate RASH Verified 04/01/25 08:12 RYE Allergy Intermediate RASH Uncoded 03/28/25 10:42 plants Allergy Mild Rash Uncoded 03/28/25 10:42 wheat, grains, rye Allergy Mild Rash Uncoded 03/28/25 10:42 Review of Systems Review of Systems: Constitutional : No Weight loss, No Fever, No Chills Cardiovascular : No Chest Pain, No SOB, NoEdema Respiratory : No Cough, No Sputum, No Wheezing Gastrointestinal : Positive Nausea, Positive Vomiting, positive Diarrhea, positive abdominal Pain, No Hematochezia, No Melena Genitourinary : No Dysuria, No Urinary Frequency, No Hematuria, No Urgency Musculoskeletal : No joint pain, No Myalgias, No Joint Swelling Skin : No Skin Lesions, No rash Neuro : No Weakness, No Numbness, No Dizziness, No Headache All other systems reviewed and are negative. Gastrointestinal: Gastrointestinal: Reports nausea PMFSH Past Medical History Attestation statement: The following information was validated with the patient. Source: old records reviewed Medical History Pituitary microadenoma BMI 31.0-31.9,adult BMI 33.0-33.9,adult Obesity (BMI 30-39.9) Dysphagia Dysplasia of cervix, low grade (OMAR 1) Avulsion fracture of ankle Breast pain, left Left foot pain Obese Goiter Anxiety and depression Back pain Snoring IBS (irritable colon syndrome) Nasal congestion Cervical lymphadenopathy Vitamin D deficiency Lexi's disease Hypothyroidism Surgical History H/O tubal ligation Hx of colonoscopy H/O foot surgery History of lumpectomy of left breast History of 2 sections Family History Family History (Updated 03/28/25 @ 10:50 by Anthony Bueno PA-C) Father No problems noted. Mother HTN (hypertension) Diabetes Alzheimer dementia Maternal Grandmother Diabetes HTN (hypertension) Social History Social History Household Members: Children Household Members Other:: 2 children--8 and 10 yr old Housing: Apartment Unable to assess alcohol history related to: Unknown Alcohol intake: current Alcohol intake frequency: holidays/special occasions only Alcohol type: beer Patient Tobacco Use Status: Never used Tobacco Tobacco use type: Cigarette e-Cigarette/Vaping Use: Never Used Second Hand Smoke Exposure: No Advance Directives: No Advance Directives Information Provided: Yes service: No Current occupational status: employed 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 Oriented X3. No acute distress. Eyes: Pupils equal, round and reactive to light. ENT: Pharynx normal. Neck: Normal inspection. Neck supple. CVS: Normal heart rate and rhythm. Pulses normal. Respiratory: No respiratory distress. Breath sounds normal. Abdomen: Soft and moderate RUQ and epigastric ttp but no rebound or guarding, no magallanes's Skin: Skin warm and dry. Normal skin color. Extremities: No lower extremity edema. Neuro: Oriented X 3. No motor deficit. No sensory deficit. CN2-12 intact Course Reevaluation(s) Reevaluation #1: US abdomen reveals cholecystitis. I reached out to the surgeon Dr. Garcia who will admit patient to her service for surgical removal of gallbladder. Time: 14:14 Medications Administered Generic Name Dose Route Start Last Admin Trade Name Freq PRN Reason Stop Dose Admin Sodium Chloride 1,000 mls @ 100 mls/hr 04/01/25 14:00 04/01/25 14:01 Ns IVCONT 100 mls/hr .Q10H KATIE Administration Sodium Chloride 3 ml 04/01/25 16:00 04/01/25 14:01 0.9 % Sodium Chloride Flush 3 Ml Syringe IVFLUSH Not Given QSHIFT KATIE Discontinued Medications Generic Name Dose Route Start Last Admin Trade Name Freq PRN Reason Stop Dose Admin Lactated Ringer's 1,000 mls @ 999 mls/hr 04/01/25 09:25 04/01/25 11:23 Lr IV 04/01/25 10:25 Infused .Q1H1M ONE Infusion Ketorolac Tromethamine 15 mg 04/01/25 09:25 04/01/25 09:41 Ketorolac Tromethamine 15 Mg/Ml Vial IVPUSH 04/01/25 09:26 15 mg ONCE ONE Administration Ondansetron HCl 4 mg 04/01/25 09:25 04/01/25 09:41 Ondansetron Hcl 4 Mg/2 Ml Vial IVPUSH 04/01/25 09:26 4 mg ONCE ONE Administration Medical Decision Making Medical Decision Making MDM Narrative: 35 yo female with PMH of anxiety, bipolar disorder, JAYLEN, anemia, migraines, IBS, hypothyroidism here with c/o upper abdominal pain, n/v x 1, diarrhea which is chronic at this time will obtain labs, hydrate, provide pain control and US of GB for biliary colic. Possible viral syndrome, gastritis, pancreatitis, IBS, biliary colic. Differential Diagnosis Differential Diagnoses: The differential diagnosis associated with the presentation includes viral syndrome, gastritis, pancreatitis, IBS, biliary colic Admission/Observation Consideration of admission/observation: Escalation of care including admission/observation considered labs reassuring mild acidosis likely from chronic diarrhea since 2020 if US negative would DC home signed out to Seda MECREDEZ 11am Consult Healthcare Provider Management of the patient was discussed with: Mixer Crane Operator (Surgeon Dr. Garcia) Dr. Garcia will admit to surgery for cholecystectomy this afternoon. Lab Data MDM Lab Attestation statement: I reviewed the patient's lab results. 04/01/25 08:20 04/01/25 08:20 Labs: Lab Results 04/01/25 04/01/25 Range/Units 08:20 10:12 WBC 11.2 H (4.8-10.8) X10*3/uL RBC 4.80 (4.20-5.50) X10*6/uL Hgb 14.8 (12.0-16.0) g/dl Hct 42.6 (37.0-47.0) % MCV 88.8 (80.0-98.0) fL MCH 30.8 (27.0-33.0) pg MCHC 34.7 (31.0-35.0) g/dl RDW 13.3 (11.0-16.0) % Plt Count 347 (160-400) X10*3/uL MPV 9.2 L (9.4-12.3) fL Immature Gran % (Auto) 0.3 (0.0-0.4) % Neut % (Auto) 86.1 H (45-73) % Lymph % (Auto) 8.0 L (20-40) % [place] % (Auto) 3.6 (2-11) % Eos % (Auto) 1.5 (0-4) % Baso % (Auto) 0.5 (0-2) % Lymph # (Auto) 0.9 L (1.2-4.9) X10*3/uL [place] # (Auto) 0.4 (0.1-1.2) X10*3/uL Eos # (Auto) 0.2 (0.0-0.4) X10*3/uL Baso # (Auto) 0.1 (0.0-0.2) X10*3/uL Abs Immat Gran (auto) 0.03 (0.00-0.03) X10*3/uL Absolute Neuts (auto) 9.7 H (2.0-8.3) x10*3/uL Absolute Nucleated RBC 0.000 (0.0-0.012) X10*3/uL Nucleated RBC % (auto) 0.0 (0.0-0.2) /100WBC Sodium 139 (135-145) mmol/L Potassium 3.8 (3.3-5.1) mmol/L Chloride 113 H (96-108) mmol/L Carbon Dioxide 19 L (22-29) mmol/L Anion Gap 11 L (12-20) BUN 9 (9-16) mg/dL Creatinine 0.75 (0.5-1.4) mg/dL Estim Creat Clear Calc 110.5 Estimated GFR > 60 Random Glucose 87 (60-115) mg/dL Calcium 9.0 (8.4-10.2) mg/dL Total Bilirubin 0.6 (0.0-1.0) mg/dL AST 24 (5-31) U/L ALT 17 (0-31) U/L Alkaline Phosphatase 39 (39-117) U/L Total Protein 7.9 (6.5-8.0) g/dL Albumin 4.4 (3.5-5.0) g/dL Lipase 47 (8-78) U/L Beta HCG, Quant < 2 mIU/mL Urine Color Yellow Urine Appearance Clear Urine pH 5.5 (5.0-9.0) Ur Specific [place] <= 1.005 (1.005-1.025) Urine Protein Negative (Neg-Trace) mg/dL Urine Glucose (UA) Negative (Negative) mg/dL Urine Ketones 40 (Negative) mg/dL Urine Blood Negative (Negative) Urine Nitrite Negative (Negative) Ur Leukocyte Esterase Negative (Negative) Independent Interpretation I performed an independent interpretation of an: Ultrasound Interpretation: I independently interpreted the ultrasound which reveals thickening of the gallbladder wall consistent with cholecystitis, I agree with the radiologist's interpretation Radiology Impression Discussion of test interpretation with radiology: I have reviewed the radiologist's reading. Radiologist Impression: U/S abdomen FINDINGS: LIVER: There is limited visualization of the liver. Visible portions appear homogeneous and unremarkable. GALLBLADDER: There is an echogenic focus within the gallbladder that does not shadow measuring 7 mm probably representing a polyp. Additionally, there are echogenic foci that do shadow consistent with a few stones. There is also comet tail artifact involving portions of the anterior wall. Wall is irregular with some areas measuring 2 mm thick and other areas measuring 8 mm thick. There is likely trace fluid within the thickened portions of the wall. COMMON BILE DUCT: Normal in caliber measuring 0.2 cm in diameter. FREE FLUID: None. US/US abdomen limited IMPRESSION: Suspected cholecystitis: There are gallstones, at least one polyp, and possible underlying adenomyosis. Additionally, the gallbladder wall is irregular with normal areas and areas of thickening with possible trace fluid in the thickened wall of the gallbladder. No biliary ductal dilation was documented. Electronically signed by: Daniel Rudolph MD 04/01/2025 12:12 PM EDT Dictated By: Daniel Rudolph MD Signed By: <Electronically signed by Daniel Rudolph MD in OV> 04/01/25 1212 External Record Review External record reviewed: Outpatient record Prescription Management I considered prescription management with: Pain Medication and Other Discharge Plan Discharge Clinical Impression: Acute dehydration, Cholecystitis Patient Disposition: Admitted As Inpatient Interventions: Admission Worksheet (ED) Last Done: 04/01/25 14:11
[2025-04-01 10:22] LABS: Appearance Urine Clear; Glucose Urine UA Negative (Negative); PH 5.5 (5.0-9.0); Specific Gravity - Urine <= 1.005 (1.005-1.025)
--- NOTE | 2025-04-01 13:49 | HO.ANESPROP2 ---
HPI - Anesthesia Eval Consult details Narrative: 35 yr old female for cholecystectomy, laparoscopic, possible open Anesthesia Pre-Procedure Meds Is the patient on any of the following meds?: GLP1/DPP4 PMFSH Active Problems Active Problems: All Active Problems Acute dehydration (Acute) Abdominal pain (Acute) Excessive skin and subcutaneous tissue (Acute) Fecal incontinence due to anorectal disorder (Acute) BMI 31.0-31.9,adult (Acute) BMI 33.0-33.9,adult (Acute) Class 1 obesity (Acute) BMI 37.0-37.9, adult (Acute) Malpositioned IUD (Acute) BMI 38.0-38.9,adult (Acute) Obesity (BMI 30-39.9) (Acute) Neck mass (Acute) Breast lump on right side at 8 o'clock position (Acute) Generalized anxiety disorder (Acute) Bipolar 1 disorder (Acute) Class 2 obesity (Acute) Marijuana smoker, episodic (Acute) IUD check up (Acute) JAYLEN (obstructive sleep apnea) (Acute) Daytime somnolence (Acute) Fibromyalgia (Acute) Abdominal bloating (Acute) Loose stools (Acute) Encounter for insertion of Mirena IUD (Acute) Splenic cyst (Acute) ASCUS of cervix with negative high risk HPV (Acute) Microscopic hematuria (Acute) Abnormal uterine bleeding (AUB) (Acute) Migraine with aura (Acute) Benign head tremor (Acute) Cervicalgia (Acute) Pain of right sacroiliac joint (Acute) Muscle spasm of back (Acute) Low back pain (Acute) Anemia (Acute) Worsening headaches (Acute) Blurry vision (Acute) Visual aura (Acute) Sleep difficulties (Acute) Excessive daytime sleepiness (Acute) Bilateral mastodynia (Acute) Gigantomastia (Acute) ASCUS with positive high risk HPV cervical (Acute) Cellulitis of right leg (Acute) Chronic diarrhea (Acute) Rash (Acute) Migraines (Acute) Easy bruising (Acute) Fatigue (Acute) Acne vulgaris (Acute) Pain in right toe(s) (Acute) Injury of right hand (Acute) Dysplasia of cervix, low grade (OMAR 1) (Acute) Pelvic pain (Acute) Right shoulder pain (Acute) Large breasts (Acute) Sore throat (Acute) Tinea (Acute) Polyarthritis (Acute) Status post fall (Acute) Right hand pain (Acute) Right shoulder strain (Acute) Cervical mass (Acute) Cervical (neck) region somatic dysfunction (Acute) Costochondritis (Acute) Allergies (Acute) Pain, dental (Acute) Right flank pain (Acute) Odynophagia (Acute) Right ankle pain (Acute) Hair loss (Acute) Lumbar spine pain (Acute) Annual physical exam (Acute) Bronchitis (Acute) COVID-19 (Acute) vidal (Acute) History of ecchymosis (Acute) Screening for diabetes mellitus (DM) (Acute) Witnessed apneic spells (Acute) Arm paresthesia, right (Acute) Polyarthralgia (Acute) Dysphagia (Acute) Tear of deltoid ligament of right ankle (Acute) Avulsion fracture of ankle (Acute) Breast pain, left (Acute) Severe sprain of right ankle (Acute) Somatic dysfunction of right sacroiliac joint (Acute) Left foot pain (Acute) Obese (Acute) Goiter (Acute) Anxiety and depression (Acute) Back pain (Acute) Pelvic pain in female (Acute) Snoring (Acute) IBS (irritable colon syndrome) (Acute) Palpitations (Acute) Nasal congestion (Acute) Cervical lymphadenopathy (Acute) Vitamin D deficiency (Acute) Lexi's disease (Acute) Hypothyroidism (Acute) Past Medical History Medical History (Updated 04/14/25 @ 14:03 by Asha Emerson, RD, LDN) Pituitary microadenoma BMI 31.0-31.9,adult BMI 33.0-33.9,adult Obesity (BMI 30-39.9) Dysphagia Dysplasia of cervix, low grade (OMAR 1) Avulsion fracture of ankle Breast pain, left Left foot pain Obese Goiter Anxiety and depression Back pain Snoring IBS (irritable colon syndrome) Nasal congestion Cervical lymphadenopathy Vitamin D deficiency Lexi's disease Hypothyroidism Family History Family History Father No problems noted. Mother HTN (hypertension) Diabetes Alzheimer dementia Maternal Grandmother Diabetes HTN (hypertension) Surgical History Surgical History (Updated 04/07/25 @ 13:57 by Mac Lawrence MD) Status post laparoscopic cholecystectomy History of laparoscopic cholecystectomy (~04/01/25) H/O tubal ligation Hx of colonoscopy H/O foot surgery History of lumpectomy of left breast History of 2 sections Social History Social History Household Members: Significant Other and Children Household Members Other:: 2 children--8 and 10 yr old Housing: House Housing Other:: stairs Do you presently have visiting nurse or other home services: No Alcohol intake: current Alcohol intake frequency: holidays/special occasions only Alcohol type: beer Patient Tobacco Use Status: Never used Tobacco Tobacco use type: Cigarette e-Cigarette/Vaping Use: Never Used Second Hand Smoke Exposure: No service: No Current occupational status: employed 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 Cognitive needs: No Hearing needs: No Vision needs: Yes Meds Allergies Allergy/AdvReac Type Severity Reaction Status Date / Time animal dander (ANIMAL DANDER) Allergy Intermediate RASH Verified 04/07/25 13:54 RYE Allergy Intermediate RASH Uncoded 04/07/25 13:54 plants Allergy Mild Rash Uncoded 04/07/25 13:54 wheat, grains, rye Allergy Mild Rash Uncoded 04/07/25 13:54 Home Medications ?Medication ?Instructions ?Recorded ?Confirmed ?Last Taken ?Type buspirone 5 mg tablet 10 mg PO BEDTIME anxiety 04/01/25 04/01/25 03/31/25 History duloxetine 30 mg capsule,delayed 30 mg PO QPM 04/01/25 04/01/25 03/31/25 History release hydroxyzine HCl 10 mg tablet 10 mg PO BID PRN Anxiety 04/01/25 04/01/25 03/31/25 History levothyroxine 50 mcg tablet 50 mcg PO DAILY@0600 04/01/25 04/01/25 03/31/25 History tirzepatide (weight loss) 12.5 12.5 mg subcut MO 04/01/25 04/01/25 03/28/25 History mg/0.5 mL subcutaneous pen injector (Zepbound) topiramate 50 mg tablet 50 mg PO DAILY 04/01/25 04/01/25 03/31/25 History topiramate 50 mg tablet 100 mg PO BEDTIME 04/01/25 04/01/25 03/31/25 History trazodone 50 mg tablet 50 mg PO DAILY PRN Sleep 04/01/25 04/01/25 Unknown History Exam Height,Weight and Vital Signs: Height 5 ft 7 in Weight 74.843 kg Last Vital Signs Temp 98.3 F 04/01/25 11:54 Pulse 84 04/01/25 11:54 Resp 16 04/01/25 09:53 BP 94/61 04/01/25 11:54 Pulse Ox 100 04/01/25 11:54 O2 Del Method Room Air 04/01/25 11:54 Pertinent Lab Results Pertinent Lab Results: Laboratory Tests 04/01/25 04/01/25 08:20 10:12 WBC 11.2 H RBC 4.80 Hgb 14.8 Hct 42.6 MCV 88.8 MCH 30.8 MCHC 34.7 RDW 13.3 Plt Count 347 MPV 9.2 L Immature Gran % (Auto) 0.3 Neut % (Auto) 86.1 H Lymph % (Auto) 8.0 L [place] % (Auto) 3.6 Eos % (Auto) 1.5 Baso % (Auto) 0.5 Lymph # (Auto) 0.9 L [place] # (Auto) 0.4 Eos # (Auto) 0.2 Baso # (Auto) 0.1 Abs Immat Gran (auto) 0.03 Absolute Neuts (auto) 9.7 H Absolute Nucleated RBC 0.000 Nucleated RBC % (auto) 0.0 Sodium 139 Potassium 3.8 Chloride 113 H Carbon Dioxide 19 L Anion Gap 11 L BUN 9 Creatinine 0.75 Estim Creat Clear Calc 110.5 Estimated GFR > 60 Random Glucose 87 Calcium 9.0 Total Bilirubin 0.6 AST 24 ALT 17 Alkaline Phosphatase 39 Total Protein 7.9 Albumin 4.4 Lipase 47 Beta HCG, Quant < 2 Urine Color Yellow Urine Appearance Clear Urine pH 5.5 Ur Specific [place] <= 1.005 Urine Protein Negative Urine Glucose (UA) Negative Urine Ketones 40 Urine Blood Negative Urine Nitrite Negative Ur Leukocyte Esterase Negative
--- NOTE | 2025-04-01 14:04 | HO.NURTONUR ---
Bijan is a pleasant 35 yo F, full code, who presented to ED with abdominal pain/cramping and N/V/D. Given 1L IVF, zofran, and toradol WBC- 11.2, abd ultrasound showed suspected cholecystitis PMH: anxiety, bipolar disorder, JAYLEN, anemia, migraines, IBS, hypothyroidism Pt is A/O x 3, ambulates independently with steady gait, continent. Seen by surgery in ED, NPO pending procedure. IVF infusing per MAR, 20G IV to R AC.
--- NOTE | 2025-04-01 14:15 | PM.HPGS ---
History of Present Illness History of Present Illness Date of Service: 04/01/25 Chief complaint: Abdominal Pain Narrative: Bijan Kelly is a 35 year old female who comes in complaining of several days of diarrhea and abdominal pain but the abdominal pain got worse over the last 24 hours. She describes it as having contractions in her epigastric right upper quadrant area. It does not radiate anywhere. She denies having any fevers or chills. She did have some nausea and vomited once when she was brushing her teeth. For the last several months she has been trying to lose weight and she is being seen by the [facility] clinic here at [place]. She has been on a oral regimen of certain nutritional shakes and has been on tirzepatide. She has lost about 40 lb since October. This may have precipitated her gallbladder issues that she has never been aware of having gallbladder issues before. She denies any significant family history with gallbladder disease. She denies any chest pain shortness of breath. She was also having some loose stools but this is improved. She is not working right now she is Lithuanian-speaking Review of Systems Review of Systems: Yes all other systems are reviewed and are negative [facility] Past Medical History Medical History Pituitary microadenoma BMI 31.0-31.9,adult BMI 33.0-33.9,adult Obesity (BMI 30-39.9) Dysphagia Dysplasia of cervix, low grade (OMAR 1) Avulsion fracture of ankle Breast pain, left Left foot pain Obese Goiter Anxiety and depression Back pain Snoring IBS (irritable colon syndrome) Nasal congestion Cervical lymphadenopathy Vitamin D deficiency Lexi's disease Hypothyroidism Family History Family History (Updated 03/28/25 @ 10:50 by Anthony Bueno PA-C) Father No problems noted. Mother HTN (hypertension) Diabetes Alzheimer dementia Maternal Grandmother Diabetes HTN (hypertension) Surgical History Surgical History H/O tubal ligation Hx of colonoscopy H/O foot surgery History of lumpectomy of left breast History of 2 sections Social History Social History Household Members: Children Household Members Other:: 2 children--8 and 10 yr old Housing: Apartment Unable to assess alcohol history related to: Unknown Alcohol intake: current Alcohol intake frequency: holidays/special occasions only Alcohol type: beer Patient Tobacco Use Status: Never used Tobacco Tobacco use type: Cigarette e-Cigarette/Vaping Use: Never Used Second Hand Smoke Exposure: No Advance Directives: No Advance Directives Information Provided: Yes service: No Current occupational status: employed 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 - [employer] Cognitive needs: No Hearing needs: No Vision needs: Yes Meds Allergies Allergy/AdvReac Type Severity Reaction Status Date / Time animal dander (ANIMAL DANDER) Allergy Intermediate RASH Verified 04/01/25 08:12 RYE Allergy Intermediate RASH Uncoded 03/28/25 10:42 plants Allergy Mild Rash Uncoded 03/28/25 10:42 wheat, grains, rye Allergy Mild Rash Uncoded 03/28/25 10:42 Active Medications: Current Medications Acetaminophen (Acetaminophen 325 Mg Tablet) 650 mg PO Q6H PRN PRN Reason: Pain, Mild 1-3,fever,headache Sodium Chloride (Ns) 1,000 mls @ 100 mls/hr IVCONT .Q10H [facility] Last Admin: 04/01/25 14:01 Dose: 100 mls/hr Melatonin (Melatonin 3 Mg Tablet) 6 mg PO BEDTIME PRN PRN Reason: Insomnia Sodium Chloride (0.9 % Sodium Chloride Flush 3 Ml Syringe) 3 ml IVFLUSH QSHIFT [facility] Last Admin: 04/01/25 14:01 Dose: Not Given Home Medications ?Medication ?Instructions ?Recorded ?Confirmed ?Last Taken ?Type buspirone 5 mg tablet mg PO 07/28/24 03/28/25 Unknown History duloxetine 30 mg capsule,delayed mg PO DAILY 07/28/24 03/28/25 Unknown History release hydroxyzine HCl 10 mg tablet mg PO 07/28/24 03/28/25 Unknown History topiramate 25 mg tablet mg PO 07/28/24 03/28/25 Unknown History trazodone 50 mg tablet mg PO 07/28/24 03/28/25 Unknown History Physical Exam Vital Signs: Vital Signs: Last Vital Signs Temp 98.3 F 04/01/25 11:54 Pulse 84 04/01/25 11:54 Resp 16 04/01/25 09:53 BP 94/61 04/01/25 11:54 Pulse Ox 100 04/01/25 11:54 O2 Del Method Room Air 04/01/25 11:54 BMI result Body Mass Index 25.8 Const: General: cooperative, healthy appearing, comfortable and no acute distress Orientation/consciousness: patient oriented x3 HEENT: Other: Nonicteric Head: Yes normal to inspection Resp: Effort & Inspection: normal respiratory effort Auscultation: clear to auscultation bilaterally Cardio: Rate: regular rate Rhythm: regular rhythm GI: Other: Abdomen is soft nondistended she is tender in the epigastric and right upper quadrant with mild guarding no rebound no peritoneal signs active bowel sounds : General: Yes no CVA tenderness Back/Spine/Pelvis: Back: no CVA tenderness Skin: Other: Nonicteric Neuro: General: patient oriented x3 Cranial nerves: Yes CN's II-XII intact bilaterally Extrem: General: Yes normal to inspection Psych: Appearance: grossly normal Mental Status: mental status grossly normal Affect: normal affect Attitude: cooperative Thought process: Normal thought process present Thought content: Normal thought content present Insight: Good insight present (Psych) Judgement: Good judgement present (Psych) Results Results Labs: Short CBC 04/01/25 Range/Units 08:20 WBC 11.2 H (4.8-10.8) X10*3/uL Hgb 14.8 (12.0-16.0) g/dl Hct 42.6 (37.0-47.0) % Plt Count 347 (160-400) X10*3/uL BMP 04/01/25 08:20 Sodium 139 Potassium 3.8 Chloride 113 H Carbon Dioxide 19 L BUN 9 Creatinine 0.75 Calcium 9.0 Liver Function 04/01/25 Range/Units 08:20 Total Bilirubin 0.6 (0.0-1.0) mg/dL AST 24 (5-31) U/L ALT 17 (0-31) U/L Alkaline Phosphatase 39 (39-117) U/L Albumin 4.4 (3.5-5.0) g/dL Urine 04/01/25 Range/Units 10:12 Urine Color Yellow Urine Appearance Clear Urine pH 5.5 (5.0-9.0) Ur Specific [place] <= 1.005 (1.005-1.025) Urine Protein Negative (Neg-Trace) mg/dL Urine Glucose (UA) Negative (Negative) mg/dL Additional studies: Patient: Bijan Pryor MR#: [id number] : 1990 Acct:[id number] Age/Sex: 35 / F ADM Date: 04/01/25 Loc: HO.ED Attending Dr: Ordering Physician: Denise Ivory DO Date of Service: 04/01/25 Procedure(s): US abdomen limited Accession Number(s): [id number] cc: Denise Ivory DO; Anthony Bueno PA-C~ Reason for Exam: RUQ pain, GB and CBD only please EXAMINATION: US ABDOMEN LIMITED CLINICAL INFORMATION: Right upper quadrant pain. GB and CBD only please COMPARISON: 03/09/2024 CT abdomen and pelvis TECHNIQUE: Real-time imaging of the right upper quadrant abdominal viscera. FINDINGS: LIVER: There is limited visualization of the liver. Visible portions appear homogeneous and unremarkable. GALLBLADDER: There is an echogenic focus within the gallbladder that does not shadow measuring 7 mm probably representing a polyp. Additionally, there are echogenic foci that do shadow consistent with a few stones. There is also comet tail artifact involving portions of the anterior wall. Wall is irregular with some areas measuring 2 mm thick and other areas measuring 8 mm thick. There is likely trace fluid within the thickened portions of the wall. COMMON BILE DUCT: Normal in caliber measuring 0.2 cm in diameter. FREE FLUID: None. US/US abdomen limited IMPRESSION: Suspected cholecystitis: There are gallstones, at least one polyp, and possible underlying adenomyosis. Additionally, the gallbladder wall is irregular with normal areas and areas of thickening with possible trace fluid in the thickened wall of the gallbladder. No biliary ductal dilation was documented. 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 Plan is to carry out laparoscopic cholecystectomy and admit. Risks and benefits were discussed with the patient including but not limited to bleeding infection bowel injury possible open procedure possible organ injury possible cystic duct leak possible common bile duct injury and despite this he wishes to proceed. History and discussion for surgery was had with the interpreter deaf Quality Stroke Does the patient have a stroke diagnosis?: No VTE Prior VTE?: No VTE Risk Level:: Surgical - low VTE Device Contraindication: N/A - Device Ordered VTE Drug Contraindication: Treatment Not Indicated Procedures Date of Service Date of Service: 04/01/25
--- NOTE | 2025-04-01 14:17 | PC.NURSE ---
Report given to pre op RN
--- NOTE | 2025-04-01 17:59 | PHA.MEDREC ---
Addendum entered by Tiana Sanders RPh 04/01/25 18:52: Reviewed by [facility] Original Note: Pharmacy Consult ? Medication Reconciliation Pharmacy has completed the medication reconciliation. Spoke to patient though herbarium curator service (patient son) Patient was able to confirm all of her medications. Patient stats she is no longer taking Magnesuim oxide 500 mg, Methocarbamol 750 mg, Naproxen 500 mg and Simethicone 80 mg. Patient confirmed Zepbound 12.5 mg every Friday, last dose 02/25/25. Patient last had her medications yesterday.
--- NOTE | 2025-04-01 18:30 | P.CONAN_ITS ---
HPI - Anesthesia Eval Consult details Narrative: Cholelithiasis PMFSH Active Problems Active Problems: All Active Problems Biliary colic (Acute) Cholecystitis (Acute) Acute dehydration (Acute) Excessive skin and subcutaneous tissue (Acute) Fecal incontinence due to anorectal disorder (Acute) BMI 31.0-31.9,adult (Acute) BMI 33.0-33.9,adult (Acute) Class 1 obesity (Acute) BMI 37.0-37.9, adult (Acute) Malpositioned IUD (Acute) BMI 38.0-38.9,adult (Acute) Obesity (BMI 30-39.9) (Acute) Neck mass (Acute) Breast lump on right side at 8 o'clock position (Acute) Generalized anxiety disorder (Acute) Bipolar 1 disorder (Acute) Class 2 obesity (Acute) Marijuana smoker, episodic (Acute) IUD check up (Acute) JAYLEN (obstructive sleep apnea) (Acute) Daytime somnolence (Acute) Fibromyalgia (Acute) Abdominal bloating (Acute) Loose stools (Acute) Encounter for insertion of Mirena IUD (Acute) Splenic cyst (Acute) ASCUS of cervix with negative high risk HPV (Acute) Microscopic hematuria (Acute) Abnormal uterine bleeding (AUB) (Acute) Migraine with aura (Acute) Benign head tremor (Acute) Cervicalgia (Acute) Pain of right sacroiliac joint (Acute) Muscle spasm of back (Acute) Low back pain (Acute) Anemia (Acute) Worsening headaches (Acute) Blurry vision (Acute) Visual aura (Acute) Sleep difficulties (Acute) Excessive daytime sleepiness (Acute) Bilateral mastodynia (Acute) Gigantomastia (Acute) ASCUS with positive high risk HPV cervical (Acute) Cellulitis of right leg (Acute) Chronic diarrhea (Acute) Rash (Acute) Migraines (Acute) Easy bruising (Acute) Fatigue (Acute) Acne vulgaris (Acute) Pain in right toe(s) (Acute) Injury of right hand (Acute) Dysplasia of cervix, low grade (OMAR 1) (Acute) Pelvic pain (Acute) Right shoulder pain (Acute) Large breasts (Acute) Sore throat (Acute) Tinea (Acute) Polyarthritis (Acute) Status post fall (Acute) Right hand pain (Acute) Right shoulder strain (Acute) Cervical mass (Acute) Cervical (neck) region somatic dysfunction (Acute) Costochondritis (Acute) Allergies (Acute) Pain, dental (Acute) Right flank pain (Acute) Odynophagia (Acute) Right ankle pain (Acute) Hair loss (Acute) Lumbar spine pain (Acute) Annual physical exam (Acute) Bronchitis (Acute) COVID-19 (Acute) vidal (Acute) History of ecchymosis (Acute) Screening for diabetes mellitus (DM) (Acute) Witnessed apneic spells (Acute) Arm paresthesia, right (Acute) Polyarthralgia (Acute) Dysphagia (Acute) Tear of deltoid ligament of right ankle (Acute) Avulsion fracture of ankle (Acute) Breast pain, left (Acute) Severe sprain of right ankle (Acute) Somatic dysfunction of right sacroiliac joint (Acute) Left foot pain (Acute) Obese (Acute) Goiter (Acute) Anxiety and depression (Acute) Back pain (Acute) Pelvic pain in female (Acute) Snoring (Acute) IBS (irritable colon syndrome) (Acute) Palpitations (Acute) Nasal congestion (Acute) Cervical lymphadenopathy (Acute) Vitamin D deficiency (Acute) Lexi's disease (Acute) Hypothyroidism (Acute) Past Medical History Medical History Pituitary microadenoma BMI 31.0-31.9,adult BMI 33.0-33.9,adult Obesity (BMI 30-39.9) Dysphagia Dysplasia of cervix, low grade (OMAR 1) Avulsion fracture of ankle Breast pain, left Left foot pain Obese Goiter Anxiety and depression Back pain Snoring IBS (irritable colon syndrome) Nasal congestion Cervical lymphadenopathy Vitamin D deficiency Lexi's disease Hypothyroidism Family History Family History (Updated 03/28/25 @ 10:50 by Anthony Bueno PA-C) Father No problems noted. Mother HTN (hypertension) Diabetes Alzheimer dementia Maternal Grandmother Diabetes HTN (hypertension) Family history of problems with anesthesia: No Surgical History Surgical History H/O tubal ligation Hx of colonoscopy H/O foot surgery History of lumpectomy of left breast History of 2 sections History of Problems with Anesthesia: No Social History Social History Household Members: Significant Other and Children Household Members Other:: 2 children--8 and 10 yr old Housing: House Housing Other:: stairs Do you presently have visiting nurse or other home services: No Alcohol intake: current Alcohol intake frequency: holidays/special occasions only Alcohol type: beer Patient Tobacco Use Status: Never used Tobacco Tobacco use type: Cigarette e-Cigarette/Vaping Use: Never Used Second Hand Smoke Exposure: No service: No Current occupational status: employed 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 - [employer] Cognitive needs: No Hearing needs: No Vision needs: Yes Meds Allergies Allergy/AdvReac Type Severity Reaction Status Date / Time animal dander (ANIMAL DANDER) Allergy Intermediate RASH Verified 04/01/25 08:12 RYE Allergy Intermediate RASH Uncoded 03/28/25 10:42 plants Allergy Mild Rash Uncoded 03/28/25 10:42 wheat, grains, rye Allergy Mild Rash Uncoded 03/28/25 10:42 Active Medications: Current Medications Acetaminophen (Acetaminophen 325 Mg Tablet) 650 mg PO Q6H PRN PRN Reason: Pain, Mild 1-3,fever,headache Sodium Chloride (Ns) 1,000 mls @ 100 mls/hr IVCONT .Q10H [facility] Last Admin: 04/01/25 14:01 Dose: 100 mls/hr Melatonin (Melatonin 3 Mg Tablet) 6 mg PO BEDTIME PRN PRN Reason: Insomnia Sodium Chloride (0.9 % Sodium Chloride Flush 3 Ml Syringe) 3 ml IVFLUSH QSHIFT [facility] Last Admin: 04/01/25 14:01 Dose: Not Given Home Medications ?Medication ?Instructions ?Recorded ?Confirmed ?Last Taken ?Type buspirone 5 mg tablet 10 mg PO BEDTIME anxiety 09/2104/01/25 03/31/25 History duloxetine 30 mg capsule,delayed 30 mg PO QPM 04/01/25 04/01/25 03/31/25 History release hydroxyzine HCl 10 mg tablet 10 mg PO BID PRN Anxiety 04/01/25 04/01/25 03/31/25 History levothyroxine 50 mcg tablet 50 mcg PO DAILY@0600 04/0104/01/25 03/31/25 History tirzepatide (weight loss) 12.5 12.5 mg subcut MO 04/0104/01/25 03/28/25 History mg/0.5 mL subcutaneous pen injector (Zepbound) topiramate 50 mg tablet 50 mg PO DAILY 04/01/25 1009/2103/31/25 History topiramate 50 mg tablet 100 mg PO BEDTIME 04/01/25 1 03/31/25 History trazodone 50 mg tablet 50 mg PO DAILY PRN Sleep 09/2104/01/25 Unknown History Exam Height,Weight and Vital Signs: Height 5 ft 7 in Weight 74.8 kg Last Vital Signs Temp 97.9 F 04/01/25 17:01 Pulse 78 04/01/25 17:01 Resp 18 04/01/25 17:01 BP 109/69 04/01/25 17:01 Pulse Ox 100 04/01/25 17:01 O2 Del Method Room Air 04/01/25 17:01 Pertinent Lab Results Pertinent Lab Results: Laboratory Tests 04/01/25 04/01/25 08:20 10:12 WBC 11.2 H RBC 4.80 Hgb 14.8 Hct 42.6 MCV 88.8 MCH 30.8 MCHC 34.7 RDW 13.3 Plt Count 347 MPV 9.2 L Immature Gran % (Auto) 0.3 Neut % (Auto) 86.1 H Lymph % (Auto) 8.0 L [place] % (Auto) 3.6 Eos % (Auto) 1.5 Baso % (Auto) 0.5 Lymph # (Auto) 0.9 L [place] # (Auto) 0.4 Eos # (Auto) 0.2 Baso # (Auto) 0.1 Abs Immat Gran (auto) 0.03 Absolute Neuts (auto) 9.7 H Absolute Nucleated RBC 0.000 Nucleated RBC % (auto) 0.0 Sodium 139 Potassium 3.8 Chloride 113 H Carbon Dioxide 19 L Anion Gap 11 L BUN 9 Creatinine 0.75 Estim Creat Clear Calc 110.5 Estimated GFR > 60 Random Glucose 87 Calcium 9.0 Total Bilirubin 0.6 AST 24 ALT 17 Alkaline Phosphatase 39 Total Protein 7.9 Albumin 4.4 Lipase 47 Beta HCG, Quant < 2 Urine Color Yellow Urine Appearance Clear Urine pH 5.5 Ur Specific [place] <= 1.005 Urine Protein Negative Urine Glucose (UA) Negative Urine Ketones 40 Urine Blood Negative Urine Nitrite Negative Ur Leukocyte Esterase Negative Airway Mallampati Class: II TM Dist: >3cm Neck ROM: Full Loose/Missing/Broken Teeth: No Heart: RRR Lungs: CTA Assessment and Plan Assessment Anesthesia Assessment: Anesthesia Plan Discussed and Chart Reviewed Final Anesthetic Review Family History of Problems with Anesthesia: No History of Problems with Anesthesia: No NPO: Yes ASA Class: II Final Preanesthetic Review: No Changes in Pt Med Stat, Meds/Allgs Chart Reviewed, Consent Obtained/Reviewed and Anes Risks/Benef Reviewed Patient Risk: Intermediate Procedure Risk: Intermediate Anesthetic Plan Anesthetic Plan: GA Disposition: Standard PACU
--- NOTE | 2025-04-01 21:12 | W.PM.OPN ---
Operative Note Operative Note Date of Service: 04/01/25 Narrative: Preop diagnosis--biliary colic acute cholecystitis Postop diagnosis--biliary colic acute cholecystitis Procedure--laparoscopic cholecystectomy Surgeon--Jose Anesthesia--general endotracheal tube anesthesia Patient is a 35-year-old female who has been on Zepbound has lost about 45 lb since October and now developing more epigastric right upper quadrant pain. Workup here reveals slightly elevated white count and right upper quadrant ultrasound shows gallstones tenderness in the right upper quadrant and some thickening of aspect of the gallbladder. As a result she comes in now to undergo laparoscopic cholecystectomy Findings--gallbladder was not very inflamed but there was findings consistent with some chronic cholecystitis and maybe some mild acute cholecystitis. There was also a piece of tissue on the gallbladder wall question whether it maybe a little more of a hemangioma type area. Procedure-- Patient was brought to the operative room under anesthesia guidance intubated. She had compression stockings placed before induction received preoperative antibiotics. Her abdomen was prepped and draped in standard surgical fashion. An infraumbilical incision was created after numbing up the area with a 0.25% Marcaine with epinephrine. Dissection was carried down to the anterior abdominal wall fascia which was grasped with Мария's and transected. Roy trocar introduced after 0 Vicryl pursestring suture placed. Pneumoperitoneum was established to 15 mmHg pressure. Three 5 mm ports were then placed under direct visualization 1 in the epigastric area into in the right upper quadrant. The gallbladder was identified in the right upper quadrant and looked relatively okay. With elevating the gallbladder and retracted it superiorly and laterally there was an aspect of about 1 cm on the wall that looked almost like there was a piece of vascularized tissue on it. This was central not necessarily part of the liver. The triangle of [place]ot area was dissected out the cystic duct and cystic artery was identified with a little posterior branch going near the base of the liver gallbladder area. Three clips were placed down the cystic duct 1 up and it was transected 2 clips were placed down on the cystic artery anterior branch and then 1 up and then it was transected. The posterior branch was then dissected out little bit more and this was clipped and transected . then using the hook cautery the gallbladder was removed off the liver bed place Endo-Catch bag and removed. Pneumoperitoneum was established and the area examined. Clips on the cystic duct cystic artery looks fine. The liver bed was then cauterized in 2 little areas on the edge with there was little bit of some oozing getting good hemostasis. The ports were then removed under direct visualization. The infraumbilical port pursestring was approximated and then 4-0 Monocryl was used in interrupted subcuticular fashion to approximate the skin edges. Mastisol and Steri-Strips placed and dry Tegaderm dressings. At the end of the case all sponge instrument needle counts were correct. Estimated blood loss was 1 cc specimens sent was the gallbladder. The patient was extubated returned stable to recovery room
[2025-04-02] MEDS: oxyCODONE HCl Immed Release 5 MG TABLET PO ×2 (03:22→09:10)
[2025-04-02 03:42] VITALS: BP 111/61; PULSE 84; RESP 16; TEMP 36.4; O2SAT 97
[2025-04-02 07:13] VITALS: BP 116/73; PULSE 87; RESP 18; TEMP 36.1; O2SAT 98
[2025-04-02] MEDS: 0.9 % Sodium Chloride Flush 3 ML SYRINGE IVFLUSH (08:58)
[2025-04-02 08:59] VITALS: BP 110/78; PULSE 85
--- NOTE | 2025-04-02 11:51 | HO.POSTANES ---
Post Anesthesia Evaluation Post Anesthesia Evaluation Date of Service: 04/02/25 Vital Signs: Vital Signs Temp Pulse Resp BP Pulse Ox O2 Del Method 04/02/25 08:59 85 110/78 04/02/25 07:13 96.9 F 87 18 116/73 98 Room Air 04/02/25 03:42 97.5 F 84 16 111/61 97 Room Air Anesthesia: General Endotracheal-GETA Mental Status: Awake Pain Control: Satisfactory Nausea/Vomiting: None Hydration: Adequate Anesthesia-Related Issues: No Anes. Related Issues
--- NOTE | 2025-04-02 12:39 | P.DS_ITS ---
DS: Providers Provider Date of Service: 04/02/25 <Fanta Fox PA-C - Last Filed: 04/04/25 13:53> Date of admission: 04/01/25 13:46 <Clover Garcia MD - Last Filed: 04/24/25 21:10> Date of discharge: 04/02/25 <Fanta Fox PA-C - Last Filed: 04/04/25 13:53> Primary care physician: Anthony Bueno PA-C <Clover Garcia MD - Last Filed: 04/24/25 21:10> DS: Diagnosis Discharge Diagnosis (1) Biliary colic: Status: Resolved <Clover Garcia MD - Last Filed: 04/24/25 21:10> DS: Summary Hospital Course Hospital Course: HPI AT ADMISSION: Bijan Kelly is a 35 year old female who comes in complaining of several days of diarrhea and abdominal pain but the abdominal pain got worse over the last 24 hours. She describes it as having contractions in her epigastric right upper quadrant area. It does not radiate anywhere. She denies having any fevers or chills. She did have some nausea and vomited once when she was brushing her teeth. For the last several months she has been trying to lose weight and she is being seen by the we clinic here at [facility]. She has been on a oral regimen of certain nutritional shakes and has been on tirzepatide. She has lost about 40 lb since October. This may have precipitated her gallbladder issues that she has never been aware of having gallbladder issues before. She denies any significant family history with gallbladder disease. She denies any chest pain shortness of breath. She was also having some loose stools but this is improved. She is not working right now she is Latvian-speaking HOSPITAL COURSE: The patient was admitted to the surgical service for further treatment of the acute cholecystitis. She elected to proceed with laparoscopic cholecystectomy, possible open. She was added onto the OR schedule for that day. On 04/01/25, a laparoscopic cholecystectomy was performed by Dr. Garcia without complication. The patient tolerated the procedure well. She had an uncomplicated recovery course. On POD #1, she felt well and was tolerating a solid diet, had good pain control and was ambulating without difficulty. She was hemodynamically stable. Her abdomen was benign with appropriate post op tenderness and clean and intact dressings. She felt ready for discharge. She was discharged to home on 04/02/25 in stable condition. She is to follow up in the office in 1 week. <Clover Garcia MD - Last Filed: 04/24/25 21:10> Time Attestation Discharge Coordination Time (in mins): 25 <Fanta Fox PA-C - Last Filed: 04/04/25 13:53> Quality: Safe Use of Opioids Does Pt have an Active Cancer Diagnosis on the Problem List?: No <NIEVES Llanes Last Filed: 04/04/25 13:53> Quality: Stroke Does the patient have a stroke diagnosis?: No <NIEVES Llanes Last Filed: 04/04/25 13:53> Physical Exam Vital Signs: Vital Signs: Last Vital Signs Temp 96.9 F 04/02/25 07:13 Pulse 85 04/02/25 08:59 Resp 18 04/02/25 07:13 BP 110/78 04/02/25 08:59 Pulse Ox 98 04/02/25 07:13 O2 Del Method Room Air 04/02/25 07:13 BMI result Body Mass Index 25.8 <Clover Garcia MD - Last Filed: 04/24/25 21:10> Const: General: comfortable, no acute distress and alert <NIEVES Llanes Last Filed: 04/04/25 13:53> Orientation/consciousness: patient oriented x3 <NIEVES Llanes Last Filed: 04/04/25 13:53> GI: Other: intact dressings soft appropriate post op tenderness <NIEVES Llanes Last Filed: 04/04/25 13:53> Neuro: General: patient oriented x3 and moves all extremities <NIEVES Llanes Last Filed: 04/04/25 13:53> DS: Data Data Completed and Pending Pending studies at discharge: Pending at discharge 04/01/25 20:55 Surgical [PTH] Routine <Clover Garcia MD - Last Filed: 04/24/25 21:10> Discharge Plan Discharge Anticipated Discharge Date/Time: 04/02/25 14:00 <Clover Garcia MD - Last Filed: 04/24/25 21:10> Patient Disposition: Home, Self-Care <Clover Garcia MD - Last Filed: 04/24/25 21:10> Discharge Diagnosis: cholelithiasis biliary colic cholecystitis <Clover Garcia MD - Last Filed: 04/24/25 21:10> cholelithiasis biliary colic cholecystitis <Fanta Fox PA-C - Last Filed: 04/04/25 13:53> Referrals: Anthony Bueno PA-C [Primary Care Provider, Internal Medicine] - 1 Week <Clover Garcia MD - Last Filed: 04/24/25 21:10> Discharge Medications: New ondansetron 4 mg tablet,disintegrating 4 mg PO Q8H PRN (Reason: nausea and vomiting) Qty: 20 0RF oxycodone 5 mg Tablet 5 mg PO Q4H PRN (Reason: Pain, Mild (Pain Scale 1-3)) Qty: 20 0RF Rx Instructions: Partial Fill upon patient request. Continued propranolol 10 mg tablet 10 mg PO BID 90 Days Qty: 180 1RF buspirone 5 mg tablet 10 mg PO BEDTIME trazodone 50 mg tablet 50 mg PO DAILY PRN (Reason: Sleep) hydroxyzine HCl 10 mg tablet 10 mg PO BID PRN (Reason: Anxiety) topiramate 50 mg tablet 50 mg PO DAILY topiramate 50 mg tablet 100 mg PO BEDTIME Rx Instructions: TAKE 1 TABLET BY MOUTH EVERY DAY IN THE MORNING and TAKE 2 TABLETS BY MOUTH EVERY DAY AT BEDTIME duloxetine 30 mg capsule,delayed release(DR/EC) 30 mg PO QPM Zepbound 12.5 mg/0.5 mL pen injector 12.5 mg subcut MO levothyroxine 50 mcg tablet 50 mcg PO DAILY@0600 Mirena 21 mcg/24hr (up to 8 yrs) 52 mg intrauterine device 1 device intrauterine ONCE Qty: 1 0RF gabapentin 100 mg capsule 100 mg PO BID 30 Days Qty: 60 3RF ibuprofen 600 mg tablet 600 mg PO Q8H PRN (Reason: pain) Qty: 10 0RF Held loperamide 2 mg capsule 2 mg PO BID 30 Days Qty: 60 3RF Hold Instructions: Resume on 04/04/25. <Clover Garcia MD - Last Filed: 04/24/25 21:10> Discharge Orders: Discharge Order (Routine); Ordered 04/02/25 Ordered By: Clover Garcia <Clover Garcia MD - Last Filed: 04/24/25 21:10> Diet: Low fat, low cholesterol <Clover Garcia MD - Last Filed: 04/24/25 21:10> Low fat, low cholesterol <Fanta Fox PA-C - Last Filed: 04/04/25 13:53> Activity on Discharge: No heavy lifting <Clover Garcia MD - Last Filed: 04/24/25 21:10> No heavy lifting <Fanta Fox PA-C - Last Filed: 04/04/25 13:53> Stand Alone Forms: Patient Portal Discharge page, Work/School Release <Clover Garcia MD - Last Filed: 04/24/25 21:10> Print Language: Latvian <Clover Garcia MD - Last Filed: 04/24/25 21:10> Activity Restrictions/Additional Instructions: mild dehydration drink plenty of fluids return for worsening pain, unable to eat or drink, fevers over 100.4, change in pain or any other concerns follow up with your GI doctor as needed <Clover Garcia MD - Last Filed: 04/24/25 21:10> Care Plan Goals: increase activity and diet <Clover Garcia MD - Last Filed: 04/24/25 21:10> Health Concerns: if fever over 101 call MD if worsening pain fever chills bleeding <Clover Garcia MD - Last Filed: 04/24/25 21:10> Plan of Treatment: cont low fat diet and fu in outpt surgical office in 2 weeks <Clover Garcia MD - Last Filed: 04/24/25 21:10> Assessment: doing well sp lap kelly <Clover Garcia MD - Last Filed: 04/24/25 21:10> Patient Instructions: Irritable Bowel Syndrome (ED), Dehydration (ED), Low Fat Diet (DC), Abdominal Pain (ED) <Clover Garcia MD - Last Filed: 04/24/25 21:10> Discharge Date/Time: 04/02/25 14:55 <Clover Garcia MD - Last Filed: 04/24/25 21:10>
[2025-04-02 14:53] VITALS: BP 119/80; PULSE 90; RESP 18; TEMP 36.1; O2SAT 100
--- NOTE | 2025-04-03 08:55 | MHC.CM.PN ---
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
== END 2025-04-02 14:55 | disposition home or self-care (01) ==
LOC: HO.ED 13:36 → HO.EDOVER 13:56 → HO.S3 16:01
PROVIDERS: Admitting Provider Surgery; Emergency Provider Emergency Medicine; PCP Physician Assistant; Visit Provider Surgery
PROC: 0FT44ZZ Resection of Gallbladder, Percutaneous Endoscopic Approach (ICD-10-PCS; CPT 47562; principal; 2025-04-01 17:30)
DX: K80.46 Calculus of bile duct with acute and chronic cholecystitis without obstruction (principal); E06.3 Autoimmune thyroiditis; Z79.890 Hormone replacement therapy; Z79.899 Other long term (current) drug therapy
CPT/HCPCS: 47562; 36415; 76705; 80053; 81003; 83690; 84702; 85025; 88304; 99221; 99285; J0131; J0330; J0690; J1100; J1885; J2003; J2004; J2405; J2704; J3010; J7120

== ENCOUNTER → 2025-04-01 10:25 | Outpatient (BNV) | payer OTHER, SELFPAY | PROVIDERS: Emergency Provider Emergency Medicine; PCP Physician Assistant; Visit Provider Radiology Diagnostic Radiology | DX: R10.11 Right upper quadrant pain (principal) | CPT/HCPCS: 76705 ==

== ENCOUNTER → 2025-04-01 13:46 | Outpatient (BNV) | payer OTHER, SELFPAY | PROVIDERS: Admitting Provider Surgery; Emergency Provider Emergency Medicine; PCP Physician Assistant; Visit Provider Surgery | DX: K80.00 Calculus of gallbladder with acute cholecystitis without obstruction (principal) | CPT/HCPCS: 47562; 99223 ==

== ENCOUNTER 2025-04-05 09:46 | Outpatient (AMB) | payer OTHER, SELFPAY ==
--- NOTE | 2025-04-05 09:58 | MHC.AMNUTRGE ---
VS Expanded 04/05/25 09:59 04/14/25 13:48 Height 5 ft 7 in 5 ft 7 in Weight 185 lb 6.54 oz 185 lb BMI 29.0 29.0 Intake Visit Reasons: Obesity Allergies animal dander (ANIMAL DANDER) Allergy (Intermediate, Verified 04/07/25 13:54) RASH RYE Allergy (Intermediate, Uncoded 04/07/25 13:54) RASH plants Allergy (Mild, Uncoded 04/07/25 13:54) Rash wheat, grains, rye Allergy (Mild, Uncoded 04/07/25 13:54) Rash Nutrition Presentation Details: Pt presents for MNT for overweight Pt reports goal wt is 175 lbs Pt reports participating in [facility] [place] [place] wt management prog and having made dietary modifications, less highly processed foods Pt reports developing rash when consuming wheat, rye, certain fruits 8 am eggs, water or sugar free juices 4pm:chicken breast.veggies/rice snack:fruits/yogurts physical activity: ADL etoh/smoking--- food frequency fruits: 0-1/d veg: daily dairy : 1/d fish: o-1/wk beverages: 42 oz/da (low sugar beverages) BS Monitoring Most Recent Diabetes Results: Creatinine, (0.5-1.4) 0.75 mg/dL 04/01/25 BUN, (9-16) 9 mg/dL 04/01/25 Sodium, (135-145) 139 mmol/L 04/01/25 Potassium, (3.3-5.1) 3.8 mmol/L 04/01/25 Chloride, (96-108) 113 mmol/L H 04/01/25 Carbon Dioxide, (22-29) 19 mmol/L L 04/01/25 Calcium, (8.4-10.2) 9.0 mg/dL 04/01/25 AST, (5-31) 24 U/L 04/01/25 ALT, (0-31) 17 U/L 04/01/25 Total Protein, (6.5-8.0) 7.9 g/dL 04/01/25 Albumin, (3.5-5.0) 4.4 g/dL 04/01/25 LRQ-Eikcrit-Sh.Jeor Equation Height: 5 ft 7 in Weight: 185 lb Resting Metabolic Rate: 1568.73 Calculated Activity Level: Sedentary Calories Needed to Maintain Weight: 1882.48 Diagnosis Nutrition problem #1: overweight/obesity As related to (etiology) #1: diagnosis As evidenced by (sign/symptom) #1: knowledge deficit of diet [facility] Medical History (Updated 04/14/25 @ 14:[address], LDN) Pituitary microadenoma BMI 31.0-31.9,adult BMI 33.0-33.9,adult Obesity (BMI 30-39.9) Dysphagia Dysplasia of cervix, low grade (OMAR 1) Avulsion fracture of ankle Breast pain, left Left foot pain Obese Goiter Anxiety and depression Back pain Snoring IBS (irritable colon syndrome) Nasal congestion Cervical lymphadenopathy Vitamin D deficiency Lexi's disease Hypothyroidism Surgical History (Updated 04/07/25 @ 13:57 by Mac Lawrence MD) Status post laparoscopic cholecystectomy History of laparoscopic cholecystectomy (~04/01/25) H/O tubal ligation Hx of colonoscopy H/O foot surgery History of lumpectomy of left breast History of 2 sections Family History Father No problems noted. Mother HTN (hypertension) Diabetes Alzheimer dementia Maternal Grandmother Diabetes HTN (hypertension) Social History Household Members: Significant Other and Children Household Members Other:: 2 children--8 and 10 yr old Housing: House Housing Other:: stairs Do you presently have visiting nurse or other home services: No Alcohol intake: current Alcohol intake frequency: holidays/special occasions only Alcohol type: beer Patient Tobacco Use Status: Never used Tobacco Tobacco use type: Cigarette e-Cigarette/Vaping Use: Never Used Second Hand Smoke Exposure: No service: No Current occupational status: employed 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 - [employer] Cognitive needs: No Hearing needs: No Vision needs: Yes Female Reproductive History Menstrual Age of Menarche: 14 Assessment & Plan Assessment & Plan (1) Overweight (BMI 25.0-29.9): Code(s): E66.3 - Overweight Category: Medical Plan: current wt: 84 kg ( 04/23 ) est kcal needs as per MSJ:1800 est protein needs as per 1 g/kg BW: 80 est fluid needs as per 30 ml/kg BW: 2500 Recommended fiber > 12 g /day and gradually increase up to 25-28 g /day or as tolerated Nutrition topics discussed : Reviewed (R), Pt verbalized understanding (V) , not applicable (N/A) R, V, : Healthy Plate Method Concept: R, : Carbohydrates: food sources of carbohydrates, relationship of carbohydrates to blood glucose, fatty liver GI health. Recommended total amount of carbohydrates per meals and snack. Differences between simple carbohydrates and complex carbohydrates R, : Lean protein foods including vegan , vegetarian sources of protein. Benefits of protein (including but not limited to healing, nutritional value , benefits in weight loss, glucose control R, V, N/A: Fats : Source of fats, benefits of fats. Difference between saturated and unsaturated fats. Saturated fats and its contribution to inflammation R, V, N/A: Fiber: food sources and role of fiber in the diet (including but not limited to its role as a prebiotic, benefits in constipation, role in IBS , role in glucose control and cholesterol level) R, V, N/A: Hydration: role of hydration and prevention of dehydration or over hydration. Foods and water content. R, V, N/A: Vitamins and Minerals in foods and supplements R, : Interpreting food labels, including serving size, macronutrients, vitamins, minerals, allergens, ingredient list , % daily value Patient Instructions: Practice mindful eating - Practica el comer con conciencia Work on having 3 small meals per day following healthy plate method - trabaja en mantener un horario de comida , 3 comidas al dejon , reduciendo en meriendas Watch on portion sizes of starches to less than 1 cup cooked (choose those starchy vegetables naturally gluten free, known not to cause you allergic reactions)- Vigila tus porciones de almidones - limita a 1 taza cocida (escoge vegetales almidonosos, naturalmente emiliana de glute, los cuales no te michael reaccion alergica) Portion size of lean protein = 4 oz at lunch and dinner (trabaja en la porcion de las proteinas en el almuerzo y nirmal , 4 oz de porcion) Coding Level of Care Code Nutr Indiv Intake (19345) Diagnoses Overweight (BMI 25.0-29.9) E66.3 Time Spent (min) 30
[2025-04-05 09:59] VITALS: BMI 29.0
--- OUTSIDE RECORDS SUMMARY | 2025-04-05 11:14 | XMS_ITS | Clinical Summary ---
Author Organization [employer] Address [address] [place] [address] [address] [place] [address] Care Team Providers Care Beater Worker Helper Name Role Phone Unavailable Primary Care Provider [...] Description 05/16/2025 3:30 PM EST Office Visit [facility] [address] [place] [address] Parisa Culver, OD [address] [place] [address] Health Maintenance Due Date Last Done Comments [...] of detection of this assay. The [employer] Analyst HIV Ag/Ab Combo assay result and supplemental assay results should be interpreted in conjunction with the patient's clinical presentation, history and other laboratory results. If the results are inconsistent with clinical evidence, additional testing is suggested to confirm the result. 07/29/2019 9:30 AM EST Doretha Craven CNM HISTORICAL/NON ORDERABLE LABS Final Result [facility] [address] from Last 3 Months or Most Recently Relevant to Health Maintenance Insurance [facility]
--- OUTSIDE RECORDS SUMMARY | 2025-04-05 11:14 | XMS_ITS | Clinical Summary ---
Author Organization [facility] Address [address] [place] [address] Phone Care Team Providers Care Manager Skilled Name Role Phone Anu Macias MD Primary Care Provider [phone] Surgical History Surgery Date Site/Laterality Comments OTHER SURGICAL HISTORY 05/03/2018 Right PROCEDURE: [facility] [facility]; COMMENT: Dr. 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 Iron deficiency anemia 10/29/2018 [...] 3:45 PM EST Office Visit Bariatric Surgery [facility] [address] [facility] [address] [place] [address] Hira William MD [address] [place] [phone] Health Maintenance Due Date Last Done [...] patient's age to complete this topic Insurance [facility] [employer] Care Teams Manager Skilled Relationship Specialty Start Date End Date Anu Macias MD [address] [facility] [facility] D/B/A: [facility] [place] PCP - General Internal Medicine 11/26/24
[2025-04-14 13:48] VITALS: BMI 29.0
== END 2025-04-05 10:40 | disposition home or self-care (01) ==
LOC: HO.ENCR 09:47
PROVIDERS: PCP Physician Assistant; Visit Provider Dietitian, Registered
DX: E66.3 Overweight (principal)

== ENCOUNTER → 2025-04-05 09:46 | Outpatient (BNVA) | payer OTHER, SELFPAY | PROVIDERS: PCP Physician Assistant; Visit Provider Dietitian, Registered | DX: E66.3 Overweight (principal) | CPT/HCPCS: 97802 ==

== ENCOUNTER 2025-04-07 13:28 | Outpatient (AMB) | payer OTHER, SELFPAY ==
--- OUTSIDE RECORDS SUMMARY | 2025-04-07 13:31 | XMS_ITS | Clinical Summary ---
Author Organization [facility] Address [address] [place] [address] Phone Care Team Providers Care Glove Boarder Name Role Phone Anu Macias MD Primary Care Provider [phone] Surgical History Surgery Date Site/Laterality Comments OTHER SURGICAL HISTORY 05/03/2018 Right PROCEDURE: [place] [facility]; COMMENT: Dr. 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 Iron deficiency anemia 10/29/2018 [...] 3:45 PM EST Office Visit Bariatric Surgery [facility] [address] [facility] [address] [place] [address] Hira William MD [address] [place] [phone] Health Maintenance Due Date Last Done [...] patient's age to complete this topic Insurance [facility] Care Teams Glove Boarder Relationship Specialty Start Date End Date Anu Macias MD [address] [facility] [address] [facility] D/B/A: [facility] [place] PCP - General Internal Medicine 11/26/24
--- OUTSIDE RECORDS SUMMARY | 2025-04-07 13:31 | XMS_ITS | Clinical Summary ---
Author Organization [employer] Address [address] [place] [address] 7[address] [place] [address] Care Team Providers Care Senior Office Assistant Name Role Phone Unavailable Primary Care Provider [...] Description 05/16/2025 3:30 PM EST Office Visit [facility] [address] [place] [address] Parisa Culver, OD [address] [place] [address] Health Maintenance Due Date Last Done Comments [...] of detection of this assay. [employer] HIV Ag/Ab Combo assay result and supplemental assay results should be interpreted in conjunction with the patient's clinical presentation, history and other laboratory results. If the results are inconsistent with clinical evidence, additional testing is suggested to confirm the result. 07/29/2019 9:30 AM EST Doretha Craven CNM HISTORICAL/NON ORDERABLE LABS Final Result [facility] [address] from Last 3 Months or Most Recently Relevant to Health Maintenance Insurance [facility]
[2025-04-07 13:45] VITALS: BMI 28.7
--- NOTE | 2025-04-07 13:45 | A.OFFVIS_ITS ---
Vital Signs 04/07/25 13:45 Height 5 ft 7 in Weight 183 lb BMI 28.7 Intake Visit Reasons: s/p lap kelly Intake Note: This patient presents for post-op assessment status post laparoscopic cholecystectomy. () Pt c/o; reports was constipated since surgery but was able to have a bowel movement this morning 04/07/2025, reports she feels like she has a foul odor from the incision on her belly button, reports back pain and is not sure if it can be the way she is walking to not hurt her incisions, reports acid reflux. Housing Relocation Required: Yes Housing Relocation Language: [employer]: Housing Relocation Present Housing Relocation Name: BrinaJEOVANNYSoraya Information Interpreted: non-clinical & clinical Accompanied by: Child Allergies animal dander (ANIMAL DANDER) Allergy (Intermediate, Verified 04/07/25 13:54) RASH RYE Allergy (Intermediate, Uncoded 04/07/25 13:54) RASH plants Allergy (Mild, Uncoded 04/07/25 13:54) Rash wheat, grains, rye Allergy (Mild, Uncoded 04/07/25 13:54) Rash HPI HPI s/p lap kelly: Details: [age] year old female here for a postop visit. She had undergone laparoscopic cholecystectomy with Dr. Garcia last 04/01/2025 for cholecystitis. She was discharged on postop day 1. She has good oral intake. She denies fever or chills. She feels well overall. [facility] Medical History Pituitary microadenoma BMI 31.0-31.9,adult BMI 33.0-33.9,adult Obesity (BMI 30-39.9) Dysphagia Dysplasia of cervix, low grade (OMAR 1) Avulsion fracture of ankle Breast pain, left Left foot pain Obese Goiter Anxiety and depression Back pain Snoring IBS (irritable colon syndrome) Nasal congestion Cervical lymphadenopathy Vitamin D deficiency Lexi's disease Hypothyroidism Surgical History (Updated 04/07/25 @ 13:57 by Mac Lawrence MD) Status post laparoscopic cholecystectomy History of laparoscopic cholecystectomy (~04/01/25) H/O tubal ligation Hx of colonoscopy H/O foot surgery History of lumpectomy of left breast History of 2 sections Family History Father No problems noted. Mother HTN (hypertension) Diabetes Alzheimer dementia Maternal Grandmother Diabetes HTN (hypertension) Social History Household Members: Significant Other and Children Household Members Other:: 2 children--8 and 10 yr old Housing: House Housing Other:: stairs Do you presently have visiting nurse or other home services: No Alcohol intake: current Alcohol intake frequency: holidays/special occasions only Alcohol type: beer Patient Tobacco Use Status: Never used Tobacco Tobacco use type: Cigarette e-Cigarette/Vaping Use: Never Used Second Hand Smoke Exposure: No service: No Current occupational status: employed 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 Cognitive needs: No Hearing needs: No Vision needs: Yes Female Reproductive History Menstrual Age of Menarche: 14 Review of Systems Const Denies chills and Denies fever(s) Card Denies dyspnea Resp Denies dyspnea GI Denies vomiting Physical Exam Vital Signs: BMI result Body Mass Index 28.7 Const General: comfortable and no acute distress Eyes Other: Anicteric sclerae GI Other: All incisions are well healed Palpation (GI): Soft to palpation, not firm and no guarding Assessment & Plan Assessment & Plan (1) Status post laparoscopic cholecystectomy: Code(s): Z90.49 - Acquired absence of other specified parts of digestive tract Category: Surgical Plan: She had undergone laparoscopic cholecystectomy with Dr. Garcia. Incisions are well healing. Her path report shows chronic cholecystitis I advised her to avoid lifting anything more than 20 lb for at least 2 more weeks. She can otherwise follow up on a p.r.n. basis She is doing well clinically overall. Coding Level of Care Code Global (80422) Diagnoses Status post laparoscopic cholecystectomy Z90.49
== END 2025-04-07 14:08 | disposition home or self-care (01) ==
LOC: HO.HGS 13:28
PROVIDERS: PCP Physician Assistant; Visit Provider Surgery
DX: Z90.49 Acquired absence of other specified parts of digestive tract (principal)
CPT/HCPCS: 99024

== ENCOUNTER → 2025-04-07 13:28 | Outpatient (BNVA) | payer OTHER, SELFPAY | PROVIDERS: PCP Physician Assistant; Visit Provider Surgery | DX: Z90.49 Acquired absence of other specified parts of digestive tract (principal) | CPT/HCPCS: 99212 ==

== ENCOUNTER 2025-04-28 16:34 | Emergency (ER) | payer OTHER, SELFPAY ==
--- OUTSIDE RECORDS SUMMARY | 2025-04-25 09:00 | XMS_ITS | Encounter Summary ---
Author Organization [facility] Address [id number] [place] [id number] Care Team Providers Care Treatment Specialist Name Role Phone Anu Macias MD Primary Care Provider [phone] Reason for Visit * Reason Comments Consult pannus Encounter Details Date Type Department Care Team (Late st Contact Info) Description 04/25/2025 9:00 AM EDT Consult Plastic & Reconstructive Surgery - [place] [address] [place] [phone] Nara Bernard PA [address] [place] [phone] Skin laxity (Primary Dx) Social History Tobacco Use Types Packs/Day Years Used Date Smoking Tobacco: Never Smokeless Tobacco: Never Alcohol Use Standard Drinks/Week Comments No 0 (1 standard drink = 0.6 oz pur e alcohol) Comments Unknown Sex and Gender Information Value Date Recorded Sex Assigned at Not on file Legal Sex Female 1:34 AM EST Gender Identity Not on file Sexual Orientation Not on file documented as of this encounter Last Filed Vital Signs Vital Sign Reading Time Taken Comments Blood Pressure 105/72 04/25/2025 8:50 AM EDT Pulse 83 04/25/2025 8:50 AM EDT Temperature - - Respiratory Rate - - Oxygen Saturation - - Inhaled Oxygen Concentration - - Weight 82.1 kg (181 lb) 04/25/2025 8:50 AM EDT Height 170.8 cm (5' 7.25 ) 04/25/2025 8:50 AM ED T Body Mass Index 28.14 04/25/2025 8:50 AM EDT documented in this encounter Progress Notes * MERCEDEZ Reynolds - 04/25/2025 9:00 AM EDT Unfortunately would not be covered by insurance because you do not have enough extra skin. Can pursue cosmetic options if desired. * MERCEDEZ Reynolds - 04/25/2025 9:00 AM EDT PATIENT: Bijan Kelly ENCOUNTER: 04/25/2025 EMRN: [id number] : 1990 CHIEF COMPLAINT: Consult (/pannus) The patient was given the opportunity to have a regional company truck driver present during a sensitive examination attoday's visit. She declined this offer of a regional company truck driver. HPI: This 35 y.o. Slovak speaking female presents for evaluation of abdominal pannus. A Slovak interpretor was utilized throughout the visit. She has been followed by [facility] using weight loss medications to aid in her weight loss journey. She used a combo of phentermine and Zepbound and has lost 50 pounds in total. Unfortunately she had a lot of systemic side effects including issues with her gallbladder and ultimately underwent a cholecystectomy earlier this month and states her surgeon told her the issues were cased by the weight loss medication so she will not be puton any further medication. She believes her weight has been stable for 1-2 months at 180 pounds. She admits to a rash and skin irritation underneath her abdomen. Patient has attempted and failed antifungal treatment. She is interested in surgery to reduce the skin in the front of her abdomen. Past abdominal surgical history includes two c-sections in 2009 and 2011. Her BMI is 28.14. ROS: CONSTITUTIONAL: no malaise, no significant weight changes, no excessive fatigue, no fevers or chills EYES: no visual complaints ENT: no changes in hearing vision nasal problems or hoarseness CARDIOVASCULAR:no chest pain and leg swelling or palpitations RESPIRATORY: no chronic cough wheezing or shortness of breath GI: no abdominal pain nausea vomiting or diarrhea : no dysuria frequency or incontinence NEUROLOGICAL: no stated paresthesias PSYCHIATRIC: no change from baseline ENDOCRINE: no heat or cold intolerance HEMATOLOGIC: no excessive bleeding MUSCULOSKELETAL: no aches or pains INTEGUMENTARY: as stated in HPI PAST MEDICAL HISTORY: Problem List[1] PAST SURGICAL HISTORY: Surgical History[2] SOCIAL HISTORY: Social History[3] FAMILY HISTORY: Family History[4] I have reviewed the following sections of the chart: Past medical history, surgical history, socialhistory and family history via records and directly with the patient. MEDICATIONS: Medications Taking[5] ALLERGIES: Allergies[6] PHYSICAL EXAM: Visit Vitals BP 105/72 Pulse 83 Ht 1.708 m (67.25 ) Wt 82.1 kg (181 lb) BMI 28.14 kg/m?? Smoking Status Never BSA 1.94 m?? APPEARANCE: Normal EYES: Pupils, conjunctiva and sclera normal. EARS: normal MOUTH/THROAT: normal without lesions NECK: Neck supple, no adenopathy HEART: RRR with no murmurs appreciated LUNG: clear to auscultation LYMPH NODES: grossly normal ABDOMEN: soft and non-tender NEURO: Awake, alert and oriented x 3; cranial nerves II-XII grossly intact PSYCHIATRIC: Mood and affect are normal MUSCULOSKELETAL: normal SKIN: as noted above, Grade 1 abdominal pannus, Pannus hangs to top of mons No rash noted Laparoscopic scars and scar noted on abdomen LABS / PATHOLOGY: Primary care provider's note reviewed. IMAGING: No new imaging to review. IMPRESSION: 1. Skin laxity PLAN: 1. 35 y.o. female with grade 1 abdominal pannus Discussion of the natural pathophysiology of abdominal pannus and the relation to the fungal rash. We reviewed surgical indications from an insurance standpoint for post-bariatric panniculectomy. I did discuss with her that her abdomen is a grade 0-1 pannus and would not meet insurance requirements. We discussed that she could pursue cosmetic options if she desired. Briefly discussed cosmetic abdominoplasty and the risks and benefits of this. Including but not limited to skin necrosis, flap necrosis, fat necrosis, infection, seroma, hematoma, less than ideal aesthetic outcome, contour defects, and need for revision surgery. The patient's questions were encouraged and answered to their satisfaction. The patient expressed clear understanding our discussion as well as all operative and conservative management plans After hearing all of the risks and benefits, she has elected to proceed with observation for now and will return to the office if she would like to pursue cosmetic options. Nara Bernard PA-C Plastic and Reconstructive, Cosmetic and Laser Surgery [facility] A Member of [facility] W [phone] F [phone] [place] [phone] [email or web address] [employer] [1] There is no problem list on file for this patient. [2] Past Surgical History: Procedure Laterality Date OTHER SURGICAL HISTORY Right 05/03/2018 PROCEDURE: NE CORRECTION HAMMERTOE; COMMENT: Dr. Wilburn [3] Social History Tobacco Use Smoking status: Never Smokeless tobacco: Never Substance Use Topics Alcohol use: No Drug use: No [4] No family history on file. [5] Outpatient Medications Marked as Taking for the 04/25/25 encounter (Consult) with MERCEDEZ Reynolds Medication Sig Dispense Refill busPIRone (BUSPAR) 5 mg tablet TAKE 2 TABLETS BY MOUTH EVERY DAY AT BEDTIME FOR SYMPTOMS OF ANXIETY cyclobenzaprine (FLEXERIL) 10 mg tablet TAKE 1 TABLET BY MOUTH EVERY DAY BEDTIME NEEDED FOR MUSCLE SPASM DULoxetine (CYMBALTA) [address] capsule Take 1 capsule (30 mg total) by mouth. gabapentin (NEURONTIN) 100 mg capsule Take 1 capsule (100 mg total) by mouth 2 (two) times a day. hydrOXYzine HCL (ATARAX) 10 mg tablet Take 1 tablet (10 mg total) by mouth 2 (two) times a day if needed. ibuprofen (ADVIL,MOTRIN) 600 mg tablet Take 1 tablet (600 mg total) by mouth every 8 (eight) hours if needed. for pain magnesium oxide 500 mg capsule Take 1 capsule by mouth 1 (one) time each day. naproxen (EC NAPROSYN) 500 mg EC tablet 500 MG ORALLY EVERY 12 HOURS NEEDED FOR PAIN FOR 30 DAYS ondansetron ODT (ZOFRAN-ODT) 4 mg disintegrating tablet Take 1 tablet (4 mg total) by mouth every 8(eight) hours if needed. for nausea and vomiting oxyCODONE (ROXICODONE) 5 mg immediate release tablet TAKE 1 TABLET BY MOUTH EVERY 4 HOURS NEEDEDFOR MILD PAIN, (PAIN SCALE 1-3) predniSONE (DELTASONE) 20 mg tablet Take 2 tablets (40 mg total) by mouth 1 (one) time each day. for 5 days propranoloL (INDERAL) 10 mg tablet Take 1 tablet (10 mg total) by mouth 2 (two) times a day. topiramate (TOPAMAX) 50 mg tablet TAKE 1 TABLET BY MOUTH EVERY DAY IN THE MORNING and TAKE 2 TABLETS BY MOUTH EVERY DAY AT BEDTIME traZODone (DESYREL) 50 mg tablet Take 1 tablet (50 mg total) by mouth 1 (one) time each day if needed. [6] No Known Allergies documented in this encounter Plan of Treatment Upcoming Encounters Date Type Department Care Team (Late st Contact Info) Description 08/30/2025 3:45 PM EST Office Visit Bariatric Surgery - [address] [place] [address] Hira William MD [address] [place] [phone] documented as of this encounter Visit Diagnoses Diagnosis Skin laxity- Primary documented in this encounter Historical Medications * This list may reflect changes made after this encounter. traZODone (DESYREL) 50 mg tablet Take 1 tablet (50 mg total) by mouth 1 (one) time each day if needed. 04/07/2025 topiramate (TOPAMAX) 50 mg tablet TAKE 1 TABLET BY MOUTH EVERY DAY IN THE MORNING and TAKE 2 TABLETS BY MOUTH EVERY DAY AT BEDTIME 04/07/2025 propranoloL (INDERAL) 10 mg tablet Take 1 tablet (10 mg total) by mouth 2 (two) times a day. 03/15/2025 predniSONE (DELTASONE) 20 mg tablet Take 2 tablets (40 mg total) by mouth 1 (one) time each day. for 5 days 05/17/2024 oxyCODONE (ROXICODONE) 5 mg immediate release tablet TAKE 1 TABLET BY MOUTH EVERY 4 HOURS NEEDED FOR MILD PAIN, (PAIN SCALE 1-3) 04/02/2025 ondansetron ODT (ZOFRAN-ODT) 4 mg disintegrating tablet Take 1 tablet (4 mg total) by mouth every 8 (eight) hours if needed. for nausea and vomiting 04/01/2025 naproxen (EC NAPROSYN) 500 mg EC tablet 500 MG ORALLY EVERY 12 HOURS NEEDED FOR PAIN FOR 30 DAYS 06/09/2024 magnesium oxide 500 mg capsule Take 1 capsule by mouth 1 (one) time each day. 12/14/2024 ibuprofen (ADVIL,MOTRIN) 600 mg tablet Take 1 tablet (600 mg total) by mouth every 8 (eight) hours if needed. for pain 01/03/2025 hydrOXYzine HCL (ATARAX) 10 mg tablet Take 1 tablet (10 mg total) by mouth 2 (two) times a day if needed. 04/07/2025 gabapentin (NEURONTIN) 100 mg capsule Take 1 capsule (100 mg total) by mouth 2 (two) times a day. 02/12/2025 DULoxetine (CYMBALTA) [address] capsule Take 1 capsule (30 mg total) by mouth. 04/07/2025 cyclobenzaprine (FLEXERIL) 10 mg tablet TAKE 1 TABLET BY MOUTH EVERY DAY BEDTIME NEEDED FOR MUSCLE SPASM 01/03/2025 Vitamin D3 50 mcg (2,000 unit) capsule TAKE 2 CAPSULES BY MOUTH EVERY DAY FOR 90 DAYS busPIRone (BUSPAR) 5 mg tablet TAKE 2 TABLETS BY MOUTH EVERY DAY AT BEDTIME FOR SYMPTOMS OF ANXIETY 04/07/2025 added in this encounter Care Teams Treatment Specialist Relationship Specialty Start Date End Date Anu Macias MD 2 [facility] , [address] Physician Associ D/B/A: [facility] [place] PCP - General Internal Medicine 11/26/24 documented as of this encounter
--- NOTE | ~2025-04-28 | XR_ITS ---
CLINICAL HISTORY: pain, constipation? 1 view abdomen Comparison: None provided Findings: No significant bowel distention demonstrated. No significant increased stool noted. No free air. No abnormal calcification. No acute bony abnormalities. IUD midline pelvis. Right upper quadrant surgical clips. Impression: No significant abnormalities. This document has been electronically signed by: Miah Spain MD on 04/28/2025 22:29:42
[2025-04-28 17:02] VITALS: BP 133/60; PULSE 86; RESP 20; TEMP 37; O2SAT 97; BMI 27.9
--- NOTE | 2025-04-28 17:17 | ED.GENADULT ---
HPI - General Adult General Chief complaint: Abdominal Pain Stated complaint: gall bladder surgery abd pain Time Seen by Provider: 04/28/25 20:46 Source: patient Limitations: language barrier History of Present Illness ED Provider: Vanda Rodriguez PA-C HPI narrative: 35-year-old female with a history of morbid obesity, anxiety, bipolar disorder, fibromyalgia, migraine, chronic back pain, hypothyroidism who was now status post cholecystectomy on April [address] Garcia, presents with periumbilical pain times 2-3 days. Patient states she developed discomfort after lifting a bucket full of water. Patient states she has developed redness around 1 of the trocar sites. Patient states pain is worse with movement and palpation of the site. Denies fever. Denies nausea vomiting diarrhea or constipation. Denies abdominal distention or inability to pass flatus. No dysuria. Related Data Home Medications ?Medication ?Instructions ?Recorded ?Confirmed buspirone 5 mg tablet 10 mg PO BEDTIME anxiety 04/01/25 04/01/25 duloxetine 30 mg capsule,delayed 30 mg PO QPM 04/01/25 04/01/25 release hydroxyzine HCl 10 mg tablet 10 mg PO BID PRN Anxiety 04/01/25 04/01/25 levothyroxine 50 mcg tablet 50 mcg PO DAILY@0600 04/01/25 04/01/25 tirzepatide (weight loss) 12.5 12.5 mg subcut MO 04/01/25 04/01/25 mg/0.5 mL subcutaneous pen injector (Zepbound) topiramate 50 mg tablet 50 mg PO DAILY 04/01/25 04/01/25 topiramate 50 mg tablet 100 mg PO BEDTIME 04/01/25 04/01/25 trazodone 50 mg tablet 50 mg PO DAILY PRN Sleep 04/01/25 04/01/25 Previous Rx's ?Medication ?Instructions ?Recorded propranolol 10 mg tablet 10 mg PO BID 90 days #180 tabs 03/15/25 gabapentin 100 mg capsule 100 mg PO BID 30 days #60 caps 03/28/25 ibuprofen 600 mg tablet 600 mg PO Q8H PRN pain #10 tabs 03/28/25 loperamide 2 mg capsule 2 mg PO BID loose stool 30 days 03/28/25 Held on 04/02/25. #60 caps Instructions: Resume on 04/04/25. ondansetron 4 mg disintegrating 4 mg PO Q8H PRN nausea and 04/01/25 tablet vomiting #20 tabs oxycodone 5 mg tablet 5 mg PO Q4H PRN Pain, Mild (Pain 04/02/25 Scale 1-3) #20 tabs doxycycline hyclate 100 mg capsule 100 mg PO BID #13 caps 04/28/25 Allergies Allergy/AdvReac Type Severity Reaction Status Date / Time animal dander (ANIMAL DANDER) Allergy Intermediate RASH Verified 04/28/25 17:07 RYE Allergy Intermediate RASH Uncoded 04/28/25 17:07 plants Allergy Mild Rash Uncoded 04/28/25 17:07 wheat, grains, rye Allergy Mild Rash Uncoded 04/28/25 17:07 Review of Systems Review of Systems: Yes all other systems are reviewed and are negative Constitutional: Constitutional: Denies fatigue and Denies fever(s) Cardiovascular: Cardiovascular: Denies chest pain and Denies dyspnea Respiratory: Respiratory: Denies dyspnea Gastrointestinal: Gastrointestinal: Reports abdominal pain, Denies constipation, Denies diarrhea, Denies nausea and Denies vomiting Integumentary/Breasts: Skin/Breast: Reports erythema Endocrine: Endocrine: Denies fatigue PMFSH Past Medical History Attestation statement: The following information was validated with the patient. Medical History (Updated 04/29/25 @ 00:00 by Teri Daandrew) Pituitary microadenoma BMI 31.0-31.9,adult BMI 33.0-33.9,adult Obesity (BMI 30-39.9) Dysphagia Dysplasia of cervix, low grade (OMAR 1) Avulsion fracture of ankle Breast pain, left Left foot pain Obese Goiter Anxiety and depression Back pain Snoring IBS (irritable colon syndrome) Nasal congestion Cervical lymphadenopathy Vitamin D deficiency Lexi's disease Hypothyroidism Surgical History (Updated 04/07/25 @ 13:57 by Mac Lawrence MD) Status post laparoscopic cholecystectomy History of laparoscopic cholecystectomy (~04/01/25) H/O tubal ligation Hx of colonoscopy H/O foot surgery History of lumpectomy of left breast History of 2 sections Family History Family History Father No problems noted. Mother HTN (hypertension) Diabetes Alzheimer dementia Maternal Grandmother Diabetes HTN (hypertension) Social History Social History Household Members: Significant Other and Children Household Members Other:: 2 children--8 and 10 yr old Housing: House Housing Other:: stairs Do you presently have visiting nurse or other home services: No Alcohol intake: current Alcohol intake frequency: holidays/special occasions only Alcohol type: beer Patient Tobacco Use Status: Never used Tobacco Tobacco use type: Cigarette e-Cigarette/Vaping Use: Never Used Second Hand Smoke Exposure: No Advance Directives: No Advance Directives Information Provided: Yes service: No Current occupational status: employed 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 Cognitive needs: No Hearing needs: No Vision needs: Yes Physical Exam ED Vital Signs: Vital Signs - 24 hr 04/28/25 17:02 04/28/25 20:50 Temperature 98.6 F 98.0 F Pulse Rate 86 84 Respiratory Rate 20 18 Blood Pressure 133/60 97/65 Pulse Oximetry 97 99 Oxygen Delivery Method Room Air Room Air BMI result Body Mass Index 27.9 Const Other: Alert well-appearing sitting up in bed reading Orientation/consciousness: patient oriented x3 Resp Effort & Inspection: normal respiratory effort Cardio Other: Normal peripheral perfusion GI Other: Abdomen is obese, soft, nontender no guarding over entire abdomen. There is mild erythema that is circumferential around the umbilicus, there was no purulence from the healing trocar site, Skin Other: Warm dry no rash Neuro General: patient oriented x3, gait normal, no focal motor deficits and CN's II-XI intact bilaterally Psych Other: Cooperative Course Course Course Narrative: RME: 35 yold female s/p cholecystectomy on 04/01 presents to the ED for umbilical pain and redness. Exam shows redness around umbiliculus with tenderness. no discharge. labs ordeed Medications Administered Discontinued Medications Generic Name Dose Route Start Last Admin Trade Name Freq PRN Reason Stop Dose Admin Doxycycline Monohydrate 100 mg 04/28/25 21:02 04/28/25 21:20 Doxycycline Monohydrate 100 Mg Capsule PO 04/28/25 21:03 100 mg ONCE ONE Administration Medical Decision Making Medical Decision Making [facility] Narrative: 35-year-old female with a history of morbid obesity, anxiety, bipolar disorder, fibromyalgia, migraine, chronic back pain, hypothyroidism who was now status post cholecystectomy on April [address] Garcia, presents with periumbilical pain times 2-3 days. Patient states she developed discomfort after lifting a bucket full of water. Patient states she has developed redness around 1 of the trocar sites. Patient states pain is worse with movement and palpation of the site. Denies fever. Denies nausea vomiting diarrhea or constipation. Denies abdominal distention or inability to pass flatus. No dysuria. Problem: Obesity, psychiatric illness, chronic pain, status post surgery History: Per patient I have considered the following differential diagnoses: Choledocholithiasis, intra-abdominal abscess, other postoperative complication, cellulitis, purulent cellulitis, abdominal wall strain , constipation, bowel obstruction Plan: Patient is having vague abdominal discomfort in relation to 1 of the trocar sites, she could be developing early cellulitis, there was some erythema, her abdominal exam was completely benign, screening labs were already obtained, they are also unremarkable. I did consider choledocholithiasis, the patient did have gallstones as well, however she is not having postprandial symptoms, no nausea vomiting, and her pain is focal to the umbilicus. Thought about postoperative complications such as an abscess, however again her abdominal exam was completely benign, she is afebrile, well-appearing and labs were unremarkable. She most likely strained the abdominal wall, she states she picked up a heavy bucket of water, prior to the onset of her symptoms. She might be constipated, I am sure she was discharged with pain medication, adding on a KUB. She has no symptoms consistent with a obstruction at this time. I have independently reviewed the following tests: Labs: No leukocytosis, not anemic, no electrolyte abnormality, LFTs completely normal, Findings: No significant bowel distention demonstrated. No significant increased stool noted. No free air. No abnormal calcification. No acute bony abnormalities. IUD midline pelvis. Right upper quadrant surgical clips. Impression: No significant abnormalities. Differential Diagnosis Differential Diagnoses: The differential diagnosis associated with the presentation includes See medical decision-making Admission/Observation Consideration of admission/observation: Escalation of care including admission/observation considered Not applicable Lab Data MDM Lab Attestation statement: I reviewed the patient's lab results. 04/28/25 17:23 04/28/25 17:23 Labs: Lab Results 04/28/25 04/28/25 Range/Units 17:23 17:27 WBC 7.7 (4.8-10.8) X10*3/uL RBC 4.32 (4.20-5.50) X10*6/uL Hgb 13.5 (12.0-16.0) g/dl Hct 40.4 (37.0-47.0) % MCV 93.5 (80.0-98.0) fL MCH 31.3 (27.0-33.0) pg MCHC 33.4 (31.0-35.0) g/dl RDW 13.5 (11.0-16.0) % Plt Count 353 (160-400) X10*3/uL MPV 9.0 L (9.4-12.3) fL Immature Gran % (Auto) 0.3 (0.0-0.4) % Neut % (Auto) 57.0 (45-73) % Lymph % (Auto) 23.2 (20-40) % [place] % (Auto) 6.9 (2-11) % Eos % (Auto) 11.4 H (0-4) % Baso % (Auto) 1.2 (0-2) % Lymph # (Auto) 1.8 (1.2-4.9) X10*3/uL [place] # (Auto) 0.5 (0.1-1.2) X10*3/uL Eos # (Auto) 0.9 H (0.0-0.4) X10*3/uL Baso # (Auto) 0.1 (0.0-0.2) X10*3/uL Abs Immat Gran (auto) 0.02 (0.00-0.03) X10*3/uL Absolute Neuts (auto) 4.4 (2.0-8.3) x10*3/uL Absolute Nucleated RBC 0.000 (0.0-0.012) X10*3/uL Nucleated RBC % (auto) 0.0 (0.0-0.2) /100WBC Sodium 140 (135-145) mmol/L Potassium 3.7 (3.3-5.1) mmol/L Chloride 114 H (96-108) mmol/L Carbon Dioxide 20 L (22-29) mmol/L Anion Gap 10 L (12-20) BUN 10 (9-16) mg/dL Creatinine 0.72 (0.5-1.4) mg/dL Estim Creat Clear Calc 123.3 Estimated GFR > 60 Random Glucose 91 (60-115) mg/dL Calcium 8.9 (8.4-10.2) mg/dL Total Bilirubin 0.6 (0.0-1.0) mg/dL AST 17 (5-31) U/L ALT 15 (0-31) U/L Alkaline Phosphatase 43 (39-117) U/L Total Protein 7.4 (6.5-8.0) g/dL Albumin 4.4 (3.5-5.0) g/dL Lipase 28 (8-78) U/L Urine Color Yellow Urine Appearance Clear Urine pH 5.5 (5.0-9.0) Ur Specific [place] 1.025 (1.005-1.025) Urine Protein Negative (Neg-Trace) mg/dL Urine Glucose (UA) Negative (Negative) mg/dL Urine Ketones Trace (Negative) mg/dL Urine Blood Negative (Negative) Urine Nitrite Negative (Negative) Ur Leukocyte Esterase Negative (Negative) Radiology Impression Discussion of test interpretation with radiology: I have reviewed the radiologist's reading. Discharge Plan Discharge Clinical Impression: Abdominal pain, Abdominal wall cellulitis Patient Disposition: Home, Self-Care Instructions: Cellulitis (ED), Abdominal Pain (ED) Additional Instructions: All of your screening labs including your liver function tests were completely normal. There were no acute findings on the x-ray. We are treating you for suspect early cellulitis surrounding 1 of the incision sites on the abdomen. See home care instructions. Take the doxycycline as directed, complete the course of this antibiotic. If your symptoms persist, you need to follow up with your surgeon. Prescriptions: New doxycycline hyclate 100 mg capsule 100 mg PO BID Qty: 13 0RF No Action propranolol 10 mg tablet 10 mg PO BID 90 Days Qty: 180 1RF ondansetron 4 mg tablet,disintegrating 4 mg PO Q8H PRN (Reason: nausea and vomiting) Qty: 20 0RF buspirone 5 mg tablet 10 mg PO BEDTIME trazodone 50 mg tablet 50 mg PO DAILY PRN (Reason: Sleep) hydroxyzine HCl 10 mg tablet 10 mg PO BID PRN (Reason: Anxiety) topiramate 50 mg tablet 50 mg PO DAILY topiramate 50 mg tablet 100 mg PO BEDTIME Rx Instructions: TAKE 1 TABLET BY MOUTH EVERY DAY IN THE MORNING and TAKE 2 TABLETS BY MOUTH EVERY DAY AT BEDTIME duloxetine 30 mg capsule,delayed release(DR/EC) 30 mg PO QPM Zepbound 12.5 mg/0.5 mL pen injector 12.5 mg subcut MO levothyroxine 50 mcg tablet 50 mcg PO DAILY@0600 oxycodone 5 mg Tablet 5 mg PO Q4H PRN (Reason: Pain, Mild (Pain Scale 1-3)) Qty: 20 0RF Rx Instructions: Partial Fill upon patient request. Mirena 21 mcg/24hr (up to 8 yrs) 52 mg intrauterine device 1 device intrauterine ONCE Qty: 1 0RF gabapentin 100 mg capsule 100 mg PO BID 30 Days Qty: 60 3RF ibuprofen 600 mg tablet 600 mg PO Q8H PRN (Reason: pain) Qty: 10 0RF loperamide 2 mg capsule 2 mg PO BID 30 Days Qty: 60 3RF Interventions: ED Discharge Assessment Last Done: 04/28/25 23:03 Discharge Date/Time: 04/28/25 23:04 Print Language: German
[2025-04-28 17:31] LABS: MANUAL DIFF FLAG NO
[2025-04-28 17:33] LABS: Hematocrit 40.4 % (37.0-47.0); Hemoglobin 13.5 g/dl (12.0-16.0); Imm Gran Abs Auto 0.02 X10*3/uL (0.00-0.03); Imm Gran Pct Auto 0.3 % (0.0-0.4); Lymphocytes Absolute Auto 1.8 X10*3/uL (1.2-4.9); Mean Corpuscular HGB Conc 33.4 g/dl (31.0-35.0); Mean Corpuscular Hemoglobin 31.3 pg (27.0-33.0); Mean Corpuscular Volume 93.5 fL (80.0-98.0); NRBC Abs Auto 0.000 X10*3/uL (0.0-0.012); NRBC Pct Auto 0.0 /100WBC (0.0-0.2); Platelet Count 353 X10*3/uL (160-400); Red Blood Count 4.32 X10*6/uL (4.20-5.50); White Blood Count 7.7 X10*3/uL (4.8-10.8)
[2025-04-28 17:38] LABS: Appearance Urine Clear; Glucose Urine UA Negative (Negative); PH 5.5 (5.0-9.0); Specific Gravity - Urine 1.025 (1.005-1.025)
[2025-04-28 17:48] LABS: Alanine Aminotransferase 15 U/L (0-31); Albumin Level 4.4 g/dL (3.5-5.0); Alkaline Phosphatase 43 U/L (39-117); Anion Gap 10 (12-20); Aspartate Amino Transferase 17 U/L (5-31); Blood Urea Nitrogen 10 mg/dL (9-16); Calcium 8.9 mg/dL (8.4-10.2); Carbon Dioxide 20 mmol/L (22-29); Chloride 114 mmol/L (96-108); Creatinine Clr Calc Pharmacy 123.3; Estimated Glomerular Filt Rate > 60; Lipase 28 U/L (8-78); Potassium 3.7 mmol/L (3.3-5.1); Sodium 140 mmol/L (135-145); Total Protein 7.4 g/dL (6.5-8.0)
[2025-04-28 20:50] VITALS: BP 97/65; PULSE 84; RESP 18; TEMP 36.7; O2SAT 99
--- OUTSIDE RECORDS SUMMARY | 2025-04-28 21:38 | XMS_ITS | Clinical Summary ---
Author Organization [address] [facility] Address [address] [place] [address] Phone Care Team Providers Care Rn Hyperbaric Name Role Phone Anu Macias MD Primary Care Provider [phone] Allergies No known active allergies Medications busPIRone (BUSPAR) 5 mg tablet TAKE 2 TABLETS BY MOUTH EVERY DAY AT BEDTIME FOR SYMPTOMS OF ANXIETY 5 Active Vitamin D3 50 mcg (2,000 unit) capsule TAKE 2 CAPSULES BY MOUTH EVERY DAY FOR 90 DAYS Active cyclobenzaprine (FLEXERIL) 10 mg tablet TAKE 1 TABLET BY MOUTH EVERY DAY BEDTIME NEEDED FOR MUSCLE SPASM 5 Active DULoxetine (CYMBALTA) [address] capsule Take 1 capsule (30 mg total) by mouth. 5 Active gabapentin (NEURONTIN) 100 mg capsule Take 1 capsule (100 mg total) by mouth 2 (two) times a day. 5 Active hydrOXYzine HCL (ATARAX) 10 mg tablet Take 1 tablet (10 mg total) by mouth 2 (two) times a day if needed. 5 Active ibuprofen (ADVIL,MOTRIN) 600 mg tablet Take 1 tablet (600 mg total) by mouth every 8 (eight) hours if needed. for pain 5 Active magnesium oxide 500 mg capsule Take 1 capsule by mouth 1 (one) time each day. 5 Active naproxen (EC NAPROSYN) 500 mg EC tablet 500 MG ORALLY EVERY 12 HOURS NEEDED FOR PAIN FOR 30 DAYS 4 Active ondansetron ODT (ZOFRAN-ODT) 4 mg disintegrating tablet Take 1 tablet (4 mg total) by mouth every 8 (eight) hours if needed. for nausea and vomiting 5 Active oxyCODONE (ROXICODONE) 5 mg immediate release tablet TAKE 1 TABLET BY MOUTH EVERY 4 HOURS NEEDED FOR MILD PAIN, (PAIN SCALE 1-3) 5 Active predniSONE (DELTASONE) 20 mg tablet Take 2 tablets (40 mg total) by mouth 1 (one) time each day. for 5 days 4 Active propranoloL (INDERAL) 10 mg tablet Take 1 tablet (10 mg total) by mouth 2 (two) times a day. 5 Active topiramate (TOPAMAX) 50 mg tablet TAKE 1 TABLET BY MOUTH EVERY DAY IN THE MORNING and TAKE 2 TABLETS BY MOUTH EVERY DAY AT BEDTIME 5 Active traZODone (DESYREL) 50 mg tablet Take 1 tablet (50 mg total) by mouth 1 (one) time each day if needed. 5 Active Encounters Date Type Department Care Team Description 04/25/2025 9:00 AM EDT Consult Plastic & Reconstructive Surgery - [address] [address] Nara Bernard PA Skin laxity (Primary Dx) from Last 3 Months Surgical History Surgery Date Site/Laterality Comments OTHER SURGICAL HISTORY 05/03/2018 Right PROCEDURE: [place] CORRECTION [facility]; COMMENT: Dr. Wilburn Medical History Medical History Date Comments Anxiety and depression 10/29/2018 DX:Anxiet y and depression Chronic right-sided low back pain 10/29/2018 DX:Chronic right-sided low back pain Vitamin B12 deficiency 10/29/2018 DX:Vitami n B12 deficiency Chronic tension headache 10/29/2018 DX:Child Care Nurse nick tension headache Iron deficiency anemia 10/29/2018 [...] Sexual Orientation Not on file Obstetrics History Last Filed Vital Signs Vital Sign Reading [...] Mass Index 28.14 04/25/2025 8:50 AM EDT Plan of Treatment Upcoming Encounters Date Type Department Care Team (Late st Contact Info) Description 08/30/2025 3:45 PM EST Office Visit Bariatric Surgery - [place] [address] [facility] [address] [place] [phone] Hira William MD [address] [place] [phone] Health Maintenance Due Date Last Done Comments Hepatitis B Vaccines (1 of 3 - 19+ 3-dose series) 2009 Cervical Cancer Screening: P ap Smear 2011 HPV Vaccines (1 - 3-dose SCD M series) 2017 Depression Screening 06/30/2024 HIV Screening 11/26/2024 Hepatitis C Screening 11/26/2024 Social Influencers of Health Screening 11/26/2024 COVID-19 Vaccine (4 - 2024-2 6 season) 2025 01/17/2023, 12/13/2020, 11/01/2020 Influenza Vaccine (#1) 2025 03/20/2018 DTaP,Tdap,and Td Vaccines (2 - Td or Tdap) 11/27/2027 11/26/2017 RSV Immunization Adult Patients (1 - 1-dose 75+ series) 2065 HIB [...] to complete this topic RSV Immunization Patients Under 20 months Aged Out No longer eligible b ased on patient's age to complete this topic Varicella Vaccines Aged Out No longer eligible based on patient's age to complete this topic [place] [address] [place] [address] PLAN Care Teams Rn Hyperbaric Relationship Specialty Start Date End Date Anu Macias MD [address] [place] [address] , [address] Physician Associ D/B/A: [facility] [place] PCP - General Internal Medicine 11/26/24
--- OUTSIDE RECORDS SUMMARY | 2025-04-28 21:38 | XMS_ITS | Encounter Summary ---
Author Organization [facility] Address [address] [place] [address] Care Team Providers Care Skate Maker Name Role Phone Community, Pcp Primary Care Provider Unavailabl e Encounter Details Date Type Department Care Team Description 08/12/2018 Transfer Records Medical Records [address] [place] [id number] Marshall Wilburn II Social History Tobacco Use Types Packs/Day Years Used Date Smoking Tobacco: Never Assessed Sex Assigned at Date Recorded Not on file documented as of this encounter Plan of Treatment Not on file documented as of this encounter Visit Diagnoses Not on filedocumented in this encounter Care Teams Skate Maker Relationship Specialty Start Date End Date Community, Pcp PCP - General Internal Medicine 07/27/18 documented as of this encounter
[2025-04-28 23:03] VITALS: BP 112/74; PULSE 84; RESP 18; TEMP 36.7; O2SAT 99
== END 2025-04-28 23:04 | disposition home or self-care (01) ==
PROVIDERS: Physician Assistant; Emergency Provider Emergency Medicine; PCP Physician Assistant
DX: R10.33 Periumbilical pain (principal); L03.90 Cellulitis, unspecified; K58.9 Irritable bowel syndrome, unspecified; K91.89 Other postprocedural complications and disorders of digestive system; M79.7 Fibromyalgia; Z90.49 Acquired absence of other specified parts of digestive tract
CPT/HCPCS: 36415; 74018; 80053; 81003; 83690; 85025; 99283

== ENCOUNTER → 2025-04-28 21:02 | Outpatient (BNV) | payer OTHER, SELFPAY | PROVIDERS: Emergency Provider Emergency Medicine; PCP Physician Assistant; Visit Provider Radiology Diagnostic Radiology | DX: R10.9 Unspecified abdominal pain (principal) | CPT/HCPCS: 74018 ==

== ENCOUNTER 2025-05-11 10:21 | Outpatient (REF) | payer OTHER, SELFPAY ==
--- OUTSIDE RECORDS SUMMARY | 2025-05-11 12:17 | XMS_ITS | Clinical Summary ---
Author Organization [facility] Address [address] [place] [address] [address] [place] [address] Care Team Providers Care Lacquer Spray Booth Operator Name Role Phone Unavailable Primary Care [...] Description 05/16/2025 3:30 PM EST Office Visit [facility] [address] [place] [address] Parisa Culver, OD [address] [place] [address] Health Maintenance Due Date Last Done Comments [...] of detection of this assay. [employer] Worker HIV Ag/Ab Combo assay result and supplemental assay results should be interpreted in conjunction with the patient's clinical presentation, history and other laboratory results. If the results are inconsistent with clinical evidence, additional testing is suggested to confirm the result. 07/29/2019 9:30 AM EST us Doretha Craven CNM HISTORICAL/NON ORDERABLE LABS Final Result [facility] [address]where [address] from Last 3 Months or Most Recently Relevant to Health Maintenance Insurance [facility]
--- OUTSIDE RECORDS SUMMARY | 2025-05-11 12:17 | XMS_ITS | Clinical Summary ---
Author Organization [address] [facility] Address [address] [place] [address] Phone Care Team Providers Care Combiner Operator Name Role Phone Anu Macias MD Primary Care Provider [phone] Allergies No known active allergies Medications busPIRone [...] EDT Consult Plastic & Reconstructive Surgery - [address] [address] Nara Bernard PA Skin laxity (Primary Dx) from Last 3 Months Surgical History Surgery Date Site/Laterality Comments OTHER SURGICAL HISTORY 05/03/2018 Right PROCEDURE: [place] CORRECTION [facility]; COMMENT: Dr. 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
[2025-05-12 19:03] LABS: Class Alternaria alternata 0; Class Aspergillus fumigatus 0; Class Bermuda Grass 0; Class Birch 0/1; Class Cat Dander 0/1; Class Cladosporium herbarum 0; Class Cockroach 0/1; Class Common Ragweed 3; Class Cottonwood 0/1; Class Derm. pterony 2; Class Dermatophagoides farinae 2; Class Dog Dander 3; Class Elm 0; Class Maple Box Elder 1; Class Mountain Cedar 0; Class Mouse Urine Protein 0/1; Class Mugwort 0; Class Oak 0; Class Penicillium crysogenum 0; Class Rough Pigweed 0; Class Sheep Sorrel 0; Class Sycamore 0; Class Timothy Grass 0; Class Walnut Tree 0/1; Class White Ash 0; Class White Mulberry 0; D002 - IgE D farinae 1.14 kU/L; E001 - IgE Cat Dander 0.15 kU/L; E005 - IgE Dog Dander 5.04 kU/L; G006 - IgE Timothy Grass <0.10 kU/L; I006-IgE Cockroach, German 0.24 kU/L; M002 - IgE Cladosporium herbar <0.10 kU/L; M003 - IgE Aspergillus fumigat <0.10 kU/L; M006 - IgE Alternaria alternat <0.10 kU/L; T001 IgE Maple/Box Elder 0.41 kU/L; T006 - IgE Cedar, Mountain <0.10 kU/L; T007 - IgE Oak, White <0.10 kU/L; T008 IgE Elm, American <0.10 kU/L; T010 - IgE Walnut 0.16 kU/L; T011 - IgE Maple Leaf Sycamore <0.10 kU/L; T014 - IgE Cottonwood 0.13 kU/L; T015 - IgE Ash, White <0.10 kU/L; T070 - IgE White Mulberry <0.10 kU/L; W001 - IgE Ragweed, Short 6.96 kU/L; W006 - IgE Mugwort <0.10 kU/L; W014 IgE Pigweed, Common <0.10 kU/L; W018 IgE Sheep Sorrel <0.10 kU/L
== END 2025-05-11 10:22 | disposition home or self-care (01) ==
LOC: HO.LAB 10:21
PROVIDERS: PCP Physician Assistant; Visit Provider Physician Assistant
DX: R05.9 Cough, unspecified (principal); T78.40XS Allergy, unspecified, sequela
CPT/HCPCS: 36415; 82785; 86003

== ENCOUNTER 2025-05-17 09:56 | Outpatient (AMB) | payer OTHER, SELFPAY ==
--- NOTE | 2025-05-17 10:13 | A.OFFPC_ITS ---
Vital Signs 05/17/25 10:14 Height 5 ft 7 in Weight 184 lb BMI 28.8 BP 132/62 Blood Pressure Location Lt brachial Position Sitting Temp 97.3 F Temp Source Temporal Artery Scan Intake Visit Reasons: Discuss labs Intake Note: Patient is here to follow up on Discuss lab results. Permanent Waver Required: Yes Permanent Waver Language: Moss Gatherer Name: Kelley [id number] Information Interpreted: non-clinical & clinical Cash Office Worker: Not Required per policy Accompanied by: Self / Same As Patient Allergies animal dander (ANIMAL DANDER) Allergy (Intermediate, Verified 05/17/25 10:35) RASH RYE Allergy (Intermediate, Uncoded 05/17/25 10:35) RASH plants Allergy (Mild, Uncoded 05/17/25 10:35) Rash wheat, grains, rye Allergy (Mild, Uncoded 05/17/25 10:35) Rash Medication List - Last Reconciled 05/17/25 by Anthony Bueno PA-C buspirone 10 mg PO BEDTIME duloxetine 30 mg PO QPM gabapentin 100 mg PO BID 30 days hydroxyzine HCl 10 mg PO BID PRN ibuprofen 600 mg PO Q8H PRN levothyroxine 50 mcg PO DAILY@0600 loperamide 2 mg PO BID 30 days Held on 04/02/25. Instructions: Resume on 04/04/25. ondansetron 4 mg PO Q8H PRN propranolol 10 mg PO BID 90 days topiramate 50 mg PO DAILY topiramate 100 mg PO BEDTIME trazodone 50 mg PO DAILY PRN Tobacco use date assessed: 05/17/25 Dental Screening Dental Screen Date: 07/28/24 HPI Discuss labs HPI Details The patient is a 35-year-old female presenting to review lab results and address ongoing allergy symptoms. She has experienced sneezing, cough, and rhinorrhea for approximately two months, with ocular pruritus beginning today. She reports her symptoms are worse in her living room. The patient has tried [id number] Benadryl, but discontinued it due to side effects of somnolence and somniloquy. She notes sensitivity to perfumes, which also trigger her allergy symptoms. Recent allergy testing revealed high sensitivity to environmental allergens, including cat, dog dander, and common ragweed. Bloodwork showed elevated eosinophils, further indicating an allergic process. Her immunoglobulin E level was within the normal range at 102. Laboratory Tests 01/22/24 11/24/24 04/01/25 10:13 08:29 08:20 RBC 4.56 Hgb 13.5 Eos % (Auto) 1.5 TSH 3.71 Beta HCG, Quant < 2 D. farinae Allrgen IgE Common Ragweed All ergen Dog Dander Allerge n IgE 04/28/25 05/11/25 17:23 10:35 RBC Hgb Eos % (Auto) 11.4 H TSH Beta HCG, Quant D. farinae Allrgen IgE 1.14 H Common Ragweed All ergen 6.96 H Dog Dander Allerge n 5.04 H IgE 102 PFSH Medical History (Updated 05/17/25 @ 10:43 by Anthony Bueno PA-C) Pituitary microadenoma BMI 31.0-31.9,adult BMI 33.0-33.9,adult Obesity (BMI 30-39.9) Dysphagia Dysplasia of cervix, low grade (OMAR 1) Avulsion fracture of ankle Breast pain, left Left foot pain Obese Goiter Anxiety and depression Back pain Snoring IBS (irritable colon syndrome) Nasal congestion Cervical lymphadenopathy Vitamin D deficiency Lexi's disease Hypothyroidism Surgical History Status post laparoscopic cholecystectomy History of laparoscopic cholecystectomy (~04/01/25) H/O tubal ligation Hx of colonoscopy H/O foot surgery History of lumpectomy of left breast History of 2 sections Family History Father No problems noted. Mother HTN (hypertension) Diabetes Alzheimer dementia Maternal Grandmother Diabetes HTN (hypertension) Social History Household Members: Significant Other and Children Household Members Other:: 2 children--8 and 10 yr old Housing: House Housing Other:: stairs Do you presently have visiting nurse or other home services: No Alcohol intake: current Alcohol intake frequency: holidays/special occasions only Alcohol type: beer Patient Tobacco Use Status: Never used Tobacco Tobacco use type: Cigarette e-Cigarette/Vaping Use: Never Used Second Hand Smoke Exposure: No service: No Current occupational status: employed 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 Cognitive needs: No Hearing needs: No Vision needs: Yes Female Reproductive History Menstrual Age of Menarche: 14 Questionnaire Thrive Questionnaire Date Thrive assessed: 12/14/24 I am a: Patient What is your living situation today?: I have a steady place to live Within the past 12 months, did the food you bought not last and you didn't have the money to get more?: Sometimes True Within the past 12 months, did you worry whether your food would run out before you got money to buy more?: Sometimes True Do you have trouble paying for medicines?: No Do you have trouble getting transportation to medical appointments?: No Do you have trouble paying your heating and electricity bill?: No Do you have trouble taking care of your child, family member or friend?: No Do you have trouble with day-to-day activities such as bathing, preparing meals, shopping, managing finances, etc.?: No Are you currently unemployed and looking for a job?: Yes Are you interested in more education?: Yes Please select the resources that you would like help with: None Currently or been in a relationship where the following occur: No concerns reported THRIVE Score: 2 CAMMY-7 AMB Questionnaire CAMMY-7 Date CAMMY - 7 assessed: 07/28/24 Source: Developed by Drs. Bartolome Alonso, Shelia Mccallum, Tim Beaulieu and colleagues, with an educational celeste from [employer]. Review of Systems Const Denies headache(s) Eyes Details: + itchy eyes Reports itchy eyes and Denies loss of vision ENT Details: + itchy throat + SNEEZING Denies vertigo, Denies dizziness, Denies headache(s), Reports nasal discharge, Reports post nasal drip, Reports sinus pain, Reports sinus pressure and Denies sore throat Card Denies chest pain, Denies leg edema and Denies lightheadedness Resp Denies cough, Denies hemoptysis and Denies wheezing GI Denies abdominal pain, Denies melena, Denies constipation, Denies diarrhea and Denies vomiting Denies urinary frequency, Denies dysuria and Denies urinary urgency Musc Denies arthralgias, Denies joint swelling, Denies numbness and Denies tingling Neuro Denies Abnormal speech present, Denies behavioral changes, Denies vertigo, Denies dizziness, Denies headache(s), Denies loss of vision, Denies memory loss, Denies numbness and Denies tingling Psych Denies anxiety, Denies behavioral changes, Denies depression, Denies memory loss and Denies panic attacks Cruz/Lymph Denies easy bleeding and Denies easy bruising Aller/Immun Reports itchy eyes and Denies wheezing Physical exam (Primary Care) Vital Signs: Last Vital Signs Temp 97.3 F 05/17/25 10:14 BP 132/62 05/17/25 10:14 BMI result Body Mass Index 28.8 Tobacco/Smoking Status: Tobacco use Status Tobacco use date assessed 05/17/25 05/17/25 10:26 Patient Tobacco Use Status Never used Tobacco 05/17/25 10:26 Tobacco use type Cigarette 05/17/25 10:26 e-Cigarette/Vaping Use Never Used 05/17/25 10:26 Thrive Assessment: Date of Thrive Assessment Date Thrive assessed 12/14/24 05/17/25 10:26 Currently or been in a relationship where the following occur: No concerns reported Const General: healthy appearing, no acute distress, alert and awake Nutritional Appearance: well nourished Orientation/consciousness: oriented to person, oriented to place and oriented to time HENMT Ears: TM's normal bilaterally General nose exam: Normal nasal mucous membranes and turbinates present Eyes Conjunctivae: conjunctivae normal Sclerae: sclerae normal Pupils: Equal, round and reactive pupils present Neck Neck: Yes no lymphadenopathy and Yes no JVD Thyroid: Thyroid normal Carotids: no bruits Resp Effort & Inspection: normal respiratory effort and not tachypneic Auscultation: no crackles, no rales, no rhonchi and no wheezes Cardio Rate: regular rate Rhythm: regular rhythm Heart sounds: no murmurs and normal S1 and S2 GI Palpation (GI): Soft to palpation, nontender, no hepatomegaly and no splenomegaly Auscultation: normal bowel sounds Skin General skin exam: no rashes or lesions noted and dry skin Neuro General: oriented to person, oriented to place and oriented to time Cranial nerves: Yes Equal, round and reactive pupils present Speech: No Abnormal speech present Gait exam (Neuro): Normal gait present Motor exam (neuro): no tremor noted Extrem Right upper extremity: full ROM Left upper extremity: full ROM Right lower extremity: full ROM; no edema Left lower extremity: full ROM; no edema Psych Mental Status: mental status grossly normal Speech and movement: Normal speech and movement present Affect: normal affect Attitude: cooperative Thought process: Normal thought process present Coding Level of Care Code Est Pt Level 3 (74724) Diagnoses Allergic rhinitis due to animal hair and dander J. Allergic rhinitis trigger: animal hair and dander Assessment & Plan Assessment & Plan (1) Allergic rhinitis: Code(s): J30.9 - Allergic rhinitis, unspecified Category: Medical Qualifiers: Allergic rhinitis trigger: animal hair and dander Qualified Code(s): J30.81 - Allergic rhinitis due to animal (cat) (dog) hair and dander Plan: For management of allergic rhinitis and conjunctivitis, a daily non-drowsy allergy medication and a nasal spray to be used twice a day will be prescribed. Jpos-uzc-mwbtigi anti-allergy eye drops, such as Visine, were recommended for ocular pruritus. To address environmental triggers, the use of an air purifier in the bedroom was suggested. Guidance was provided on cleaning practices, advising wiping surfaces with bleach solution rather than spraying to minimize inhalation. A letter will be written for the patient's landlord documenting her severe allergies and the presence of cockroaches, with a recommendation for extermination. Medications: New montelukast 10 mg PO DAILY 30 tabs 1RF 30 days J - Allergic rhinitis due to animal (cat) (dog) hair and dander ipratropium bromide administer into each nostril 2 sprays intranasal BID 30 mL 1RF 4 weeks - Allergic rhinitis due to animal (cat) (dog) hair and dander
[2025-05-17 10:14] VITALS: BP 132/62; TEMP 36.3; BMI 28.8
== END 2025-05-17 16:38 | disposition home or self-care (01) ==
LOC: HO.HMCH 09:57
PROVIDERS: PCP Physician Assistant; Visit Provider Physician Assistant
DX: J30.81 Allergic rhinitis due to animal (cat) (dog) hair and dander (principal)

== ENCOUNTER → 2025-05-17 09:56 | Outpatient (BNVA) | payer OTHER, SELFPAY | PROVIDERS: PCP Physician Assistant; Visit Provider Physician Assistant | DX: J30.81 Allergic rhinitis due to animal (cat) (dog) hair and dander (principal) | CPT/HCPCS: 99212 ==

== ENCOUNTER 2025-05-30 11:13 | Outpatient (AMB) | payer OTHER, SELFPAY ==
--- NOTE | 2025-05-30 11:44 | MHC.AMNUTRGE ---
VS Expanded 05/30/25 11:45 Height 5 ft 7 in Weight 184 lb BMI 28.8 Intake Visit Reasons: obesity Allergies animal dander (ANIMAL DANDER) Allergy (Intermediate, Verified 05/17/25 10:35) RASH RYE Allergy (Intermediate, Uncoded 05/17/25 10:35) RASH plants Allergy (Mild, Uncoded 05/17/25 10:35) Rash wheat, grains, rye Allergy (Mild, Uncoded 05/17/25 10:35) Rash Nutrition Presentation Details: Patient presents for MNT follow-up for overweight Patient reports working on meal planning and trying to reduce on high fat foods. Keeping hydrated working on having 36-48 oz of foods per day and choosing low sugar foods BS Monitoring Most Recent Diabetes Results: Creatinine, (0.5-1.4) 0.72 mg/dL 04/28/25 BUN, (9-16) 10 mg/dL 04/28/25 Sodium, (135-145) 140 mmol/L 04/28/25 Potassium, (3.3-5.1) 3.7 mmol/L 04/28/25 Chloride, (96-108) 114 mmol/L H 04/28/25 Carbon Dioxide, (22-29) 20 mmol/L L 04/28/25 Calcium, (8.4-10.2) 8.9 mg/dL 04/28/25 AST, (5-31) 17 U/L 04/28/25 ALT, (0-31) 15 U/L 04/28/25 Total Protein, (6.5-8.0) 7.4 g/dL 04/28/25 Albumin, (3.5-5.0) 4.4 g/dL 04/28/25 [facility] Medical History (Updated 05/17/25 @ 10:43 by Anthony Bueno PA-C) Pituitary microadenoma BMI 31.0-31.9,adult BMI 33.0-33.9,adult Obesity (BMI 30-39.9) Dysphagia Dysplasia of cervix, low grade (OMAR 1) Avulsion fracture of ankle Breast pain, left Left foot pain Obese Goiter Anxiety and depression Back pain Snoring IBS (irritable colon syndrome) Nasal congestion Cervical lymphadenopathy Vitamin D deficiency Lexi's disease Hypothyroidism Surgical History Status post laparoscopic cholecystectomy History of laparoscopic cholecystectomy (~04/01/25) H/O tubal ligation Hx of colonoscopy H/O foot surgery History of lumpectomy of left breast History of 2 sections Family History Father No problems noted. Mother HTN (hypertension) Diabetes Alzheimer dementia Maternal Grandmother Diabetes HTN (hypertension) Social History Household Members: Significant Other and Children Household Members Other:: 2 children--8 and 10 yr old Housing: House Housing Other:: stairs Do you presently have visiting nurse or other home services: No Alcohol intake: current Alcohol intake frequency: holidays/special occasions only Alcohol type: beer Patient Tobacco Use Status: Never used Tobacco Tobacco use type: Cigarette e-Cigarette/Vaping Use: Never Used Second Hand Smoke Exposure: No service: No Current occupational status: employed 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 Cognitive needs: No Hearing needs: No Vision needs: Yes Female Reproductive History Menstrual Age of Menarche: 14 Assessment & Plan Assessment & Plan (1) Overweight (BMI 25.0-29.9): Code(s): E66.3 - Overweight Category: Medical Plan: current wt: 84 kg ( 04/23 ), 06/23 est kcal needs as per MSJ:1800 est protein needs as per 1 g/kg BW: 80 est fluid needs as per 30 ml/kg BW: 2500 Recommended fiber > 12 g /day and gradually increase up to 25-28 g /day or as tolerated Nutrition topics discussed : Reviewed (R), Pt verbalized understanding (V) , not applicable (N/A) R, V, : Healthy Plate Method Concept: R, : Carbohydrates: food sources of carbohydrates, relationship of carbohydrates to blood glucose, fatty liver GI health. Recommended total amount of carbohydrates per meals and snack. Differences between simple carbohydrates and complex carbohydrates R, : Lean protein foods including vegan , vegetarian sources of protein. Benefits of protein (including but not limited to healing, nutritional value , benefits in weight loss, glucose control R, V, N/A: Fats : Source of fats, benefits of fats. Difference between saturated and unsaturated fats. Saturated fats and its contribution to inflammation R, V, N/A: Fiber: food sources and role of fiber in the diet (including but not limited to its role as a prebiotic, benefits in constipation, role in IBS , role in glucose control and cholesterol level) R, V, N/A: Hydration: role of hydration and prevention of dehydration or over hydration. Foods and water content. R, V, N/A: Vitamins and Minerals in foods and supplements R, : Interpreting food labels, including serving size, macronutrients, vitamins, minerals, allergens, ingredient list , % daily value Patient Instructions: Continue meal planning, choose lean protein foods, Aim at including 60-80 g of protein per day and high-fiber foods Keep hydrated up to 10-14 cups of fluids per day, choose low sugar beverages, and low caffeine Coding Level of Care Code Nutr Indiv Intake (67824) Diagnoses Overweight (BMI 25.0-29.9) E66.3 Time Spent (min) 30
[2025-05-30 11:45] VITALS: BMI 28.8
--- OUTSIDE RECORDS SUMMARY | 2025-05-30 14:44 | XMS_ITS | Clinical Summary ---
Author Organization 175 [facility] Address [address] [place] [address] Phone Care Team Providers Care Official Court Interpreter Name Role Phone Anu Macias MD Primary Care Provider [phone] Allergies No known active allergies Medications busPIRone [...] EDT Consult Plastic & Reconstructive Surgery - [address] [address] Nara Bernard PA Skin laxity (Primary Dx) from Last 3 Months Surgical History Surgery Date Site/Laterality Comments OTHER SURGICAL HISTORY 05/03/2018 Right PROCEDURE: [place] CORRECTION [facility]; COMMENT: Dr. Wilburn Medical History Medical History Date Comments Anxiety and depression 10/29/2018 DX:Anxiet y and depression Chronic right-sided low back pain 10/29/2018 DX:Chronic right-sided low back pain Vitamin B12 deficiency 10/29/2018 DX:Vitami n B12 deficiency Chronic tension headache 10/29/2018 DX:[place] nick tension headache Iron deficiency anemia 10/29/2018 [...] PM EST Office Visit Bariatric Surgery - [address] [place] [address] Hira William MD [address] [place] [phone] Health Maintenance Due Date Last Done [...] patient's age to complete this topic Insurance [facility] [employer] Care Teams Official Court Interpreter Relationship Specialty Start Date End Date Anu Macias MD [address] [place] [address] Physician Associ D/B/A: [facility] [place] PCP - General Internal Medicine 11/26/24
--- OUTSIDE RECORDS SUMMARY | 2025-05-30 14:44 | XMS_ITS | Clinical Summary ---
Author Organization [employer] Address [address] [place] [address] [address] [place] [address] Care Team Providers Care Anesthesia Associate Name Role Phone Unavailable Primary Care Provider [...] (07/29/2019 9:30 AM EST) [facility] HIV AG/AB NONREACTIVE NR FOUNDATI ON LAB [...] of detection of this assay. The [employer] HIV Ag/Ab Combo assay result and supplemental assay results should be interpreted in conjunction with the patient's clinical presentation, history and other laboratory results. If the results are inconsistent with clinical evidence, additional testing is suggested to confirm the result. 07/29/2019 9:30 AM EST Doretha Craven CNM HISTORICAL/NON ORDERABLE LABS Final Result Performing Organization Address City/State/[facility] Co de Phone Number [facility] [address] from Last 3 Months or Most Recently Relevant to Health Maintenance [place] [address] [place] [address] ACO
== END 2025-05-30 15:13 | disposition home or self-care (01) ==
LOC: HO.ENCR 11:14
PROVIDERS: PCP Physician Assistant; Visit Provider Dietitian, Registered
DX: E66.3 Overweight (principal)

== ENCOUNTER → 2025-05-30 11:13 | Outpatient (BNVA) | payer OTHER, SELFPAY | PROVIDERS: PCP Physician Assistant; Visit Provider Dietitian, Registered | DX: E66.3 Overweight (principal); Z68.28 Body mass index [BMI] 28.0-28.9, adult; Z71.3 Dietary counseling and surveillance | CPT/HCPCS: 97802 ==

== ENCOUNTER 2025-06-06 07:35 | Outpatient (REF) | payer OTHER, SELFPAY ==
[2025-06-06 09:20] LABS: Hematocrit 41.9 % (37.0-47.0); Hemoglobin 13.6 g/dl (12.0-16.0); Mean Corpuscular HGB Conc 32.5 g/dl (31.0-35.0); Mean Corpuscular Hemoglobin 31.1 pg (27.0-33.0); Mean Corpuscular Volume 95.7 fL (80.0-98.0); NRBC Abs Auto 0.000 X10*3/uL (0.0-0.012); NRBC Pct Auto 0.0 /100WBC (0.0-0.2); Platelet Count 352 X10*3/uL (160-400); Red Blood Count 4.38 X10*6/uL (4.20-5.50); White Blood Count 5.4 X10*3/uL (4.8-10.8)
== END 2025-06-06 07:36 | disposition home or self-care (01) ==
LOC: HO.LAB 07:35
PROVIDERS: PCP Physician Assistant; Visit Provider Obstetrics & Gynecology
DX: N93.9 Abnormal uterine and vaginal bleeding, unspecified (principal); Z98.51 Tubal ligation status; Z32.02 Encounter for pregnancy test, result negative
CPT/HCPCS: 36415; 84443; 84702; 85027; 99212

== ENCOUNTER 2025-06-06 07:35 | Outpatient (AMB) | payer OTHER, SELFPAY ==
--- OUTSIDE RECORDS SUMMARY | 2025-06-06 07:40 | XMS_ITS | Clinical Summary ---
Author Organization 175 [facility] Address [address] [place] [address] Phone Care Team Providers Care Laboratory Animal Facility Supervisor Name Role Phone Anu Macias MD Primary Care Provider [phone] Allergies No known active allergies Medications busPIRone [...] EDT Consult Plastic & Reconstructive Surgery - [address] [address] Nara Bernard PA Skin laxity (Primary Dx) from Last 3 Months Surgical History Surgery Date Site/Laterality Comments OTHER SURGICAL HISTORY 05/03/2018 Right PROCEDURE: [place] CORRECTION [facility]; COMMENT: Dr. Wilburn Medical History Medical History Date Comments Anxiety and depression 10/29/2018 DX:Anxiet y and depression Chronic right-sided low back pain 10/29/2018 DX:Chronic right-sided low back pain Vitamin B12 deficiency 10/29/2018 DX:Vitami n B12 deficiency Chronic tension headache 10/29/2018 DX:[place] Hand nick tension headache Iron deficiency anemia 10/29/2018 [...] on file Sexual Orientation Not on file Last Filed Vital Signs Vital Sign Reading [...] PM EST Office Visit Bariatric Surgery - [address] [place] [address] Hira William MD [address] [place] [phone] Health Maintenance Due Date Last Done [...] patient's age to complete this topic Insurance [facility] Care Teams Laboratory Animal Facility Supervisor Relationship Specialty Start Date End Date Anu Macias MD [address] [place] [address] , [address] Physician Associ D/B/A: [facility] [place] PCP - General Internal Medicine 11/26/24
[2025-06-06 07:52] VITALS: BP 122/74; BMI 28.8
--- NOTE | 2025-06-06 07:52 | A.OFFVIS_ITS ---
Vital Signs 06/06/25 07:52 Height 5 ft 7 in Weight 184 lb BMI 28.8 BP 122/74 Intake Visit Reasons: Bleeding with IUD Test Administrator Required: Yes Test Administrator Language: Sole Dyer Services: Test Administrator Present (in person) Test Administrator Name: Karely CULVER Information Interpreted: non-clinical & clinical Accompanied by: Self / Same As Patient Allergies animal dander (ANIMAL DANDER) Allergy (Intermediate, Verified 06/06/25 08:04) RASH RYE Allergy (Intermediate, Uncoded 06/06/25 08:04) RASH plants Allergy (Mild, Uncoded 06/06/25 08:04) Rash wheat, grains, rye Allergy (Mild, Uncoded 06/06/25 08:04) Rash Is last menstrual period known: No (mirena) HPI Comments Details: Presenting complaining of irregular menstrual cycles on Mirena IUD over the last colpo weeks. Since IUD insertion in 11/21 the patient menstrual cycle has been regular with no complaints Last Co testing was in 01/20 ascus HPV negative followed by colpo biopsy which was negative, preceded by ascus HPV positive in 10/20 followed by colpo biopsy which was negative 11/21 IUD was removed in in new Mirena IUD reinserted for malpositioned Last EMB was in 01/21 showed the following: Endometrium, biopsy: Superficial strips of endocervical and squamous epithelium with degenerative changes, blood and mucoinflammatory material; no significant endometrial tissue present; no atypia seen. Comment: Recommend repeat sampling, as clinically appropriate. Recent H&H= 13.5/40.4, TSH hCG negative PFSH Medical History Pituitary microadenoma BMI 31.0-31.9,adult BMI 33.0-33.9,adult Obesity (BMI 30-39.9) Dysphagia Dysplasia of cervix, low grade (OMAR 1) Avulsion fracture of ankle Breast pain, left Left foot pain Obese Goiter Anxiety and depression Back pain Snoring IBS (irritable colon syndrome) Nasal congestion Cervical lymphadenopathy Vitamin D deficiency Lexi's disease Hypothyroidism Surgical History Status post laparoscopic cholecystectomy History of laparoscopic cholecystectomy (~04/01/25) H/O tubal ligation Hx of colonoscopy H/O foot surgery History of lumpectomy of left breast History of 2 sections Family History Father No problems noted. Mother HTN (hypertension) Diabetes Alzheimer dementia Maternal Grandmother Diabetes HTN (hypertension) Social History Household Members: Significant Other and Children Household Members Other:: 2 children--8 and 10 yr old Housing: House Housing Other:: stairs Do you presently have visiting nurse or other home services: No Alcohol intake: current Alcohol intake frequency: holidays/special occasions only Alcohol type: beer Patient Tobacco Use Status: Never used Tobacco Tobacco use type: Cigarette e-Cigarette/Vaping Use: Never Used Second Hand Smoke Exposure: No service: No Current occupational status: employed 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 Cognitive needs: No Hearing needs: No Vision needs: Yes Female Reproductive History Menstrual Age of Menarche: 14 Review of Systems Const All systems reviewed & are unremarkable except as noted in HPI and below Card Reports as per HPI Resp Reports as per HPI GI Reports as per HPI and Reports no additional complaints Reports as per HPI Physical Exam Vital Signs: Last Vital Signs BP 122/74 06/06/25 07:52 BMI result Body Mass Index 28.8 Const General: cooperative, healthy appearing and comfortable Chest Chest palpation & inspection: normal inspection of the chest and normal palpation of entire chest wall Breast/axilla inspection: normal inspection of the breasts and normal inspection of the axillae Breast/axilla palpation: normal palpation of the breasts, normal palpation of the axillae and no axillary lymphadenopathy Resp Effort & Inspection: normal respiratory effort Auscultation: clear to auscultation bilaterally Percussion: percussion normal Cardio Palpation: normal PMI Rate: regular rate Rhythm: regular rhythm Heart sounds: no murmurs and no rubs Peripheral pulses: Peripheral pulses 2+ throughout GI Inspection: Yes normal to inspection Palpation (GI): Soft to palpation, nontender, no guarding, not rigid and No hepatosplenomegaly present Percussion: Yes normal to percussion Auscultation: normal bowel sounds Rectal Exam - Female: deferred General: Yes bladder normal to palpation External Female Exam: No lesion Speculum Exam - Vagina: normal appearance of the vagina, normal palpation, normal vaginal discharge and not erythematous Speculum Exam - Cervix: normal appearance of the cervix, normal palpation and Other cervical findings present (IUD string in place) Bimanual exam- vagina & uterus: normal bimanual exam, normal palpation, uterine size normal, bladder normal to palpation, consistency normal and normal palpation Bimanual Exam- Adnexa, other: normal adnexae, no masses and no tenderness Assessment & Plan Assessment & Plan (1) Abnormal uterine bleeding (AUB): Comment: With Mirena IUD Code(s): N93.9 - Abnormal uterine and vaginal bleeding, unspecified Category: Medical Plan: Co testing done, GC and chlamydia taken CBC, TSH, HCG, and pelvic ultrasound ordered. Discussed with the patient the different causes of abnormal bleeding including thyroid disorders, uterine and ovarian pathology, endometrial hyperplasia, carcinoma and other potential causes. Discussed with the patient the work up including CBC (to r/o anemia), TSH, pelvic Ultrasound, endometrial biopsy to r/o endometrial pathology. All questions answered and the patient verbalized understanding. Instructed the patient to schedule an appointment for an endometrial biopsy in 2 weeks. Orders: Orders Complete Blood Count no Diff Today N93.9 - Abnormal uterine and vaginal bleeding, unspecified TSH reflex Free T4 Today N93.9 - Abnormal uterine and vaginal bleeding, unspecified HCG Quantitative Today N93.9 - Abnormal uterine and vaginal bleeding, unspecified US pelvic and transvaginal Today N93.9 - Abnormal uterine and vaginal bleeding, unspecified Coding Level of Care Code Est Pt Level 3 (40825) Diagnoses Abnormal uterine bleeding (AUB) N93.9
== END 2025-06-06 08:32 | disposition home or self-care (01) ==
LOC: HO.HWS 07:35
PROVIDERS: PCP Physician Assistant; Visit Provider Obstetrics & Gynecology
DX: N93.9 Abnormal uterine and vaginal bleeding, unspecified (principal)
CPT/HCPCS: 99213

== ENCOUNTER 2025-06-06 10:25 | Outpatient (REF) | payer OTHER, SELFPAY ==
[2025-06-06 23:44] LABS: CT PCR NOT DETECTED (Not Detect.); NG PCR NOT DETECTED (Not Detect.)
== END 2025-06-06 10:26 | disposition home or self-care (01) ==
LOC: HO.LNP 10:25
PROVIDERS: Visit Provider Obstetrics & Gynecology
DX: Z11.51 Encounter for screening for human papillomavirus (HPV) (principal); Z20.2 Contact with and (suspected) exposure to infections with a predominantly sexual mode of transmission; N87.0 Mild cervical dysplasia; N93.9 Abnormal uterine and vaginal bleeding, unspecified
CPT/HCPCS: 87491; 87591; 87626; 88175

== ENCOUNTER 2025-06-06 13:25 | Outpatient (REF) | payer OTHER, SELFPAY ==
--- NOTE | ~2025-06-06 | US_ITS ---
EXAMINATION: US PELVIS CLINICAL INFORMATION: N93.9 - Abnormal uterine and vaginal bleeding, unspecified, prior and tubal ligation COMPARISON: November 26, 2024 TECHNIQUE: Ultrasound of the pelvis is performed using both transabdominal and transvaginal transducers along with Doppler. Transvaginal imaging is performed due to inadequate visualization transabdominally. FINDINGS: Uterus: The uterus is anteverted and measures 8.6 x 4.0 x 4.7 cm. There is trace fluid in the endocervical canal. There appears to be a nodular area projecting into the canal measuring 10 x 4 x 8 mm. Trace blood flow shown on color Doppler. The double wall endometrial thickness is 7 mm. Again seen is trace fluid within the endometrial canal. On the prior study, T-shaped IUD was demonstrated in the lower uterine canal. On the current study, it appears to be in the upper uterine canal. The uterus is smooth in contour and has normal myometrial echogenicity. No visible fibroid. Adnexa: Both ovaries are visualized. There is normal color flow to the adnexa. There is no ovarian torsion. There is no pelvic ascites or fluid collection. Right ovary measures 3.1 x 1.6 x 2.0 cm. Dominant follicle Left ovary measures 2.0 x 2.3 x 1.7 cm. US/US pelvic and transvaginal IMPRESSION: Possible polyp projecting into the endocervical canal measuring 10 x 4 x 8 mm. There is a small volume of fluid in the endocervical and endometrial canal. IUD has been repositioned. It is now in the upper uterine canal. Electronically signed by: Daniel Rudolph MD 06/06/2025 03:31 PM FRANK GONSALES
--- OUTSIDE RECORDS SUMMARY | 2025-06-06 22:10 | XMS_ITS | Encounter Summary ---
Author Organization [facility] Prior to 04/30/[address] [place] [address] Care Team Providers Care Lead Web Developer Name Role Phone Community, Pcp Primary Care Provider Unavailabl e Encounter Details Date Type Department Care Team Description 08/12/2018 Transfer Records Medical Records [address] [place] [id number] Marshall Wilburn II Social History Tobacco Use Types Packs/Day Years Used Date Smoking Tobacco: Never Assessed Sex Assigned at Date Recorded Not on file documented as of this encounter Plan of Treatment Not on file documented as of this encounter Visit Diagnoses Not on filedocumented in this encounter Care Teams Lead Web Developer Relationship Specialty Start Date End Date Community, Pcp PCP - General Internal Medicine 07/27/18 documented as of this encounter
--- OUTSIDE RECORDS SUMMARY | 2025-06-06 22:10 | XMS_ITS | Clinical Summary ---
Author Organization 175 [facility] Address [address] [place] [address] Phone Care Team Providers Care Deputy District Customs Director Name Role Phone Anu Macias MD Primary Care Provider [phone] Allergies No known active allergies Medications busPIRone [...] EDT Consult Plastic & Reconstructive Surgery - [address] [address] Nara Bernard PA Skin laxity (Primary Dx) from Last 3 Months Surgical History Surgery Date Site/Laterality Comments OTHER SURGICAL HISTORY 05/03/2018 Right PROCEDURE: [place] CORRECTION [facility]; COMMENT: Dr. Wilburn Medical History Medical History Date Comments Anxiety and depression 10/29/2018 DX:Anxiet y and depression Chronic right-sided low back pain 10/29/2018 DX:Chronic right-sided low back pain Vitamin B12 deficiency 10/29/2018 DX:Vitami n B12 deficiency Chronic tension headache 10/29/2018 DX:Hand Pleater nick tension headache Iron deficiency anemia 10/29/2018 [...] PM EST Office Visit Bariatric Surgery - [address] [place] [address] Hira William MD [address] [place] [phone] Health Maintenance Due Date Last Done [...] patient's age to complete this topic Insurance [facility] Care Teams Deputy District Customs Director Relationship Specialty Start Date End Date Anu Macias MD [address] [place] [address] , [address] Physician Associ D/B/A: [facility] [place] PCP - General Internal Medicine 11/26/24
== END 2025-06-06 13:26 | disposition home or self-care (01) ==
LOC: HO.US 13:25
PROVIDERS: PCP Physician Assistant; Visit Provider Obstetrics & Gynecology
DX: N93.9 Abnormal uterine and vaginal bleeding, unspecified (principal)
CPT/HCPCS: 76830; 76856

== ENCOUNTER → 2025-06-06 13:28 | Outpatient (BNV) | payer OTHER, SELFPAY | PROVIDERS: PCP Physician Assistant; Visit Provider Radiology Diagnostic Radiology | DX: N93.9 Abnormal uterine and vaginal bleeding, unspecified (principal); Z97.5 Presence of (intrauterine) contraceptive device | CPT/HCPCS: 76830; 76856 ==

== ENCOUNTER 2025-06-13 10:46 | Emergency (ER) | payer OTHER, SELFPAY ==
[2025-06-13 11:46] VITALS: BP 116/63; PULSE 79; RESP 16; TEMP 36.6; BMI 28.8
--- NOTE | 2025-06-13 11:50 | ED_ITS ---
HPI - General Adult General Chief complaint: Upper Respiratory Symptoms Stated complaint: flu symtoms Time Seen by Provider: 06/13/25 12:41 Source: patient, old records reviewed and pick up attendant Mode of arrival: ambulatory Limitations: no limitations History of Present Illness ED Provider: TIMA GANNON narrative: 35-year-old female with past history of hypothyroidism who was exposed to flu by both her son and partner. She states she started with a day of malaise, runny nose, diarrhea. She states she has the same symptoms as them. She denies any fevers, chest pain, trouble breathing. She came in to get tested for the flu. MD complaint: flu exposure Onset (ago): day(s) (1) Radiation: non-radiation Severity: mild Quality: aching Pain Consistency: intermittent Relieving factors: none Exacerbating factors: movement Associated symptoms: loss of appetite and malaise Treatments prior to arrival: none Related Data Home Medications ?Medication ?Instructions ?Recorded ?Confirmed buspirone 5 mg tablet 10 mg PO BEDTIME anxiety 09/2105/17/25 duloxetine 30 mg capsule,delayed 30 mg PO QPM 04/01/25 05/17/25 release hydroxyzine HCl 10 mg tablet 10 mg PO BID PRN Anxiety 04/01/25 05/17/25 levothyroxine 50 mcg tablet 50 mcg PO DAILY@0600 04/0105/17/25 topiramate 50 mg tablet 100 mg PO BEDTIME 04/01/25 1 07/17/24 trazodone 50 mg tablet 50 mg PO DAILY PRN Sleep 09/2105/17/25 Previous Rx's ?Medication ?Instructions ?Recorded propranolol 10 mg tablet 10 mg PO BID 90 days #180 ta bs 03/15/25 gabapentin 100 mg capsule 100 mg PO BID 30 days #60 ca ps 03/28/25 ibuprofen 600 mg tablet 600 mg PO Q8H PRN pain #10 t abs 03/28/25 loperamide 2 mg capsule 2 mg PO BID loose stool 30 d ays 03/28/25 Held on 04/02/25. #60 caps Instructions: Resume on 04/04/25. ondansetron 4 mg disintegrating 4 mg PO Q8H PRN nausea and 04/01/25 tablet vomiting #20 tabs ipratropium bromide 21 mcg (0.03 2 spray intranasal BI D 4 weeks #30 05/17/25 %) nasal spray mL montelukast 10 mg tablet 10 mg PO DAILY #60 tabs 08/24 Allergies Allergy/AdvReac Type Severity Reaction Status Date / Time animal dander (ANIMAL DANDER) Allergy Intermediate RASH Verified 06/13/25 11:51 RYE Allergy Intermediate RASH Uncoded 06/13/25 11:51 plants Allergy Mild Rash Uncoded 06/13/25 11:51 wheat, grains, rye Allergy Mild Rash Uncoded 06/13/25 11:51 Review of Systems Review of Systems: Yes all other systems are reviewed and are negative [facility] Past Medical History Attestation statement: The following information was validated with the patient. Source: old records reviewed Medical History Pituitary microadenoma BMI 31.0-31.9,adult BMI 33.0-33.9,adult Obesity (BMI 30-39.9) Dysphagia Dysplasia of cervix, low grade (OMAR 1) Avulsion fracture of ankle Breast pain, left Left foot pain Obese Goiter Anxiety and depression Back pain Snoring IBS (irritable colon syndrome) Nasal congestion Cervical lymphadenopathy Vitamin D deficiency Lexi's disease Hypothyroidism Surgical History Status post laparoscopic cholecystectomy History of laparoscopic cholecystectomy (~04/01/25) H/O tubal ligation Hx of colonoscopy H/O foot surgery History of lumpectomy of left breast History of 2 sections Family History Family History Father No problems noted. Mother HTN (hypertension) Diabetes Alzheimer dementia Maternal Grandmother Diabetes HTN (hypertension) Social History Social History Household Members: Significant Other and Children Household Members Other:: 2 children--8 and 10 yr old Housing: House Housing Other:: stairs Do you presently have visiting nurse or other home services: No Alcohol intake: current Alcohol intake frequency: holidays/special occasions only Alcohol type: beer Patient Tobacco Use Status: Never used Tobacco Tobacco use type: Cigarette e-Cigarette/Vaping Use: Never Used Second Hand Smoke Exposure: No Advance Directives: No Advance Directives Information Provided: No service: No Current occupational status: employed 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 Oriented X3. No acute distress. Eyes: Pupils equal, round and reactive to light. ENT: Pharynx normal. Neck: Normal inspection. Neck supple. CVS: Normal heart rate and rhythm. Pulses normal. Respiratory: No respiratory distress. Breath sounds normal. Abdomen: Soft and nontender. Skin: Skin warm and dry. Normal skin color. Extremities: No lower extremity edema. Neuro: Oriented X 3. No motor deficit. No sensory deficit. Course Course Course Narrative: Rapid medical examination performed in triage by Mary Dahl PA-C: Patient is a 35 year old female presenting to the emergency department with body aches. Patient states that she is having body aches and her partner is influenza positive. Detailed physical exam and review of systems are deferred to the residential plumber. Swabs ordered. Patient placed back in the waiting room pending room availability and results. Medical Decision Making Medical Decision Making [facility] Narrative: 35-year-old female no significant past medical history other than hypothyroidism here with complaint of viral like illness after exposure to family members with flu A. She is otherwise well appearing not toxic. I am going to obtain viral panel. She does not have significant past medical history where I would give her prophylaxis. She will be given precautions for return. Differential Diagnosis Differential Diagnoses: The differential diagnosis associated with the presentation includes Bowel syndrome, influenza Admission/Observation Consideration of admission/observation: Escalation of care including admissi on/observation considered Nontoxic well-appearing stable vital signs to be managed as an outpatient Lab Data [facility] Lab Attestation statement: I reviewed the patient's lab results. Labs: Lab Results 06/13/25 Range/Units 11:55 Influenza Type A (PCR) NEGATIVE (Negative) Influenza Type B (PCR) NEGATIVE (Negative) RSV RNA Qual (PCR) NEGATIVE (Negative) SARS-CoV-2 RNA (RT-PCR) NEGATIVE (Negative) External Record Review External record reviewed: Outpatient record Prescription Management I considered prescription management with: Antiviral Discharge Plan Discharge Clinical Impression: Viral infection Patient Disposition: Home, Self-Care Instructions: Viral Syndrome (ED) Additional Instructions: Rest and stay hydrated Alternate Tylenol and Motrin as needed for pain Return for any worsening symptoms or concerns such as trouble breathing or chest pain. Your COVID flu swabs were negative given her symptoms and does some acute possibly have flu. Take care of yourself. Prescriptions: No Action propranolol 10 mg tablet 10 mg PO BID 90 Days Qty: 180 1RF montelukast 10 mg tablet 10 mg PO DAILY Qty: 60 1RF ondansetron 4 mg tablet,disintegrating 4 mg PO Q8H PRN (Reason: nausea and vomiting) Qty: 20 0RF buspirone 5 mg tablet 10 mg PO BEDTIME trazodone 50 mg tablet 50 mg PO DAILY PRN (Reason: Sleep) hydroxyzine HCl 10 mg tablet 10 mg PO BID PRN (Reason: Anxiety) topiramate 50 mg tablet 100 mg PO BEDTIME Rx Instructions: TAKE 1 TABLET BY MOUTH EVERY DAY IN THE MORNING and TAKE 2 TABLETS BY MOUTH EVERY DAY AT BEDTIME duloxetine 30 mg capsule,delayed release(DR/EC) 30 mg PO QPM levothyroxine 50 mcg tablet 50 mcg PO DAILY@0600 Mirena 21 mcg/24hr (up to 8 yrs) 52 mg intrauterine device 1 device intrauterine ONCE Qty: 1 0RF gabapentin 100 mg capsule 100 mg PO BID 30 Days Qty: 60 3RF ibuprofen 600 mg tablet 600 mg PO Q8H PRN (Reason: pain) Qty: 10 0RF loperamide 2 mg capsule 2 mg PO BID 30 Days Qty: 60 3RF ipratropium bromide 21 mcg (0.03 %) spray,non-aerosol 2 spray intranasal BID 28 Days Qty: 30 1RF Rx Instructions: administer into each nostril Print Language: Chinese
[2025-06-13 12:38] LABS: Resp Syncy Virus RNA Qual PCR NEGATIVE (Negative); SARS COV2 PCR INHOUSE NEGATIVE (Negative)
== END 2025-06-13 13:05 | disposition home or self-care (01) ==
PROVIDERS: Physician Assistant Medical; Emergency Provider Emergency Medicine; PCP Physician Assistant
DX: B34.9 Viral infection, unspecified (principal); R09.89 Other specified symptoms and signs involving the circulatory and respiratory systems; R19.7 Diarrhea, unspecified; Z03.818 Encounter for observation for suspected exposure to other biological agents ruled out
CPT/HCPCS: 87637; 99281; 99283

== ENCOUNTER 2025-06-14 10:03 | Outpatient (REF) | payer OTHER, SELFPAY | END 2025-06-14 10:04 | disposition home or self-care (01) | LOC: HO.LNP 10:03 | PROVIDERS: PCP Physician Assistant; Visit Provider Obstetrics & Gynecology | DX: R87.610 Atypical squamous cells of undetermined significance on cytologic smear of cervix (ASC-US) (principal); N93.9 Abnormal uterine and vaginal bleeding, unspecified | CPT/HCPCS: 88305 ==

== ENCOUNTER 2025-06-14 10:03 | Outpatient (AMB) | payer OTHER, SELFPAY ==
[2025-06-14 10:18] VITALS: BP 118/74; BMI 28.5
--- NOTE | 2025-06-14 10:18 | A.OFFVIS_ITS ---
Vital Signs 06/14/25 10:18 Height 5 ft 7 in Weight 182 lb BMI 28.5 BP 118/74 Intake Visit Reasons: U/s Follow up/ Pre-up?? Presto Log Operator Required: Yes Presto Log Operator Language: Economic Development Coordinator Services: Presto Log Operator Present (in person) Presto Log Operator Name: Karely CULVER Information Interpreted: non-clinical & clinical Accompanied by: Self / Same As Patient Allergies animal dander (ANIMAL DANDER) Allergy (Intermediate, Verified 06/14/25 10:21) RASH RYE Allergy (Intermediate, Uncoded 06/14/25 10:21) RASH plants Allergy (Mild, Uncoded 06/14/25 10:21) Rash wheat, grains, rye Allergy (Mild, Uncoded 06/14/25 10:21) Rash Is last menstrual period known: No (mirena) HPI Comments Details: Presenting for follow-up. 06/06 pelvic ultrasound showed the following: IMPRESSION: Possible polyp projecting into the endocervical canal measuring 10 x 4 x 8 mm. There is a small volume of fluid in the endocervical and endometrial canal. IUD has been repositioned. It is now in the upper uterine canal. H&H 13.6/41.9 TSH, hCG negative GC/CT was negative Co testing in 06/07/2025 = ascus/HPV negative 01/06/2025 EMB pathology showed the following: Endometrium, biopsy: Superficial strips of endocervical and squamous epithelium with degenerative changes, blood and mucoinflammatory material; no significant endometrial tissue present; no atypia seen. Comment: Recommend repeat sampling, as clinically appropriate [facility] Medical History Pituitary microadenoma BMI 31.0-31.9,adult BMI 33.0-33.9,adult Obesity (BMI 30-39.9) Dysphagia Dysplasia of cervix, low grade (OMAR 1) Avulsion fracture of ankle Breast pain, left Left foot pain Obese Goiter Anxiety and depression Back pain Snoring IBS (irritable colon syndrome) Nasal congestion Cervical lymphadenopathy Vitamin D deficiency Lexi's disease Hypothyroidism Surgical History Status post laparoscopic cholecystectomy History of laparoscopic cholecystectomy (~04/01/25) H/O tubal ligation Hx of colonoscopy H/O foot surgery History of lumpectomy of left breast History of 2 sections Family History Father No problems noted. Mother HTN (hypertension) Diabetes Alzheimer dementia Maternal Grandmother Diabetes HTN (hypertension) Social History Household Members: Significant Other and Children Household Members Other:: 2 children--8 and 10 yr old Housing: House Housing Other:: stairs Do you presently have visiting nurse or other home services: No Alcohol intake: current Alcohol intake frequency: holidays/special occasions only Alcohol type: beer Patient Tobacco Use Status: Never used Tobacco Tobacco use type: Cigarette e-Cigarette/Vaping Use: Never Used Second Hand Smoke Exposure: No service: No Current occupational status: unemployed 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 We thoroughly discussed the procedure itself, including its details, alternatives, and all associated risks. This included but not limited to the following complications such as bleeding, infection, and injury to the vagina, bladder, and vessels, as well as the potential need for transfusion with all its associated risks. Subsequently, the patient sign the consent. Pap smear result: Ascus/HPV negative Urine test in office = Negative Procedure: During the procedure, the following steps were performed: A speculum was inserted, and acetic acid was applied. Colposcopy was conducted, allowing visualization of the transformation zone. Acetowhite lesions were identified at the 7+ 11+ 3 o'clock position. Cervical biopsies were obtained from the 7+ 11+ 3 o'clock position, followed by an endocervical curettage (ECC). Vaginoscopy of the upper vagina revealed no evidence of aceto-white lesions. Hemostasis was achieved using Monsel solution, and the patient tolerated the procedure well. Post-Procedure Instructions: The patient was advised to promptly contact the office or the after hours answering service or go to the emergency room if experiencing a temperature exceeding 100.4?F, abdominal pain, nausea/vomiting, or bleeding. Additionally, the patient was instructed to abstain from vaginal intercourse and bathtub use. The patient confirmed understanding of these instructions. Discharge Instructions: The patient was instructed to schedule a follow-up appointment in 2 weeks for further evaluation and management. Please note that this note was generated using a voice recognition program, and errors may have occurred during order packer or packager. [id number] of cervix including upper vagina with biopsy and ECC Procedure code (CPT) selection complete Assessment & Plan Assessment & Plan (1) ASCUS of cervix with negative high risk HPV: Code(s): R87.610 - Atypical squamous cells of undetermined significance on cytologic smear of cervix (ASC-US) Category: Medical Plan: Discussed with the patient the result of her abnormal pap, its significance, risk of progression, persistence, and regression. the false positive/negative rate of a Pap smear as a screening test in detecting cervical cancer and the indication for a diagnostic test -colposcopy, biopsy, endocervical curettage. The patient verbalized understanding and agreed with the plan, all questions answered. Colposcopy, biopsy /ECC done, see procedure note (2) Abnormal uterine bleeding (AUB): Comment: With Mirena IUD Endocervical polyp by ultrasound Code(s): N93.9 - Abnormal uterine and vaginal bleeding, unspecified Category: Medical Plan: Discussed with the patient the results of ultrasound showing endocervical polyp, recommended hysteroscopy D&C polypectomy possible myomectomy with IUD removal and reinsertion. Will proceed with colpo biopsy ECC and schedule a preop visit within 2 weeks. Orders: Orders AMB Colposcopy Today R87.610 - Atypical squamous cells of undetermined significance on cytologic smear of cervix (ASC-US) Coding Level of Care Code Est Pt Level 3 (51517) Procedure Only Diagnoses ASCUS of cervix with negative high risk HPV R87.610 Abnormal uterine bleeding (AUB) N93.9 CPT Codes Colposcopy - CPT: 47969-[id number] of cervix including upper vagina with biopsy and ECC ([id number])
--- OUTSIDE RECORDS SUMMARY | 2025-06-14 12:23 | XMS_ITS | Clinical Summary ---
Author Organization [address] [facility] Address [address] [place] [address] Phone Care Team Providers Care Power Systems Engineer Name Role Phone Anu Macias MD Primary Care Provider [phone] Allergies No known active allergies Medications busPIRone [...] EDT Consult Plastic & Reconstructive Surgery - [address] [address] Nara Bernard PA Skin laxity (Primary Dx) from Last 3 Months Surgical History Surgery Date Site/Laterality Comments OTHER SURGICAL HISTORY 05/03/2018 Right PROCEDURE: [place] CORRECTION [facility]AMMERT[place]; COMMENT: Dr. Wilburn Medical History Medical History Date Comments Anxiety and depression 10/29/2018 DX:Anxiet y and depression Chronic right-sided low back pain 10/29/2018 DX:Chronic right-sided low back pain Vitamin B12 deficiency 10/29/2018 DX:Vitami n B12 deficiency Chronic tension headache 10/29/2018 DX:Multigraph Operator nick tension headache Iron deficiency anemia 10/29/2018 [...] PM EST Office Visit Bariatric Surgery - [address] [place] [address] Hira William MD [address] [place] [phone] Health Maintenance Due Date Last Done [...] patient's age to complete this topic Insurance [place] [address] Care Teams Power Systems Engineer Relationship Specialty Start Date End Date Anu Macias MD [address] [place] [address] , [address] Physician Associ D/B/A: Xvaier Bryantatijulio cesar In Internal Medicine [place] PCP - General Internal Medicine 11/26/24
--- OUTSIDE RECORDS SUMMARY | 2025-06-14 12:23 | XMS_ITS | Encounter Summary ---
Author Organization [employer] Address [address] [facility] [address]t [place] [address] Care Team Providers Care Miller Kiln Dried Salt Name Role Phone Unavailable Primary Care Provider Unavailabl e Encounter Details Date Type Department Care Team (Latest Contact Info) Description 06/13/2025 Travel Social History Tobacco Use Types Packs/Day Years Used Date Smoking Tobacco: Never Smokeless Tobacco: Never Comments Unknown Sex and Gender Information Value Date Recorded Sex Assigned at Female 04/29/2022 10:30 AM EDT Legal Sex Female 10:30 AM EDT Gender Identity Female 04/29/2022 10:30 AM EDT Sexual Orientation Choose not to disclose 2021 10:30 AM EDT documented as of this encounter Plan of Treatment Not on file documented as of this encounter Visit Diagnoses Not on filedocumented in this encounter
--- OUTSIDE RECORDS SUMMARY | 2025-06-14 12:23 | XMS_ITS | Clinical Summary ---
Author Organization [employer] Address [address] [place] [address] 7t [place] [address] Care Team Providers Care Box Toe Maker Name Role Phone Unavailable Primary Care [...] Encounters Date Type Department Care Team Description 06/13/2025 Travel from Last 3 Months Immunizations Immunization Administration [...] * HIV AB/AG (07/29/2019 9:30 AM EST) [facility] HIV AG/AB NONREACTIVE NR FOUNDATI ON LAB [...] of detection of this assay. [facility] Armhole Sewer HIV Ag/Ab Combo assay result and supplemental assay results should be interpreted in conjunction with the patient's clinical presentation, history and other laboratory results. If the results are inconsistent with clinical evidence, additional testing is suggested to confirm the result. 07/29/2019 9:30 AM EST us Doretha Craven CNM HISTORICAL/NON ORDERABLE LABS Final Result [facility] Critical access hospital Anywhere [address] from Last 3 Months or Most Recently Relevant to Health Maintenance Insurance [facility] [address]
== END 2025-06-14 13:07 | disposition home or self-care (01) ==
LOC: HO.HWS 10:04
PROVIDERS: PCP Physician Assistant; Visit Provider Obstetrics & Gynecology
DX: R87.610 Atypical squamous cells of undetermined significance on cytologic smear of cervix (ASC-US) (principal); N93.9 Abnormal uterine and vaginal bleeding, unspecified; Z32.02 Encounter for pregnancy test, result negative
CPT/HCPCS: 57454; 99213

== ENCOUNTER 2025-06-20 10:37 | Outpatient (REF) | payer OTHER, SELFPAY | END 2025-06-20 10:38 | disposition home or self-care (01) | LOC: HO.LAB 10:37 | PROVIDERS: PCP Physician Assistant; Visit Provider Internal Medicine | DX: K52.9 Noninfective gastroenteritis and colitis, unspecified (principal); R15.9 Full incontinence of feces; K59.02 Outlet dysfunction constipation | CPT/HCPCS: 36415; 82784 ==

== ENCOUNTER 2025-06-20 10:37 | Outpatient (AMB) | payer OTHER, SELFPAY ==
[2025-06-20 10:38] VITALS: BP 107/59; PULSE 81; BMI 28.7
--- NOTE | 2025-06-20 10:38 | MHC.OFFVIS ---
Vital Signs 06/20/25 10:38 Height 5 ft 7 in Weight 182 lb 15.739 oz BMI 28.7 BP 107/59 L Blood Pressure Location Lt brachial Position Sitting Pulse 81 Intake Visit Reasons: Disease of anus and rectum, Intake Note: Bijan presents in the office as a new patient for disease or anus and rectum. CC: states that she has lots of diarrhea. She had a surgery on her gall bladder recently. She states she gets pains in the stomach afterwards. Shipping Clerk/Admin Required: Yes Allergies animal dander (ANIMAL DANDER) Allergy (Intermediate, Verified 06/14/25 10:21) RASH RYE Allergy (Intermediate, Uncoded 06/14/25 10:21) RASH plants Allergy (Mild, Uncoded 06/14/25 10:21) Rash wheat, grains, rye Allergy (Mild, Uncoded 06/14/25 10:21) Rash HPI Comments Details: The patient is a 35-year-old female presenting for evaluation of chronic diarrhea and fecal incontinence. She has a long history of diarrheal stools and cannot recall the last time she had a solid stool. Her symptoms of diarrhea worsened and became more liquid after her cholecystectomy and while using weight loss injections. The patient reports having two to three watery bowel movements per day and has experienced episodes of fecal incontinence. Night time sx +. Symptoms cause significant anxiety, limiting her social activities. She experiences abdominal cramping two to three times a week that is relieved with defecation and reports relief from gas after passing it. She denies any blood in her stool. Anette Murillo and Dr Parsons pt. Her prior workup includes a colonoscopy in 2019 which was neg for colitis and microscopic colitis. Other testing neg for celiac, panc insufficiency, hyperthyroidism. She was previously diagnosed with Irritable Bowel Syndrome (IBS) and was prescribed a medication that was not effective. She reports some relief with Imodium. Her family history is negative for colon cancer, Crohn's disease, and ulcerative colitis. She is currently working with a instructional interventionist and reports eating a clean diet. --- Pt was informed and consented to the use of ambient scribe for this encounter. --- Results [facility] Medical History Pituitary microadenoma BMI 31.0-31.9,adult BMI 33.0-33.9,adult Obesity (BMI 30-39.9) Dysphagia Dysplasia of cervix, low grade (OMAR 1) Avulsion fracture of ankle Breast pain, left Left foot pain Obese Goiter Anxiety and depression Back pain Snoring IBS (irritable colon syndrome) Nasal congestion Cervical lymphadenopathy Vitamin D deficiency Lexi's disease Hypothyroidism Surgical History Status post laparoscopic cholecystectomy History of laparoscopic cholecystectomy (~04/01/25) H/O tubal ligation Hx of colonoscopy H/O foot surgery History of lumpectomy of left breast History of 2 sections Family History Father No problems noted. Mother HTN (hypertension) Diabetes Alzheimer dementia Maternal Grandmother Diabetes HTN (hypertension) Social History Household Members: Significant Other and Children Household Members Other:: 2 children--8 and 10 yr old Housing: House Housing Other:: stairs Do you presently have visiting nurse or other home services: No Alcohol intake: current Alcohol intake frequency: holidays/special occasions only Alcohol type: beer Patient Tobacco Use Status: Never used Tobacco Tobacco use type: Cigarette e-Cigarette/Vaping Use: Never Used Second Hand Smoke Exposure: No service: No Current occupational status: unemployed 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 - Reports fecal incontinence. - Reports nocturnal bowel movements 2-3 times per week. - Reports abdominal cramping 2-3 times per week, which is relieved by defecation. - Reports gas, which improves with passage. - Denies blood in her stool. - Denies daily abdominal pain. - Psychiatric: Reports anxiety about her bowel symptoms, which interferes with her ability to go out in public. Physical Exam Exam Exam: No apparent distress Nonicteric Abdomen soft, nondistended Alert and oriented x3, normal gait Nataliia jain MA present as contract project manager - Rectal: An external anal tag is present upon inspection. - Digital rectal exam reveals good voluntary squeeze pressure. Paradoxical contraction of the anal sphincter muscles was noted when the patient was asked to bear down. Vital Signs: Last Vital Signs Pulse 81 06/20/25 10:38 BP 107/59 L 06/20/25 10:38 BMI result Body Mass Index 28.7 Assessment & Plan Assessment & Plan (1) Chronic diarrhea: Code(s): K52.9 - Noninfective gastroenteritis and colitis, unspecified Category: Medical (2) Fecal incontinence: Code(s): R15.9 - Full incontinence of feces Category: Medical (3) Dyssynergic defecation: Code(s): K59.02 - Outlet dysfunction constipation Category: Medical Plan 1. Irritable Bowel Syndrome with Diarrhea (IBS-D) 2. Fecal Incontinence 3 Suspected Dyssynergic Defecation The patient's presentation of chronic watery diarrhea, abdominal cramping relieved by defecation is consistent with IBS-D. Her symptoms may be exacerbated by her post-cholecystectomy state. Fecal incontinence is relatively new however. Rectal exam also suspicious for dyssynergic defecation. Plan: - Labs and fecal calpro as below - Discussed a breath test to rule out small intestinal bacterial overgrowth, pt would like to hold off until these test results are back. - XR defecography - Recommend adding a fiber supplement to the diet to increase stool bulk. - The patient can continue to use Imodium for symptom control but should avoid it before stool collection and the planned defecography Follow up 2 months Orders: Orders XR defecography Today R15.9 - Full incontinence of feces Calprotectin, Fecal Today K52.9 - Noninfective gastroenteritis and colitis, unspecified, R15.9 - Full incontinence of feces Immunoglobulins,IgG IgA IgM Today K52.9 - Noninfective gastroenteritis and colitis, unspecified, R15.9 - Full incontinence of feces Coding Level of Care Code New Pt Level 5 (73862) Add On Problem Visit Only Diagnoses Chronic diarrhea K52.9 Fecal incontinence R15.9 Dyssynergic defecation K59.02
--- OUTSIDE RECORDS SUMMARY | 2025-06-20 13:05 | XMS_ITS | Clinical Summary ---
Author Organization [employer] Address [address] [place] [address] 7t [place] [address] Care Team Providers Care Principal Systems Engineer Name Role Phone Unavailable Primary Care Provider [...] * HIV AB/AG (07/29/2019 9:30 AM EST) [facility] HIV AG/AB NONREACTIVE NR FOUNDATI ON [...] of detection of this assay. [facility] W[facility] Driller HIV Ag/Ab Combo assay result and supplemental assay results should be interpreted in conjunction with the patient's clinical presentation, history and other laboratory results. If the results are inconsistent with clinical evidence, additional testing is suggested to confirm the result. 07/29/2019 9:30 AM EST us Doretha Craven CNM HISTORICAL/NON ORDERABLE LABS Final Result [facility] Anywhere [address] from Last 3 Months or Most Recently Relevant to Health Maintenance Insurance [facility] [place] [address]
--- OUTSIDE RECORDS SUMMARY | 2025-06-20 13:05 | XMS_ITS | Clinical Summary ---
Author Organization [address] [facility] Address [address] [place] [address] Phone Care Team Providers Care Police Patrol Officer Name Role Phone Anu Macias MD Primary Care Provider [phone] Allergies No known active allergies Medications busPIRone [...] EDT Consult Plastic & Reconstructive Surgery - [address] [address] Nara Bernard PA Skin laxity (Primary Dx) from Last 3 Months Surgical History Surgery Date Site/Laterality Comments OTHER SURGICAL HISTORY 05/03/2018 Right PROCEDURE: [place] CORRECTION [facility]; COMMENT: Dr. Wilburn Medical History Medical History Date Comments Anxiety and depression 10/29/2018 DX:Anxiet y and depression Chronic right-sided low back pain 10/29/2018 DX:Chronic right-sided low back pain Vitamin B12 deficiency 10/29/2018 DX:Vitami n B12 deficiency Chronic tension headache 10/29/2018 DX:Dog And Cat Food Cook nick tension headache Iron deficiency anemia 10/29/2018 [...] EST Office Visit Bariatric Surgery - [address] [place] [address] Hira William MD [address] [place] [phone] Health Maintenance Due Date Last Done [...] to complete this topic Insurance [facility] Care Teams Police Patrol Officer Relationship Specialty Start Date End Date Anu Macias MD [address] [place] [address] , [address] Physician Associ D/B/A: Xavier Bryantatijulio cesar In Internal Medicine [place] PCP - General Internal Medicine 11/26/24
== END 2025-06-20 11:26 | disposition home or self-care (01) ==
LOC: HO.HGI 10:38
PROVIDERS: PCP Physician Assistant; Visit Provider Internal Medicine
DX: K52.9 Noninfective gastroenteritis and colitis, unspecified (principal); R15.9 Full incontinence of feces; K59.02 Outlet dysfunction constipation
CPT/HCPCS: 99204

== ENCOUNTER 2025-06-21 09:17 | Outpatient (REF) | payer OTHER, SELFPAY ==
--- OUTSIDE RECORDS SUMMARY | 2025-06-21 10:02 | XMS_ITS | Clinical Summary ---
Author Organization [employer] Address [address] [place] [address] 7t [place] [address] Care Team Providers Care Tumbler Operator Name Role Phone Unavailable Primary Care [...] * HIV AB/AG (07/29/2019 9:30 AM EST) [facility] HIV AG/AB NONREACTIVE NR FOUNDATI ON [...] of detection of this assay. [facility] Phlebotomist HIV Ag/Ab Combo assay result and supplemental assay results should be interpreted in conjunction with the patient's clinical presentation, history and other laboratory results. If the results are inconsistent with clinical evidence, additional testing is suggested to confirm the result. 07/29/2019 9:30 AM EST us Doretha Craven CNM HISTORICAL/NON ORDERABLE LABS Final Result [facility] Anywhere [address] from Last 3 Months or Most Recently Relevant to Health Maintenance Insurance [facility] [place] [address]
--- OUTSIDE RECORDS SUMMARY | 2025-06-21 10:02 | XMS_ITS | Clinical Summary ---
Author Organization [address] [facility] Address [address] [place] [address] Phone Care Team Providers Care Medication Administration Professional Name Role Phone Anu Macias MD Primary Care Provider Allergies No known active allergies Medications busPIRone [...] EDT Consult Plastic & Reconstructive Surgery - [address] [address] Nara Bernard PA Skin laxity [...] n B12 deficiency Chronic tension headache 10/29/2018 DX:Fruit Peeler nick tension headache Iron deficiency anemia 10/29/2018 [...] PM EST Office Visit Bariatric Surgery - [address] [place] [address] Hira William MD [address] [place] [phone] Health Maintenance Due Date Last Done [...] patient's age to complete this topic Insurance [facility] [place] [address] Care Teams Medication Administration Professional Relationship Specialty Start Date End Date Anu Macias MD [address] [place] [address] , [address] Physician Associ D/B/A: Xavier Bryantatijulio cesar In Internal Medicine [place] PCP - General Internal Medicine 11/26/24
== END 2025-06-21 09:18 | disposition home or self-care (01) ==
LOC: HO.LNP 09:17
PROVIDERS: Visit Provider Internal Medicine
DX: K52.9 Noninfective gastroenteritis and colitis, unspecified (principal); R15.9 Full incontinence of feces
CPT/HCPCS: 83993

== ENCOUNTER 2025-06-28 09:54 | Outpatient (AMB) | payer OTHER, SELFPAY ==
--- NOTE | 2025-06-28 10:15 | A.OFFPC_ITS ---
Vital Signs 06/28/25 10:17 Height 5 ft 7 in Weight 186 lb BMI 29.1 BP 112/62 Blood Pressure Location Lt brachial Position Sitting Temp 97.1 F Temp Source Temporal Artery Scan Intake Visit Reasons: f/u Weight check in Intake Note: Patient is here to follow up on Weight check. Cork Compounder Required: Yes Cork Compounder Language: Copper Roller Handler Printing Name: Nataliia [id number] Information Interpreted: non-clinical & clinical Flight Line Service Attendant: Not Required per policy Accompanied by: Self / Same As Patient Allergies animal dander (ANIMAL DANDER) Allergy (Intermediate, Verified 06/28/25 10:46) RASH RYE Allergy (Intermediate, Uncoded 06/28/25 10:46) RASH plants Allergy (Mild, Uncoded 06/28/25 10:46) Rash wheat, grains, rye Allergy (Mild, Uncoded 06/28/25 10:46) Rash Medication List - Last Reconciled 06/28/25 by Anthony Bueno PA-C bupropion HCl XL 150 mg PO DAILY buspirone 10 mg PO BEDTIME duloxetine 30 mg PO QPM gabapentin 100 mg PO BID 30 days hydroxyzine HCl 10 mg PO BID PRN ibuprofen 600 mg PO Q8H PRN ipratropium bromide 2 sprays intranasal BID 4 weeks levothyroxine 50 mcg PO DAILY@0600 loperamide 2 mg PO BID 30 days Held on 04/02/25. Instructions: Resume on 04/04/25. montelukast 10 mg PO DAILY ondansetron 4 mg PO Q8H PRN propranolol 10 mg PO BID 90 days topiramate 100 mg PO BID trazodone 50 mg PO DAILY PRN Tobacco use date assessed: 06/28/25 Dental Screening Dental Screen Date: 07/28/24 HPI f/u Weight check in HPI Details The patient is a 35 year old female presenting for a follow-up on her chronic diarrhea. She was seen by a egg tester who ordered lab work and a stool test, which she completed. The stool test results were negative for inflammatory markers, ruling out conditions like Crohn's disease or colitis. The egg tester suggested a diagnosis of irritable bowel syndrome with diarrhea (IBS-D). The patient reports that Imodium (loperamide) is no longer effective for her symptoms. Immunology labs were also performed, with one unspecified immunoglobulin level returning slightly high, though the significance is unknown. A special X-ray of the lower GI tract was ordered, but she has not completed it as she is unsure of the location. The patient also reports new onset pain in her neck and shoulders. She believes the pain may be related to her breasts becoming ptotic and loose after weight loss following her gallbladder surgery. She has tried ibuprofen and Tylenol with minimal relief and performs mild exercises at home. Additionally, she reports a blister in her mouth, and denies any recent intake of hot food that could have caused it. [facility] Medical History Pituitary microadenoma BMI 31.0-31.9,adult BMI 33.0-33.9,adult Obesity (BMI 30-39.9) Dysphagia Dysplasia of cervix, low grade (OMAR 1) Avulsion fracture of ankle Breast pain, left Left foot pain Obese Goiter Anxiety and depression Back pain Snoring IBS (irritable colon syndrome) Nasal congestion Cervical lymphadenopathy Vitamin D deficiency Lexi's disease Hypothyroidism Surgical History Status post laparoscopic cholecystectomy History of laparoscopic cholecystectomy (~04/01/25) H/O tubal ligation Hx of colonoscopy H/O foot surgery History of lumpectomy of left breast History of 2 sections Family History Father No problems noted. Mother HTN (hypertension) Diabetes Alzheimer dementia Maternal Grandmother Diabetes HTN (hypertension) Social History Household Members: Significant Other and Children Household Members Other:: 2 children--8 and 10 yr old Housing: House Housing Other:: stairs Do you presently have visiting nurse or other home services: No Alcohol intake: current Alcohol intake frequency: holidays/special occasions only Alcohol type: beer Patient Tobacco Use Status: Never used Tobacco Tobacco use type: Cigarette e-Cigarette/Vaping Use: Never Used Second Hand Smoke Exposure: No service: No Current occupational status: unemployed 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 Cognitive needs: No Hearing needs: No Vision needs: Yes Female Reproductive History Menstrual Age of Menarche: 14 Questionnaire Thrive Questionnaire Date Thrive assessed: 12/14/24 I am a: Patient What is your living situation today?: I have a steady place to live Within the past 12 months, did the food you bought not last and you didn't have the money to get more?: Sometimes True Within the past 12 months, did you worry whether your food would run out before you got money to buy more?: Sometimes True Do you have trouble paying for medicines?: No Do you have trouble getting transportation to medical appointments?: No Do you have trouble paying your heating and electricity bill?: No Do you have trouble taking care of your child, family member or friend?: No Do you have trouble with day-to-day activities such as bathing, preparing meals, shopping, managing finances, etc.?: No Are you currently unemployed and looking for a job?: Yes Are you interested in more education?: Yes Currently or been in a relationship where the following occur: No concerns reported THRIVE Score: 2 CAMMY-7 AMB Questionnaire CAMMY-7 Date CAMMY - 7 assessed: 07/28/24 Source: Developed by Drs. Bartolome Alonso, Shelia Mccallum, Tim Beaulieu and colleagues, with an educational celeste from [employer]. Review of Systems Const Denies headache(s) Eyes Denies loss of vision ENT Denies vertigo, Denies dizziness, Denies headache(s), Reports neck pain and Denies sore throat Card Denies chest pain, Denies leg edema and Denies lightheadedness Resp Denies cough, Denies hemoptysis and Denies wheezing GI Denies abdominal pain, Denies melena, Denies constipation, Reports diarrhea, Reports loose stools and Denies vomiting Denies urinary frequency, Denies dysuria and Denies urinary urgency Musc Details: + bilateral shoulder pain Reports arthralgias, Denies joint swelling, Reports neck pain, Denies numbness and Denies tingling Neuro Denies Abnormal speech present, Denies behavioral changes, Denies vertigo, De nies dizziness, Denies headache(s), Denies loss of vision, Denies memory loss, Denies numbness and Denies tingling Psych Denies anxiety, Denies behavioral changes, Denies depression, Denies memory loss and Denies panic attacks Cruz/Lymph Denies easy bleeding and Denies easy bruising Aller/Immun Denies wheezing Physical exam (Primary Care) Vital Signs: Last Vital Signs Temp 97.1 F 06/28/25 10:17 BP 112/62 06/28/25 10:17 BMI result Body Mass Index 29.1 Tobacco/Smoking Status: Tobacco use Status Tobacco use date assessed 06/28/25 06/28/25 10:30 Patient Tobacco Use Status Never used Tobacco 06/28/25 10:30 Tobacco use type Cigarette 06/28/25 10:30 e-Cigarette/Vaping Use Never Used 06/28/25 10:30 Thrive Assessment: Date of Thrive Assessment Date Thrive assessed 12/14/24 06/28/25 10:30 Currently or been in a relationship where the following occur: No concerns reported Const General: healthy appearing, no acute distress, alert and awake Nutritional Appearance: well nourished Orientation/consciousness: oriented to person, oriented to place and oriented to time HENMT Ears: TM's normal bilaterally General nose exam: Normal nasal mucous membranes and turbinates present Eyes Conjunctivae: conjunctivae normal Sclerae: sclerae normal Pupils: Equal, round and reactive pupils present Neck Neck: Yes no lymphadenopathy and Yes no JVD Thyroid: Thyroid normal Carotids: no bruits Chest Other: [place]OM[place] Resp Effort & Inspection: normal respiratory effort and not tachypneic Auscultation: no crackles, no rales, no rhonchi and no wheezes Cardio Rate: regular rate Rhythm: regular rhythm Heart sounds: no murmurs and normal S1 and S2 GI Palpation (GI): Soft to palpation, nontender, no hepatomegaly and no splenomegaly Auscultation: normal bowel sounds Skin General skin exam: no rashes or lesions noted and dry skin Neuro General: oriented to person, oriented to place and oriented to time Cranial nerves: Yes Equal, round and reactive pupils present Speech: No Abnormal speech present Gait exam (Neuro): Normal gait present Motor exam (neuro): no tremor noted Extrem Right upper extremity: full ROM Left upper extremity: full ROM Right lower extremity: full ROM; no edema Left lower extremity: full ROM; no edema Psych Mental Status: mental status grossly normal Speech and movement: Normal speech and movement present Affect: normal affect Attitude: cooperative Thought process: Normal thought process present Coding Level of Care Code Est Pt Level 4 (69657) Diagnoses Irritable bowel syndrome with diarrhea K58.0 Chronic pain of both shoulders M25.511; M25.512; G89.29 Chronicity: chronic Cervical spine pain M54.2 Large breasts N62 Canker sores oral K12.0 Assessment & Plan Assessment & Plan (1) Irritable bowel syndrome with diarrhea: Code(s): K58.0 - Irritable bowel syndrome with diarrhea Category: Medical Plan: For the patient's chronic diarrhea, consistent with irritable bowel syndrome with diarrhea (IBS-D), a trial of hyoscyamine will be initiated to help slow bowel motility and reduce cramping. She was also advised to start [id number] Metamucil to help bulk the stool. A message will be sent to the egg tester to clarify the location for the pending special lower GI tract X-ray. (2) Bilateral shoulder pain: Code(s): M25.511 - Pain in right shoulder; M25.512 - Pain in left shoulder Category: Medical Qualifiers: Chronicity: chronic Qualified Code(s): M25.511 - Pain in right s houlder; M25.512 - Pain in left shoulder; G89.29 - Other chronic pain Plan: Will send for x-rays of bilateral shoulders to eval for any early onset arthritis. (3) Cervical spine pain: Code(s): M54.2 - Cervicalgia Category: Medical Plan: Will send for x-rays to [facility] for for any early onset neck arthritis. (4) Large breasts: Code(s): N62 - Hypertrophy of breast Category: Medical Plan: Patient reports her breasts have become more shaggy and she attributes this to her recent weight loss and what may be causing her shoulder and neck pain. She has been wearing sports bras which has been more supportive though continues to have neck and shoulder pains. She is interested in seeing a plastic surgeon about a possible breast reduction surgery. BMI TODAY AT 29.1 (5) Canker sores oral: Code(s): K12.0 - Recurrent oral aphthae Category: Medical Plan: Advised on rarc-tbg-[id number] Orajel for what appears to be an aphthous ulcer Orders: Orders XR Shoulder Neptali min 2V 06/28/25 G89.29 - Other chronic pain, M25.511 - Pain in right shoulder, M25.512 - Pain in left shoulder XR cervical spine 3V 06/28/25 M54.2 - Cervicalgia Referrals Plastic Surgery Referral N62 - Hypertrophy of breast Medications: New hyoscyamine sulfate 0.125 mg PO QID 56 tabs 0RF 14 days K59.02 - Outlet dysfunction constipation cyclobenzaprine 5 mg PO BID PRN 14 tabs 0RF muscle spasm 7 days M54.2 - C ervicalgia
[2025-06-28 10:17] VITALS: BP 112/62; TEMP 36.2; BMI 29.1
--- OUTSIDE RECORDS SUMMARY | 2025-06-28 12:54 | XMS_ITS | Clinical Summary ---
Author Organization [address] [facility] Address [address] [place] [address] Phone Care Team Providers Care Logging Shovel Operator Name Role Phone Anu Macias MD Primary Care Provider [phone] Allergies No known active allergies Medications busPIRone [...] EDT Consult Plastic & Reconstructive Surgery - [address] [address] Nara Bernard PA Skin laxity (Primary Dx) from Last 3 Months Surgical History Surgery Date Site/Laterality Comments OTHER SURGICAL HISTORY 05/03/2018 Right PROCEDURE: [place] [facility]; COMMENT: Dr. 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
--- OUTSIDE RECORDS SUMMARY | 2025-06-28 12:54 | XMS_ITS | Clinical Summary ---
Author Organization [employer] Address [address] [place] [address] [address] [place] [address] Care Team Providers Care Ventilation Equipment Tender Name Role Phone Unavailable Primary Care Provider [...] * HIV AB/AG (07/29/2019 9:30 AM EST) [facility] HIV AG/AB NONREACTIVE NR FOUNDATI ON [...] of detection of this assay. [employer] [facility] [employer]ator [employer] HIV Ag/Ab Combo assay result and supplemental assay results should be interpreted in conjunction with the patient's clinical presentation, history and other laboratory results. If the results are inconsistent with clinical evidence, additional testing is suggested to confirm the result. 07/29/2019 9:30 AM EST us Doretha Craven CNM HISTORICAL/NON ORDERABLE LABS Final Result [facility] Anywhere [address] from Last 3 Months or Most Recently Relevant to Health Maintenance Insurance [place] [address]
== END 2025-06-28 11:43 | disposition home or self-care (01) ==
LOC: HO.HMCH 09:55
PROVIDERS: PCP Physician Assistant; Visit Provider Physician Assistant
DX: K58.0 Irritable bowel syndrome with diarrhea (principal); M25.511 Pain in right shoulder; M25.512 Pain in left shoulder; G89.29 Other chronic pain; M54.2 Cervicalgia; N62 Hypertrophy of breast; K12.0 Recurrent oral aphthae

== ENCOUNTER → 2025-06-28 09:54 | Outpatient (BNVA) | payer OTHER, SELFPAY | PROVIDERS: PCP Physician Assistant; Visit Provider Physician Assistant | DX: K58.0 Irritable bowel syndrome with diarrhea (principal); M25.511 Pain in right shoulder; M25.512 Pain in left shoulder; G89.29 Other chronic pain; M54.2 Cervicalgia; N62 Hypertrophy of breast; K12.0 Recurrent oral aphthae | CPT/HCPCS: 99212 ==

== ENCOUNTER 2025-06-29 08:50 | Outpatient (AMB) | payer OTHER, SELFPAY ==
--- OUTSIDE RECORDS SUMMARY | 2025-06-29 09:00 | XMS_ITS | Clinical Summary ---
Author Organization 175 [facility] Address [address] [place] [address] Phone Care Team Providers Care Manager Hematology Name Role Phone Anu Macias MD Primary Care Provider [phone] Allergies No known active allergies Medications busPIRone [...] Consult Plastic & Reconstructive Surgery - [address] [address] Nara Bernard PA Skin laxity (Primary Dx) from Last 3 Months Surgical History Surgery Date Site/Laterality Comments OTHER SURGICAL HISTORY 05/03/2018 Right PROCEDURE: [place] CORRECTION [facility]; COMMENT: Dr. 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
--- OUTSIDE RECORDS SUMMARY | 2025-06-29 09:00 | XMS_ITS | Clinical Summary ---
Author Organization [facility] Address [address] [place] [address] 7[address] [place] [address] Care Team Providers Care Business Development Consultant Name Role Phone Unavailable Primary Care Provider [...] * HIV AB/AG (07/29/2019 9:30 AM EST) [facility] HIV AG/AB NONREACTIVE NR FOUNDATI ON [...] of detection of this assay. [facility] [employer] HIV Ag/Ab Combo assay result and supplemental assay results should be interpreted in conjunction with the patient's clinical presentation, history and other laboratory results. If the results are inconsistent with clinical evidence, additional testing is suggested to confirm the result. 07/29/2019 9:30 AM EST us Doretha Craven CNM HISTORICAL/NON ORDERABLE LABS Final Result [facility] Anywhere [address] from Last 3 Months or Most Recently Relevant to Health Maintenance Insurance [facility] [place] [address] , [place] [address]
--- NOTE | 2025-06-29 09:07 | A.OFFVIS_ITS ---
Vital Signs 06/29/25 09:09 Height 5 ft 7 in Weight 186 lb BMI 29.1 BP 108/66 Intake Visit Reasons: EMB results/ ? pre op Needle Valve Operator Required: Yes Needle Valve Operator Language: Software Applications Developer Services: Needle Valve Operator Present (in person) Needle Valve Operator Name: Karely Quinn PALOMO Information Interpreted: non-clinical & clinical Barbering Teacher: Barbering Teacher Present Accompanied by: Son Allergies animal dander (ANIMAL DANDER) Allergy (Intermediate, Verified 06/29/25 09:19) RASH RYE Allergy (Intermediate, Uncoded 06/29/25 09:19) RASH plants Allergy (Mild, Uncoded 06/29/25 09:19) Rash wheat, grains, rye Allergy (Mild, Uncoded 06/29/25 09:19) Rash Is last menstrual period known: Yes Last menstrual period: 04/27/20 Post menopausal: No Patient : No Do you need a note to return to daycare/school/sports/work: Yes (for surgery on friday) HPI Comments Details: Presenting post colpo for follow-up. The patient is doing well with no complaints. The pathology showed the following: A. Endocervix, curettage: Superficial fragments of mildly inflamed endocervical and squamous mucosa with reactive changes; mucoinflammatory material; no atypia identified. B. Cervix, 3 o'clock, biopsy: Squamous mucosa within normal limits; no endocervical epithelium identified; no atypia identified. C. Cervix, 7 o'clock, biopsy: Mildly inflamed squamous mucosa with reactive changes; no endocervical epithelium identified; no atypia identified. D. Cervix, 11 o'clock, biopsy: Squamous mucosa within normal limits; no endocervical epithelium identified; no atypia identified. COMMENT: The findings are concordant with the patient's recent Pap/cytology specimen ([id number]; ASCUS with negative HPV) - slide reviewed 06/23 pelvic ultrasound showed the following: IMPRESSION: Possible polyp projecting into the endocervical canal measuring 10 x 4 x 8 mm. There is a small volume of fluid in the endocervical and endometrial canal. IUD has been repositioned. It is now in the upper uterine canal. [facility] Medical History Pituitary microadenoma BMI 31.0-31.9,adult BMI 33.0-33.9,adult Obesity (BMI 30-39.9) Dysphagia Dysplasia of cervix, low grade (OMAR 1) Avulsion fracture of ankle Breast pain, left Left foot pain Obese Goiter Anxiety and depression Back pain Snoring IBS (irritable colon syndrome) Nasal congestion Cervical lymphadenopathy Vitamin D deficiency Lexi's disease Hypothyroidism Surgical History Status post laparoscopic cholecystectomy History of laparoscopic cholecystectomy (~04/01/25) H/O tubal ligation Hx of colonoscopy H/O foot surgery History of lumpectomy of left breast History of 2 sections Family History Father No problems noted. Mother HTN (hypertension) Diabetes Alzheimer dementia Maternal Grandmother Diabetes HTN (hypertension) Social History Household Members: Significant Other and Children Household Members Other:: 2 children--8 and 10 yr old Housing: House Housing Other:: stairs Do you presently have visiting nurse or other home services: No Alcohol intake: current Alcohol intake frequency: holidays/special occasions only Alcohol type: beer Patient Tobacco Use Status: Never used Tobacco Tobacco use type: Cigarette e-Cigarette/Vaping Use: Never Used Second Hand Smoke Exposure: No service: No Current occupational status: unemployed 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 Cognitive needs: No Hearing needs: No Vision needs: Yes Female Reproductive History Menstrual Age of Menarche: 14 Date of last menstrual period: 04/27/20 Total pregnancies: 2 Full term: 2 Review of Systems Card Reports as per HPI and Reports no additional complaints Resp Reports as per HPI and Reports no additional complaints GI Reports as per HPI and Reports no additional complaints Reports as per HPI Physical Exam Vital Signs: Last Vital Signs BP 108/66 06/29/25 09:09 BMI result Body Mass Index 29.1 Const General: cooperative, healthy appearing and comfortable Resp Effort & Inspection: normal respiratory effort Auscultation: clear to auscultation bilaterally Percussion: percussion normal Cardio Palpation: normal PMI Rate: regular rate Rhythm: regular rhythm Heart sounds: no murmurs and no rubs Peripheral pulses: Peripheral pulses 2+ throughout GI Inspection: Yes normal to inspection Palpation (GI): Soft to palpation, nontender, no guarding, not rigid and No hepatosplenomegaly present Percussion: Yes normal to percussion Auscultation: normal bowel sounds Rectal Exam - Female: deferred Assessment & Plan Assessment & Plan (1) ASCUS of cervix with negative high risk HPV: Code(s): R87.610 - Atypical squamous cells of undetermined significance on cytologic smear of cervix (ASC-US) Category: Medical Plan: Discussed with the patient the pathology results of the colposcopy biopsies & endocervical curettage . Discussed with the patient the sensitivity specificity, positive and negative predictive value in detecting cervical cancer in addition discussed the regression, persistence and progression rates. Recommended co-testing in 12 months, if cytology and or HPV are abnormal will proceed was colposcopy biopsy and endocervical curettage, if lesions gets worse or stays persistent for 2 years will proceed with loop electric excision procedure. Instructions given to the patient to schedule a co test appointment in 1 year. All questions answered the patient verbalized understanding. (2) Endocervical polyp: Comment: By ultrasound Code(s): N84.1 - Polyp of cervix uteri Category: Medical Plan: Discussed with the patient the finding on ultrasound showing possible endocervix polyp, recommended hysteroscopy D&C possible polypectomy/myomectomy with Mirena IUD removal and reinsertion Discussed with the patient the procedure , all benefits and risks including but not limited to inability to complete the procedure , insufficient endometrial tissue for a complete evaluation of the endometrial cavity , bleeding, infection, possible need for blood transfusion with all its risk ( HIV,syphilis, Hepatitis, anaphylaxis shock, others..), injury to bladder, rectum, possible need for laparoscopy/laparotomy or hysterectomy. The patient verbalized understanding and signed the consent. Instructions given the patient to stay NPO after midnight the day prior to the procedure and to take only the specific medication (s) discussed the morning of the surgical procedure and to schedule a 2 week postoperative appointment Coding Level of Care Code Est Pt Level 3 (26537) Diagnoses ASCUS of cervix with negative high risk HPV R87.610 Endocervical polyp N84.1
[2025-06-29 09:09] VITALS: BP 108/66; BMI 29.1
== END 2025-06-29 09:50 | disposition home or self-care (01) ==
LOC: HO.HWS 08:52
PROVIDERS: PCP Physician Assistant; Visit Provider Obstetrics & Gynecology
DX: R87.610 Atypical squamous cells of undetermined significance on cytologic smear of cervix (ASC-US) (principal); N84.1 Polyp of cervix uteri
CPT/HCPCS: 99213

== ENCOUNTER → 2025-06-29 08:50 | Outpatient (BNVA) | payer OTHER, SELFPAY | PROVIDERS: PCP Physician Assistant; Visit Provider Obstetrics & Gynecology | DX: R87.610 Atypical squamous cells of undetermined significance on cytologic smear of cervix (ASC-US) (principal); N84.1 Polyp of cervix uteri; Z98.51 Tubal ligation status | CPT/HCPCS: 99212 ==